=== PATIENT | female | born 1930 | race Caucasian/White ===

== ENCOUNTER 2018-01-23 20:34 | Emergency (ER) | payer MEDICARE, BC ==
[2018-01-23 21:11] VITALS: RESP 18
[2018-01-23] MEDS ORDERED: ACETAMINOPHEN TAB 325 MG TAB PO STA (21:53)
[2018-01-23] MEDS ORDERED: DIPH,PERTUS(ACELL)TETVAC-LF 0.5 ML VIAL IM ONE (21:55)
--- NOTE | 2018-01-23 22:12 | ED ---
Fall HPI - General Chief Complaint: Fall Stated Complaint: fall/hit head Time Seen by Provider: 01/23/18 21:30 Source: patient Mode of arrival: ambulatory - History of Present Illness Initial Comments: 87 years old female lives with her daughter she was in the kitchen making appearing of her jelly sandwich she fell she on her way down and she hit her head against a hard object now she has a hematoma on the left side of the scalp and also hurt her left upper arm she denies any loss of consciousness no neck pain no chest pain she was not dizzy prior to the fall which is an accident and review of system otherwise is unremarkable her daughter witnessed the fall she was just sitting few feet sensory - Related Data Allergies Allergy/AdvReac Type Severity Reaction Status Date / Time nitrofurantoin Allergy Unknown Verified 01/23/18 21:11 [From Macrobid] Penicillins Allergy Unknown Verified 01/23/18 21:11 sulfamethoxazole Allergy Unknown Verified 01/23/18 21:11 [From Bactrim] trimethoprim [From Bactrim] Allergy Unknown Verified 01/23/18 21:11 Review of Systems ROS Statement: Those systems with pertinent positive or pertinent negative responses have been documented in the HPI. ROS Other: All systems not noted in ROS Statement are negative. Past Medical History Past Medical History: GERD/Reflux, Hypertension Additional Past Medical History / Comment(s): UTI History of Any Multi-Drug Resistant Organisms: C-DIFF Date of last positivie culture/infection: 2011 MDRO Source:: stool Past Surgical History: Appendectomy, Hysterectomy Past Psychological History: No Psychological Hx Reported Smoking Status: Never smoker Past Alcohol Use History: None Reported Past Drug Use History: None Reported General Exam - General Exam Comments Initial Comments: General: The patient is awake and alert, in no distress, and does not appear acutely ill. Skin: Skin is warm and dry and no rashes or lesions are noted. Noticed a 3 x 2 cm hematoma on the left side of the scalp Eye: Pupils are equal, round and reactive to light, extra-ocular movements are intact; there is normal conjunctiva bilaterally. Ears, nose, mouth and throat: There are moist mucous membranes and no oral lesions. Neck: The neck is supple, there is no tenderness over the cervical spine, range of motion is excellent no focal area of tenderness noticed over the cervical spine no signs of meningitis Cardiovascular: There is a regular rate and rhythm. No murmur, rub or gallop is appreciated. Respiratory: To auscultation bilateral, no wheezing no rhonchi no distress respiratory kennedy noticed Gastrointestinal: Soft, non-distended, non-tender abdomen without masses or organomegaly noted. There is no rebound or guarding present. Bowel sounds are unremarkable. Back: There is no tenderness to palpation in the midline. There is no obvious deformity. Musculoskeletal: Normal ROM over the both shoulders noticed a bruise on the mid left humeral region with mild tenderness to the area range of motion of the left shoulder as well as left elbow is excellent no neurovascular compromise noticed in the distal left upper extremity Neurological: CN II-XII intact, Cranial nerves III through XII are intact. There are no obvious motor or sensory deficits. Coordination appears grossly intact. Speech is normal. Psychiatric: Cooperative, appropriate mood & affect, normal judgment. Limitations: no limitations Course Vital Signs 01/23/18 01/23/18 01/23/18 21:06 23:26 23:38 Temperature 98.0 F 98.4 F Pulse Rate 101 H 65 66 Respiratory 18 18 18 Rate Blood Pressure 195/79 198/84 206/84 O2 Sat by Pulse 97 98 97 Oximetry She was reassessed, head CT is normal, x-ray of the left humerus is normal per pressure is elevated but she missed her blood pressure dose which she routinely takes at 9 PM daily, she is accompanied by her daughter and she plans to give her blood pressure medication as soon as she goes home unfortunately she does not know what pills she takes , etc. sublingual was tried to temporize the situation Disposition Clinical Impression: Fall, Head injury, Arm contusion Disposition: HOME SELF-CARE Instructions: Fall Prevention for Older Adults (ED) Is patient prescribed a controlled substance at d/c from ED?: No If prescribed controlled substance>3 days was MAPS reviewed?: No When asked, does pt state using other controlled substances?: No Referrals: None,Stated [Primary Care Provider] - 1-2 days
--- NOTE | 2018-01-23 22:26 | XR ---
History arm pain. Comparison none. Technique 2 views. FINDINGS: I see no fracture nor dislocation. Shoulder joint and elbow joint appear intact. CONCLUSION: Negative left humerus exam.
--- NOTE | 2018-01-23 22:41 | CT ---
EXAMINATION TYPE: CT brain wo con DATE OF EXAM: 01/23/2018 COMPARISON: NONE HISTORY: Fall, left sided head injury. CT DLP: 742.7 mGycm Automated exposure control for dose reduction was used. FINDINGS: There is cerebral cortical atrophy. There is no mass effect nor midline shift. I see no evidence of i ntracranial hemorrhage. The calvarium is intact. IMPRESSION: CEREBRAL ATROPHY. NO ACUTE INTRACRANIAL ABNORMALITY.
[2018-01-23] MEDS ORDERED: NITROGLYCERIN SL TABS 0.4 MG TAB SUBLINGUAL STA (23:28)
[2018-01-24 00:10] VITALS: BP 162/76; PULSE 79; TEMP 97.9
== END 2018-01-24 00:10 | disposition home or self-care (01) ==
LOC: EC 20:34
DX: S00.03XA Contusion of scalp, initial encounter (principal); S40.012A Contusion of left shoulder, initial encounter; I10 Essential (primary) hypertension; Z23 Encounter for immunization; Z88.1 Allergy status to other antibiotic agents; Z88.0 Allergy status to penicillin; Z88.2 Allergy status to sulfonamides; W01.198A Fall on same level from slipping, tripping and stumbling with subsequent striking against other object, initial encounter; Y93.G3 Activity, cooking and baking; Y92.000 Kitchen of unspecified non-institutional (private) residence as the place of occurrence of the external cause
CPT/HCPCS: 70450; 90471; 90715; 99284

== ENCOUNTER 2018-06-01 13:32 | Inpatient (IN) | payer MEDICARE ==
[2018-06-01] MEDS ORDERED: SODIUM CHLORIDE 0.9% 1,000 ML IV STA (14:46)
[2018-06-01] MEDS ORDERED: ONDANSETRON 4 MG/2 ML VIAL IVP STA (14:46)
[2018-06-01] MEDS ORDERED: ACETAMINOPHEN IV (For NPO) 1,000 MG in EMPTY BAG 1 BAG IVPB STA (14:46)
--- NOTE | 2018-06-01 14:48 | ED ---
General Adult HPI - General Chief complaint: Abdominal Pain Stated complaint: constipation Time Seen by Provider: 06/01/18 14:33 Source: patient, family, RN notes reviewed Mode of arrival: wheelchair Limitations: no limitations - History of Present Illness Initial comments: Patient's a 87-year-old female presented to the emergency room today with a chief complaint of increased abdominal pain over the last 8 days. States she's not had a bowel movement. States she's not passing flatulence. Patient does admit that she's had some nausea vomiting. She has tried [id number] suppositories, laxative, enema with no success of a bowel movement. Patient does admit that her abdomen feels more distended. She does admit to some cramping lower abdomen. She denies any other complaints. Patient denies any recent fever, chills, shortness of breath, chest pain, back pain, numbness or tingling, dysuria or hematuria, diarrhea, headaches or visual changes, or any other complaints. - Related Data Home Medications Medication Instructions Recorded Confirmed Aspirin EC [Ecotrin Low Dose] 81 mg PO DAILY 06/01/18 06/01/18 Cholecalciferol (Vitamin D3) 2,000 unit PO DAILY 06/01/18 06/01/18 [Vitamin D3] Dicyclomine [Bentyl] 10 mg PO BID 06/01/18 06/01/18 Doxazosin [Cardura] 2 mg PO HS 06/01/18 06/01/18 L.acidoph,Paracasei, B.lactis 1 cap PO DAILY 06/01/18 06/01/18 [Probiotic] Omeprazole 20 mg PO 06/01/18 06/01/18 Sertraline [Zoloft] 100 mg PO DAILY 06/01/18 06/01/18 Sodium Chloride 5% Ophth Soln 1 drops BOTH EYES QID 06/01/18 06/01/18 [Virginie 128] Tiotropium Logan [Spiriva] 1 cap INHALATION RT-HS 06/01/18 06/01/18 Trimethoprim [Trimpex] 100 mg PO 06/01/18 06/01/18 Vancomycin HCl [Vancocin HCl] 125 mg PO HS 06/01/18 06/01/18 Vitamin B Complex 1 cap PO DAILY 06/01/18 06/01/18 amLODIPine [Norvasc] 5 mg PO DAILY 06/01/18 06/01/18 Allergies Allergy/AdvReac Type Severity Reaction Status Date / Time nitrofurantoin Allergy Unknown Verified 06/01/18 14:52 [From Macrobid] Penicillins Allergy Unknown Verified 06/01/18 14:52 sulfamethoxazole Allergy Unknown Verified 06/01/18 14:52 [From Bactrim] trimethoprim [From Bactrim] Allergy Unknown Verified 06/01/18 14:52 Review of Systems ROS Statement: Those systems with pertinent positive or pertinent negative responses have been documented in the HPI. ROS Other: All systems not noted in ROS Statement are negative. Past Medical History Past Medical History: Dementia, GERD/Reflux, Hypertension Additional Past Medical History / Comment(s): UTI History of Any Multi-Drug Resistant Organisms: C-DIFF Date of last positivie culture/infection: 2011 MDRO Source:: stool Past Surgical History: Appendectomy, Hysterectomy Past Psychological History: No Psychological Hx Reported Smoking Status: Never smoker Past Alcohol Use History: None Reported Past Drug Use History: None Reported General Exam - General Exam Comments Initial Comments: General: The patient is awake and alert, in no distress, and does not appear acutely ill. Eye: Extra-ocular movements are intact. No nystagmus. There is normal conjunctiva bilaterally. No signs of icterus. Ears, nose, mouth and throat: There are moist mucous membranes and no oral lesions. Neck: The neck is supple, there is no tenderness or JVD. Cardiovascular: There is a regular rate and rhythm. No murmur, rub or gallop is appreciated. Respiratory: Lungs are clear to auscultation, respirations are non-labored, breath sounds are equal. No wheezes, stridor, rales, or rhonchi. Gastrointestinal: Mildly distended abdomen. Soft on palpation. Discomfort to the lower quadrant on palpation. No rebound, guarding, CVA tenderness. Musculoskeletal: Normal ROM, no tenderness. Sensation intact. Strength 5/5. Pulses equal bilaterally 2+. Neurological: A&O x 3. CN II-XII intact, There are no obvious motor or sensory deficits. Coordination appears grossly intact. Speech is normal. Skin: Skin is warm and dry and no rashes or lesions are noted. Psychiatric: Cooperative, appropriate mood & affect, normal judgment. Limitations: no limitations Course Vital Signs 06/01/18 06/01/18 13:57 15:16 Temperature 98.7 F Pulse Rate 93 76 Respiratory 18 18 Rate Blood Pressure 157/79 199/88 O2 Sat by Pulse 97 97 Oximetry Medical Decision Making - Medical Decision Making Patient's reexamined at this time is resting comfortably. Patient initial CT report was unable to be officially read and a soft rate was called to the ED physician Dr. Garcia stating that there was some liquid stool no sign of an SBO. Official read has been red and does show evidence for possible sigmoid diverticulitis. Prior to official read patient was given soapsuds enema to help with constipation symptoms. She's had no relief with this. Patient states she has a history of diverticulitis in the past.Case discussed in detail with attending physician Dr. Berg who did discuss the case with admitting physician Dr. Ronquillo who recommends starting IV antibiotics. - Lab Data Result diagrams: 06/01/18 14:36 06/01/18 14:36 Lab Results 06/01/18 06/01/18 06/01/18 Range/Units 14:36 14:36 15:49 WBC 11.2 H (3.8-10.6) k/uL RBC 4.96 (3.80-5.40) m/uL Hgb 13.9 (11.4-16.0) gm/dL Hct 41.5 (34.0-46.0) % MCV 83.7 (80.0-100.0) fL MCH 27.9 (25.0-35.0) pg MCHC 33.4 (31.0-37.0) g/dL RDW 13.5 (11.5-15.5) % Plt Count 280 (150-450) k/uL Neutrophils % 88 % Lymphocytes % 8 % Monocytes % 4 % Eosinophils % 0 % Basophils % 0 % Neutrophils # 9.8 H (1.3-7.7) k/uL Lymphocytes # 0.9 L (1.0-4.8) k/uL Monocytes # 0.4 (0-1.0) k/uL Eosinophils # 0.0 (0-0.7) k/uL Basophils # 0.0 (0-0.2) k/uL Sodium 139 (137-145) mmol/L Potassium 3.5 (3.5-5.1) mmol/L Chloride 103 (98-107) mmol/L Carbon Dioxide 24 (22-30) mmol/L Anion Gap 12 mmol/L BUN 16 (7-17) mg/dL Creatinine 1.13 H (0.52-1.04) mg/dL Est GFR (CKD-EPI)AfAm 51 (>60 ml/min/1.73 sqM) Est GFR (CKD-EPI)NonAf 44 (>60 ml/min/1.73 sqM) Glucose 119 H (74-99) mg/dL Calcium 9.2 (8.4-10.2) mg/dL Total Bilirubin 0.6 (0.2-1.3) mg/dL AST 19 (14-36) U/L ALT 25 (9-52) U/L Alkaline Phosphatase 68 (38-126) U/L Total Protein 7.2 (6.3-8.2) g/dL Albumin 3.8 (3.5-5.0) g/dL Amylase 31 (30-110) U/L Lipase 18 L (23-300) U/L Urine Color Yellow Urine Appearance Cloudy H (Clear) Urine pH 6.0 (5.0-8.0) Ur Specific [place] 1.021 (1.001-1.035) Urine Protein 2+ H (Negative) Urine Glucose (UA) Negative (Negative) Urine Ketones Trace H (Negative) Urine Blood Negative (Negative) Urine Nitrite Negative (Negative) Urine Bilirubin 1+ H (Negative) Urine Urobilinogen 2.0 (<2.0) mg/dL Ur Leukocyte Esterase Trace H (Negative) Urine RBC 1 (0-5) /hpf Urine WBC 12 H (0-5) /hpf Ur Squamous Epith Cells 1 (0-4) /hpf Urine Bacteria Rare H (None) /hpf Hyaline Casts 3 H (0-2) /lpf Urine Mucus Rare H (None) /hpf Disposition Clinical Impression: Sigmoid diverticulitis Disposition: ADMITTED IP TO THIS HOSP Condition: Good Is patient prescribed a controlled substance at d/c from ED?: No Referrals: Nonstaff,Physician [Primary Care Provider] - 1-2 days Time of Disposition: 17:31
[2018-06-01 14:57] LABS: Basophils % (A) 0 %; Eosinophils % (A) 0 %; HCT 41.5 % (34.0-46.0); HGB 13.9 gm/dL (11.4-16.0); Lymphocytes # (A) 0.9 k/uL (1.0-4.8); Lymphocytes % (A) 8 %; MCH 27.9 pg (25.0-35.0); MCHC 33.4 g/dL (31.0-37.0); MCV 83.7 fL (80.0-100.0); Mean Platelet Volume 6.8; Monocytes # (A) 0.4 k/uL (0-1.0); Monocytes % (A) 4 %; Neutrophils # (A) 9.8 k/uL (1.3-7.7); Neutrophils % (A) 88 %; Platelet Count 280 k/uL (150-450); RBC 4.96 m/uL (3.80-5.40); RDW 13.5 % (11.5-15.5); WBC 11.2 k/uL (3.8-10.6)
[2018-06-01 15:00] LABS: Albumin 3.8 g/dL (3.5-5.0); Calcium 9.2 mg/dL (8.4-10.2); Potassium 3.5 mmol/L (3.5-5.1); Total Bilirubin 0.6 mg/dL (0.2-1.3); Total Protein 7.2 g/dL (6.3-8.2)
--- NOTE | 2018-06-01 15:00 | XR ---
EXAMINATION TYPE: XR KUB DATE OF EXAM: 06/01/2018 CLINICAL DATA: 87-year-old female abdominal pain and back pain, vomiting yesterday, [facility] COMPARISON: None FINDINGS: Heart borderline in size. Lung bases clear. No evidence for free intraperitoneal air. This seems to be scattered air-fluid levels with the right hemicolonic distention with air and fluid levels measuring up to 8.5 CM. IMPRESSION: Right-sided colonic distention measuring up to 8.5 cm with air-fluid levels. Correlate for ileus or c olonic obstruction.
[2018-06-01 16:24] LABS: Appearance,Urine Cloudy (Clear); Bacteria,Urine Rare /hpf; Bilirubin,Urine 1+ (Negative); Blood,Urine Negative (Negative); Color,Urine Yellow; Glucose,Urine (UA) Negative (Negative); Hyaline Casts,Urine 3 /lpf (0-2); Ketones,Urine Trace (Negative); Leukocyte Esterase,Urine Trace (Negative); Mucus,Urine Rare /hpf; Nitrite,Urine Negative (Negative); Protein,Urine 2+ (Negative); RBC,Urine 1 /hpf (0-5); Specific Gravity,Urine 1.021 (1.001-1.035); Squamous Epithelial Cell,Urine 1 /hpf (0-4); WBC,Urine 12 /hpf (0-5)
--- NOTE | 2018-06-01 17:01 | CT ---
EXAMINATION TYPE: CT abdomen pelvis wo con DATE OF EXAM: 06/01/2018 COMPARISON: None HISTORY: Abdominal pain. CT DLP: 565 mGycm Automated exposure control for dose reduction was used. TECHNIQUE: Helical acquisition of images was performed from the lung bases through the pelvis. FINDINGS: Lung bases are clear. There is no pleural effusion. Abdominal aorta is atheromatous. There are small hiatal hernia. Liver spleen pancreas appear normal. Bile ducts are not dilated. There is atherosclerotic vascular ca lcification. Gallbladder appears to have small calcified gallstones in the dependent gallbladder. Right kidney shows cortical thinning. There is fat stranding around the right kidney. There is no hyd ronephrosis. Ureters are not dilated. There is no retroperitoneal adenopathy. There is retained fecal material throughout the colon. There are sigmoid diverticula. There is no lio e fluid. There is minimal fat stranding around the mid sigmoid colon. Appendix is not seen. There is no sign of appendicitis. IMPRESSION: CONSTIPATION. SIGMOID DIVERTICULOSIS. THERE IS EVIDENCE FOR MINIMAL DIVERTICULITIS IN THE MID SIGMOID COLON. 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 NO RENAL OBSTRUCTION. SMALL CALCIFIED GALLSTONES. SMALL HIATAL HERNIA.
[2018-06-01] MEDS ORDERED: CIPROFLOXACIN HCL 500 MG TAB PO STA (17:32)
[2018-06-01] MEDS ORDERED: metroNIDAZOLE 500 MG TAB PO STA (17:32)
[2018-06-01] MEDS ORDERED: metroNIDAZOLE-NS PMX 500 MG in SALINE 1 100ML.BAG IVPB STA (17:37)
[2018-06-01] MEDS ORDERED: cefTRIAXone IN SWFI 1,000 MG/10 ML SYRINGE IVP STA (17:37)
[2018-06-01] MEDS ORDERED: NALOXONE 0.4 MG/ML 1 ML VIAL IV PRN (17:39)
[2018-06-01] MEDS ORDERED: MORPHINE SULFATE 4 MG/ML SYRINGE IV PRN (17:39)
[2018-06-01] MEDS ORDERED: SODIUM CHLORIDE 0.9% 1,000 ML IV ONE (17:39)
[2018-06-01] MEDS ORDERED: hydrALAZINE HCL 20 MG/ML 1 ML VIAL IVP STA (17:54)
[2018-06-01] MEDS: ACETAMINOPHEN IV (For NPO) 1,000 MG in EMPTY BAG 1 BAG IVPB SCH (20:08)
[2018-06-01] MEDS ORDERED: CIPROFLOXACIN HCL 500 MG TAB PO SCH (21:00)
[2018-06-01] MEDS ORDERED: ENALAPRILAT 1.25 MG/ML 1 ML VIAL IVP PRN (21:02)
[2018-06-01] MEDS ORDERED: metroNIDAZOLE 500 MG TAB PO SCH (22:00)
[2018-06-01] MEDS: hydrALAZINE HCL 50 MG TAB PO SCH (22:35)
[2018-06-02] MEDS: metroNIDAZOLE-NS PMX 500 MG in SALINE 1 100ML.BAG IVPB SCH ×3 (00:25→16:06)
[2018-06-02] MEDS: ACETAMINOPHEN IV (For NPO) 1,000 MG in EMPTY BAG 1 BAG IVPB SCH ×3 (03:47→13:41)
[2018-06-02 08:23] LABS: Basophils % (A) 0 %; Eosinophils # (A) 0.1 k/uL (0-0.7); Eosinophils % (A) 1 %; HCT 34.6 % (34.0-46.0); HGB 11.1 gm/dL (11.4-16.0); Lymphocytes # (A) 0.9 k/uL (1.0-4.8); Lymphocytes % (A) 9 %; MCH 27.1 pg (25.0-35.0); MCHC 32.1 g/dL (31.0-37.0); MCV 84.4 fL (80.0-100.0); Mean Platelet Volume 7.6; Monocytes # (A) 0.4 k/uL (0-1.0); Monocytes % (A) 4 %; Neutrophils % (A) 85 %; Platelet Count 272 k/uL (150-450); RDW 13.5 % (11.5-15.5); WBC 10.5 k/uL (3.8-10.6)
[2018-06-02 08:40] LABS: Calcium 8.4 mg/dL (8.4-10.2); Potassium 3.3 mmol/L (3.5-5.1); Total Bilirubin 0.5 mg/dL (0.2-1.3); Total Protein 5.9 g/dL (6.3-8.2)
[2018-06-02] MEDS: hydrALAZINE HCL 50 MG TAB PO SCH ×4 (10:07→22:01)
--- NOTE | 2018-06-02 17:39 | HP ---
HISTORY AND PHYSICAL CHIEF COMPLAINT: Abdominal pain. HISTORY OF PRESENT ILLNESS: This is the first known admission for this 87-year-old white female. History is difficult to obtain. She apparently came to the emergency room with a history of abdominal pain and was found to have diverticulitis. History was not easy to obtain. REVIEW OF SYSTEMS: Past medical history, family history personal and social histories are unobtainable. PHYSICAL EXAMINATION: Blood pressure was 148/85 with a pulse of 73, respirations of 14 and she is afebrile. In general, she appeared to be somewhat lethargic. Skin color is normal. Skin is warm and dry. Lymph nodes are not enlarged. Head, ears, eyes, nose, mouth and throat were normal. Neck veins were not distended. Chest is clear to auscultation and percussion. Cardiac is normal sinus rhythm. Abdomen is slightly protuberant. She had some mild tenderness in the lower aspect. There are no definite masses. EXTREMITIES: Normal. Neurologically, she was lethargic and had difficulty answering questions. IMPRESSION: 1. Possible diverticulitis. 2. ? dementia. 3. Hypertension. 4. Cardiac murmur. 5. ? atrial fibrillation. 6. ? dementia. PLAN: 1. Bed rest. 2. IV fluids. 3. IV antibiotics. 4. Further workup and evaluation. MMODL / IJN: [id number] /
[2018-06-02] MEDS ORDERED: Potassium Replacement Protocol 1 EACH MISC MISCELLANE PRN (18:27)
[2018-06-02] MEDS ORDERED: FUROSEMIDE 10 MG/ML 2 ML VIAL IV ONE (18:37)
[2018-06-02] MEDS: ONDANSETRON 4 MG/2 ML VIAL IVP PRN (19:03)
[2018-06-02 19:33] LABS: Basophils % (A) 0 %; Eosinophils # (A) 0.1 k/uL (0-0.7); Eosinophils % (A) 1 %; HCT 38.5 % (34.0-46.0); HGB 12.3 gm/dL (11.4-16.0); Lymphocytes # (A) 1.3 k/uL (1.0-4.8); Lymphocytes % (A) 8 %; MCH 27.1 pg (25.0-35.0); MCV 84.5 fL (80.0-100.0); Mean Platelet Volume 7.7; Monocytes # (A) 0.5 k/uL (0-1.0); Monocytes % (A) 3 %; Neutrophils # (A) 14.2 k/uL (1.3-7.7); Neutrophils % (A) 88 %; Platelet Count 338 k/uL (150-450); RBC 4.55 m/uL (3.80-5.40); RDW 13.7 % (11.5-15.5); WBC 16.2 k/uL (3.8-10.6)
[2018-06-02 19:37] LABS: Calcium 8.8 mg/dL (8.4-10.2); Potassium 3.7 mmol/L (3.5-5.1)
--- NOTE | 2018-06-02 19:42 | XR ---
EXAMINATION: XR chest 1V portable DATE AND TIME: 06/02/2018 7:07 PM CLINICAL INDICATION: sob TECHNIQUE: AP upright portable COMPARISON: Lung base CT images 06/01/2018 FINDINGS: The lungs are clear. The pleural spaces are negative. The cardiac silhouette is mildly enlarged. The remainder of the mediastinal silhouette is unremarkable. The skeletal structures and soft tissues are negative for acute findings. IMPRESSION: NO ACUTE PROCESS.
[2018-06-02] MEDS: IPRATROPIUM-ALBUTEROL 3 ML NEB INHALATION SCH (19:53)
[2018-06-02] MEDS: POTASSIUM CHLORIDE ER 20 MEQ TAB.ER PO SCH ×2 (20:35→20:38)
[2018-06-02] MEDS: SODIUM CHLORIDE 0.9% 1,000 ML IV SCH (20:36)
[2018-06-02] MEDS: cefTRIAXone IN SWFI 1,000 MG/10 ML SYRINGE IVP SCH (21:02)
[2018-06-02] MEDS ORDERED: FUROSEMIDE 10 MG/ML 4 ML VIAL IV STA (21:09)
[2018-06-02] MEDS ORDERED: DILTIAZEM DRIP BOLUS FROM BAG 1 MG SOLN IV ONE (21:10)
[2018-06-02] MEDS: POTASSIUM CHLORIDE 10 MEQ in WATER FOR INJECTION 1 100ML.BAG IVPB SCH (21:38)
[2018-06-02] MEDS: DILTIAZEM 50 MG in SODIUM CHLORIDE 0.9% 40 ML IV SCH (23:14)
[2018-06-03] MEDS ORDERED: IPRATROPIUM-ALBUTEROL 3 ML NEB INHALATION PRN (00:54)
[2018-06-03] MEDS: IPRATROPIUM-ALBUTEROL 3 ML NEB INHALATION SCH ×5 (00:55→19:40)
[2018-06-03] MEDS: metroNIDAZOLE-NS PMX 500 MG in SALINE 1 100ML.BAG IVPB SCH ×3 (02:04→16:00)
[2018-06-03] MEDS: POTASSIUM CHLORIDE 10 MEQ in WATER FOR INJECTION 1 100ML.BAG IVPB SCH ×2 (04:42→04:43)
[2018-06-03 06:25] LABS: Magnesium 1.5 mg/dL (1.6-2.3); Potassium 3.7 mmol/L (3.5-5.1)
[2018-06-03] MEDS: DILTIAZEM 50 MG in SODIUM CHLORIDE 0.9% 40 ML IV SCH (06:59)
[2018-06-03] MEDS: hydrALAZINE HCL 50 MG TAB PO SCH ×3 (08:30→16:11)
[2018-06-03] MEDS ORDERED: Magnesium Replacement Protocol 1 EACH MISC MISCELLANE PRN (11:36)
[2018-06-03] MEDS ORDERED: Potassium Replacement Protocol 1 EACH MISC MISCELLANE PRN (11:36)
[2018-06-03] MEDS ORDERED: POTASSIUM CHLORIDE ER 20 MEQ TAB.ER PO SCH (12:00)
[2018-06-03 12:02] LABS: Basophils % (A) 0 %; Eosinophils # (A) 0.1 k/uL (0-0.7); Eosinophils % (A) 1 %; HCT 33.5 % (34.0-46.0); HGB 11.1 gm/dL (11.4-16.0); Hypochromasia Slight; Lymphocytes # (A) 0.7 k/uL (1.0-4.8); Lymphocytes % (A) 5 %; MCH 28.3 pg (25.0-35.0); MCV 85.8 fL (80.0-100.0); Mean Platelet Volume 7.1; Monocytes # (A) 0.4 k/uL (0-1.0); Monocytes % (A) 3 %; Neutrophils # (A) 12.5 k/uL (1.3-7.7); Neutrophils % (A) 91 %; Platelet Count 296 k/uL (150-450); RDW 13.7 % (11.5-15.5); WBC 13.8 k/uL (3.8-10.6)
--- NOTE | 2018-06-03 12:07 | ECHOF ---
Referral Reason:atrial fibrillation MEASUREMENTS -------- HEIGHT: 165.1 cm WEIGHT: 76.2 kg BP: 142/91 RVIDd: 2.8 cm (< 3.3) IVSd: 1.4 cm (0.6 - 1.1) LVIDd: 4.7 cm (3.9 - 5.3) LVPWd: 1.3 cm (0.6 - 1.1) IVSs: 1.7 cm LVIDs: 3.3 cm LVPWs: 1.7 cm LA Diam: 4.6 cm (2.7 - 3.8) LAESV Index (A-L): 34.63 ml/m Ao Diam: 3.1 cm (2.0 - 3.7) AV Cusp: 0.7 cm (1.5 - 2.6) LA Diam: 3.8 cm (2.7 - 3.8) MV EXCURSION: 17.701 mm (> 18.000) MV EF SLOPE: 70 mm/s (70 - 150) EPSS: 0.5 cm MV E Daniele: 0.58 m/s MV DecT: 162 ms MV A Daniele: 0.99 m/s MV E/A Ratio: 0.58 AV maxP.89 mmHg AV meanP.12 mmHg RAP: 5.00 mmHg RVSP: 53.37 mmHg FINDINGS -------- Atrial fibrillation. This was a technically adequate study. The left ventricular size is normal. There is mild concentric left ventricular hypertrophy. Overa ll left ventricular systolic function is normal with, an EF between 60 - 65 %. The right ventricle is normal in size. The left atrial size is normal. LA is severely dilated >40 ml/m2 The right atrial size is normal. There is mild aortic valve sclerosis. There is moderate aortic stenosis present. Peak/mean gradie nt across the Aortic Valve is 32.89mmHg / 16.12mmHg. Mild mitral annular calcification present. Mild mitral regurgitation is present. Mild tricuspid regurgitation present. There is moderate pulmonary hypertension. The right ventric ular systolic pressure, as measured by Doppler, is 53.37mmHg. There is no pulmonic regurgitation present. The aortic root size is normal. Echo free space represents a pericardial fat pad. CONCLUSIONS -------- 1. The left ventricular size is normal. 2. There is mild concentric left ventricular hypertrophy. 3. Overall left ventricular systolic function is normal with, an EF between 60 - 65 %. 4. The right ventricle is normal in size. 5. The left atrial size is normal. 6. LA is severely dilated >40 ml/m2 7. The right atrial size is normal. 8. There is mild aortic valve sclerosis. 9. There is moderate aortic stenosis present. 10. Peak/mean gradient across the Aortic Valve is 32.89mmHg / 16.12mmHg. 11. Mild mitral annular calcification present. 12. Mild mitral regurgitation is present. 13. Mild tricuspid regurgitation present. 14. There is moderate pulmonary hypertension. 15. The right ventricular systolic pressure, as measured by Doppler, is 53.37mmHg. 16. There is no pulmonic regurgitation present. 17. The aortic root size is normal. 18. Echo free space represents a pericardial fat pad. PHOTOGRAPHER LITHOGRAPHIC: Sydni Mcpherson RDCS
[2018-06-03 12:21] LABS: Albumin 3.2 g/dL (3.5-5.0); Calcium 8.4 mg/dL (8.4-10.2); Potassium 3.3 mmol/L (3.5-5.1); Total Bilirubin 0.5 mg/dL (0.2-1.3); Total Protein 6.3 g/dL (6.3-8.2)
[2018-06-03] MEDS: MAGNESIUM SULFATE-D5W PMX 1 GM in DEXTROSE/WATER 1 100ML.BAG IVPB SCH ×2 (12:35→14:35)
[2018-06-03] MEDS: METOPROLOL TARTRATE 50 MG TAB PO SCH (12:35)
[2018-06-03] MEDS: APIXABAN 2.5 MG TABLET PO SCH (12:36)
[2018-06-03] MEDS: SODIUM CHLORIDE 5% OPHTH DROPS 15 ML BTL BOTH EYES SCH ×2 (14:35→17:10)
--- NOTE | 2018-06-03 15:03 | P.CRDCN ---
History of Present Illness Consult date: 06/03/18 Requesting physician: Glenn Ronquillo Reason for Consult (text): atrial fibrillation with RVR Chief complaint: constipation History of present illness: this is a pleasant 87-year-old female patient with history of significant dementia for that reason HPI and patient's history was obtained from the chart and the patient's son. She does have a history of high blood pressure. She initially presented to the emergency department due to constipation. According to the son, patient had not had a bowel movement in 10 days. She was initially admitted to the fourth floor. We were asked to the patient in consultation after patient was noted to be in atrial fibrillation with rapid ventricular response. She was started on a Cardizem drip and heart rate is better controlled. She was also noted to have abnormal troponins. Initial EKG on admission showed sinus rhythm with PVCs. Laboratory values showed a BUN of 20 and creatinine 1.2 with a magnesium of 1.5 and potassium 3.3 this morning. Upon examination, patient is resting completely embedded. She denies complaints of chest discomfort, palpitations or shortness of breath. She does complain of some abdominal distention, bloating and constipation. Past Medical History Past Medical History: Dementia, GERD/Reflux, Hypertension Additional Past Medical History / Comment(s): frequent UTI's, past falls. hx c- diff 2011. uses magnifying glass to read.PT STATED HAS HAD THE PNE AND SHINGLES VACCINE BUT NOT SURE OF THE DATES. PACKER INSPECTOR UNABLE TO VERIFY DATE AT TIME OF THIS ADMIT. History of Any Multi-Drug Resistant Organisms: C-DIFF Date of last positivie culture/infection: 2011 MDRO Source:: stool Past Surgical History: Appendectomy, Hysterectomy Additional Past Surgical History / Comment(s): lasik eye sx Past Anesthesia/Blood Transfusion Reactions: No Reported Reaction Additional Past Anesthesia/Blood Transfusion Reaction / Comment(s): CLAUSTERPHOBIA Smoking Status: Never smoker - Past Family History Mother Family Medical History: Renal Disease Father Family Medical History: No Reported History Additional Family Medical History / Comment(s): IN A COAL MINE DISASTER IN HIS 30'S Medications and Allergies Home Medications Medication Instructions Recorded Confirmed Type Aspirin EC [Ecotrin Low Dose] 81 mg PO DAILY 06/01/18 06/01/18 History Cholecalciferol (Vitamin D3) 2,000 unit PO DAILY 06/01/18 06/01/18 History [Vitamin D3] Dicyclomine [Bentyl] 10 mg PO BID 06/01/18 06/01/18 History Doxazosin [Cardura] 2 mg PO HS 06/01/18 06/01/18 History L.acidoph,Paracasei, B.lactis 1 cap PO DAILY 06/01/18 06/01/18 History [Probiotic] Omeprazole 20 mg PO HS 06/01/18 06/01/18 History Sertraline [Zoloft] 100 mg PO DAILY 06/01/18 06/01/18 History Sodium Chloride 5% Ophth Soln 1 drops BOTH EYES QID 06/01/18 06/01/18 History [Virginie 128] Tiotropium [place] [Spiriva] 1 cap INHALATION RT-HS 06/01/18 06/01/18 History Trimethoprim [Trimpex] 100 mg PO HS 06/01/18 06/01/18 History Vancomycin HCl [Vancocin HCl] 125 mg PO HS 06/01/18 06/01/18 History Vitamin B Complex 1 cap PO DAILY 06/01/18 06/01/18 History amLODIPine [Norvasc] 5 mg PO DAILY 06/01/18 06/01/18 History Allergies Allergy/AdvReac Type Severity Reaction Status Date / Time nitrofurantoin Allergy Unknown Verified 06/01/18 14:52 [From Macrobid] Penicillins Allergy Unknown Verified 06/01/18 14:52 sulfamethoxazole Allergy Unknown Verified 06/01/18 14:52 [From Bactrim] trimethoprim [From Bactrim] Allergy Unknown Verified 06/01/18 14:52 Physical Exam Vitals: Vital Signs Temp Pulse Pulse Resp BP Pulse Ox 06/03/18 14:38 17 06/03/18 11:42 98 F 94 17 145/60 94 L 06/03/18 08:02 80 06/03/18 08:00 98.2 F 100 18 152/67 93 L 06/03/18 07:52 76 06/03/18 02:30 98.8 F 71 18 142/91 100 06/02/18 22:15 98.5 F 100 19 152/70 97 06/02/18 21:10 126 H 134/57 96 06/02/18 20:02 86 06/02/18 20:00 125 H 06/02/18 19:53 84 06/02/18 16:00 18 06/02/18 14:52 98.8 F 87 20 114/65 96 Intake and Output 06/02/18 06/03/18 06/03/18 22:59 06:59 14:59 Intake Total 73.75 0 Output Total 180 1 Balance -180 73.75 -1 Intake: Intake, IV Titration 73.75 Amount Diltiazem 50 mg In Sodium 73.75 Chloride 0.9% 40 ml @ 5 MG/HR 5 mls/hr IV .Q10H [facility] Rx#:[id number] Oral 0 Output: Urine 1 Post Void Residual 180 Other: Voiding Method Bedside Commode Bedside Commode Bedside Commode # Voids 1 4 Weight 76.3 kg PHYSICAL EXAMINATION: HEENT: [Head is atraumatic, normocephalic. Pupils equal, round. Neck is supple. There is no elevated jugular venous pressure.] HEART EXAMINATION: [Heart sounds irregularly irregular, S1 and S2 with a systolic ejection murmur.] CHEST EXAMINATION:[ Lungs are clear to auscultation and precussion. No chest wall tenderness is noted on palpation or with deep breathing.] ABDOMEN: [ Soft, nontender. Bowel sounds are heard. No organomegaly noted]. EXTREMITIES:[ 2+ peripheral pulses with no evidence of peripheral edema and no calf tenderness noted]. NEUROLOGIC [patient is awake, alert and oriented x2.] . Results 06/03/18 11:50 06/03/18 11:50 Cardiac Enzymes 06/02/18 06/03/18 06/03/18 Range/Units 21:17 07:56 11:50 AST 21 (14-36) U/L Troponin I 0.124 H* 0.169 H* (0.000-0.034) ng/mL CBC 06/02/18 06/03/18 Range/Units 19:09 11:50 WBC 16.2 H 13.8 H (3.8-10.6) k/uL RBC 4.55 3.90 (3.80-5.40) m/uL Hgb 12.3 11.1 L (11.4-16.0) gm/dL Hct 38.5 33.5 L (34.0-46.0) % Plt Count 338 296 (150-450) k/uL Comprehensive Metabolic Panel 06/02/18 06/03/18 06/03/18 Range/Units 19:09 05:42 11:50 Sodium 140 139 (137-145) mmol/L Potassium 3.7 3.7 3.3 L (3.5-5.1) mmol/L Chloride 105 105 (98-107) mmol/L Carbon Dioxide 21 L 21 L (22-30) mmol/L BUN 15 20 H (7-17) mg/dL Creatinine 1.15 H 1.20 H (0.52-1.04) mg/dL Glucose 92 99 (74-99) mg/dL Calcium 8.8 8.4 (8.4-10.2) mg/dL AST 21 (14-36) U/L ALT 30 (9-52) U/L Alkaline Phosphatase 50 (38-126) U/L Total Protein 6.3 (6.3-8.2) g/dL Albumin 3.2 L (3.5-5.0) g/dL Current Medications Generic Name Dose Route Start Last Admin Trade Name Freq PRN Reason Stop Dose Admin Acetaminophen 650 mg 06/02/18 18:27 Tylenol Tab PO Q6HR PRN Fever and/ or Mild Pain Albuterol/Ipratropium 3 ml 06/03/18 00:54 Duoneb 0.5 Mg-3 Mg/3 Ml Soln INHALATION RT-QID PRN Shortness Of Breath Or Wheezing Albuterol/Ipratropium 3 ml 06/03/18 08:00 06/03/18 11:10 Duoneb 0.5 Mg-3 Mg/3 Ml Soln INHALATION Not Given RT-QID ALY Apixaban 2.5 mg 06/03/18 12:00 06/03/18 12:36 Eliquis PO 2.5 mg BID ALY Administration Ceftriaxone Sodium 1,000 mg 06/02/18 18:00 06/02/18 21:02 Rocephin IVP 1,000 mg Q24H ALY Administration Enalaprilat 2.5 mg 06/01/18 21:02 Vasotec IVP Q6HR PRN Blood Pressure - High Hydralazine HCl 50 mg 06/01/18 22:00 06/03/18 12:36 Apresoline PO 50 mg QID ALY Administration Metronidazole 500 mg/ IV 100 mls @ 100 mls/hr 06/02/18 00:00 06/03/18 08:30 Solution IVPB 100 mls/hr Q8HR ALY Administration Sodium Chloride 1,000 mls @ 20 mls/hr 06/02/18 18:45 06/02/18 20:36 Saline 0.9% IV 20 mls/hr .Q24H ALY Administration Metoprolol Tartrate 50 mg 06/03/18 12:00 06/03/18 12:35 Lopressor PO 50 mg BID ALY Administration Miscellaneous Information 1 each 06/02/18 18:27 Potassium Per Protocol MISCELLANE DAILY PRN Per Protocol Protocol Miscellaneous Information 1 each 06/03/18 11:36 Magnesium Per Protocol MISCELLANE DAILY PRN Per Protocol Protocol Miscellaneous Information 1 each 06/03/18 11:36 Potassium Per Protocol MISCELLANE DAILY PRN Per Protocol Protocol Morphine Sulfate 4 mg 06/01/18 17:39 Morphine Sulfate (Inj) IV Q4HR PRN Severe Pain Naloxone HCl 0.2 mg 06/01/18 17:39 Narcan IV Q2M PRN Opioid Reversal Ondansetron HCl 4 mg 06/01/18 17:39 06/02/18 19:03 Zofran IVP 4 mg Q8HR PRN Administration Nausea And Vomiting Sodium Chloride 1 drops 06/03/18 13:00 06/03/18 14:35 Virginie 128 BOTH EYES Not Given QID ALY Intake and Output 06/02/18 06/03/18 06/03/18 22:59 06:59 14:59 Intake Total 73.75 0 Output Total 180 1 Balance -180 73.75 -1 Intake: Intake, IV Titration 73.75 Amount Diltiazem 50 mg In Sodium 73.75 Chloride 0.9% 40 ml @ 5 MG/HR 5 mls/hr IV .Q10H [facility] Rx#:[id number] Oral 0 Output: Urine 1 Post Void Residual 180 Other: Voiding Method Bedside Commode Bedside Commode Bedside Commode # Voids 1 4 Weight 76.3 kg 06/03/18 11:50 06/03/18 11:50 Assessment and Plan Assessment: #1 paroxysmal atrial fibrillation with rapid ventricular response #2 dementia #3 hypertension #4 systolic ejection murmur, likely aortic stenosis, awaiting echocardiogram results #5 constipation with possible diverticulitis currently on IV Flagyl #6 abnormal troponins Plan: From cardiology perspective, we will discontinue IV Cardizem and start the patient on metoprolol tartrate 50 mg by mouth twice a day. We will start the patient on anticoagulation. Although acute coronary event cannot be completely excluded, troponin elevation likely related to supply and demand mismatch. At this time we'll recommend medical management. We will follow the patient and provide further recommendations accordingly. COOLING PAN TENDER note has been reviewed, I agree with a documented findings and plan of care. Patient was seen and examined.
--- NOTE | 2018-06-03 15:07 | PN ---
PROGRESS NOTE DATE OF SERVICE: 06/02/2018 CHIEF COMPLAINT: Diverticulitis. HISTORY OF PRESENT ILLNESS: This lady still seems to be a little bit confused. She denies having significant pain. PHYSICAL EXAMINATION: Her chest is clear and cardiac exam is unchanged with a murmur. Abdomen seems soft and nontender. IMPRESSION: 1. Diverticulitis. 2. Murmur. 3. ? dementia. PLAN: Continue to follow abdominal findings as well as vital signs. MMODL / IJN: [id number] /
[2018-06-03] MEDS: cefTRIAXone IN SWFI 1,000 MG/10 ML SYRINGE IVP SCH (17:10)
[2018-06-03] MEDS ORDERED: MAGNESIUM CITRATE 296 ML BOTTLE PO ONE (17:28)
--- NOTE | 2018-06-03 17:38 | P.GSCN ---
History of Present Illness Consult date: 06/03/18 Reason for Consult: Diverticulitis History of present illness: 87-year-old female brought to the emergency department because of constipation and abdominal pain. Patient had a CAT scan performed 2 days ago which showed suspected mild sigmoid diverticulitis. The patient apparently has had some abdominal bloating. Soapsuds enemas were utilized with minimal stool production. She was having some nausea and vomiting but that is improved. Denies abdominal pain currently. Patient is afebrile. White blood cell count slightly elevated. Potassium and magnesium levels are low. Unclear when the patient's last colonoscopy was. History obtained primarily from the nursing staff and the chart. Identical the patient's daughter Cinthya but Her phone does not appear to be operating properly. Review of Systems The patient denies any acute changes in his vision or hearing, no dysphagia or odynophagia, no chest pain or shortness of breath, no dysuria or hematuria, no headache, no runny nose, no rectal bleeding or melena, no unexplained weight loss Past Medical History Past Medical History: Dementia, GERD/Reflux, Hypertension Additional Past Medical History / Comment(s): frequent UTI's, past falls. hx c- diff 2011. uses magnifying glass to read.PT STATED HAS HAD THE PNE AND SHINGLES VACCINE BUT NOT SURE OF THE DATES. DIGITAL COMMENTATOR UNABLE TO VERIFY DATE AT TIME OF THIS ADMIT. 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 IN HIS 30S Medications and Allergies Home Medications Medication Instructions Recorded Confirmed Type Aspirin EC [Ecotrin Low Dose] 81 mg PO DAILY 06/01/18 06/01/18 History Cholecalciferol (Vitamin D3) 2,000 unit PO DAILY 06/01/18 06/01/18 History [Vitamin D3] Dicyclomine [Bentyl] 10 mg PO BID 06/01/18 06/01/18 History Doxazosin [Cardura] 2 mg PO HS 06/01/18 06/01/18 History L.acidoph,Paracasei, B.lactis 1 cap PO DAILY 06/01/18 06/01/18 History [Probiotic] Omeprazole 20 mg PO HS 06/01/18 06/01/18 History Sertraline [Zoloft] 100 mg PO DAILY 06/01/18 06/01/18 History Sodium Chloride 5% Ophth Soln 1 drops BOTH EYES QID 06/01/18 06/01/18 History [Virginie 128] Tiotropium [place] [Spiriva] 1 cap INHALATION RT-HS 06/01/18 06/01/18 History Trimethoprim [Trimpex] 100 mg PO HS 06/01/18 06/01/18 History Vancomycin HCl [Vancocin HCl] 125 mg PO HS 06/01/18 06/01/18 History Vitamin B Complex 1 cap PO DAILY 06/01/18 06/01/18 History amLODIPine [Norvasc] 5 mg PO DAILY 06/01/18 06/01/18 History Allergies Allergy/AdvReac Type Severity Reaction Status Date / Time nitrofurantoin Allergy Unknown Verified 06/01/18 14:52 [From Macrobid] Penicillins Allergy Unknown Verified 06/01/18 14:52 sulfamethoxazole Allergy Unknown Verified 06/01/18 14:52 [From Bactrim] trimethoprim [From Bactrim] Allergy Unknown Verified 06/01/18 14:52 Surgical - Exam Vital Signs Temp Pulse Resp BP Pulse Ox 98.7 F 93 18 157/79 97 06/01/18 13:57 06/01/18 13:57 06/01/18 13:57 06/01/18 13:57 06/01/18 13:57 Physical exam: General: Well-developed, well-nourished HEENT: Normocephalic, sclerae nonicteric Abdomen: Nontender, Mildly distended Extremities: No edema Neuro: Slightly confused Results - Labs 06/03/18 11:50 06/03/18 11:50 Abnormal Lab Results - Last 24 Hours (Table) 06/02/18 06/02/18 06/02/18 Range/Units 19:09 19:09 21:17 WBC 16.2 H (3.8-10.6) k/uL Hgb (11.4-16.0) gm/dL Hct (34.0-46.0) % Neutrophils # 14.2 H (1.3-7.7) k/uL Lymphocytes # (1.0-4.8) k/uL D-Dimer 1.35 H (<0.60) mg/L FEU Potassium (3.5-5.1) mmol/L Carbon Dioxide 21 L (22-30) mmol/L BUN (7-17) mg/dL Creatinine 1.15 H (0.52-1.04) mg/dL Magnesium (1.6-2.3) mg/dL Troponin I (0.000-0.034) ng/mL Albumin (3.5-5.0) g/dL 06/02/18 06/03/18 06/03/18 Range/Units 21:17 05:42 07:56 WBC (3.8-10.6) k/uL Hgb (11.4-16.0) gm/dL Hct (34.0-46.0) % Neutrophils # (1.3-7.7) k/uL Lymphocytes # (1.0-4.8) k/uL D-Dimer (<0.60) mg/L FEU Potassium (3.5-5.1) mmol/L Carbon Dioxide (22-30) mmol/L BUN (7-17) mg/dL Creatinine (0.52-1.04) mg/dL Magnesium 1.5 L (1.6-2.3) mg/dL Troponin I 0.124 H* 0.169 H* (0.000-0.034) ng/mL Albumin (3.5-5.0) g/dL 06/03/18 06/03/18 06/03/18 Range/Units 11:50 11:50 11:50 WBC 13.8 H (3.8-10.6) k/uL Hgb 11.1 L (11.4-16.0) gm/dL Hct 33.5 L (34.0-46.0) % Neutrophils # 12.5 H (1.3-7.7) k/uL Lymphocytes # 0.7 L (1.0-4.8) k/uL D-Dimer 1.05 H (<0.60) mg/L FEU Potassium 3.3 L (3.5-5.1) mmol/L Carbon Dioxide 21 L (22-30) mmol/L BUN 20 H (7-17) mg/dL Creatinine 1.20 H (0.52-1.04) mg/dL Magnesium (1.6-2.3) mg/dL Troponin I (0.000-0.034) ng/mL Albumin 3.2 L (3.5-5.0) g/dL Diabetes panel 06/02/18 06/03/18 06/03/18 Range/Units 19: 05:42 11:50 Sodium 140 139 (137-145) mmol/L Potassium 3.7 3.7 3.3 L (3.5-5.1) mmol/L Chloride 105 105 (98-107) mmol/L Carbon Dioxide 21 L 21 L (22-30) mmol/L BUN 15 20 H (7-17) mg/dL Creatinine 1.15 H 1.20 H (0.52-1.04) mg/dL Glucose 92 99 (74-99) mg/dL Calcium 8.8 8.4 (8.4-10.2) mg/dL AST 21 (14-36) U/L ALT 30 (9-52) U/L Alkaline Phosphatase 50 (38-126) U/L Total Protein 6.3 (6.3-8.2) g/dL Albumin 3.2 L (3.5-5.0) g/dL Thyroid panel 06/03/18 Range/Units 07:56 TSH 1.270 (0.465-4.680) mIU/L Calcium panel 06/02/18 06/03/18 Range/Units 19: 11:50 Calcium 8.8 8.4 (8.4-10.2) mg/dL Albumin 3.2 L (3.5-5.0) g/dL Pituitary panel 06/02/18 06/03/18 06/03/18 Range/Units 19: 05:42 07:56 Sodium 140 (137-145) mmol/L Potassium 3.7 3.7 (3.5-5.1) mmol/L Chloride 105 (98-107) mmol/L Carbon Dioxide 21 L (22-30) mmol/L BUN 15 (7-17) mg/dL Creatinine 1.15 H (0.52-1.04) mg/dL Glucose 92 (74-99) mg/dL Calcium 8.8 (8.4-10.2) mg/dL TSH 1.270 (0.465-4.680) mIU/L 06/03/18 Range/Units 11:50 Sodium 139 (137-145) mmol/L Potassium 3.3 L (3.5-5.1) mmol/L Chloride 105 (98-107) mmol/L Carbon Dioxide 21 L (22-30) mmol/L BUN 20 H (7-17) mg/dL Creatinine 1.20 H (0.52-1.04) mg/dL Glucose 99 (74-99) mg/dL Calcium 8.4 (8.4-10.2) mg/dL TSH (0.465-4.680) mIU/L Adrenal panel 06/02/18 06/03/18 06/03/18 Range/Units 19:09 05:42 11:50 Sodium 140 139 (137-145) mmol/L Potassium 3.7 3.7 3.3 L (3.5-5.1) mmol/L Chloride 105 105 (98-107) mmol/L Carbon Dioxide 21 L 21 L (22-30) mmol/L BUN 15 20 H (7-17) mg/dL Creatinine 1.15 H 1.20 H (0.52-1.04) mg/dL Glucose 92 99 (74-99) mg/dL Calcium 8.8 8.4 (8.4-10.2) mg/dL Total Bilirubin 0.5 (0.2-1.3) mg/dL AST 21 (14-36) U/L ALT 30 (9-52) U/L Alkaline Phosphatase 50 (38-126) U/L Total Protein 6.3 (6.3-8.2) g/dL Albumin 3.2 L (3.5-5.0) g/dL Assessment and Plan (1) Sigmoid diverticulitis Narrative/Plan: Patient with CAT scan findings of constipation and sigmoid diverticulitis. Suspect some degree of colonic obstruction related to the inflammatory changes and sigmoid colon. Will start daily Dulcolax suppositories. Prescribed one bottle of magnesium citrate. Persist may require unprepped barium enema or colostomy. Again attempts at reaching the patient's family unsuccessful. Current Visit: Yes Status: Acute Code(s): K57.32 - DVTRCLI OF LG INT W/O PERFORATION OR ABSCESS W/O BLEEDING SNOMED Code(s): 450359843
[2018-06-03] MEDS: BISACODYL 10 MG SUPP RECTAL SCH (18:13)
[2018-06-03] MEDS: ONDANSETRON 4 MG/2 ML VIAL IVP PRN (18:13)
--- NOTE | 2018-06-03 18:22 | PN ---
PROGRESS NOTE CHIEF COMPLAINT: Diverticulitis and dementia. HISTORY OF PRESENT ILLNESS: During the night, this lady became acutely dyspneic. She was transferred to telemetry so she could be started on a Cardizem drip. Her situation is still guarded. Her white blood cell count is up and troponin is elevated. PHYSICAL EXAM: Breath sounds are diminished at the bases and she is in atrial fibrillation. The abdomen seems soft. She is confused. IMPRESSION: 1. Diverticulitis. 2. ? sepsis. 3. ? myocardial infarction with elevated troponin. 4. Atrial fibrillation. PLAN: 1. Cardiology consult. 2. Rule out pulmonary embolism, congestive heart failure. 3. Consult with Surgery. 4. Consult with Gastroenterology at family's request. 5. Appropriate blood cultures. MMODL / IJN: [id number] /
[2018-06-03] MEDS: SODIUM CHLORIDE 0.9% 1,000 ML IV SCH (18:51)
[2018-06-03 19:00] LABS: Magnesium 2.3 mg/dL (1.6-2.3); Potassium 3.3 mmol/L (3.5-5.1)
[2018-06-04] MEDS: SODIUM CHLORIDE 5% OPHTH DROPS 15 ML BTL BOTH EYES SCH ×4 (00:08→21:44)
[2018-06-04] MEDS: hydrALAZINE HCL 50 MG TAB PO SCH ×5 (00:08→21:44)
[2018-06-04] MEDS: APIXABAN 2.5 MG TABLET PO SCH ×3 (00:08→21:44)
[2018-06-04] MEDS: METOPROLOL TARTRATE 50 MG TAB PO SCH ×3 (00:09→21:44)
[2018-06-04] MEDS: metroNIDAZOLE-NS PMX 500 MG in SALINE 1 100ML.BAG IVPB SCH ×3 (00:30→16:28)
[2018-06-04 06:16] LABS: Basophils % (A) 0 %; Eosinophils # (A) 0.1 k/uL (0-0.7); Eosinophils % (A) 1 %; HCT 34.7 % (34.0-46.0); HGB 11.1 gm/dL (11.4-16.0); Hypochromasia Slight; Lymphocytes # (A) 0.8 k/uL (1.0-4.8); Lymphocytes % (A) 5 %; MCH 27.4 pg (25.0-35.0); MCHC 31.9 g/dL (31.0-37.0); MCV 85.9 fL (80.0-100.0); Mean Platelet Volume 7.9; Monocytes # (A) 0.6 k/uL (0-1.0); Monocytes % (A) 4 %; Neutrophils # (A) 13.9 k/uL (1.3-7.7); Neutrophils % (A) 89 %; Platelet Count 329 k/uL (150-450); RBC 4.04 m/uL (3.80-5.40); RDW 13.9 % (11.5-15.5); WBC 15.6 k/uL (3.8-10.6)
[2018-06-04 06:30] LABS: Calcium 8.4 mg/dL (8.4-10.2); Magnesium 2.2 mg/dL (1.6-2.3); Potassium 3.1 mmol/L (3.5-5.1)
[2018-06-04] MEDS: IPRATROPIUM-ALBUTEROL 3 ML NEB INHALATION SCH ×4 (07:25→19:54)
--- NOTE | 2018-06-04 09:54 | P.PN ---
Progress Note - Text Progress Note Date: 06/04/18 The patient states her pain has resolved. She did not have a bowel movement yesterday. On exam her vital signs are stable. Her abdomen soft. Patient will be given another bottle of mag citrate today. Hopefully her constipation will improve. If constipation still an issue. She'll undergo barium enema.
[2018-06-04] MEDS ORDERED: PEG 3350-NA SULF,BICARB,CL/KCL 4,000 ML BOTTLE PO ONE (10:00)
[2018-06-04] MEDS: BISACODYL 10 MG SUPP RECTAL SCH (10:01)
[2018-06-04] MEDS: POTASSIUM CHLORIDE ER 20 MEQ TAB.ER PO SCH ×2 (10:01→12:10)
[2018-06-04] MEDS: cefTRIAXone IN SWFI 1,000 MG/10 ML SYRINGE IVP SCH (17:31)
[2018-06-04] MEDS: SODIUM CHLORIDE 0.9% 1,000 ML IV SCH (17:33)
[2018-06-04] MEDS: ACETAMINOPHEN TAB 325 MG TAB PO PRN (21:43)
--- NOTE | 2018-06-04 22:14 | PN ---
PROGRESS NOTE CHIEF COMPLAINT: Diverticulitis and ileus. HISTORY OF PRESENT ILLNESS: This lady is doing fairly well, but her abdomen is becoming a bit more distended. She is not passing stool. PHYSICAL EXAM: Chest is clear. Cardiac exam is normal except for a murmur. Abdomen is soft and nontender. IMPRESSION: 1. Diverticulitis. 2. Dementia. 3. Hypokalemia. 4. Renal failure. PLAN: Continue to follow and will consider new CT of the abdomen. In the meantime, continue with IV fluids and antibiotics. MMODL / IJN: [id number] /
[2018-06-05] MEDS: metroNIDAZOLE-NS PMX 500 MG in SALINE 1 100ML.BAG IVPB SCH ×4 (00:30→23:07)
[2018-06-05] MEDS: IPRATROPIUM-ALBUTEROL 3 ML NEB INHALATION SCH ×4 (08:22→19:24)
[2018-06-05] MEDS: BISACODYL 10 MG SUPP RECTAL SCH (09:58)
[2018-06-05] MEDS: METOPROLOL TARTRATE 50 MG TAB PO SCH ×2 (09:59→20:16)
[2018-06-05] MEDS: hydrALAZINE HCL 50 MG TAB PO SCH ×4 (09:59→21:38)
[2018-06-05] MEDS: APIXABAN 2.5 MG TABLET PO SCH ×2 (09:59→20:16)
[2018-06-05] MEDS: SODIUM CHLORIDE 5% OPHTH DROPS 15 ML BTL BOTH EYES SCH ×4 (09:59→21:38)
--- NOTE | 2018-06-05 10:59 | XR ---
EXAMINATION TYPE: XR abdomen 2V , 3 VIEWS DATE OF EXAM ORDERED: 06/05/2018 HISTORY: distention, r/o obstruction. COMPARISON: Previous study dated 06/01/2018. FINDINGS: The lung bases are clear. Within the abdomen, there is further dilatation of the colon which now measures as much as 12.8 cm in width. There is no evidence of free air. The distal colon is gasless. IMPRESSION: COLONIC ILEUS VERSUS DISTAL OBSTRUCTION.
--- NOTE | 2018-06-05 12:00 | P.PN ---
Progress Note - Text Progress Note Date: 06/05/18 The patient is resting comfortably in bed. She has some more abdominal distention. Plain x-rays of the abdomen showed evidence of a colonic ileus versus distal colonic obstruction On exam her vital signs are stable. Her abdomen is mildly distended it is soft there is no significant tenderness. There is no rebound or guarding. Patient will be reevaluated Dr. Garcia in the a.m. If she does not show any interval improvement she may require diverting colostomy. She'll be closely observed.
--- NOTE | 2018-06-05 13:19 | PN ---
PROGRESS NOTE DATE OF SERVICE: 05/05/2018 CHIEF COMPLAINT: Sigmoid diverticulitis, ileus and atrial fibrillation. HISTORY OF PRESENT ILLNESS: This lady is passing very little stool. She is being followed by GI and surgery. She probably has an ileus. Her urinary output has started to drop and will increase her IV rate. PHYSICAL EXAM: Chest is clear but breath sounds are diminished. Cardiac exam is normal except for atrial fib. The abdomen is quite protuberant and she has mild generalized tenderness. Bowel sounds are not heard. IMPRESSION: 1. Diverticulitis. 2. Ileus. 3. Decreased urinary output. PLAN: 1. Increase IV fluids. 2. Flat and upright abdomen. 3. Await further recommendations from Gastroenterology and surgery. MMODL / IJN: [id number] /
--- NOTE | 2018-06-05 14:55 | P.CONS ---
History of Present Illness - Reason for Consult Consult date: 06/04/18 Acute diverticulitis - History of Present Illness The patient is an 87-year-old female who was admitted from the emergency room because of constipation and abdominal pain. The patient had a CAT scan completed 2 days prior to admission and that showed suspected mild sigmoid diverticulitis. The patient reported no bowel movements for 5 days or so and was experiencing abdominal bloating. She used SS enemas with no benefit. She experienced nausea and vomiting as well. The patient was evaluated by surgery. Her abdomen was soft and the plan was to consider magnesium citrate and barium enema if no improvement. At the time of my visit today, the patient was drinking GoLYTELY and has not been tolerating it well with vomiting if she takes too many swallows quickly. No history of fever, chills or bleeding. Patient and family not certain when was her last colonoscopy. Review of Systems Constitutional: Denies fever, chills or unintentional weight loss Neurologic: No headaches, double vision or other sensory or motor changes. History of dementia Cardiopulmonary: No chest pain, shortness of breath or palpitations Gastrointestinal: See present illness above Genitourinary: Denies hematuria, dysuria or frequency Endocrine: No history of diabetes or thyroid disease Musculoskeletal: No joint swelling or pain Skin: No rashes Hematologic: No anemia or bleeding tendency Psychiatric: No anxiety or depression Past Medical History Past Medical History: Dementia, GERD/Reflux, Hypertension Additional Past Medical History / Comment(s): frequent UTI's, past falls. hx c- diff 2011. uses magnifying glass to read.PT STATED HAS HAD THE PNE AND SHINGLES VACCINE BUT NOT SURE OF THE DATES. 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 IN HIS 30'S Medications and Allergies Home Medications Medication Instructions Recorded Confirmed Type Aspirin EC [Ecotrin Low Dose] 81 mg PO DAILY 06/01/18 06/01/18 History Cholecalciferol (Vitamin D3) 2,000 unit PO DAILY 06/01/18 06/01/18 History [Vitamin D3] Dicyclomine [Bentyl] 10 mg PO BID 06/01/18 06/01/18 History Doxazosin [Cardura] 2 mg PO HS 06/01/18 06/01/18 History L.acidoph,Paracasei, B.lactis 1 cap PO DAILY 06/01/18 06/01/18 History [Probiotic] Omeprazole 20 mg PO HS 06/01/18 06/01/18 History Sertraline [Zoloft] 100 mg PO DAILY 06/01/18 06/01/18 History Sodium Chloride 5% Ophth Soln 1 drops BOTH EYES QID 06/01/18 06/01/18 History [Virginie 128] Tiotropium Estelline [Spiriva] 1 cap INHALATION RT-HS 06/01/18 06/01/18 History Trimethoprim [Trimpex] 100 mg PO HS 06/01/18 06/01/18 History Vancomycin HCl [Vancocin HCl] 125 mg PO HS 06/01/18 06/01/18 History Vitamin B Complex 1 cap PO DAILY 06/01/18 06/01/18 History amLODIPine [Norvasc] 5 mg PO DAILY 06/01/18 06/01/18 History Allergies Allergy/AdvReac Type Severity Reaction Status Date / Time nitrofurantoin Allergy Unknown Verified 06/01/18 14:52 [From Macrobid] Penicillins Allergy Unknown Verified 06/01/18 14:52 sulfamethoxazole Allergy Unknown Verified 06/01/18 14:52 [From Bactrim] trimethoprim [From Bactrim] Allergy Unknown Verified 06/01/18 14:52 Physical Exam Vitals: Vital Signs Temp Pulse Pulse Resp BP BP Pulse Ox 06/04/18 12:00 60 16 150/65 93 L 06/04/18 11:16 70 06/04/18 11:04 68 06/04/18 08:00 98.7 F 78 16 146/66 94 L 06/04/18 04:00 99.0 F 68 18 139/66 95 06/04/18 00:00 98.6 F 72 18 138/62 06/03/18 23:00 98.6 F 72 18 138/62 93 L 06/03/18 20:00 99.0 F 78 18 146/65 95 06/03/18 19:50 76 06/03/18 19:40 72 06/03/18 16:00 98.5 F 85 17 156/70 95 Intake and Output 06/03/18 06/04/18 06/04/18 22:59 06:59 14:59 Intake Total 0 0 Output Total 1 2 Balance -1 -2 0 Intake: Oral 0 0 Output: Urine 1 2 Other: Voiding Method Bedside Commode Bedside Commode # Voids 1 1 1 Weight 76.3 kg 76.1 kg General: Appeared stated age, very pleasant in some distress secondary to abdominal distention Head and neck: Normocephalic and atraumatic, conjunctivae pink and sclerae not icteric. Mucous membranes moist and pink. No masses in the neck or tracheal shift Lungs: Clear to auscultation with no dullness to percussion Heart: Regular, no abnormal sounds, murmurs, gallops or friction rubs Abdomen: Distended but soft with no masses, organomegalies or tenderness. Bowel sounds present but decreased Extremities: No clubbing, cyanosis or edema Neurologic: Alert and oriented 3, cranial nerves grossly intact, no gross sensory or motor abnormalities Results CBC & Chem 7: 06/04/18 05:20 06/04/18 05:20 Labs: Abnormal Lab Results - Last 24 Hours (Table) 06/03/18 06/04/18 06/04/18 Range/Units 18:29 05:20 05:20 WBC 15.6 H (3.8-10.6) k/uL Hgb 11.1 L (11.4-16.0) gm/dL Neutrophils # 13.9 H (1.3-7.7) k/uL Lymphocytes # 0.8 L (1.0-4.8) k/uL Sodium 135 L (137-145) mmol/L Potassium 3.3 L 3.1 L (3.5-5.1) mmol/L BUN 24 H (7-17) mg/dL Creatinine 1.24 H (0.52-1.04) mg/dL Microbiology - Last 24 Hours (Table) 06/02/18 19:09 Blood Culture - Preliminary Blood No Growth after 24 hours 06/02/18 21:17 Blood Culture - Preliminary Blood No Growth after 24 hours Assessment and Plan Assessment: The presentation of this patient is consistent with acute diverticulitis. There was evidence of retained fecal material on the CT completed June 01, but there was no evidence to suggest impaction. No evidence to suggest complicated course of her diverticulitis at this time. Plan: I agree with your current management. The patient is receiving antibiotics and attempts are made at improving her constipation and her abdominal symptoms. I will discuss her care with you and with the surgical team who are following her course closely. I did not schedule any endoscopic intervention at this time.
[2018-06-05] MEDS: POTASSIUM CHLORIDE ER 20 MEQ TAB.ER PO SCH ×2 (15:32→16:46)
[2018-06-05] MEDS: cefTRIAXone IN SWFI 1,000 MG/10 ML SYRINGE IVP SCH (17:30)
[2018-06-05] MEDS: SODIUM CHLORIDE 0.9% 1,000 ML IV SCH (17:31)
[2018-06-05] MEDS ORDERED: POTASSIUM CHLORIDE ER 20 MEQ TAB.ER PO STA (19:43)
[2018-06-06] MEDS: IPRATROPIUM-ALBUTEROL 3 ML NEB INHALATION SCH ×4 (07:12→21:12)
[2018-06-06] MEDS: metroNIDAZOLE-NS PMX 500 MG in SALINE 1 100ML.BAG IVPB SCH ×2 (08:42→17:41)
[2018-06-06] MEDS: hydrALAZINE HCL 50 MG TAB PO SCH ×4 (08:42→21:24)
[2018-06-06] MEDS: METOPROLOL TARTRATE 50 MG TAB PO SCH ×2 (08:43→20:23)
[2018-06-06] MEDS: SODIUM CHLORIDE 0.9% 1,000 ML IV SCH ×2 (08:43→17:41)
[2018-06-06] MEDS: BISACODYL 10 MG SUPP RECTAL SCH (08:43)
[2018-06-06] MEDS: SODIUM CHLORIDE 5% OPHTH DROPS 15 ML BTL BOTH EYES SCH ×4 (08:43→20:23)
[2018-06-06] MEDS: ACETAMINOPHEN TAB 325 MG TAB PO PRN (08:43)
[2018-06-06] MEDS: APIXABAN 2.5 MG TABLET PO SCH ×2 (08:45→20:22)
--- NOTE | 2018-06-06 12:37 | P.PN ---
<Sarah Chappellne M - Last Filed: 06/06/18 12:37> Subjective Progress Note Date: 06/06/18 88-year-old female seen at the bedside with the son states that the patient had small liquid stool last evening. Abdomen remains firm distended few high- pitched bowel tones noted no stool no facial grimacing with palpitation to the abdominal wall abdominal x-ray done on June 05 reviewing the report indicates colonic ileus or distal obstruction. there Is further dilatation of the colon measures 12 x 8 cm no evidence of free air Objective - Vital Signs Vital signs: Vital Signs Temp 98.4 F 06/06/18 06:56 Pulse 72 06/06/18 07:24 Resp 22 06/06/18 06:56 BP 131/49 06/06/18 06:56 Pulse Ox 95 06/06/18 06:56 Intake & Output 06/05/18 06/06/18 06/06/18 18:59 06:59 18:59 Weight 78 kg Other: Voiding Method Bedside Commode # Voids 1 1 1 # Bowel Movements 1 - Exam Physical exam 88-year-old female resting in bed opens eyes to verbal stimuli Lungs diminished at the bases otherwise adequate air movement no shortness of breath Heart S1-S2 audible irregular systolic murmur noted Abdomen mildly distended diffuse tenderness a few high-pitched bowel tones noted no stool no nausea vomiting currently nothing by mouth Extremities no edema - Labs CBC & Chem 7: 06/04/18 05:20 06/06/18 07:58 Labs: Microbiology - Last 24 Hours (Table) 06/02/18 19:09 Blood Culture - Preliminary Blood No Growth after 72 hours 06/02/18 21:17 Blood Culture - Preliminary Blood No Growth after 72 hours Assessment and Plan Assessment: Impression Present on admission abdominal distention suspect due to colonic ileus or distal colonic obstruction CAT scan abdomen pelvis showed suspected mild sigmoid diverticulitis obtained 2 days prior to admission Constipation Present on admission leukocytosis suspect reactive Present on admission electrolyte imbalance hypokalemia corrected resolved CAT scan abdomen pelvis findings constipation and sigmoid diverticulitis some degree of colonic obstruction related to inflammatory changes sigmoid colon X-ray abdomen reports indicate evidence of colonic ileus or distal colonic obstruction Baseline dementia Paroxysmal atrial fibrillation with rapid ventricular response started on elquis Systolic ejection murmur suspect aortic stenosis Abnormal troponin cardiology following suspect related to supply and demand mismatch Plan Follow up on the barium enema currently pending Keep nothing by mouth If no interval improvement patient may require diverting colostomy Continue to closely observe with further surgical recommendations pending imaging results elquis will need to be addressed by cardiology if surgical as indicated The above impression and plan of care have been discussed and directed by signing physician. Jane Chappell nurse practitioner acting as scribe for signing physician. <Anival Garcia - Last Filed: 06/06/18 17:21> Objective - Vital Signs Vital signs: Vital Signs Temp 97.5 F L 06/06/18 14:05 Pulse 74 06/06/18 16:09 Resp 18 06/06/18 14:05 BP 111/69 06/06/18 14:05 Pulse Ox 97 06/06/18 14:05 Intake & Output 06/05/18 06/06/18 06/06/18 18:59 06:59 18:59 Weight 78 kg Other: Voiding Method Bedside Commode # Voids 1 1 0 # Bowel Movements 1 3 - Labs CBC & Chem 7: 06/04/18 05:20 06/06/18 07:58 Labs: Abnormal Lab Results - Last 24 Hours (Table) 06/06/18 Range/Units 13:30 PT 13.0 H (9.0-12.0) sec INR 1.4 H (<1.2) Microbiology - Last 24 Hours (Table) 06/02/18 19:09 Blood Culture - Preliminary Blood No Growth after 72 hours 06/02/18 21:17 Blood Culture - Preliminary Blood No Growth after 72 hours Assessment and Plan Assessment: As above. Barium enema films reviewed with the radiologist. There does appear to be a fixed area of narrowing in the mid sigmoid colon of about 5-6 cm in length. Contrast was able to be passed proximal to this. Following that the patient did have a large volume of liquid stool. The x-ray findings were discussed in detail with the patient's son and [id number]. Options of diverting ostomy, sigmoid colectomy with end colostomy, and observation with possible hospice were reviewed. They plan to consider this overnight tonight. We'll meet with them again tomorrow morning to make final decisions. (1) Sigmoid diverticulitis Current Visit: Yes Status: Acute Code(s): K57.32 - DVTRCLI OF LG INT W/O PERFORATION OR ABSCESS W/O BLEEDING SNOMED Code(s): 687342521
--- NOTE | 2018-06-06 13:30 | FL ---
EXAMINATION TYPE: FL barium enema DATE OF EXAM: 06/06/2018 COMPARISON: CT scan 06/01/2018 HISTORY: Colonic distention TECHNIQUE: A single contrast barium enema study is performed utilizing 500 cc of Isovue-370. FINDINGS: Caser Up view of the abdomen shows marked distention of the colon suspicious for high-grade o bstruction. Basilar consolidation and tiny effusion are noted involving the lungs are dated. Referring physician requested a limited scan to assess the sigmoid colon. Small amount contrast was i nstilled. Appears to be marked area of irregular narrowing involving the sigmoid colon adjacent to an area of diverticular disease. Findings are felt suspicious for a neoplasm. Contrast was subsequently seen to fill into the dilated colon which demonstrated wall thickening likely secondary to edema fro m high-grade obstruction. Case discussed with referring surgeon. As noted above the exam was requeste d as a limited exam to assess the sigmoid colon. Therefore the remaining portions of the colon were n ot evaluated. IMPRESSION: 1. Localized area of irregular narrowing involving the sigmoid colon suspicious for neoplasm. 2. High-grade obstruction. 3. Diverticulosis. 4. Bilateral lower lobe infiltrate and small effusion.
[2018-06-06 13:46] LABS: INR 1.4 (<1.2)
[2018-06-06] MEDS: cefTRIAXone IN SWFI 1,000 MG/10 ML SYRINGE IVP SCH (17:40)
--- NOTE | 2018-06-06 18:07 | P.PN ---
Subjective Progress Note Date: 06/06/18 Principal diagnosis: Acute sigmoid diverticulitis The patient is seen sitting on the commode today with family at bedside. The patient continued to have problems with having a bowel movement over the weekend with nausea and vomiting after she was given GoLYTELY. She was given a barium enema today and is currently on the commode reporting passage of small chunks of stool. No blood seen. Objective - Vital Signs Vital signs: Vital Signs Temp 97.5 F L 06/06/18 14:05 Pulse 74 06/06/18 16:09 Resp 18 06/06/18 14:05 BP 111/69 06/06/18 14:05 Pulse Ox 97 06/06/18 14:05 Intake & Output 06/05/18 06/06/18 06/06/18 18:59 06:59 18:59 Weight 78 kg Other: Voiding Method Bedside Commode # Voids 1 1 0 # Bowel Movements 1 3 - Exam Limited due to the patient. On the commode. On physical examination, patient appears comfortable in no apparent distress. HEAD: Normocephalic, atraumatic. EYES: No scleral icterus. No conjunctival injection. MOUTH: No lesions, tongue midline. NECK: Trachea midline, no gross abnormalities. ABDOMEN: Soft, obese. Bowel sounds are positive. No organomegaly. No guarding or rigidity. SKIN: No rashes, no jaundice. NEUROLOGIC: Alert and oriented. - Labs CBC & Chem 7: 06/04/18 05:20 06/06/18 07:58 Labs: Abnormal Lab Results - Last 24 Hours (Table) 06/06/18 Range/Units 13:30 PT 13.0 H (9.0-12.0) sec INR 1.4 H (<1.2) Microbiology - Last 24 Hours (Table) 06/02/18 19:09 Blood Culture - Preliminary Blood No Growth after 72 hours 06/02/18 21:17 Blood Culture - Preliminary Blood No Growth after 72 hours Assessment and Plan (1) Sigmoid diverticulitis Narrative/Plan: Patient admitted for treatment of acute sigmoid diverticulitis. She does continue to have difficulty passing stool and had a barium enema today which was suspicious for high-grade narrowing of the sigmoid colon worrisome for possible malignancy/obstructive process. Current Visit: Yes Status: Acute Code(s): K57.32 - DVTRCLI OF LG INT W/O PERFORATION OR ABSCESS W/O BLEEDING SNOMED Code(s): 562972752 (2) Constipation Narrative/Plan: Secondary to above Current Visit: Yes Status: Acute Code(s): K59.00 - CONSTIPATION, UNSPECIFIED SNOMED Code(s): 65278988 Plan: Supportive care Surgical recommendations appreciated Results of barium enema reviewed Surgical options discussed with the patient today, with the patient and her family asking for time to decide how he would like to proceed Nothing by mouth Thank you for allowing us to participate in the care of this patient
--- NOTE | 2018-06-06 19:11 | PN ---
PROGRESS NOTE CHIEF COMPLAINT: Diverticulitis and progressive abdominal distention. HISTORY OF PRESENT ILLNESS: This lady's abdomen is a little bit more distended. She is not passing anything except for very little flatus and small amount of stool. PHYSICAL EXAM: Abdomen is more distended and has generalized tenderness. Flanks are nontender and chest is clear. IMPRESSION: 1. Diverticulitis. 2. Progressive abdominal distention. 3. Question bowel obstruction versus ileus. PLAN: Await further recommendations from Surgery. MMODL / IJN: [id number] /
[2018-06-07] MEDS: metroNIDAZOLE-NS PMX 500 MG in SALINE 1 100ML.BAG IVPB SCH ×3 (00:23→21:39)
[2018-06-07] MEDS: APIXABAN 2.5 MG TABLET PO SCH (07:30)
[2018-06-07] MEDS: IPRATROPIUM-ALBUTEROL 3 ML NEB INHALATION SCH ×4 (07:53→19:06)
--- NOTE | 2018-06-07 08:04 | P.PN ---
Subjective Progress Note Date: 06/07/18 Principal diagnosis: Colonic obstruction Despite the patient passing some stools after the enema yesterday she has had no further output of significance. The patient complains of feeling full. Mild discomfort. No nausea or vomiting. Objective - Vital Signs Vital signs: Vital Signs Temp 97.8 F 06/07/18 06:34 Pulse 76 06/07/18 07:53 Resp 16 06/07/18 07:53 BP 145/61 06/07/18 06:34 Pulse Ox 95 06/07/18 07:53 Intake & Output 06/06/18 06/07/18 06/07/18 18:59 06:59 18:59 Weight 78 kg Other: Voiding Method Bedside Commode # Voids 0 1 # Bowel Movements 0 - Exam Abdomen: Soft, distended, mild tenderness diffusely - Labs CBC & Chem 7: 06/04/18 05:20 06/06/18 07:58 Labs: Abnormal Lab Results - Last 24 Hours (Table) 06/06/18 Range/Units 13:30 PT 13.0 H (9.0-12.0) sec INR 1.4 H (<1.2) Microbiology - Last 24 Hours (Table) 06/02/18 19:09 Blood Culture - Preliminary Blood No Growth after 96 hours 06/02/18 21:17 Blood Culture - Preliminary Blood No Growth after 96 hours Assessment and Plan (1) Sigmoid diverticulitis Narrative/Plan: Had a meeting once again with the patient's son and [id number]. Clinical scenario again reviewed. Patient did not show significant improvement overnight. We'll schedule for exploratory laparotomy with sigmoid colectomy and end colostomy. Possible conversion to simply a diverting colostomy procedure was also discussed. Risks of bleeding, infection, abscess, ureteral injury, hernia, dehiscence, cardiac and respiratory failure were discussed. They understand and wish to proceed. Will obtain preoperative pulmonary clearance. Current Visit: Yes Status: Acute Code(s): K57.32 - DVTRCLI OF LG INT W/O PERFORATION OR ABSCESS W/O BLEEDING SNOMED Code(s): 532955389
[2018-06-07] MEDS: hydrALAZINE HCL 50 MG TAB PO SCH ×4 (08:38→22:49)
[2018-06-07] MEDS: METOPROLOL TARTRATE 50 MG TAB PO SCH ×2 (08:38→21:37)
[2018-06-07] MEDS: SODIUM CHLORIDE 5% OPHTH DROPS 15 ML BTL BOTH EYES SCH ×4 (08:40→23:51)
[2018-06-07] MEDS: BISACODYL 10 MG SUPP RECTAL SCH (08:42)
[2018-06-07] MEDS: SODIUM CHLORIDE 0.9% 1,000 ML IV SCH (08:43)
[2018-06-07 09:41] LABS: Basophils % (A) 0 %; Eosinophils # (A) 0.1 k/uL (0-0.7); Eosinophils % (A) 0 %; HCT 39.1 % (34.0-46.0); HGB 11.9 gm/dL (11.4-16.0); Hypochromasia Moderate; Lymphocytes # (A) 1.7 k/uL (1.0-4.8); Lymphocytes % (A) 9 %; MCH 27.2 pg (25.0-35.0); MCHC 30.6 g/dL (31.0-37.0); Mean Platelet Volume 7.1; Monocytes # (A) 0.5 k/uL (0-1.0); Monocytes % (A) 3 %; Neutrophils % (A) 86 %; Platelet Count 408 k/uL (150-450); RBC 4.39 m/uL (3.80-5.40); RDW 14.3 % (11.5-15.5); WBC 17.6 k/uL (3.8-10.6)
[2018-06-07 09:54] LABS: INR 1.3 (<1.2); Partial Thromboplastin Time 28.5 sec (22.0-30.0); Prothrombin Time 12.2 sec (9.0-12.0)
[2018-06-07 09:57] LABS: Albumin 3.2 g/dL (3.5-5.0); Potassium 3.7 mmol/L (3.5-5.1); Total Bilirubin 0.5 mg/dL (0.2-1.3); Total Protein 6.2 g/dL (6.3-8.2)
[2018-06-07] MEDS: DEXTROSE 5% IN WATER 1,000 ML with SODIUM BICARB (1 MEQ/ML) 150 ML IV SCH ×3 (12:03→23:00)
--- NOTE | 2018-06-07 12:42 | P.CNPUL ---
History of Present Illness Consult date: 06/07/18 Chief complaint: Preoperative pulmonary evaluation and postoperative pulmonary care History of present illness: 87-year-old female patient with known history of dementia presented to the hospital because of abdominal pain and constipation. Initial presentation with a 97 2018 and the patient hospital sinus. The patient had CAT scan of the abdomen that showed mild sigmoid diverticulitis. The patient continued to have abdominal discomfort and subsequent bloating and subsequent inability to pass any bowel movements. Soapsuds enemas were utilized and there was minimal stool production. She continued to have nausea and vomiting and surgery was involved in the case and the patient underwent a barium enema yesterday that showed localized area of irregular narrowing involving the sigmoid colon in addition to a high-grade obstruction and based on his findings the patient be taken to the operating room for colectomy and possible diverticular colostomy. I was asked even with this patient's pulmonary status and be involved in the postoperative care due to her age and the complexity of her medical problems. Note that this patient has been labeled to have a mild component of COPD despite her nonsmoking history. 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 She is exposed to respiratory irritants or chemicals. No recurrent pneumonias. No use of home oxygen. Exercise capacity has been limited and the patient reports some limited capacity even prior to this ongoing abdominal problems. During this current hospital stay she had a short run of atrial fibrillation she converted back to normal sinus rhythm. Echo was done and the patient is an ejection fraction of 6065% and mild aortic valve sclerosis and moderate degree of stenosis with a peak gradient across the valve of 32 and mother degree of pulmonary hypertension with a PA pressure of 53. Currently she is free of any chest pain. No cough sputum production. She is on room air oxygen. She'll be going to surgery at around 2 PM this afternoon.. Review of Systems Constitutional: Reports fatigue, Reports lethargy, Reports weakness Eyes: denies blurred vision, denies bulging eye, denies decreased vision Ears: deny: decreased hearing, ear discharge, earache Ears, nose, mouth and throat: Denies headache, Denies sore throat Cardiovascular: Reports dyspnea on exertion, Reports shortness of breath Respiratory: Reports dyspnea Gastrointestinal: Reports abdominal pain, Reports bloating, Reports change in bowel habits, Reports constipation, Reports loss of appetite, Reports nausea Genitourinary: Denies dysuria, Denies hematuria Musculoskeletal: Reports muscle weakness Musculoskeletal: absent: ankle pain, ankle stiffness, ankle swelling Integumentary: Denies pruritus, Denies rash Neurological: Reports memory loss, Reports weakness Psychiatric: Reports confusion Endocrine: Reports fatigue Hematologic/Lymphatic: Reports as per HPI Allergic/Immunologic: Reports as per HPI Past Medical History Past Medical History: Dementia, GERD/Reflux, Hypertension Additional Past Medical History / Comment(s): frequent UTI's, past falls. hx c- diff 2011. uses magnifying glass to read.PT STATED HAS HAD THE PNE AND SHINGLES VACCINE BUT NOT SURE OF THE DATES. CREDIT CARD CLERK UNABLE TO VERIFY DATE AT TIME OF THIS ADMIT. History of Any Multi-Drug Resistant Organisms: C-DIFF Date of last positivie culture/infection: 2011 MDRO Source:: stool Past Surgical History: Appendectomy, Hysterectomy Additional Past Surgical History / Comment(s): lasik eye sx Past Anesthesia/Blood Transfusion Reactions: No Reported Reaction Additional Past Anesthesia/Blood Transfusion Reaction / Comment(s): CLAUSTERPHOBIA Smoking Status: Never smoker - Past Family History Mother Family Medical History: Renal Disease Father Family Medical History: No Reported History Additional Family Medical History / Comment(s): IN A COAL MINE DISASTER IN HIS S Medications and Allergies Home Medications Medication Instructions Recorded Confirmed Type Aspirin EC [Ecotrin Low Dose] 81 mg PO DAILY 06/01/18 06/01/18 History Cholecalciferol (Vitamin D3) 2,000 unit PO DAILY 06/01/18 06/01/18 History [Vitamin D3] Dicyclomine [Bentyl] 10 mg PO BID 06/01/18 06/01/18 History Doxazosin [Cardura] 2 mg PO HS 06/01/18 06/01/18 History L.acidoph,Paracasei, B.lactis 1 cap PO DAILY 06/01/18 06/01/18 History [Probiotic] Omeprazole 20 mg PO HS 06/01/18 06/01/18 History Sertraline [Zoloft] 100 mg PO DAILY 06/01/18 06/01/18 History Sodium Chloride 5% Ophth Soln 1 drops BOTH EYES QID 06/01/18 06/01/18 History [Virginie 128] Tiotropium Biggers [Spiriva] 1 cap INHALATION RT-HS 06/01/18 06/01/18 History Trimethoprim [Trimpex] 100 mg PO HS 06/01/18 06/01/18 History Vancomycin HCl [Vancocin HCl] 125 mg PO HS 06/01/18 06/01/18 History Vitamin B Complex 1 cap PO DAILY 06/01/18 06/01/18 History amLODIPine [Norvasc] 5 mg PO DAILY 06/01/18 06/01/18 History Allergies Allergy/AdvReac Type Severity Reaction Status Date / Time nitrofurantoin Allergy Unknown Verified 06/01/18 14:52 [From Macrobid] Penicillins Allergy Unknown Verified 06/01/18 14:52 sulfamethoxazole Allergy Unknown Verified 06/01/18 14:52 [From Bactrim] trimethoprim [From Bactrim] Allergy Unknown Verified 06/01/18 14:52 Physical Exam Vitals: Vital Signs Temp Pulse Pulse Resp BP BP Pulse Ox 06/07/18 11:18 88 14 06/07/18 11:08 87 14 06/07/18 08:04 74 06/07/18 08:00 16 06/07/18 07:53 76 16 95 06/07/18 06:34 97.8 F 67 18 145/61 94 L 06/06/18 23:00 98.0 F 61 18 147/69 94 L 06/06/18 20:26 18 06/06/18 16:09 74 06/06/18 15:55 70 06/06/18 14:05 97.5 F L 57 L 18 111/69 97 Intake and Output 06/06/18 06/07/18 06/07/18 22:59 06:59 14:59 Other: Voiding Method Bedside Commode # Voids 1 1 # Bowel Movements 0 On physical examination, patient appears comfortable in no apparent distress. She is sitting up on a chair. Her abdomen is distended. No signs of any acute respiratory distress and the patient is not using excessive muscle breathing. HEAD: Normocephalic, atraumatic.Head exam was generally normal. There was no scleral icterus or corneal arcus. Mucous membranes were moist. Neck was supple and without jugular venous distension, thyromegaly, or carotid bruits. Carotids were easily palpable bilaterally. There was no adenopathy. Lungs sounds are diminished in lung bases bilaterally otherwise clear. No wheezes or rhonchi early crackles. Cardiac exam revealed the PMI to be normally situated and sized. The rhythm was regular and no extrasystoles were noted during several minutes of auscultation. The first and second heart sounds were normal and physiologic splitting of the second heart sound was noted. There were no murmurs, rubs, clicks, or gallops. ABDOMEN: Soft, obese. And distended and the patient has some mild diffuse tenderness throughout her abdomen. No rebound tenderness. No guarding. Bowel sounds are hypoactive. SKIN: No rashes, no jaundice. Examination of the skin revealed no evidence of significant rashes, suspicious appearing nevi or other concerning lesions. NEUROLOGIC: Agent has impaired short-term memory. The patient has an underlying dementia. She does better with long-term memory. On and off confusion/sundowning. no focal neurological deficit this point in time. She is moving all 4 extremities. Pupils are equal and reactive to light. Results - Laboratory Findings CBC and BMP: 06/07/18 09:08 06/07/18 09:08 PT/INR, D-dimer PT 12.2 sec (9.0-12.0) H 06/07/18 09:08 INR 1.3 (<1.2) H 06/07/18 09:08 D-Dimer 1.05 mg/L FEU (<0.60) H 06/03/18 11:50 Abnormal lab findings: Abnormal Labs 06/01/18 06/01/18 06/01/18 14:36 14:36 15:49 WBC 11.2 H Hgb Hct MCHC Neutrophils # 9.8 H Lymphocytes # 0.9 L PT INR D-Dimer Sodium Potassium Chloride Carbon Dioxide BUN Creatinine 1.13 H Glucose 119 H Magnesium Troponin I Total Protein Albumin Lipase 18 L Urine Appearance Cloudy H Urine Protein 2+ H Urine Ketones Trace H Urine Bilirubin 1+ H Ur Leukocyte Esterase Trace H Urine WBC 12 H Urine Bacteria Rare H Hyaline Casts 3 H Urine Mucus Rare H 06/02/18 06/02/18 06/02/18 07:58 07:58 19:09 WBC 16.2 H Hgb 11.1 L Hct MCHC Neutrophils # 9.0 H 14.2 H Lymphocytes # 0.9 L PT INR D-Dimer Sodium Potassium 3.3 L Chloride Carbon Dioxide BUN Creatinine 1.11 H Glucose Magnesium Troponin I Total Protein 5.9 L Albumin 3.0 L Lipase Urine Appearance Urine Protein Urine Ketones Urine Bilirubin Ur Leukocyte Esterase Urine WBC Urine Bacteria Hyaline Casts Urine Mucus 06/02/18 06/02/18 06/02/18 19:09 21:17 21:17 WBC Hgb Hct MCHC Neutrophils # Lymphocytes # PT INR D-Dimer 1.35 H Sodium Potassium Chloride Carbon Dioxide 21 L BUN Creatinine 1.15 H Glucose Magnesium Troponin I 0.124 H* Total Protein Albumin Lipase Urine Appearance Urine Protein Urine Ketones Urine Bilirubin Ur Leukocyte Esterase Urine WBC Urine Bacteria Hyaline Casts Urine Mucus 06/03/18 06/03/18 06/03/18 05:42 07:56 11:50 WBC 13.8 H Hgb 11.1 L Hct 33.5 L MCHC Neutrophils # 12.5 H Lymphocytes # 0.7 L PT INR D-Dimer Sodium Potassium Chloride Carbon Dioxide BUN Creatinine Glucose Magnesium 1.5 L Troponin I 0.169 H* Total Protein Albumin Lipase Urine Appearance Urine Protein Urine Ketones Urine Bilirubin Ur Leukocyte Esterase Urine WBC Urine Bacteria Hyaline Casts Urine Mucus 06/03/18 06/03/18 06/03/18 11:50 11:50 18:29 WBC Hgb Hct MCHC Neutrophils # Lymphocytes # PT INR D-Dimer 1.05 H Sodium Potassium 3.3 L 3.3 L Chloride Carbon Dioxide 21 L BUN 20 H Creatinine 1.20 H Glucose Magnesium Troponin I Total Protein Albumin 3.2 L Lipase Urine Appearance Urine Protein Urine Ketones Urine Bilirubin Ur Leukocyte Esterase Urine WBC Urine Bacteria Hyaline Casts Urine Mucus 06/04/18 06/04/18 06/06/18 05:20 05:20 13:30 WBC 15.6 H Hgb 11.1 L Hct MCHC Neutrophils # 13.9 H Lymphocytes # 0.8 L PT 13.0 H INR 1.4 H D-Dimer Sodium 135 L Potassium 3.1 L Chloride Carbon Dioxide BUN 24 H Creatinine 1.24 H Glucose Magnesium Troponin I Total Protein Albumin Lipase Urine Appearance Urine Protein Urine Ketones Urine Bilirubin Ur Leukocyte Esterase Urine WBC Urine Bacteria Hyaline Casts Urine Mucus 06/07/18 06/07/18 06/07/18 09:08 09:08 09:08 WBC 17.6 H Hgb Hct MCHC 30.6 L Neutrophils # 15.0 H Lymphocytes # PT 12.2 H INR 1.3 H D-Dimer Sodium Potassium Chloride 112 H Carbon Dioxide 13 L BUN 33 H Creatinine 1.31 H Glucose Magnesium Troponin I Total Protein 6.2 L Albumin 3.2 L Lipase Urine Appearance Urine Protein Urine Ketones Urine Bilirubin Ur Leukocyte Esterase Urine WBC Urine Bacteria Hyaline Casts Urine Mucus - Diagnostic Findings Chest x-ray: image reviewed Assessment and Plan Plan: Assessment 1 sigmoid diverticulitis complicated by bowel obstruction, the patient will need surgical exploration, expiratory laparotomy, sigmoid colectomy and end colostomy. The patient be taken to the operating room today at around 2 PM 2 abdominal pain secondary to above 3 anion gap metabolic acidosis with an anion gap of 18 and the bicarb level of 13, possibly secondary to underlying intra-abdominal infection, rule out possibility of lactic acidosis 4 dementia 5 COPD currently inactive in stable 6 obesity. 7 moderate degree of aortic stenosis and secondary pulmonary hypertension with preserved LV function 8 episode of atrial fibrillation during this current hospitalization recovered and the patient's rhythm is sinus 9 hypertension 10 remote history of C. diff colitis Plan The patient will be taken to surgery today. Will be involved in the postoperative care. The surgery was done under general anesthesia. Recovery we 'll large depend on the extent of the surgery and the intra-abdominal still complications will be followed at the time of surgery. The patient will be having her lactic acid checked now knowing that she has a component of anion gap metabolic acidosis. She'll placed on a bicarb drip knowing that her metabolic acidosis of a mixed type. She will be continued on a combination of Rocephin and Flagyl. She may need ICU care following her surgery. Will communicate with the surgeon and with anesthesiologist to assess her condition postop and further recommendations to follow accordingly. Continue DuoNeb. Provide the patient incentive spirometer. There is a moderate to high risk of postoperative pulmonary complications due to the above-mentioned comorbidities. Another concern is postoperative delirium The patient has dementia at baseline. This may also added to her risk of surgery and mortality. We'll continue to follow.
--- NOTE | 2018-06-07 14:08 | P.PN ---
Subjective Mrs. Blake is seen and examined sitting up in the chair. We have been asked by surgery to see her again and give recommendations regarding anticoagulation. She is scheduled for exploratory laparotomy with sigmoid colectomy and end colostomy today with Dr. Garcia. Telemetry tracings have been reviewed and most part have been atrial fibrillation appears to be sinus rhythm with PACs and short runs of atrial tachycardia. Therefore anticoagulation can be discontinued permanently. She denies symptoms of chest pain, shortness of breath, dizziness or palpitations. Laboratory data reviewed, WBC 17.6, hemoglobin 11.9, platelets 408, sodium 143, potassium 3.7, creatinine 1.31. Blood pressure 145/61 heart rate 67 afebrile maintaining oxygen saturation on room air. Echocardiogram obtained earlier than's admission reveals preserved left ventricular systolic function with ejection fraction 60-65%, severely dilated left atrium, mild aortic valve sclerosis with moderate stenosis mean gradient of 16.12 mmHg, mild MR, mild TR and moderate pulmonary hypertension with an RVSP of 53.37 mmHg. Objective - Vital Signs Vital signs: Vital Signs Temp 97.8 F 06/07/18 06:34 Pulse 88 06/07/18 11:18 Resp 14 06/07/18 11:18 BP 145/61 06/07/18 06:34 Pulse Ox 95 06/07/18 07:53 Intake & Output 06/06/18 06/07/18 06/07/18 18:59 06:59 18:59 Weight 78 kg Other: Voiding Method Bedside Commode # Voids 0 1 # Bowel Movements 0 - Exam GENERAL: Well-appearing, well-nourished and in no acute distress. NECK: Supple without JVD or thyromegaly. LUNGS: Breath sounds clear to auscultation bilaterally. Respiration equal and unlabored. No wheezes, rales or rhonchi. HEART: Regular rate and rhythm with systolic ejection murmur at the left sternal border, no rubs or gallops. S1 and S2 heard. EXTREMITIES: Normal range of motion, no edema. No clubbing or cyanosis. Peripheral pulses intact. - Labs CBC & Chem 7: 06/07/18 09:08 06/07/18 09:08 Labs: Abnormal Lab Results - Last 24 Hours (Table) 06/07/18 06/07/18 06/07/18 Range/Units 09:08 09:08 09:08 WBC 17.6 H (3.8-10.6) k/uL MCHC 30.6 L (31.0-37.0) g/dL Neutrophils # 15.0 H (1.3-7.7) k/uL PT 12.2 H (9.0-12.0) sec INR 1.3 H (<1.2) Chloride 112 H (98-107) mmol/L Carbon Dioxide 13 L (22-30) mmol/L BUN 33 H (7-17) mg/dL Creatinine 1.31 H (0.52-1.04) mg/dL Total Protein 6.2 L (6.3-8.2) g/dL Albumin 3.2 L (3.5-5.0) g/dL Microbiology - Last 24 Hours (Table) 06/02/18 19:09 Blood Culture - Preliminary Blood No Growth after 96 hours 06/02/18 21:17 Blood Culture - Preliminary Blood No Growth after 96 hours Assessment and Plan Assessment: ASSESSMENT Atrial tachycardia and PACs, no evidence of atrial fibrillation Hypertension Aortic stenosis Pulmonary hypertension Dementia Bowel obstruction Leukocytosis COPD PLAN No indication for anticoagulation with no evidence of atrial fibrillation noted. Last dose of Eliquis was Wednesday night, appropriate for surgical intervention today in regards to anticoagulation. Ongoing medical management of multiple co-morbid conditions. Increased risk for surgical intervention secondary to valvular heart disease and pulmonary hypertension. We will continue to follow in the post-operative phase. Nurse Practitioner note has been reviewed, I agree with a documented findings and plan of care. Patient was seen and examined.
[2018-06-07] MEDS ORDERED: IV FLUID CONTINUATION 1,000 ML IV ONE (14:54)
[2018-06-07] MEDS ORDERED: MIDAZOLAM 2 MG/2 ML VIAL ONE (15:21)
[2018-06-07] MEDS ORDERED: MIDAZOLAM 2 MG/2 ML VIAL IVP ONE (15:23)
[2018-06-07] MEDS ORDERED: LACTATED RINGERS 1,000 ML IV ONE ×3 (15:39→18:04)
[2018-06-07] MEDS ORDERED: PROPOFOL 10 MG/ML 20 ML VIAL IV ONE (15:41)
[2018-06-07] MEDS ORDERED: ePHEDrine SULFATE/0.9% NACL/PF 50 MG/5 ML SYRINGE IV ONE (15:41)
[2018-06-07] MEDS ORDERED: ROCURONIUM BROMIDE 10 MG/ML 10 ML VIAL IV ONE (15:41)
[2018-06-07] MEDS ORDERED: NEOSTIGMINE 1 MG/ML 10 ML VIAL ONE (15:41)
[2018-06-07] MEDS ORDERED: GLYCOPYRROLATE 0.2 MG/ML 2 ML VIAL ONE (15:41)
[2018-06-07] MEDS ORDERED: LIDOCAINE 1% INJ 10MG/ML (20 ML MDV) ONE (15:41)
[2018-06-07] MEDS ORDERED: SUCCINYLCHOLINE CHLORIDE 100 MG/5 ML SYR IV ONE (15:41)
[2018-06-07] MEDS ORDERED: ELECTROLYTE-R (PH 7.4) 1,000 ML IV.SOLN IV ONE (15:41)
[2018-06-07] MEDS ORDERED: MORPHINE SULFATE 10 MG/ML SYRINGE ONE (15:41)
[2018-06-07] MEDS ORDERED: fentaNYL (PF) 50 MCG/ML 2 ML AMP ONE (15:41)
[2018-06-07] MEDS ORDERED: ONDANSETRON 4 MG/2 ML VIAL ONE (15:41)
[2018-06-07] MEDS ORDERED: SODIUM CHLORIDE 0.9% 50 ML with ceFAZolin 2,000 MG IV ONE ×2 (16:10)
--- NOTE | 2018-06-07 20:16 | P.OP ---
Date of Procedure: 06/07/18 Procedure(s) Performed: PREOPERATIVE DIAGNOSIS: Colon obstruction POSTOPERATIVE DIAGNOSIS: Same with colonic ischemia at cecum PROCEDURE: Subtotal colectomy with end ileostomy SURGEON: Radha EBL: See anesthesia records mL ANESTHESIA: General COMPLICATIONS: None OPERATIVE PROCEDURE: Patient place in the operative table in the supine position. The patient was placed under general anesthesia. The abdomen was prepped and draped in usual sterile fashion. A vertical incision was made encompassing the previous lower midline incision scar that was present. The fascia was divided as well. The Bookwalter retractor was utilized. The colon was quite distended throughout. The sigmoid colon loop was adherent densely into the pelvis. There was so much adhesions that initially I had considered simply bringing up a loop of the sigmoid colon for a loop colostomy. Unfortunately given the patient's girth and the dense adhesions in the pelvis I could not mobilize enough of the sigmoid colon to reach the skin surface. The sigmoid colon was divided using a linear 75 stapler. There was so much distention of the bowel that a small portion of the staple line was excised and the colon was decompressed using a suction device. There was minimal if any spill from that maneuver. This did help with visualization of the pelvis and mobilization of the colon cephalad. The mesentery of the sigmoid colon was then divided using a combination of the LigaSure device and blunt dissection. The distal sigmoid colon was densely adherent to the right pelvic sidewall. This was able to be bluntly dissected. I was now able to palpate the distal sigmoid stricture. It was unclear whether this was malignant or simply related to chronic inflammation from diverticulitis. The bowel was divided distal to this point and the specimen was sent to pathology. At this point I was planning to proceed with an end colostomy. As I inspected the remainder of the colon however I identified a 2 cm area of full-thickness ischemia involving the ascending colon anteriorly this appeared to be very close to perforation. It was decided at that point to complete the subtotal colectomy. The right and left side of the colon was fully mobilized by incising the white line of Toldt. Both right ureter and left ureter were inspected and preserved. The mesentery of the colon was divided using both the LigaSure and 0 silk ties. The distal ileum was divided using a linear 75 stapler. The specimen was passed off. The abdomen was copiously irrigated. No bleeding was seen. It should be noted that we did have some contamination in the pelvis during the procedure as we were dissecting the sigmoid colon a small colotomy was identified and liquid stool was quickly suctioned. A small circular incision was then made in the right mid abdomen. Dissection through the subcutaneous fat and fascia took place using electrocautery. An opening into the perineal cavity occurred. The ileum was brought out as an end ileostomy. This was later matured in pauma fashion using [id number] 3-0 Vicryl sutures. After copious irrigation the midline fascia was reapproximated using 3 separate running #1 PDS sutures. The skin was closed loosely using kevin and Telfa bhargav were placed along the midline incision at staggered sites. A sterile dressing was applied. The ostomy was then matured. A BRIGITTE drain had been placed in the pelvis anterior to the rectal stump staple line through a separate stab incision in the left lower quadrant. This BRIGITTE drain was sutured to the skin using a 3-0 silk stitch. At the end of this procedure the sponge needle and management counts were correct. Sterile dressings and ostomy appliance were then applied. DISPOSITION: Stable to recovery room
[2018-06-07] MEDS ORDERED: MORPHINE SULFATE 4 MG/ML SYRINGE IVP ONE ×3 (20:25→20:30)
[2018-06-07 20:49] LABS: Glucose,Whole Blood 121 mg/dL (75-99)
[2018-06-07] MEDS ORDERED: SODIUM CHLORIDE 0.9% 1,000 ML IV ONE (21:52)
[2018-06-07] MEDS: cefTRIAXone IN SWFI 1,000 MG/10 ML SYRINGE IVP SCH (22:47)
[2018-06-07] MEDS: MORPHINE SULFATE 2 MG/ML SYRINGE IV PRN (23:47)
[2018-06-07 23:55] LABS: Calcium 8.3 mg/dL (8.4-10.2); Potassium 3.8 mmol/L (3.5-5.1)
[2018-06-08] MEDS: metroNIDAZOLE-NS PMX 500 MG in SALINE 1 100ML.BAG IVPB SCH ×3 (00:39→15:32)
[2018-06-08 05:25] LABS: Basophils # (A) 0.1 k/uL (0-0.2); Basophils % (A) 0 %; Eosinophils % (A) 0 %; HCT 39.4 % (34.0-46.0); HGB 12.3 gm/dL (11.4-16.0); Hypochromasia Moderate; Lymphocytes # (A) 0.5 k/uL (1.0-4.8); Lymphocytes % (A) 1 %; MCH 27.5 pg (25.0-35.0); MCHC 31.2 g/dL (31.0-37.0); MCV 88.2 fL (80.0-100.0); Mean Platelet Volume 7.7; Monocytes # (A) 1.2 k/uL (0-1.0); Monocytes % (A) 4 %; Neutrophils # (A) 32.4 k/uL (1.3-7.7); Neutrophils % (A) 94 %; Platelet Count 422 k/uL (150-450); RBC 4.46 m/uL (3.80-5.40); RDW 14.6 % (11.5-15.5); WBC 34.5 k/uL (3.8-10.6)
[2018-06-08 05:29] LABS: Calcium 8.1 mg/dL (8.4-10.2); Magnesium 1.7 mg/dL (1.6-2.3); Phosphorus 3.7 mg/dL (2.5-4.5); Potassium 3.6 mmol/L (3.5-5.1)
[2018-06-08] MEDS ORDERED: SODIUM CHLORIDE 0.9% 1,000 ML IV ONE ×2 (06:08→09:31)
--- NOTE | 2018-06-08 07:47 | XR ---
EXAMINATION TYPE: XR chest 1V DATE OF EXAM: 06/08/2018 COMPARISON: 06/02/2018 HISTORY: 88 year-old female shortness of breath with exertion TECHNIQUE: Single frontal view of the chest is obtained. FINDINGS: Sharpened image technique. This causes some limitation in assessment. Slight rightward patient rotati on. NG tube courses below the diaphragm. Heart mildly enlarged. Atherosclerotic calcifications in the aorta. Mild interstitial prominence which appears increased as probably on technical basis. There is new patchy left basilar opacity. Heart mildly enlarged. IMPRESSION: A sharpened technique was utilized by the x-ray technologist. Mild cardiomegaly and new left basilar opacity which could represent a small effusion with adjacent atelectasis and/or consolidation. Correl ate for possible mild CHF.
[2018-06-08] MEDS: MAGNESIUM SULFATE-D5W PMX 1 GM in DEXTROSE/WATER 1 100ML.BAG IVPB SCH ×2 (08:07→09:30)
[2018-06-08] MEDS: POTASSIUM CHLORIDE 10 MEQ in WATER FOR INJECTION 1 100ML.BAG IVPB SCH ×4 (08:08→22:53)
[2018-06-08] MEDS: IPRATROPIUM-ALBUTEROL 3 ML NEB INHALATION SCH ×4 (08:47→20:05)
[2018-06-08] MEDS: hydrALAZINE HCL 50 MG TAB PO SCH ×4 (09:03→21:23)
[2018-06-08] MEDS: METOPROLOL TARTRATE 50 MG TAB PO SCH (09:03)
[2018-06-08] MEDS: SODIUM CHLORIDE 5% OPHTH DROPS 15 ML BTL BOTH EYES SCH ×4 (09:04→21:26)
--- NOTE | 2018-06-08 09:32 | P.PN ---
Subjective Progress Note Date: 06/08/18 87-year-old female patient with known history of dementia presented to the hospital because of abdominal pain and constipation. Initial presentation with a 97 2018 and the patient hospital sinus. The patient had CAT scan of the abdomen that showed mild sigmoid diverticulitis. The patient continued to have abdominal discomfort and subsequent bloating and subsequent inability to pass any bowel movements. Soapsuds enemas were utilized and there was minimal stool production. She continued to have nausea and vomiting and surgery was involved in the case and the patient underwent a barium enema yesterday that showed localized area of irregular narrowing involving the sigmoid colon in addition to a high-grade obstruction and based on his findings the patient be taken to the operating room for colectomy and possible diverticular colostomy. I was asked even with this patient's pulmonary status and be involved in the postoperative care due to her age and the complexity of her medical problems. Note that this patient has been labeled to have a mild component of COPD despite her nonsmoking history. 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 She is exposed to respiratory irritants or chemicals. No recurrent pneumonias. No use of home oxygen. Exercise capacity has been limited and the patient reports some limited capacity even prior to this ongoing abdominal problems. During this current hospital stay she had a short run of atrial fibrillation she converted back to normal sinus rhythm. Echo was done and the patient is an ejection fraction of 6065% and mild aortic valve sclerosis and moderate degree of stenosis with a peak gradient across the valve of 32 and mother degree of pulmonary hypertension with a PA pressure of 53. Currently she is free of any chest pain. No cough sputum production. She is on room air oxygen. She'll be going to surgery at around 2 PM this afternoon.. 06/08/2008 and the patient is postop day #1. The patient was taken to the operating room yesterday and underwent a subtotal colectomy. Cecum was also ischemic and the patient underwent a subtotal colectomy and diverting colostomy was performed. Postop the patient was brought into the intensive care unit. She was extubated postop without any major difficulties. Overnight she continued to have episodes of low urine output. She was given a total of 2 L of IV fluid in the form of normal saline. The bicarbonate drip was also continued at the rate of 100 mL an hour. She'll be receiving a third liter for now. She is arousable and awake but a bit lethargic. Pain is under good control. NG tube is in place. Surgical site is dry clean and intact. BRIGITTE drain is also in place with minimal amount of output. No abdominal tenderness at this point in time. No major edema in lower extremities. She is hemodynamic is stable and she has not required any pressors. She is currently in a normal sinus rhythm. She converted this morning from an underlying A. fib fibrillation. Echocardiogram at shown a preserved LV function. No respiratory distress. Her white cell count is up to 34 which is an expected finding. Objective - Vital Signs Vital signs: Vital Signs Temp 97.5 F L 06/08/18 04:00 Pulse 96 06/08/18 08:00 Resp 12 06/08/18 06:00 BP 133/74 06/08/18 08:00 Pulse Ox 97 06/08/18 08:00 Intake & Output 06/07/18 06/08/18 06/08/18 18:59 06:59 18:59 Intake Total 3100 2900 410 Output Total 140 270 92 Balance 2960 2630 318 Weight 85.5 kg Intake: IV 3100 2900 410 0.9 10 Dextrose 5% in Water 1, 800 200 000 ml @ 100 mls/hr IV . [id number] ALY with Sodium Bicarb (1 Meq/ml) 150 ml Rx#:[id number] Magnesium Sulfate-D5w Pmx 100 1 gm In Dextrose/Water 1 100ml.bag @ 100 mls/hr IVPB Q1H ALY Rx#: [id number] Potassium Chloride 10 meq 100 In Water For Injection 1 100ml.bag @ 100 mls/hr IVPB Q1H ALY Rx#: [id number] Sodium Chloride 0.9% 1, 2000 000 ml @ 999 mls/hr IV . Q1H1M ONE Rx#:[id number] metroNIDAZOLE-NS PMX 500 100 mg In Saline 1 100ml.bag @ 100 mls/hr IVPB Q8HR [facility] Rx#:[id number] Output: Urine 90 270 92 Estimated Blood Loss 50 Other: Voiding Method Indwelling Catheter # Voids 2 # Bowel Movements 0 - Exam On physical examination, patient appears comfortable in no apparent distress. lethargic and somnolent HEAD: Normocephalic, atraumatic.Head exam was generally normal. There was no scleral icterus or corneal arcus. Mucous membranes were moist. Neck was supple and without jugular venous distension, thyromegaly, or carotid bruits. Carotids were easily palpable bilaterally. There was no adenopathy. Lungs sounds are diminished in lung bases bilaterally otherwise clear. No wheezes or rhonchi early crackles. Cardiac exam revealed the PMI to be normally situated and sized. The rhythm was regular and no extrasystoles were noted during several minutes of auscultation. The first and second heart sounds were normal and physiologic splitting of the second heart sound was noted. There were no murmurs, rubs, clicks, or gallops. ABDOMEN: Soft, obese. Hypoactive bowel sounds. No direct tenderness. No rebound tenderness. No guarding. Surgical site is dry clean and intact. BRIGITTE drain is in place. Abdominal distention subsided. Ileostomy site is not functional. Viable. SKIN: No rashes, no jaundice. Examination of the skin revealed no evidence of significant rashes, suspicious appearing nevi or other concerning lesions. NEUROLOGIC: Agent has impaired short-term memory. The patient has an underlying dementia. She does better with long-term memory. On and off confusion/sundowning. no focal neurological deficit this point in time. She is moving all 4 extremities. Pupils are equal and reactive to light. - Labs CBC & Chem 7: 06/08/18 04:50 06/08/18 04:50 Labs: Abnormal Lab Results - Last 24 Hours (Table) 06/07/18 06/07/18 06/07/18 Range/Units 09:08 09:08 09:08 WBC 17.6 H (3.8-10.6) k/uL MCHC 30.6 L (31.0-37.0) g/dL Neutrophils # 15.0 H (1.3-7.7) k/uL Lymphocytes # (1.0-4.8) k/uL Monocytes # (0-1.0) k/uL PT 12.2 H (9.0-12.0) sec INR 1.3 H (<1.2) Chloride 112 H (98-107) mmol/L Carbon Dioxide 13 L (22-30) mmol/L BUN 33 H (7-17) mg/dL Creatinine 1.31 H (0.52-1.04) mg/dL Glucose (74-99) mg/dL POC Glucose (mg/dL) (75-99) mg/dL Calcium (8.4-10.2) mg/dL Total Protein 6.2 L (6.3-8.2) g/dL Albumin 3.2 L (3.5-5.0) g/dL 06/07/18 06/07/18 06/08/18 Range/Units 20:47 23:28 04:50 WBC 34.5 H (3.8-10.6) k/uL MCHC (31.0-37.0) g/dL Neutrophils # 32.4 H (1.3-7.7) k/uL Lymphocytes # 0.5 L (1.0-4.8) k/uL Monocytes # 1.2 H (0-1.0) k/uL PT (9.0-12.0) sec INR (<1.2) Chloride 113 H (98-107) mmol/L Carbon Dioxide 15 L (22-30) mmol/L BUN 28 H (7-17) mg/dL Creatinine 1.16 H (0.52-1.04) mg/dL Glucose 117 H (74-99) mg/dL POC Glucose (mg/dL) 121 H (75-99) mg/dL Calcium 8.3 L (8.4-10.2) mg/dL Total Protein (6.3-8.2) g/dL Albumin (3.5-5.0) g/dL 06/08/18 Range/Units 04:50 WBC (3.8-10.6) k/uL MCHC (31.0-37.0) g/dL Neutrophils # (1.3-7.7) k/uL Lymphocytes # (1.0-4.8) k/uL Monocytes # (0-1.0) k/uL PT (9.0-12.0) sec INR (<1.2) Chloride 110 H (98-107) mmol/L Carbon Dioxide 16 L (22-30) mmol/L BUN 29 H (7-17) mg/dL Creatinine 1.07 H (0.52-1.04) mg/dL Glucose 170 H (74-99) mg/dL POC Glucose (mg/dL) (75-99) mg/dL Calcium 8.1 L (8.4-10.2) mg/dL Total Protein (6.3-8.2) g/dL Albumin (3.5-5.0) g/dL Microbiology - Last 24 Hours (Table) 06/02/18 19:09 Blood Culture - Preliminary Blood No Growth after 120 hours 06/02/18 21:17 Blood Culture - Preliminary Blood No Growth after 120 hours Assessment and Plan Plan: Assessment 1 sigmoid diverticulitis complicated by bowel obstruction, patient underwent expiratory laparotomy, subtotal colectomy and diverting ileostomy and the patient is postop day #1. The abdomen is not distended. BRIGITTE drain is in place. Surgical wound site is dry clean and intact. The patient is on a combination of Rocephin and Flagyl. 2 low urine output postop and the patient is currently on IV fluids. The patient has not required any pressors since her surgery. 3 metabolic acidosis currently on a bicarb drip, and this is an anion gap metabolic acidosis. 4 acute leukocytosis secondary to above 5 COPD currently inactive in stable 6 obesity. 7 moderate degree of aortic stenosis and secondary pulmonary hypertension with preserved LV function 8 paroxysmal atrial fibrillation during this current hospitalization recovered and the patient's rhythm is sinus 9 hypertension 10 remote history of C. diff colitis 11 history of dementia Plan Keep nothing by mouth. Monitor NG output. Monitor BRIGITTE output. Continue same antibiotic coverage. Given additional liter of IV fluid in the form of normal saline. Continue the bicarb drip. Incentive spirometer. Pain control with morphine. Discussed the case with surgery. The patient's ileostomy site is viable. No active output at this point in time. Bowel sounds are hypoactive. We'll continue to follow.
--- NOTE | 2018-06-08 09:44 | P.PN ---
Subjective Progress Note Date: 06/08/18 Principal diagnosis: Colonic obstruction Patient did fairly well overnight. No pressors. Marginal urine output. She has sleepy but responsive. Somewhat confused. Pain seems to be well- controlled. Objective - Vital Signs Vital signs: Vital Signs Temp 97.5 F L 06/08/18 04:00 Pulse 96 06/08/18 08:00 Resp 12 06/08/18 06:00 BP 133/74 06/08/18 08:00 Pulse Ox 97 06/08/18 08:00 Intake & Output 06/07/18 06/08/18 06/08/18 18:59 06:59 18:59 Intake Total 3100 2900 410 Output Total 140 270 92 Balance 2960 2630 318 Weight 85.5 kg Intake: IV 3100 2900 410 0.9 10 Dextrose 5% in Water 1, 800 200 000 ml @ 100 mls/hr IV . [id number] ALY with Sodium Bicarb (1 Meq/ml) 150 ml Rx#:[id number] Magnesium Sulfate-D5w Pmx 100 1 gm In Dextrose/Water 1 100ml.bag @ 100 mls/hr IVPB Q1H ALY Rx#: [id number] Potassium Chloride 10 meq 100 In Water For Injection 1 100ml.bag @ 100 mls/hr IVPB Q1H [facility]Y Rx#: [id number] Sodium Chloride 0.9% 1, 2000 000 ml @ 999 mls/hr IV . Q1H1M ONE Rx#:[id number] metroNIDAZOLE-NS PMX 500 100 mg In Saline 1 100ml.bag @ 100 mls/hr IVPB Q8HR [facility] Rx#:[id number] Output: Urine 90 270 92 Estimated Blood Loss 50 Other: Voiding Method Indwelling Catheter # Voids 2 # Bowel Movements 0 - Exam Abdomen: Soft, slightly distended, ostomy pink, incision clean and dry, BRIGITTE serosanguineous - Labs CBC & Chem 7: 06/08/18 04:50 06/08/18 04:50 Labs: Abnormal Lab Results - Last 24 Hours (Table) 06/07/18 06/07/18 06/07/18 Range/Units 09:08 09:08 09:08 WBC 17.6 H (3.8-10.6) k/uL MCHC 30.6 L (31.0-37.0) g/dL Neutrophils # 15.0 H (1.3-7.7) k/uL Lymphocytes # (1.0-4.8) k/uL Monocytes # (0-1.0) k/uL PT 12.2 H (9.0-12.0) sec INR 1.3 H (<1.2) Chloride 112 H (98-107) mmol/L Carbon Dioxide 13 L (22-30) mmol/L BUN 33 H (7-17) mg/dL Creatinine 1.31 H (0.52-1.04) mg/dL Glucose (74-99) mg/dL POC Glucose (mg/dL) (75-99) mg/dL Calcium (8.4-10.2) mg/dL Total Protein 6.2 L (6.3-8.2) g/dL Albumin 3.2 L (3.5-5.0) g/dL 06/07/18 06/07/18 06/08/18 Range/Units 20:47 23:28 04:50 WBC 34.5 H (3.8-10.6) k/uL MCHC (31.0-37.0) g/dL Neutrophils # 32.4 H (1.3-7.7) k/uL Lymphocytes # 0.5 L (1.0-4.8) k/uL Monocytes # 1.2 H (0-1.0) k/uL PT (9.0-12.0) sec INR (<1.2) Chloride 113 H (98-107) mmol/L Carbon Dioxide 15 L (22-30) mmol/L BUN 28 H (7-17) mg/dL Creatinine 1.16 H (0.52-1.04) mg/dL Glucose 117 H (74-99) mg/dL POC Glucose (mg/dL) 121 H (75-99) mg/dL Calcium 8.3 L (8.4-10.2) mg/dL Total Protein (6.3-8.2) g/dL Albumin (3.5-5.0) g/dL 06/08/18 Range/Units 04:50 WBC (3.8-10.6) k/uL MCHC (31.0-37.0) g/dL Neutrophils # (1.3-7.7) k/uL Lymphocytes # (1.0-4.8) k/uL Monocytes # (0-1.0) k/uL PT (9.0-12.0) sec INR (<1.2) Chloride 110 H (98-107) mmol/L Carbon Dioxide 16 L (22-30) mmol/L BUN 29 H (7-17) mg/dL Creatinine 1.07 H (0.52-1.04) mg/dL Glucose 170 H (74-99) mg/dL POC Glucose (mg/dL) (75-99) mg/dL Calcium 8.1 L (8.4-10.2) mg/dL Total Protein (6.3-8.2) g/dL Albumin (3.5-5.0) g/dL Microbiology - Last 24 Hours (Table) 06/02/18 19:09 Blood Culture - Preliminary Blood No Growth after 120 hours 06/02/18 21:17 Blood Culture - Preliminary Blood No Growth after 120 hours Assessment and Plan (1) Sigmoid diverticulitis Narrative/Plan: Continue antibiotics. Continue BRIGITTE drainage. Keep nasogastric tube to suction for now. Monitor urine output. Current Visit: Yes Status: Acute Code(s): K57.32 - DVTRCLI OF LG INT W/O PERFORATION OR ABSCESS W/O BLEEDING SNOMED Code(s): 914528625
--- NOTE | 2018-06-08 12:37 | CDI ---
Last Revision, August 2017 Documentation Clarification Form Date: 06/08/2018 12:23:47 PM From: Mary Marley RN, CCDS Admit Date: 06/01/2018 6:04:00 PM Patient Name: Helen Blake Visit Number: [id number] ATTENTION: The Clinical Documentation Specialists (CDI) and [facility] Coding Staff appreciate your assistance in clarifying documentation. Please respond to the clarification below the line at the bottom and electronically sign. The CDI & [facility] Coding staff will review the response and follow-up if needed. Please note: Queries are made part of the Legal Health Record. If you have any questions, please contact the author of this message via ITS. Glenn Duarte MD Renal disease and renal Failure are documented in your progress notes and require further specificity. History/Risk Factors: Colon obstruction w colic ischemia at cecum, uti's Patients baseline BUN/CR/GFR: NO baseline renal function available from this facility Clinical Indicators: Current BUN: /// Cr: 1.13/1.15/1.2/1.24 GFR :44/43/41/39 Treatment: Consults: IVF 0.9% NS @ 100 cc/hr In order to capture the severity of condition, please clarify if the condition signifies: Acute renal failure, Please specify etiology (if known): Cortical Necrosis Medullary Necrosis Tubular Necrosis Acute kidney injury Acute on chronic renal failure CKD Stage 1 GFR >90 CKD Stage 2 GFR 60-89 CKD Stage 3 GFR 30-59 CKD Stage 4 GFR 15-29 CKD Stage 5 GFR <15 Chronic renal failure/Chronic Kidney disease (CKD) please stage if known CKD Stage 1 GFR >90 CKD Stage 2 GFR 60-89 CKD Stage 3 GFR 30-59 CKD Stage 4 GFR 15-29 CKD Stage 5 GFR <15 ESRD Other, please specify Unable to determine Please continue to document in your progress notes and discharge summary in order to capture severity of illness and risk of mortality. Include clinical findings that support your diagnosis. MTDD
--- NOTE | 2018-06-08 12:46 | PN ---
PROGRESS NOTE This lady has chronic atrial fib. She had surgery yesterday and underwent laparotomy and ischemic bowel resection. She remains hemodynamically stable. Doing better. Her heart rate is slightly faster. She is in atrial fibrillation, rate control is fair. However, we will use intravenous Lopressor if necessary and hold anticoagulation for now. Vital signs are stable. S1-S2 heard normally, short systolic murmur noted. Lungs reveal diminished air entry. Abdomen and lower extremity exam unchanged. Plan is to continue current medications. Use IV Lopressor if necessary for rate control. MMODL / IJN: [id number] /
--- NOTE | 2018-06-08 13:07 | CDI ---
Last Revision, August 2017 Documentation Clarification Form Date: 06/08/2018 12:38:00 PM From: Mary Marley RN, CCDS Admit Date: 06/01/2018 6:04:00 PM Patient Name: Helen Blake Visit Number: [id number] ATTENTION: The Clinical Documentation Specialists (CDI) and [facility] Coding Staff appreciate your assistance in clarifying documentation. Please respond to the clarification below the line at the bottom and electronically sign. The CDI & [facility] Coding staff will review the response and follow-up if needed. Please note: Queries are made part of the Legal Health Record. If you have any questions, please contact the author of this message via ITS. Glenn Anderson MD History/Risk Factors: Dementia, GERD, HTN Clinical Indicators: VS/Pulse OX: Temp 98.7, hr 93, RR 18, B/P 157/79, spo2 97% ra BNP: 3370 up to 7280 Echocardiogram Results: EF 60-65%, moderate pulmonary HTN 06/08 Chest X Ray: "Mild cardiomegaly and new left basilar opacity which could represent a small effusion with adjacent atelectasis and/or consolidation. Correlate for possible mild CHF." Treatment: 3L IVF Bolus 06/02 Lasix IVP 20 mg x 1 dose followed by 40 mg IVP x 1 dose In your professional opinion, can you please clarify the acuity and type of CHF if known? Diastolic Heart Failure: Acute Chronic Acute on Chronic Unable to Determine Other, please specify Please continue to document in your progress notes and discharge summary in order to capture severity of illness and risk of mortality. Include clinical findings that support your diagnosis. MTDD
[2018-06-08] MEDS ORDERED: FUROSEMIDE 10 MG/ML 4 ML VIAL IV STA (13:47)
[2018-06-08] MEDS: DEXTROSE 5% IN WATER 1,000 ML with SODIUM BICARB (1 MEQ/ML) 150 ML IV SCH (14:04)
[2018-06-08] MEDS ORDERED: LABETALOL 5 MG/ML VIAL MDV IVP PRN (14:43)
[2018-06-08] MEDS ORDERED: cloNIDine 0.3 MG/24HR PATCH TRANSDERM SCH (15:00)
[2018-06-08] MEDS ORDERED: LOSARTAN 50 MG TAB PO STA (15:48)
[2018-06-08] MEDS: MORPHINE SULFATE 2 MG/ML SYRINGE IV PRN (16:40)
--- NOTE | 2018-06-08 18:07 | PN ---
PROGRESS NOTE CHIEF COMPLAINT: Diverticulitis. HISTORY OF PRESENT ILLNESS: This lady was in the operating room yesterday and currently is on ventilator support. PHYSICAL EXAM: Color is good. Vital signs are normal. Breath sounds are heard on both sides. Dressing is dry. IMPRESSION: Status post laparotomy, findings unknown. PLAN: Continue to follow with Surgery and pulmonology while she is in the intensive care unit. MMODL / IJN: [id number] /
[2018-06-08] MEDS: cefTRIAXone IN SWFI 1,000 MG/10 ML SYRINGE IVP SCH (18:24)
[2018-06-08] MEDS: METOPROLOL TARTRATE 5 MG/5 ML VIAL IVP PRN (18:32)
--- NOTE | 2018-06-08 18:58 | PN ---
PROGRESS NOTE DATE OF SERVICE: 06/07/2018 CHIEF COMPLAINT: Possible bowel obstruction. HISTORY OF PRESENT ILLNESS: This lady is going to the operating room today. PHYSICAL EXAM: She is awake and alert and not having a great deal of pain. Abdomen is quite distended. IMPRESSION: Probable large bowel obstruction. PLAN: Surgery today. MMODL / [place]: [id number] /
[2018-06-09] MEDS: POTASSIUM CHLORIDE 10 MEQ in WATER FOR INJECTION 1 100ML.BAG IVPB SCH ×7 (00:21→21:48)
[2018-06-09] MEDS: metroNIDAZOLE-NS PMX 500 MG in SALINE 1 100ML.BAG IVPB SCH ×3 (00:22→16:41)
[2018-06-09 04:49] LABS: Basophils % (A) 0 %; Eosinophils # (A) 0.1 k/uL (0-0.7); Eosinophils % (A) 0 %; HCT 32.6 % (34.0-46.0); HGB 10.2 gm/dL (11.4-16.0); Hypochromasia Slight; Lymphocytes # (A) 1.1 k/uL (1.0-4.8); Lymphocytes % (A) 5 %; MCH 27.1 pg (25.0-35.0); MCHC 31.2 g/dL (31.0-37.0); MCV 86.9 fL (80.0-100.0); Mean Platelet Volume 7.9; Monocytes # (A) 0.5 k/uL (0-1.0); Monocytes % (A) 2 %; Neutrophils # (A) 18.8 k/uL (1.3-7.7); Neutrophils % (A) 92 %; Platelet Count 308 k/uL (150-450); RBC 3.76 m/uL (3.80-5.40); RDW 14.6 % (11.5-15.5); WBC 20.5 k/uL (3.8-10.6)
[2018-06-09 05:17] LABS: Calcium 7.6 mg/dL (8.4-10.2); Magnesium 1.8 mg/dL (1.6-2.3); Phosphorus 2.2 mg/dL (2.5-4.5); Potassium 3.3 mmol/L (3.5-5.1)
[2018-06-09] MEDS: MAGNESIUM SULFATE-D5W PMX 1 GM in DEXTROSE/WATER 1 100ML.BAG IVPB SCH ×2 (05:44→07:09)
--- NOTE | 2018-06-09 07:51 | XR ---
EXAMINATION TYPE: XR chest 1V DATE OF EXAM: 06/09/2018 CLINICAL HISTORY: Difficulty breathing with exertion. TECHNIQUE: Single AP portable upright view of the chest is obtained. COMPARISON: Chest x-ray from one day earlier and older studies. FINDINGS: A nasogastric tube is redemonstrated. There is stable cardiomegaly with atherosclerotic th oracic aorta. There is chronic parenchymal change with persistent left basilar opacity. Suspect stabl e tiny to small right pleural effusion. Multilevel spurring in the spine is present. IMPRESSION: Overall stable findings, cardiomegaly with small to tiny left greater than right pleura l effusions and left basilar infiltrate and/or atelectasis all redemonstrated.
[2018-06-09] MEDS: hydrALAZINE HCL 50 MG TAB PO SCH ×4 (07:58→21:40)
[2018-06-09] MEDS: SODIUM CHLORIDE 5% OPHTH DROPS 15 ML BTL BOTH EYES SCH ×4 (07:59→21:49)
[2018-06-09] MEDS: HEPARIN SODIUM,PORCINE 5,000 UNIT/ML 1 ML VIAL SQ SCH ×2 (08:02→16:42)
[2018-06-09] MEDS: SODIUM CHLORIDE 0.9% 1,000 ML IV SCH ×2 (08:04→21:48)
[2018-06-09] MEDS: IPRATROPIUM-ALBUTEROL 3 ML NEB INHALATION SCH ×4 (08:40→20:25)
[2018-06-09] MEDS: METOPROLOL TARTRATE 5 MG/5 ML VIAL IVP PRN ×3 (09:46→21:48)
--- NOTE | 2018-06-09 10:08 | PN ---
PROGRESS NOTE Mrs. Blake is now in an atrial fib controlled rate. This lady underwent ischemic bowel resection. She appears to be doing well, but her electrolyte profile suggests hypokalemia. Her vital signs are stable. S1, S2 heard normally, short systolic murmur noted. Lungs reveal improved entry air entry. Abdomen exam was deferred. I am recommending that we supplement potassium. Blood pressure control is optimal. Continue supportive care. No aggressive intervention. MMODL / IJN: [id number] /
--- NOTE | 2018-06-09 10:36 | P.PN ---
Subjective Progress Note Date: 06/09/18 87-year-old female patient with known history of dementia presented to the hospital because of abdominal pain and constipation. Initial presentation with a 97 2018 and the patient hospital sinus. The patient had CAT scan of the abdomen that showed mild sigmoid diverticulitis. The patient continued to have abdominal discomfort and subsequent bloating and subsequent inability to pass any bowel movements. Soapsuds enemas were utilized and there was minimal stool production. She continued to have nausea and vomiting and surgery was involved in the case and the patient underwent a barium enema yesterday that showed localized area of irregular narrowing involving the sigmoid colon in addition to a high-grade obstruction and based on his findings the patient be taken to the operating room for colectomy and possible diverticular colostomy. I was asked even with this patient's pulmonary status and be involved in the postoperative care due to her age and the complexity of her medical problems. Note that this patient has been labeled to have a mild component of COPD despite her nonsmoking history. 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 She is exposed to respiratory irritants or chemicals. No recurrent pneumonias. No use of home oxygen. Exercise capacity has been limited and the patient reports some limited capacity even prior to this ongoing abdominal problems. During this current hospital stay she had a short run of atrial fibrillation she converted back to normal sinus rhythm. Echo was done and the patient is an ejection fraction of 6065% and mild aortic valve sclerosis and moderate degree of stenosis with a peak gradient across the valve of 32 and mother degree of pulmonary hypertension with a PA pressure of 53. Currently she is free of any chest pain. No cough sputum production. She is on room air oxygen. She'll be going to surgery at around 2 PM this afternoon.. 06/08/2008 and the patient is postop day #1. The patient was taken to the operating room yesterday and underwent a subtotal colectomy. Cecum was also ischemic and the patient underwent a subtotal colectomy and diverting colostomy was performed. Postop the patient was brought into the intensive care unit. She was extubated postop without any major difficulties. Overnight she continued to have episodes of low urine output. She was given a total of 2 L of IV fluid in the form of normal saline. The bicarbonate drip was also continued at the rate of 100 mL an hour. She'll be receiving a third liter for now. She is arousable and awake but a bit lethargic. Pain is under good control. NG tube is in place. Surgical site is dry clean and intact. BRIGITTE drain is also in place with minimal amount of output. No abdominal tenderness at this point in time. No major edema in lower extremities. She is hemodynamic is stable and she has not required any pressors. She is currently in a normal sinus rhythm. She converted this morning from an underlying A. fib fibrillation. Echocardiogram at shown a preserved LV function. No respiratory distress. Her white cell count is up to 34 which is an expected finding. 06/09/2018, patient is postop day #2. Doing well. Awake and alert. Following commands and answering questions. No major altered mentation or confusion. The patient has an ileostomy which is still nonfunctional at this point in time he had viable. Abdomen is soft and slightly distended. The patient is producing adequate amount of urine output. The serum bicarb is up to 30 and based on that the patient was taken off the bicarb drip and currently she is on normal saline today to have 100 mL an hour. Renal function is also stable with a creatinine of 0.9. White cell count is improving is down to 20.5. She is in normal sinus rhythm. She has occasional PVCs. No other issues otherwise for now. She remains on a combination of Rocephin and Flagyl. BRIGITTE drain is in place and the total amount of output has been 65 mL since yesterday. The neck fluid balance is +5.5 L for yesterday. Objective - Vital Signs Vital signs: Vital Signs Temp 98.6 F 06/09/18 08:00 Pulse 93 06/09/18 10:00 Resp 16 06/09/18 10:00 BP 134/62 06/09/18 10:00 Pulse Ox 96 06/09/18 10:00 Intake & Output 06/08/18 06/09/18 06/09/18 18:59 06:59 18:59 Intake Total 2669 2019 330 Output Total 1251 965 130 Balance 1419 1055 200 Weight 87 kg 85.8 kg Intake: IV 2669 2019 330 0.9 70 120 30 Dextrose 5% in Water 1, 1000 1200 100 000 ml @ 100 mls/hr IV . [id number] [facility] with Sodium Bicarb (1 Meq/ml) 150 ml Rx#:[id number] Magnesium Sulfate-D5w Pmx 200 100 1 gm In Dextrose/Water 1 100ml.bag @ 100 mls/hr IVPB Q1H [facility] Rx#: [id number] Potassium Chloride 10 meq 200 500 In Water For Injection 1 100ml.bag @ 100 mls/hr IVPB Q1H [facility] Rx#: [id number] Sodium Chloride 0.9% 1, 200 000 ml @ 100 mls/hr IV . Q10H [facility] Rx#:[id number] Sodium Chloride 0.9% 1, 1000 000 ml @ 999 mls/hr IV . Q1H1M [facility] Rx#:[id number] metroNIDAZOLE-NS PMX 500 200 100 mg In Saline 1 100ml.bag @ 100 mls/hr IVPB Q8HR [facility] Rx#:[id number] Output: Drainage 65 Left Lower Abdomen 65 Urine 1186 965 130 Other: Voiding Method Indwelling Catheter Indwelling Catheter Indwelling Catheter - Exam On physical examination, patient appears comfortable in no apparent distress. lethargic and somnolent HEAD: Normocephalic, atraumatic.Head exam was generally normal. There was no scleral icterus or corneal arcus. Mucous membranes were moist. Neck was supple and without jugular venous distension, thyromegaly, or carotid bruits. Carotids were easily palpable bilaterally. There was no adenopathy. Lungs sounds are diminished in lung bases bilaterally otherwise clear. No wheezes or rhonchi early crackles. Cardiac exam revealed the PMI to be normally situated and sized. The rhythm was regular and no extrasystoles were noted during several minutes of auscultation. The first and second heart sounds were normal and physiologic splitting of the second heart sound was noted. There were no murmurs, rubs, clicks, or gallops. ABDOMEN: Soft, obese. Hypoactive bowel sounds. No direct tenderness. No rebound tenderness. No guarding. Surgical site is dry clean and intact. BRIGITTE drain is in place. Abdominal distention subsided. Ileostomy site is not functional. Viable. SKIN: No rashes, no jaundice. Examination of the skin revealed no evidence of significant rashes, suspicious appearing nevi or other concerning lesions. NEUROLOGIC: Agent has impaired short-term memory. The patient has an underlying dementia. She does better with long-term memory. On and off confusion/sundowning. no focal neurological deficit this point in time. She is moving all 4 extremities. Pupils are equal and reactive to light. - Labs CBC & Chem 7: 06/09/18 04:38 06/09/18 04:38 Labs: Abnormal Lab Results - Last 24 Hours (Table) 06/09/18 06/09/18 Range/Units 04:38 04:38 WBC 20.5 H (3.8-10.6) k/uL RBC 3.76 L (3.80-5.40) m/uL Hgb 10.2 L (11.4-16.0) gm/dL Hct 32.6 L (34.0-46.0) % Neutrophils # 18.8 H (1.3-7.7) k/uL Potassium 3.3 L (3.5-5.1) mmol/L BUN 23 H (7-17) mg/dL Glucose 171 H (74-99) mg/dL Calcium 7.6 L (8.4-10.2) mg/dL Phosphorus 2.2 L (2.5-4.5) mg/dL Microbiology - Last 24 Hours (Table) 06/02/18 19:09 Blood Culture - Final Blood No Growth after 144 hours 06/02/18 21:17 Blood Culture - Final Blood No Growth after 144 hours Assessment and Plan Plan: Assessment 1 sigmoid diverticulitis complicated by bowel obstruction, patient underwent expiratory laparotomy, subtotal colectomy and diverting ileostomy and the patient is postop day #2. Hemodynamically stable. Bowel sounds are still hypoactive. The patient is not having any bowel activity and had ileostomy. BRIGITTE drain is still in place. Surgical wound site is clean. Started on Rocephin and Flagyl 2 NPO, post bowel surgery and the manager digital [employer] operations to be addressed and consideration needs to be given for TPN if the patient has a slow recovery in terms of bowel function following her subtotal colectomy and diverticular ileostomy. The patient's lisinopril NG tube in place. 3 metabolic acidosis, recovered 4 acute leukocytosis secondary to above, improving 5 COPD currently inactive in stable 6 obesity. 7 moderate degree of aortic stenosis and secondary pulmonary hypertension with preserved LV function 8 paroxysmal atrial fibrillation during this current hospitalization recovered and the patient's rhythm is sinus 9 hypertension 10 remote history of C. diff colitis 11 history of dementia Plan Keep nothing by mouth. Monitor NG output. Monitor BRIGITTE output. Continue same antibiotic coverage. Agree on starting the bicarb drip. Continue maintenance of the 100 mL an hour. Keep same antibiotic coverage. Monitor the progress in terms of bowel activity and consider TPN if no significant bowel functions within next few days. We'll continue to follow. Provide the patient incentive spirometer. Aggressive pulmonary toileting. Pain is under good control. We' ll follow.
--- NOTE | 2018-06-09 13:43 | CDI ---
Last Revision, August 2017 Documentation Clarification Form 2nd Request Date: 06/08/2018 12:23:00 PM From: Mary Marley RN, CCDS Admit Date: 06/01/2018 6:04:00 PM Patient Name: Helen Blake Visit Number: [id number] ATTENTION: The Clinical Documentation Specialists (CDI) and [facility] Coding Staff appreciate your assistance in clarifying documentation. Please respond to the clarification below the line at the bottom and electronically sign. The CDI & [facility] Coding staff will review the response and follow-up if needed. Please note: Queries are made part of the Legal Health Record. If you have any questions, please contact the author of this message via ITS. Glenn Duarte MD Renal disease and renal Failure are documented in your progress notes and require further specificity. History/Risk Factors: Colon obstruction w colic ischemia at cecum, uti's Patients baseline BUN/CR/GFR: NO baseline renal function available from this facility Clinical Indicators: Current BUN: 16/// Cr: 1.13/1.15/1.2/1.24 GFR :44/43/41/39 Treatment: IVF 0.9% NS @ 100 cc/hr In order to capture the severity of condition, please clarify if the condition signifies: Acute renal failure, Please specify etiology (if known): Cortical Necrosis Medullary Necrosis Tubular Necrosis Acute kidney injury Acute on chronic renal failure CKD Stage 1 GFR >90 CKD Stage 2 GFR 60-89 CKD Stage 3 GFR 30-59 CKD Stage 4 GFR 15-29 CKD Stage 5 GFR <15 Chronic renal failure/Chronic Kidney disease (CKD) please stage if known CKD Stage 1 GFR >90 CKD Stage 2 GFR 60-89 CKD Stage 3 GFR 30-59 CKD Stage 4 GFR 15-29 CKD Stage 5 GFR <15 ESRD Other, please specify Unable to determine Please continue to document in your progress notes and discharge summary in order to capture severity of illness and risk of mortality. Include clinical findings that support your diagnosis. MTDD
--- NOTE | 2018-06-09 13:46 | CDI ---
Last Revision, August 2017 Documentation Clarification Form 2nd request Date: 06/08/2018 12:38:00 PM From: Mary Marley RN, CCDS Admit Date: 06/01/2018 6:04:00 PM Patient Name: Helen Blake Visit Number: [id number] ATTENTION: The Clinical Documentation Specialists (CDI) and [facility] Coding Staff appreciate your assistance in clarifying documentation. Please respond to the clarification below the line at the bottom and electronically sign. The CDI & [facility] Coding staff will review the response and follow-up if needed. Please note: Queries are made part of the Legal Health Record. If you have any questions, please contact the author of this message via ITS. Glenn Anderson MD History/Risk Factors: Dementia, GERD, HTN Clinical Indicators: VS/Pulse OX: Temp 98.7, hr 93, RR 18, B/P 157/79, spo2 97% ra BNP: 3370 up to 7280 Echocardiogram Results: EF 60-65%, moderate pulmonary HTN 06/08 Chest X Ray: "Mild cardiomegaly and new left basilar opacity which could represent a small effusion with adjacent atelectasis and/or consolidation. Correlate for possible mild CHF." Treatment: 3L IVF Bolus 06/02 Lasix IVP 20 mg x 1 dose followed by 40 mg IVP x 1 dose In your professional opinion, can you please clarify the acuity and type of CHF if known? Diastolic Heart Failure: Acute Chronic Acute on Chronic Unable to Determine Other, please specify Please continue to document in your progress notes and discharge summary in order to capture severity of illness and risk of mortality. Include clinical findings that support your diagnosis. MTDD
[2018-06-09] MEDS: cefTRIAXone IN SWFI 1,000 MG/10 ML SYRINGE IVP SCH (16:43)
--- NOTE | 2018-06-09 17:27 | P.PN ---
Subjective Progress Note Date: 06/09/18 Principal diagnosis: Colonic obstruction Patient doing well today. No significant pain. No ileostomy output thus far. Minimal nasogastric tube output however. Labs noted. Good urine output. Objective - Vital Signs Vital signs: Vital Signs Temp 98.3 F 06/09/18 16:00 Pulse 102 H 06/09/18 16:00 Resp 20 06/09/18 16:00 BP 165/60 06/09/18 16:00 Pulse Ox 94 L 06/09/18 16:00 Intake & Output 06/08/18 06/09/18 06/09/18 18:59 06:59 18:59 Intake Total 2672019 990 Output Total 1251 965 340 Balance 1419 1055 650 Weight 87 kg 85.8 kg 85.8 kg Intake: IV 2669 2019 990 0.9 70 120 90 Dextrose 5% in Water 1, 1000 1200 100 000 ml @ 100 mls/hr IV . [id number] [facility] with Sodium Bicarb (1 Meq/ml) 150 ml Rx#:[id number] Magnesium Sulfate-D5w Pmx 200 100 1 gm In Dextrose/Water 1 100ml.bag @ 100 mls/hr IVPB Q1H [facility] Rx#: [id number] Potassium Chloride 10 meq 200 500 In Water For Injection 1 100ml.bag @ 100 mls/hr IVPB Q1H [facility] Rx#: [id number] Sodium Chloride 0.9% 1, 800 000 ml @ 100 mls/hr IV . Q10H [facility] Rx#:[id number] Sodium Chloride 0.9% 1, 1000 000 ml @ 999 mls/hr IV . Q1H1M [facility] Rx#:[id number] metroNIDAZOLE-NS PMX 500 200 100 mg In Saline 1 100ml.bag @ 100 mls/hr IVPB Q8HR [facility] Rx#:[id number] Output: Drainage 65 Left Lower Abdomen 65 Urine 1186 965 340 Other: Voiding Method Indwelling Catheter Indwelling Catheter Indwelling Catheter - Exam Abdomen: Soft, nondistended, diminished bowel sounds, incision/wound clean - Labs CBC & Chem 7: 06/09/18 04:38 06/09/18 04:38 Labs: Abnormal Lab Results - Last 24 Hours (Table) 06/09/18 06/09/18 Range/Units 04:38 04:38 WBC 20.5 H (3.8-10.6) k/uL RBC 3.76 L (3.80-5.40) m/uL Hgb 10.2 L (11.4-16.0) gm/dL Hct 32.6 L (34.0-46.0) % Neutrophils # 18.8 H (1.3-7.7) k/uL Potassium 3.3 L (3.5-5.1) mmol/L BUN 23 H (7-17) mg/dL Glucose 171 H (74-99) mg/dL Calcium 7.6 L (8.4-10.2) mg/dL Phosphorus 2.2 L (2.5-4.5) mg/dL Microbiology - Last 24 Hours (Table) 06/02/18 19:09 Blood Culture - Final Blood No Growth after 144 hours 06/02/18 21:17 Blood Culture - Final Blood No Growth after 144 hours Assessment and Plan (1) Sigmoid diverticulitis Narrative/Plan: Continue antibiotics. Keep nothing by mouth. Start tube feeds low-dose her nasogastric tube today. Hopefully removed nasogastric tube tomorrow. Begin local wound care at [facility]. Current Visit: Yes Status: Acute Code(s): K57.32 - DVTRCLI OF LG INT W/O PERFORATION OR ABSCESS W/O BLEEDING SNOMED Code(s): 375146736
[2018-06-09] MEDS: ONDANSETRON 4 MG/2 ML VIAL IVP PRN (20:38)
[2018-06-09] MEDS: MORPHINE SULFATE 2 MG/ML SYRINGE IV PRN (20:58)
[2018-06-10] MEDS: POTASSIUM CHLORIDE 10 MEQ in WATER FOR INJECTION 1 100ML.BAG IVPB SCH ×3 (00:21→03:17)
[2018-06-10] MEDS: HEPARIN SODIUM,PORCINE 5,000 UNIT/ML 1 ML VIAL SQ SCH ×3 (00:21→15:48)
[2018-06-10] MEDS: metroNIDAZOLE-NS PMX 500 MG in SALINE 1 100ML.BAG IVPB SCH ×3 (00:22→15:48)
[2018-06-10] MEDS: SODIUM CHLORIDE 0.9% 1,000 ML IV SCH ×2 (03:18→15:45)
[2018-06-10] MEDS: MORPHINE SULFATE 2 MG/ML SYRINGE IV PRN (05:03)
[2018-06-10 05:25] LABS: Calcium 7.3 mg/dL (8.4-10.2)
[2018-06-10] MEDS: METOPROLOL TARTRATE 5 MG/5 ML VIAL IVP PRN (05:43)
[2018-06-10 05:49] LABS: Basophils % (A) 0 %; Eosinophils # (A) 0.1 k/uL (0-0.7); Eosinophils % (A) 1 %; HCT 31.1 % (34.0-46.0); HGB 9.9 gm/dL (11.4-16.0); Hypochromasia Slight; Lymphocytes # (A) 1.6 k/uL (1.0-4.8); Lymphocytes % (A) 9 %; MCH 27.9 pg (25.0-35.0); MCHC 31.9 g/dL (31.0-37.0); MCV 87.4 fL (80.0-100.0); Mean Platelet Volume 7.6; Monocytes # (A) 0.4 k/uL (0-1.0); Monocytes % (A) 2 %; Neutrophils # (A) 16.3 k/uL (1.3-7.7); Neutrophils % (A) 88 %; Platelet Count 294 k/uL (150-450); RBC 3.56 m/uL (3.80-5.40); RDW 14.5 % (11.5-15.5); WBC 18.5 k/uL (3.8-10.6)
[2018-06-10] MEDS: POTASSIUM PHOSPHATE 10 MMOL in SODIUM CHLORIDE 0.9% 250 ML IV SCH ×2 (06:28→08:12)
--- NOTE | 2018-06-10 07:34 | XR ---
EXAMINATION TYPE: XR chest 1V DATE OF EXAM: 06/10/2018 COMPARISON: 06/09/2018 INDICATION: Short of breath TECHNIQUE: Single frontal view of the chest is obtained. FINDINGS: The heart size is enlarged. The pulmonary vasculature is normal. There is improving retrocardiac infiltrate. Nasogastric tube transverses the thorax the tip in the left upper quadrant of the abdomen. IMPRESSION: 1. Improving left lower lobe infiltrate. 2. Cardiomegaly
[2018-06-10] MEDS: IPRATROPIUM-ALBUTEROL 3 ML NEB INHALATION SCH ×4 (08:00→20:01)
[2018-06-10] MEDS: hydrALAZINE HCL 50 MG TAB PO SCH ×4 (08:12→21:04)
[2018-06-10] MEDS: SODIUM CHLORIDE 5% OPHTH DROPS 15 ML BTL BOTH EYES SCH ×4 (08:13→22:00)
[2018-06-10] MEDS: PANTOPRAZOLE 40 MG/10 ML VIAL IVP SCH (09:06)
[2018-06-10] MEDS ORDERED: DILTIAZEM DRIP BOLUS FROM BAG 1 MG SOLN IV ONE (09:45)
[2018-06-10] MEDS: DILTIAZEM 50 MG in SODIUM CHLORIDE 0.9% 40 ML IV SCH ×3 (10:46→22:00)
--- NOTE | 2018-06-10 11:33 | CDI ---
Last Revision, August 2017 Documentation Clarification Form Date: 06/10/2018 11:22:47 AM From: Mary Marley Admit Date: 06/01/2018 6:04:00 PM Patient Name: Helen Blake Visit Number: [id number] ATTENTION: The Clinical Documentation Specialists (CDI) and [facility] Coding Staff appreciate your assistance in clarifying documentation. Please respond to the clarification below the line at the bottom and electronically sign. The CDI & [facility] Coding staff will review the response and follow-up if needed. Please note: Queries are made part of the Legal Health Record. If you have any questions, please contact the author of this message via ITS. Glenn Duarte MD A declining Hemoglobin and Hematocrit have been noted since admission and lacks specificity to accurately reflect your patients severity of condition and clarification is needed. History/Risk Factors: No previous hx of anemia, diverticulitis, HTN, A-Fib, dementia, Subtotal colectomy with end ileostomy d/t ischemic cecum Clinical indicators: Hemoglobin: 12.3/10.2/9.9 Hematocrit:39.4/32.6/31.1 Treatment: Lab Monitoring 3L IVF bolus followed by 100 cc/hr In order to capture the severity of condition, please clarify the significance of the above noted labs and etiology if known: Acute blood loss anemia (if blood loss is d/t surgical procedure was it expected , unexpected, inherent, or integral to the procedure) Acute on chronic blood loss anemia Chronic blood loss anemia Iron deficiency anemia Nutritional anemia Anemia of chronic disease Unable to determine Other, please specify Please continue to document in your progress notes and discharge summary in order to capture severity of illness and risk of mortality. Include clinical findings that support your diagnosis. MTDD
--- NOTE | 2018-06-10 12:39 | PN ---
PROGRESS NOTE Mrs. Blake is in atrial fib controlled rate slightly faster. I am recommending IV Cardizem at 7.5 mg bolus and 7.5 mg drip. She is known to have a chronic atrial fibrillation. We will resume anticoagulation once we get the okay from the surgeon. Vital signs are stable. S1-S2 heard normally. Irregularity in rhythm noted. Lungs reveal improved air entry. Abdomen and lower extremities exam unchanged. Patient still has NG tube in place. We will resume intravenous Cardizem for rate control and as soon as we get the okay from surgeon, we will resume anticoagulation. Prognosis remains guarded. MMODL / IJN: [id number] /
[2018-06-10] MEDS ORDERED: LIDOCAINE 2% (PF) 20 MG/ML 2 ML VIAL SQ ONE (13:09)
--- NOTE | 2018-06-10 13:35 | XR ---
EXAMINATION TYPE: XR chest 1V portable DATE OF EXAM: 06/10/2018 COMPARISON: 06/10/2018 INDICATION: PICC line TECHNIQUE: Single frontal view of the chest is obtained. FINDINGS: The heart size is prominent. The pulmonary vasculature is normal. Bibasilar infiltrates are present. Small left pleural effusion may be present. Nasogastric tube trans verses the thorax. PICC line is been placed on the left. The tip overlies the left thoracic pedicle The midline. This most likely within the brachiocephalic vein. IMPRESSION: 1. Bilateral pleural effusions and bibasilar infiltrates. Follow-up is recommended. 2. Status post PICC line placement with tip in the region of the brachial 6 in the midline.
--- NOTE | 2018-06-10 13:43 | P.PN ---
Subjective Progress Note Date: 06/10/18 88-year-old female seen in the ICU sitting up in bed awake and alert no stool not passing gas left lower quadrant ostomy stoma pink sitting up in bed PICC line to be inserted. Tube feed in place per nasal gastric tube noted BRIGITTE drain in place left lower quadrant straw-colored secretions noted ostomy left lower quadrant no stool noted Subtotal colectomy with end ileostomy for colon obstruction with ischemia at the cecum Objective - Vital Signs Vital signs: Vital Signs Temp 98.3 F 06/10/18 08:00 Pulse 94 06/10/18 12:00 Resp 15 06/10/18 12:00 BP 151/72 06/10/18 12:00 Pulse Ox 95 06/10/18 12:00 Intake & Output 06/09/18 06/10/18 06/10/18 18:59 06:59 18:59 Intake Total 1210 1600 700 Output Total 540 1282 271 Balance 670 318 429 Weight 85.8 kg 83.6 kg Intake: IV 1210 1600 700 0.9 110 Dextrose 5% in Water 1, 100 000 ml @ 100 mls/hr IV . [id number] [facility] with Sodium Bicarb (1 Meq/ml) 150 ml Rx#:[id number] Potassium Chloride 10 meq 200 In Water For Injection 1 100ml.bag @ 100 mls/hr IVPB Q1HR [facility] Rx#: [id number] Potassium Chloride 10 meq 100 In Water For Injection 1 100ml.bag @ 100 mls/hr IVPB Q1HR [facility] Rx#: [id number] Potassium Phosphate 10 500 mmol In Sodium Chloride 0 .9% 250 ml @ 125 mls/hr IV Q2H [facility] Rx#:[id number] Sodium Chloride 0.9% 1, 1000 1200 200 000 ml @ 100 mls/hr IV . Q10H [facility] Rx#:[id number] metroNIDAZOLE-NS PMX 500 100 mg In Saline 1 100ml.bag @ 100 mls/hr IVPB Q8HR [facility] Rx#:[id number] Output: Gastric Drainage 400 Drainage 110 115 125 Left Lower Abdomen 110 115 125 Urine 430 367 146 Emesis 400 Other: Voiding Method Indwelling Catheter Indwelling Catheter Indwelling Catheter # Emeses 1 - Exam Exam Abdomen BRIGITTE drain left lower quadrant straw-colored secretions noted ostomy stoma pink left lower quadrant no gas no stool TPN infusing surgical dressing site dry indwelling Mancini catheter in place no facial grimacing with palpitation to the abdominal wall nondistended - Labs CBC & Chem 7: 06/10/18 04:45 06/10/18 04:45 Labs: Abnormal Lab Results - Last 24 Hours (Table) 06/09/18 06/10/18 06/10/18 Range/Units 19:34 04:45 04:45 WBC 18.5 H (3.8-10.6) k/uL RBC 3.56 L (3.80-5.40) m/uL Hgb 9.9 L (11.4-16.0) gm/dL Hct 31.1 L (34.0-46.0) % Neutrophils # 16.3 H (1.3-7.7) k/uL Potassium 3.4 L (3.5-5.1) mmol/L Carbon Dioxide 33 H (22-30) mmol/L BUN 18 H (7-17) mg/dL Glucose 107 H (74-99) mg/dL Calcium 7.3 L (8.4-10.2) mg/dL Phosphorus 2.0 L (2.5-4.5) mg/dL Assessment and Plan Assessment: Impression Present on admission abdominal distention suspect due to colonic ileus or distal colonic obstruction CAT scan abdomen pelvis showed suspected mild sigmoid diverticulitis obtained 2 days prior to admission Constipation Present on admission leukocytosis suspect reactive Present on admission electrolyte imbalance hypokalemia corrected resolved CAT scan abdomen pelvis findings constipation and sigmoid diverticulitis some degree of colonic obstruction related to inflammatory changes sigmoid colon X-ray abdomen reports indicate evidence of colonic ileus or distal colonic obstruction Baseline dementia Paroxysmal atrial fibrillation with rapid ventricular response started on elquis Systolic ejection murmur suspect aortic stenosis Abnormal troponin cardiology following suspect related to supply and demand mismatch Subtotal colectomy with end ileostomy for colon obstruction with ischemia at the cecum done June 07 Plan Continue postop surgical care Continue TPN for nutritional support IV antibiotics as ordered Rocephin and Flagyl Continue local wound care at the wound sites Progress note dictated on behalf of dr hand covering for dr you The above impression and plan of care have been discussed and directed by signing physician. Jane Chappell nurse practitioner acting as scribe for signing physician.
--- NOTE | 2018-06-10 14:00 | IR ---
PICC LINE PLACEMENT: HISTORY: Infection requiring long-term antibiotic therapy PROCEDURE: Ultrasound guidance of PICC line placement. SASH MAKER: Dr. Henriquez. COMPLICATIONS: None ANESTHESIA: 1. 1% Lidocaine locally. FINDINGS/TECHNIQUE: The procedure was explained to the patient. The risks, complications, benefits and alternatives were discussed and any questions were answered. Informed consent was obtained. The patient was placed supine on the fluoroscopic table and prepped and draped in the usual sterile fas ion. Utilizing a 21 gauge needle and sonographic guidance, access in the left basilic vein was achi eved and there is placement of a 0.018 guidewire. The vein is patent. A 5-F. sheath was placed over the guidewire. The guidewire and dilator were removed and a 5-F. Double lumen PICC line was placed through the sheath with the chest x-ray confirming the tip at the level of the SVC. The sheath was r emoved, the catheter was flushed and sutured into position. The patient was stable throughout the pr ocedure and remained stable upon discharge from the Department of Radiology. The vein puncture was patent under ultrasound. A paiz scale image was obtained to document patency of the vein punctured. All elements of the maximal barrier technique were utilized. IMPRESSION: 1. Successful PICC line placement under ultrasound performed bedside within the ICU.
--- NOTE | 2018-06-10 14:10 | P.PN ---
Subjective Progress Note Date: 06/10/18 87-year-old female patient with known history of dementia presented to the hospital because of abdominal pain and constipation. Initial presentation with a 97 2018 and the patient hospital sinus. The patient had CAT scan of the abdomen that showed mild sigmoid diverticulitis. The patient continued to have abdominal discomfort and subsequent bloating and subsequent inability to pass any bowel movements. Soapsuds enemas were utilized and there was minimal stool production. She continued to have nausea and vomiting and surgery was involved in the case and the patient underwent a barium enema yesterday that showed localized area of irregular narrowing involving the sigmoid colon in addition to a high-grade obstruction and based on his findings the patient be taken to the operating room for colectomy and possible diverticular colostomy. I was asked even with this patient's pulmonary status and be involved in the postoperative care due to her age and the complexity of her medical problems. Note that this patient has been labeled to have a mild component of COPD despite her nonsmoking history. 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 She is exposed to respiratory irritants or chemicals. No recurrent pneumonias. No use of home oxygen. Exercise capacity has been limited and the patient reports some limited capacity even prior to this ongoing abdominal problems. During this current hospital stay she had a short run of atrial fibrillation she converted back to normal sinus rhythm. Echo was done and the patient is an ejection fraction of 6065% and mild aortic valve sclerosis and moderate degree of stenosis with a peak gradient across the valve of 32 and mother degree of pulmonary hypertension with a PA pressure of 53. Currently she is free of any chest pain. No cough sputum production. She is on room air oxygen. She'll be going to surgery at around 2 PM this afternoon.. 06/08/2008 and the patient is postop day #1. The patient was taken to the operating room yesterday and underwent a subtotal colectomy. Cecum was also ischemic and the patient underwent a subtotal colectomy and diverting colostomy was performed. Postop the patient was brought into the intensive care unit. She was extubated postop without any major difficulties. Overnight she continued to have episodes of low urine output. She was given a total of 2 L of IV fluid in the form of normal saline. The bicarbonate drip was also continued at the rate of 100 mL an hour. She'll be receiving a third liter for now. She is arousable and awake but a bit lethargic. Pain is under good control. NG tube is in place. Surgical site is dry clean and intact. BRIGITTE drain is also in place with minimal amount of output. No abdominal tenderness at this point in time. No major edema in lower extremities. She is hemodynamic is stable and she has not required any pressors. She is currently in a normal sinus rhythm. She converted this morning from an underlying A. fib fibrillation. Echocardiogram at shown a preserved LV function. No respiratory distress. Her white cell count is up to 34 which is an expected finding. 06/09/2018, patient is postop day #2. Doing well. Awake and alert. Following commands and answering questions. No major altered mentation or confusion. The patient has an ileostomy which is still nonfunctional at this point in time he had viable. Abdomen is soft and slightly distended. The patient is producing adequate amount of urine output. The serum bicarb is up to 30 and based on that the patient was taken off the bicarb drip and currently she is on normal saline today to have 100 mL an hour. Renal function is also stable with a creatinine of 0.9. White cell count is improving is down to 20.5. She is in normal sinus rhythm. She has occasional PVCs. No other issues otherwise for now. She remains on a combination of Rocephin and Flagyl. BRIGITTE drain is in place and the total amount of output has been 65 mL since yesterday. The neck fluid balance is +5.5 L for yesterday. 06/10/2018 patient is postop day #3. Awake and alert and he of any significant pain. Using incentive spirometer. Still nothing by mouth. Based on surgical recommendation, the patient was given a ticket tube feed yesterday at the rate of 10 mL an hour. She was unable to tolerate. She had emesis and subsequently 400 mL of aspirate was obtained from the stomach. The patient is currently nothing by mouth. The bowel sounds are still hypoactive. Surgical wound site is dry clean and intact. Her white cell count is down to 18.5. She is following commands and answering questions appropriately. BRIGITTE drain is still in place. Renal function is stable. No other significant events over the past 24 hours. Discussed the case with general surgery and were considering a PICC line and TPN for the next few days. Objective - Vital Signs Vital signs: Vital Signs Temp 98.3 F 06/10/18 08:00 Pulse 94 06/10/18 12:00 Resp 15 06/10/18 12:00 BP 151/72 06/10/18 12:00 Pulse Ox 95 06/10/18 12:00 Intake & Output 06/09/18 06/10/18 06/10/18 18:59 06:59 18:59 Intake Total 1210 1600 700 Output Total 540 1282 271 Balance 670 318 429 Weight 85.8 kg 83.6 kg Intake: IV 1210 1600 700 0.9 110 Dextrose 5% in Water 1, 100 000 ml @ 100 mls/hr IV . [id number] [facility] with Sodium Bicarb (1 Meq/ml) 150 ml Rx#:[id number] Potassium Chloride 10 meq 200 In Water For Injection 1 100ml.bag @ 100 mls/hr IVPB Q1HR [facility] Rx#: [id number] Potassium Chloride 10 meq 100 In Water For Injection 1 100ml.bag @ 100 mls/hr IVPB Q1HR [facility] Rx#: [id number] Potassium Phosphate 10 500 mmol In Sodium Chloride 0 .9% 250 ml @ 125 mls/hr IV Q2H [facility] Rx#:[id number] Sodium Chloride 0.9% 1, 1000 1200 200 000 ml @ 100 mls/hr IV . Q10H [facility] Rx#:[id number] metroNIDAZOLE-NS PMX 500 100 mg In Saline 1 100ml.bag @ 100 mls/hr IVPB Q8HR [facility] Rx#:[id number] Output: Gastric Drainage 400 Drainage 110 115 125 Left Lower Abdomen 110 115 125 Urine 430 367 146 Emesis 400 Other: Voiding Method Indwelling Catheter Indwelling Catheter Indwelling Catheter # Emeses 1 - Exam On physical examination, patient appears comfortable in no apparent distress. lethargic and somnolent HEAD: Normocephalic, atraumatic.Head exam was generally normal. There was no scleral icterus or corneal arcus. Mucous membranes were moist. Neck was supple and without jugular venous distension, thyromegaly, or carotid bruits. Carotids were easily palpable bilaterally. There was no adenopathy. Lungs sounds are diminished in lung bases bilaterally otherwise clear. No wheezes or rhonchi early crackles. Cardiac exam revealed the PMI to be normally situated and sized. The rhythm was regular and no extrasystoles were noted during several minutes of auscultation. The first and second heart sounds were normal and physiologic splitting of the second heart sound was noted. There were no murmurs, rubs, clicks, or gallops. ABDOMEN: Soft, obese. Hypoactive bowel sounds. No direct tenderness. No rebound tenderness. No guarding. Surgical site is dry clean and intact. BRIGITTE drain is in place. Abdominal distention subsided. Ileostomy site is not functional. Viable. SKIN: No rashes, no jaundice. Examination of the skin revealed no evidence of significant rashes, suspicious appearing nevi or other concerning lesions. NEUROLOGIC: Agent has impaired short-term memory. The patient has an underlying dementia. She does better with long-term memory. On and off confusion/owning. no focal neurological deficit this point in time. She is moving all 4 extremities. Pupils are equal and reactive to light. - Labs CBC & Chem 7: 06/10/18 04:45 06/10/18 04:45 Labs: Abnormal Lab Results - Last 24 Hours (Table) 06/09/18 06/10/18 06/10/18 Range/Units 19:34 04:45 04:45 WBC 18.5 H (3.8-10.6) k/uL RBC 3.56 L (3.80-5.40) m/uL Hgb 9.9 L (11.4-16.0) gm/dL Hct 31.1 L (34.0-46.0) % Neutrophils # 16.3 H (1.3-7.7) k/uL Potassium 3.4 L (3.5-5.1) mmol/L Carbon Dioxide 33 H (22-30) mmol/L BUN 18 H (7-17) mg/dL Glucose 107 H (74-99) mg/dL Calcium 7.3 L (8.4-10.2) mg/dL Phosphorus 2.0 L (2.5-4.5) mg/dL Assessment and Plan Plan: Assessment 1 sigmoid diverticulitis complicated by bowel obstruction, patient underwent expiratory laparotomy, subtotal colectomy and diverting ileostomy and the patient is postop day #3. The patient is still nothing by mouth. The patient is hemodynamically stable. 2 NPO, post bowel surgery and the patient was unable to tolerate enteral feeding to yesterday. Bowel sounds are still hypoactive. NG tube still in place. 3 metabolic acidosis, recovered 4 acute leukocytosis secondary to above, improving 5 COPD currently inactive in stable 6 obesity. 7 moderate degree of aortic stenosis and secondary pulmonary hypertension with preserved LV function 8 paroxysmal atrial fibrillation during this current hospitalization recovered and the patient's rhythm is sinus 9 hypertension 10 remote history of C. diff colitis 11 history of dementia Plan PICC line today. Proceed with TPN for nutritional support. Keep NG tube in place. The patient has minimal amount of output in ileostomy back and this is something to be monitored closely. Bowel sounds are still hypoactive. White cell count is improving. Continue same antibiotic coverage. Antibiotic will be kept unchanged. Asked the patient isn't up on a chair if possible today. Continue using incentive spirometer. We'll continue to follow.
[2018-06-10 15:32] LABS: Ionized Calcium 4.6 mg/dL (4.5-5.3)
[2018-06-10] MEDS ORDERED: MVI, ADULT NO.4 WITH VIT K 10 ML, TRACE (CONC-1ML/DOSE) 1 ML in AMINO ACID 4.25%-D10W+L... IV ONE ×3 (17:00)
[2018-06-10] MEDS: cefTRIAXone IN SWFI 1,000 MG/10 ML SYRINGE IVP SCH (17:22)
[2018-06-10] MEDS: FAT EMULSION 20% 250 ML in EMPTY BAG 1 BAG IV SCH (17:23)
[2018-06-10] MEDS ORDERED: FAT EMULSION 20% 250 ML in EMPTY BAG 1 BAG IV SCH (18:00)
[2018-06-10 18:54] LABS: Glucose,Whole Blood 119 mg/dL (75-99)
[2018-06-10] MEDS: INSULIN ASPART 100 UNIT/ML 1 ML 10 ML VIAL SQ SCH (18:56)
[2018-06-11] MEDS: MORPHINE SULFATE 2 MG/ML SYRINGE IV PRN ×2 (00:18→05:42)
[2018-06-11] MEDS: SODIUM CHLORIDE 0.9% 1,000 ML IV SCH ×3 (00:18→22:10)
[2018-06-11 01:17] LABS: Glucose,Whole Blood 173 mg/dL (75-99)
[2018-06-11] MEDS: INSULIN ASPART 100 UNIT/ML 1 ML 10 ML VIAL SQ SCH ×4 (01:28→18:26)
[2018-06-11] MEDS: HEPARIN SODIUM,PORCINE 5,000 UNIT/ML 1 ML VIAL SQ SCH ×3 (01:28→16:14)
[2018-06-11] MEDS: metroNIDAZOLE-NS PMX 500 MG in SALINE 1 100ML.BAG IVPB SCH ×3 (01:31→16:13)
[2018-06-11] MEDS: DILTIAZEM 50 MG in SODIUM CHLORIDE 0.9% 40 ML IV SCH ×3 (03:29→18:02)
[2018-06-11 05:26] LABS: Basophils % (A) 0 %; Eosinophils # (A) 0.3 k/uL (0-0.7); Eosinophils % (A) 2 %; HCT 32.4 % (34.0-46.0); HGB 10.1 gm/dL (11.4-16.0); Hypochromasia Moderate; Lymphocytes # (A) 1.3 k/uL (1.0-4.8); Lymphocytes % (A) 9 %; MCH 27.9 pg (25.0-35.0); MCHC 31.1 g/dL (31.0-37.0); MCV 89.7 fL (80.0-100.0); Mean Platelet Volume 7.2; Monocytes # (A) 0.4 k/uL (0-1.0); Monocytes % (A) 3 %; Neutrophils # (A) 12.9 k/uL (1.3-7.7); Neutrophils % (A) 85 %; Platelet Count 281 k/uL (150-450); RBC 3.61 m/uL (3.80-5.40); RDW 14.7 % (11.5-15.5); WBC 15.1 k/uL (3.8-10.6)
[2018-06-11 05:32] LABS: Ionized Calcium 4.8 mg/dL (4.5-5.3)
[2018-06-11 05:41] LABS: Calcium 7.1 mg/dL (8.4-10.2); Magnesium 1.9 mg/dL (1.6-2.3); Phosphorus 2.9 mg/dL (2.5-4.5); Potassium 3.8 mmol/L (3.5-5.1)
[2018-06-11 06:38] LABS: Glucose,Whole Blood 177 mg/dL (75-99)
[2018-06-11] MEDS: MAGNESIUM SULFATE-D5W PMX 1 GM in DEXTROSE/WATER 1 100ML.BAG IVPB SCH ×2 (06:48→08:09)
[2018-06-11] MEDS: POTASSIUM CHLORIDE 10 MEQ in WATER FOR INJECTION 1 100ML.BAG IVPB SCH ×2 (06:48→09:55)
--- NOTE | 2018-06-11 07:00 | XR ---
EXAMINATION TYPE: XR chest 1V DATE OF EXAM: 06/11/2018 HISTORY: shortness of breath with exertion. REFERENCE: Previous study dated 06/10/2018. FINDINGS: An NG tube remains in place, unchanged in appearance. There is a left basilic PICC line in place. Its tip is in the superior vena cava. The heart is enlarged. There is bibasilar infiltrates. There are small, bilateral effusions. Overall aeration is improved slightly. IMPRESSION: SLIGHT IMPROVED AERATION OF BOTH LUNGS.
[2018-06-11] MEDS: IPRATROPIUM-ALBUTEROL 3 ML NEB INHALATION SCH ×4 (07:17→20:22)
--- NOTE | 2018-06-11 07:51 | P.PN ---
Subjective Progress Note Date: 06/11/18 87-year-old female patient with known history of dementia presented to the hospital because of abdominal pain and constipation. Initial presentation with a 97 2018 and the patient hospital sinus. The patient had CAT scan of the abdomen that showed mild sigmoid diverticulitis. The patient continued to have abdominal discomfort and subsequent bloating and subsequent inability to pass any bowel movements. Soapsuds enemas were utilized and there was minimal stool production. She continued to have nausea and vomiting and surgery was involved in the case and the patient underwent a barium enema yesterday that showed localized area of irregular narrowing involving the sigmoid colon in addition to a high-grade obstruction and based on his findings the patient be taken to the operating room for colectomy and possible diverticular colostomy. I was asked even with this patient's pulmonary status and be involved in the postoperative care due to her age and the complexity of her medical problems. Note that this patient has been labeled to have a mild component of COPD despite her nonsmoking history. 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 She is exposed to respiratory irritants or chemicals. No recurrent pneumonias. No use of home oxygen. Exercise capacity has been limited and the patient reports some limited capacity even prior to this ongoing abdominal problems. During this current hospital stay she had a short run of atrial fibrillation she converted back to normal sinus rhythm. Echo was done and the patient is an ejection fraction of 6065% and mild aortic valve sclerosis and moderate degree of stenosis with a peak gradient across the valve of 32 and mother degree of pulmonary hypertension with a PA pressure of 53. Currently she is free of any chest pain. No cough sputum production. She is on room air oxygen. She'll be going to surgery at around 2 PM this afternoon.. 06/08/2008 and the patient is postop day #1. The patient was taken to the operating room yesterday and underwent a subtotal colectomy. Cecum was also ischemic and the patient underwent a subtotal colectomy and diverting colostomy was performed. Postop the patient was brought into the intensive care unit. She was extubated postop without any major difficulties. Overnight she continued to have episodes of low urine output. She was given a total of 2 L of IV fluid in the form of normal saline. The bicarbonate drip was also continued at the rate of 100 mL an hour. She'll be receiving a third liter for now. She is arousable and awake but a bit lethargic. Pain is under good control. NG tube is in place. Surgical site is dry clean and intact. BRIGITTE drain is also in place with minimal amount of output. No abdominal tenderness at this point in time. No major edema in lower extremities. She is hemodynamic is stable and she has not required any pressors. She is currently in a normal sinus rhythm. She converted this morning from an underlying A. fib fibrillation. Echocardiogram at shown a preserved LV function. No respiratory distress. Her white cell count is up to 34 which is an expected finding. 06/09/2018, patient is postop day #2. Doing well. Awake and alert. Following commands and answering questions. No major altered mentation or confusion. The patient has an ileostomy which is still nonfunctional at this point in time he had viable. Abdomen is soft and slightly distended. The patient is producing adequate amount of urine output. The serum bicarb is up to 30 and based on that the patient was taken off the bicarb drip and currently she is on normal saline today to have 100 mL an hour. Renal function is also stable with a creatinine of 0.9. White cell count is improving is down to 20.5. She is in normal sinus rhythm. She has occasional PVCs. No other issues otherwise for now. She remains on a combination of Rocephin and Flagyl. BRIGITTE drain is in place and the total amount of output has been 65 mL since yesterday. The neck fluid balance is +5.5 L for yesterday. 06/10/2018 patient is postop day #3. Awake and alert and he of any significant pain. Using incentive spirometer. Still nothing by mouth. Based on surgical recommendation, the patient was given a ticket tube feed yesterday at the rate of 10 mL an hour. She was unable to tolerate. She had emesis and subsequently 400 mL of aspirate was obtained from the stomach. The patient is currently nothing by mouth. The bowel sounds are still hypoactive. Surgical wound site is dry clean and intact. Her white cell count is down to 18.5. She is following commands and answering questions appropriately. BRIGITTE drain is still in place. Renal function is stable. No other significant events over the past 24 hours. Discussed the case with general surgery and were considering a PICC line and TPN for the next few days. 06/11/2018 patient is postop day #4. The patient is awake and alert. NG tube is in place. Output overnight has been only 100 mL. We are seeing more output and had ileostomy back. Surgical wound site is clean. BRIGITTE drains is still putting out some amount of drainage and the total amount of drainage was 2 25 mL for yesterday. Surgical wound site is dry clean and intact. She is afebrile. No nausea. No vomiting. No emesis. She has a PICC line and the patient was started on TPN for nutritional support through a left upper extremity PICC line. She is afebrile. She is hemodynamically stable. She is still requiring Cardizem drip for rate control today to 7.5 mg an hour. The fluid balance has been positive and the patient is a significant amount of fluid positivity and the patient will need some diuretics knowing that the chest x-rays also showing evidence of pulmonary vessel congestion development of bilateral pleural effusions. She was able to sit up on a chair yesterday. She is using incentive spirometer. No altered mentation. No agitation pH is calm and comfortable. No other significant events overnight. Objective - Vital Signs Vital signs: Vital Signs Temp 97.4 F L 06/10/18 21:00 Pulse 78 06/11/18 05:00 Resp 13 06/11/18 05:00 BP 139/79 06/11/18 05:00 Pulse Ox 93 L 06/11/18 05:00 Intake & Output 06/10/18 06/11/18 06/11/18 18:59 06:59 18:59 Intake Total 1477.5 1799.875 Output Total 841 360 Balance 636.5 1439.875 Weight 83.6 kg 86.5 kg Intake: IV 1442 1710 Fat Emulsion 20% 250 ml 42 210 In Empty Bag 1 bag @ 21 mls/hr IV Q24H [facility] Rx#: [id number] Mvi, Adult No.4 with Vit 100 500 K 10 ml Trace (Conc-1Ml/ Dose) 1 ml In Amino Acid 4.25%-D10w+Lytes*E* 1,000 ml @ 50 mls/hr IV . [id number] ONE Rx#:[id number] Potassium Phosphate 10 500 mmol In Sodium Chloride 0 .9% 250 ml @ 125 mls/hr IV Q2H [facility] Rx#:[id number] Sodium Chloride 0.9% 1, 800 1000 000 ml @ 100 mls/hr IV . Q10H [facility] Rx#:[id number] Intake, IV Titration 35.5 89.875 Amount Diltiazem 50 mg In Sodium 35.5 89.875 Chloride 0.9% 40 ml @ 7. 5 MG/HR 7.5 mls/hr IV . Q6H40M [facility] Rx#:[id number] Output: Gastric Drainage 300 Drainage 165 40 Left Lower Abdomen 165 40 Urine 376 320 Other: Voiding Method Indwelling Catheter Indwelling Catheter - Exam On physical examination, patient appears comfortable in no apparent distress. Awake and alert and not in acute distress. HEAD: Normocephalic, atraumatic.Head exam was generally normal. There was no scleral icterus or corneal arcus. Mucous membranes were moist. Neck was supple and without jugular venous distension, thyromegaly, or carotid bruits. Carotids were easily palpable bilaterally. There was no adenopathy. Lungs sounds are diminished in lung bases bilaterally otherwise clear. No wheezes or rhonchi early crackles. Cardiac exam revealed the PMI to be normally situated and sized. The rhythm was regular and no extrasystoles were noted during several minutes of auscultation. The first and second heart sounds were normal and physiologic splitting of the second heart sound was noted. There were no murmurs, rubs, clicks, or gallops. ABDOMEN: Soft, obese. Hypoactive bowel sounds. No direct tenderness. No rebound tenderness. No guarding. Surgical site is dry clean and intact. BRIGITTE drain is in place. Abdominal distention subsided. Ileostomy site is not functional. Viable. SKIN: No rashes, no jaundice. Examination of the skin revealed no evidence of significant rashes, suspicious appearing nevi or other concerning lesions. NEUROLOGIC: Agent has impaired short-term memory. The patient has an underlying dementia. She does better with long-term memory. On and off confusion/sundowning. no focal neurological deficit this point in time. She is moving all 4 extremities. Pupils are equal and reactive to light. Extremities revealed +1-2 pitting edema both in upper and lower extremities. No cyanosis. No clubbing. - Labs CBC & Chem 7: 06/11/18 05:09 06/11/18 05:09 Labs: Abnormal Lab Results - Last 24 Hours (Table) 06/10/18 06/11/18 06/11/18 Range/Units 18:53 01:15 05:09 WBC 15.1 H (3.8-10.6) k/uL RBC 3.61 L (3.80-5.40) m/uL Hgb 10.1 L (11.4-16.0) gm/dL Hct 32.4 L (34.0-46.0) % Neutrophils # 12.9 H (1.3-7.7) k/uL Carbon Dioxide (22-30) mmol/L Glucose (74-99) mg/dL POC Glucose (mg/dL) 119 H 173 H (75-99) mg/dL Calcium (8.4-10.2) mg/dL 06/11/18 06/11/18 Range/Units 05:09 06:36 WBC (3.8-10.6) k/uL RBC (3.80-5.40) m/uL Hgb (11.4-16.0) gm/dL Hct (34.0-46.0) % Neutrophils # (1.3-7.7) k/uL Carbon Dioxide 32 H (22-30) mmol/L Glucose 173 H (74-99) mg/dL POC Glucose (mg/dL) 177 H (75-99) mg/dL Calcium 7.1 L (8.4-10.2) mg/dL Assessment and Plan Plan: Assessment 1 sigmoid diverticulitis complicated by bowel obstruction, patient underwent expiratory laparotomy, subtotal colectomy and diverting ileostomy and the patient is postop day #4. NG tube is in place. The patient was started on TPN yesterday. There is improved activity through the ileostomy bag. 2 NPO, post bowel surgery patient was started on TPN for now 3 metabolic acidosis, recovered 4 acute leukocytosis secondary to above, improving 5 COPD currently inactive in stable 6 obesity. 7 moderate degree of aortic stenosis and secondary pulmonary hypertension with preserved LV function 8 paroxysmal atrial fibrillation , currently the patient on a Cardizem drip for rate control today to 7.5 mg an hour. 9 hypertension 10 remote history of C. diff colitis 11 history of dementia Plan Clamped NG tube. Monitor the output from the ileostomy. Bowel sounds are still sluggish. Continue TPN for nutritional support. IV Fluid Maintenance to 10 ML an Hour. Give the Patient a Dose of Lasix 40 Mg IV Push. Continue Using Incentive Spirometer. Continue Same Antibiotic Coverage. Continue Cardizem for Rate Control. Pulmonary toileting. Incentive spirometer. Keep the patient ICU for another 24 hours to general surgeries on the case. We'll continue to follow.
[2018-06-11] MEDS: PANTOPRAZOLE 40 MG/10 ML VIAL IVP SCH (09:29)
[2018-06-11] MEDS: FUROSEMIDE 10 MG/ML 4 ML VIAL IV SCH (09:31)
[2018-06-11] MEDS: hydrALAZINE HCL 50 MG TAB PO SCH ×4 (09:59→22:07)
[2018-06-11] MEDS: SODIUM CHLORIDE 5% OPHTH DROPS 15 ML BTL BOTH EYES SCH ×4 (09:59→22:08)
[2018-06-11] MEDS: MVI, ADULT NO.4 WITH VIT K 10 ML, TRACE (CONC-1ML/DOSE) 1 ML in AMINO ACID 4.25%-D10W+L... IV SCH ×3 (12:42)
[2018-06-11 12:51] LABS: Glucose,Whole Blood 189 mg/dL (75-99)
--- NOTE | 2018-06-11 13:26 | P.PN ---
Subjective Progress Note Date: 06/11/18 CHIEF COMPLAINT: History of ileostomy HISTORY OF PRESENT ILLNESS: The patient is a 88-year-old female who is status post ileostomy creation. She is sitting up in the ICU. Her ileostomy is functioning. She reports improved abdominal pain. She feels well today compared to yesterday. PHYSICAL EXAM: GENERAL: Well-developed in no distress. HEENT: No scleral icterus. Extraocular movements grossly intact. Hears conversational speech. No nasal drainage. NECK: Supple without lymphadenopathy. CHEST: Nonlabored respirations with equal bilateral excursions. CARDIOVASCULAR: Regular rate and regular rhythm. Distal 2+ pulses. ABDOMEN: Ostomy dark stool. Minimal flatus. MUSCULOSKELETAL: No clubbing, cyanosis. Edema of the upper extremities right greater than left 2+. NEURO: No focal or lateralizing signs. Cranial nerves 2 through 12 grossly within normal limits. PSYCH: Appropriate affect. Alert and oriented to person, place and time. SKIN: Well perfused. ASSESSMENT: 1. History of ileostomy PLAN: 1. Her ileostomy has started to function. 2. Have ice chips and popsicles. 3. Likely discontinue NG tube in 24 hours. Objective - Vital Signs Vital signs: Vital Signs Temp 97.4 F L 06/10/18 21:00 Pulse 81 06/11/18 09:00 Resp 16 06/11/18 09:00 BP 157/77 06/11/18 09:00 Pulse Ox 92 L 06/11/18 09:00 Intake & Output 06/10/18 06/11/18 06/11/18 18:59 06:59 18:59 Intake Total 1477.5 1949.875 450 Output Total 841 450 390 Balance 636.5 1499.875 60 Weight 83.6 kg 86.5 kg Intake: IV 1442 1860 150 Fat Emulsion 20% 250 ml 42 210 In Empty Bag 1 bag @ 21 mls/hr IV Q24H [facility] Rx#: [id number] Mvi, Adult No.4 with Vit 100 550 150 K 10 ml Trace (Conc-1Ml/ Dose) 1 ml In Amino Acid 4.25%-D10w+Lytes*E* 1,000 ml @ 50 mls/hr IV . [id number] [facility] Rx#:[id number] Potassium Phosphate 10 500 mmol In Sodium Chloride 0 .9% 250 ml @ 125 mls/hr IV Q2H [facility] Rx#:[id number] Sodium Chloride 0.9% 1, 800 1100 000 ml @ 10 mls/hr IV . Q24H [facility] Rx#:[id number] Intake, IV Titration 35.5 89.875 300 Amount Diltiazem 50 mg In Sodium 35.5 89.875 Chloride 0.9% 40 ml @ 7. 5 MG/HR 7.5 mls/hr IV . Q6H40M [facility] Rx#:[id number] Magnesium Sulfate-D5w Pmx 200 1 gm In Dextrose/Water 1 100ml.bag @ 100 mls/hr IVPB Q1H [facility] Rx#: [id number] Potassium Chloride 10 meq 100 In Water For Injection 1 100ml.bag @ 100 mls/hr IVPB Q1H [facility] Rx#: [id number] Output: Gastric Drainage 300 100 Drainage 165 90 60 Left Lower Abdomen 165 90 60 Urine 376 360 80 Stool 150 Other: Voiding Method Indwelling Catheter Indwelling Catheter - Labs CBC & Chem 7: 06/11/18 05:09 06/11/18 05:09 Labs: Abnormal Lab Results - Last 24 Hours (Table) 06/10/18 06/11/18 06/11/18 Range/Units 18:53 01:15 05:09 WBC 15.1 H (3.8-10.6) k/uL RBC 3.61 L (3.80-5.40) m/uL Hgb 10.1 L (11.4-16.0) gm/dL Hct 32.4 L (34.0-46.0) % Neutrophils # 12.9 H (1.3-7.7) k/uL Carbon Dioxide (22-30) mmol/L Glucose (74-99) mg/dL POC Glucose (mg/dL) 119 H 173 H (75-99) mg/dL Calcium (8.4-10.2) mg/dL 06/11/18 06/11/18 Range/Units 05:09 06:36 WBC (3.8-10.6) k/uL RBC (3.80-5.40) m/uL Hgb (11.4-16.0) gm/dL Hct (34.0-46.0) % Neutrophils # (1.3-7.7) k/uL Carbon Dioxide 32 H (22-30) mmol/L Glucose 173 H (74-99) mg/dL POC Glucose (mg/dL) 177 H (75-99) mg/dL Calcium 7.1 L (8.4-10.2) mg/dL Assessment and Plan (1) Ileostomy in place Current Visit: Yes Status: Acute Code(s): Z93.2 - ILEOSTOMY STATUS SNOMED Code(s): 046605635 (2) Sigmoid diverticulitis Current Visit: Yes Status: Acute Code(s): K57.32 - DVTRCLI OF LG INT W/O PERFORATION OR ABSCESS W/O BLEEDING SNOMED Code(s): 671962022
--- NOTE | 2018-06-11 13:34 | P.PN ---
Subjective Patient remains in atrial fibrillation with a controlled ventricular response. Currently she is nothing by mouth hence she continues to be on IV Cardizem also on a clonidine patch TTS 34 hypertension as well as IV metoprolol Sitting comfortably in bed Breath sounds are reduced bilaterally Heart sounds are irregular but soft Suggest Continue current treatment for hypertension and atrial fibrillation. Once she is able to take orally we will resume oral medications Objective - Vital Signs Vital signs: Vital Signs Temp 97.8 F 06/11/18 12:00 Pulse 90 06/11/18 13:30 Resp 13 06/11/18 13:30 BP 140/67 06/11/18 13:30 Pulse Ox 95 06/11/18 13:30 Intake & Output 06/10/18 06/11/18 06/11/18 18:59 06:59 18:59 Intake Total 1477.5 1949.875 510 Output Total 608 918 6286 Balance 636.5 1499.875 -1030 Weight 83.6 kg 86.5 kg Intake: IV 1442 1860 160 Fat Emulsion 20% 250 ml 42 210 In Empty Bag 1 bag @ 21 mls/hr IV Q24H [facility] Rx#: [id number] Mvi, Adult No.4 with Vit 100 550 150 K 10 ml Trace (Conc-1Ml/ Dose) 1 ml In Amino Acid 4.25%-D10w+Lytes*E* 1,000 ml @ 50 mls/hr IV . [id number] [facility] Rx#:[id number] Potassium Phosphate 10 500 mmol In Sodium Chloride 0 .9% 250 ml @ 125 mls/hr IV Q2H [facility] Rx#:[id number] Sodium Chloride 0.9% 1, 800 1100 10 000 ml @ 10 mls/hr IV . Q24H [facility] Rx#:[id number] Intake, IV Titration 35.5 89.875 350 Amount Diltiazem 50 mg In Sodium 35.5 89.875 50 Chloride 0.9% 40 ml @ 7. 5 MG/HR 7.5 mls/hr IV . Q6H40M [facility] Rx#:[id number] Magnesium Sulfate-D5w Pmx 200 1 gm In Dextrose/Water 1 100ml.bag @ 100 mls/hr IVPB Q1H [facility] Rx#: [id number] Potassium Chloride 10 meq 100 In Water For Injection 1 100ml.bag @ 100 mls/hr IVPB Q1H [facility] Rx#: [id number] Output: Gastric Drainage 300 100 Drainage 165 90 110 Left Lower Abdomen 165 90 110 Urine 184 979 1743 Stool 150 Other: Voiding Method Indwelling Catheter Indwelling Catheter Indwelling Catheter - Labs CBC & Chem 7: 06/11/18 05:09 06/11/18 05:09 Labs: Abnormal Lab Results - Last 24 Hours (Table) 06/10/18 06/11/18 06/11/18 Range/Units 18:53 01:15 05:09 WBC 15.1 H (3.8-10.6) k/uL RBC 3.61 L (3.80-5.40) m/uL Hgb 10.1 L (11.4-16.0) gm/dL Hct 32.4 L (34.0-46.0) % Neutrophils # 12.9 H (1.3-7.7) k/uL Carbon Dioxide (22-30) mmol/L Glucose (74-99) mg/dL POC Glucose (mg/dL) 119 H 173 H (75-99) mg/dL Calcium (8.4-10.2) mg/dL 06/11/18 06/11/18 06/11/18 Range/Units 05:09 06:36 12:49 WBC (3.8-10.6) k/uL RBC (3.80-5.40) m/uL Hgb (11.4-16.0) gm/dL Hct (34.0-46.0) % Neutrophils # (1.3-7.7) k/uL Carbon Dioxide 32 H (22-30) mmol/L Glucose 173 H (74-99) mg/dL POC Glucose (mg/dL) 177 H 189 H (75-99) mg/dL Calcium 7.1 L (8.4-10.2) mg/dL
[2018-06-11] MEDS: FAT EMULSION 20% 250 ML in EMPTY BAG 1 BAG IV SCH (18:04)
[2018-06-11 18:25] LABS: Glucose,Whole Blood 194 mg/dL (75-99)
[2018-06-11] MEDS: cefTRIAXone IN SWFI 1,000 MG/10 ML SYRINGE IVP SCH (18:27)
[2018-06-12 00:47] LABS: Glucose,Whole Blood 212 mg/dL (75-99)
[2018-06-12] MEDS: INSULIN ASPART 100 UNIT/ML 1 ML 10 ML VIAL SQ SCH ×4 (00:50→17:56)
[2018-06-12] MEDS: HEPARIN SODIUM,PORCINE 5,000 UNIT/ML 1 ML VIAL SQ SCH ×3 (00:50→16:21)
[2018-06-12] MEDS: DILTIAZEM 50 MG in SODIUM CHLORIDE 0.9% 40 ML IV SCH ×4 (00:51→21:41)
[2018-06-12] MEDS: metroNIDAZOLE-NS PMX 500 MG in SALINE 1 100ML.BAG IVPB SCH ×3 (00:51→15:41)
[2018-06-12] MEDS: MVI, ADULT NO.4 WITH VIT K 10 ML, TRACE (CONC-1ML/DOSE) 1 ML in AMINO ACID 4.25%-D10W+L... IV SCH ×6 (04:47→21:43)
[2018-06-12 05:07] LABS: Basophils % (A) 0 %; Eosinophils # (A) 0.2 k/uL (0-0.7); Eosinophils % (A) 1 %; HCT 29.2 % (34.0-46.0); HGB 9.2 gm/dL (11.4-16.0); Hypochromasia Slight; Lymphocytes # (A) 1.2 k/uL (1.0-4.8); Lymphocytes % (A) 8 %; MCH 27.6 pg (25.0-35.0); MCHC 31.4 g/dL (31.0-37.0); MCV 87.8 fL (80.0-100.0); Mean Platelet Volume 8.2; Monocytes # (A) 0.6 k/uL (0-1.0); Monocytes % (A) 4 %; Neutrophils % (A) 85 %; Platelet Count 283 k/uL (150-450); RBC 3.32 m/uL (3.80-5.40); RDW 14.8 % (11.5-15.5); WBC 14.1 k/uL (3.8-10.6)
[2018-06-12 05:11] LABS: Ionized Calcium 4.7 mg/dL (4.5-5.3)
[2018-06-12 05:18] LABS: Calcium 7.2 mg/dL (8.4-10.2); Magnesium 1.9 mg/dL (1.6-2.3); Phosphorus 2.8 mg/dL (2.5-4.5); Potassium 3.8 mmol/L (3.5-5.1)
--- NOTE | 2018-06-12 06:45 | XR ---
EXAMINATION TYPE: XR chest 1V DATE OF EXAM: 06/12/2018 HISTORY: shortness of breath with exertion. REFERENCE: Previous study dated 06/11/2018. FINDINGS: The patient is NG tube remains in place with its tip in the stomach. The heart is mildly enlarged. There is left basilar airspace disease. There are small, bilateral effu sions. There is vascular congestion and mild interstitial change. IMPRESSION: 1. FINDINGS CONSISTENT WITH MILD HEART FAILURE. 2. MILD CARDIOMEGALY. 3. LEFT BASILAR AIRSPACE DISEASE. 4. BILATERAL EFFUSIONS.
[2018-06-12] MEDS: POTASSIUM CHLORIDE 10 MEQ in WATER FOR INJECTION 1 100ML.BAG IVPB SCH ×2 (06:47→09:08)
[2018-06-12] MEDS: MAGNESIUM SULFATE-D5W PMX 1 GM in DEXTROSE/WATER 1 100ML.BAG IVPB SCH ×2 (06:48→09:09)
[2018-06-12 06:51] LABS: Glucose,Whole Blood 151 mg/dL (75-99)
[2018-06-12] MEDS: IPRATROPIUM-ALBUTEROL 3 ML NEB INHALATION SCH ×4 (07:29→20:30)
[2018-06-12] MEDS: FUROSEMIDE 10 MG/ML 4 ML VIAL IV SCH (09:15)
[2018-06-12] MEDS: PANTOPRAZOLE 40 MG/10 ML VIAL IVP SCH (09:19)
[2018-06-12] MEDS: hydrALAZINE HCL 50 MG TAB PO SCH ×4 (09:19→21:17)
[2018-06-12] MEDS: SODIUM CHLORIDE 5% OPHTH DROPS 15 ML BTL BOTH EYES SCH ×4 (09:19→21:44)
--- NOTE | 2018-06-12 11:17 | P.PN ---
Subjective Progress Note Date: 06/12/18 87-year-old female patient with known history of dementia presented to the hospital because of abdominal pain and constipation. Initial presentation with a 97 2018 and the patient hospital sinus. The patient had CAT scan of the abdomen that showed mild sigmoid diverticulitis. The patient continued to have abdominal discomfort and subsequent bloating and subsequent inability to pass any bowel movements. Soapsuds enemas were utilized and there was minimal stool production. She continued to have nausea and vomiting and surgery was involved in the case and the patient underwent a barium enema yesterday that showed localized area of irregular narrowing involving the sigmoid colon in addition to a high-grade obstruction and based on his findings the patient be taken to the operating room for colectomy and possible diverticular colostomy. I was asked even with this patient's pulmonary status and be involved in the postoperative care due to her age and the complexity of her medical problems. Note that this patient has been labeled to have a mild component of COPD despite her nonsmoking history. 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 She is exposed to respiratory irritants or chemicals. No recurrent pneumonias. No use of home oxygen. Exercise capacity has been limited and the patient reports some limited capacity even prior to this ongoing abdominal problems. During this current hospital stay she had a short run of atrial fibrillation she converted back to normal sinus rhythm. Echo was done and the patient is an ejection fraction of 6065% and mild aortic valve sclerosis and moderate degree of stenosis with a peak gradient across the valve of 32 and mother degree of pulmonary hypertension with a PA pressure of 53. Currently she is free of any chest pain. No cough sputum production. She is on room air oxygen. She'll be going to surgery at around 2 PM this afternoon.. 06/08/2008 and the patient is postop day #1. The patient was taken to the operating room yesterday and underwent a subtotal colectomy. Cecum was also ischemic and the patient underwent a subtotal colectomy and diverting colostomy was performed. Postop the patient was brought into the intensive care unit. She was extubated postop without any major difficulties. Overnight she continued to have episodes of low urine output. She was given a total of 2 L of IV fluid in the form of normal saline. The bicarbonate drip was also continued at the rate of 100 mL an hour. She'll be receiving a third liter for now. She is arousable and awake but a bit lethargic. Pain is under good control. NG tube is in place. Surgical site is dry clean and intact. BRIGITTE drain is also in place with minimal amount of output. No abdominal tenderness at this point in time. No major edema in lower extremities. She is hemodynamic is stable and she has not required any pressors. She is currently in a normal sinus rhythm. She converted this morning from an underlying A. fib fibrillation. Echocardiogram at shown a preserved LV function. No respiratory distress. Her white cell count is up to 34 which is an expected finding. 06/09/2018, patient is postop day #2. Doing well. Awake and alert. Following commands and answering questions. No major altered mentation or confusion. The patient has an ileostomy which is still nonfunctional at this point in time he had viable. Abdomen is soft and slightly distended. The patient is producing adequate amount of urine output. The serum bicarb is up to 30 and based on that the patient was taken off the bicarb drip and currently she is on normal saline today to have 100 mL an hour. Renal function is also stable with a creatinine of 0.9. White cell count is improving is down to 20.5. She is in normal sinus rhythm. She has occasional PVCs. No other issues otherwise for now. She remains on a combination of Rocephin and Flagyl. BRIGITTE drain is in place and the total amount of output has been 65 mL since yesterday. The neck fluid balance is +5.5 L for yesterday. 06/10/2018 patient is postop day #3. Awake and alert and he of any significant pain. Using incentive spirometer. Still nothing by mouth. Based on surgical recommendation, the patient was given a ticket tube feed yesterday at the rate of 10 mL an hour. She was unable to tolerate. She had emesis and subsequently 400 mL of aspirate was obtained from the stomach. The patient is currently nothing by mouth. The bowel sounds are still hypoactive. Surgical wound site is dry clean and intact. Her white cell count is down to 18.5. She is following commands and answering questions appropriately. BRIGITTE drain is still in place. Renal function is stable. No other significant events over the past 24 hours. Discussed the case with general surgery and were considering a PICC line and TPN for the next few days. 06/11/2018 patient is postop day #4. The patient is awake and alert. NG tube is in place. Output overnight has been only 100 mL. We are seeing more output and had ileostomy back. Surgical wound site is clean. BRIGITTE drains is still putting out some amount of drainage and the total amount of drainage was 2 25 mL for yesterday. Surgical wound site is dry clean and intact. She is afebrile. No nausea. No vomiting. No emesis. She has a PICC line and the patient was started on TPN for nutritional support through a left upper extremity PICC line. She is afebrile. She is hemodynamically stable. She is still requiring Cardizem drip for rate control today to 7.5 mg an hour. The fluid balance has been positive and the patient is a significant amount of fluid positivity and the patient will need some diuretics knowing that the chest x-rays also showing evidence of pulmonary vessel congestion development of bilateral pleural effusions. She was able to sit up on a chair yesterday. She is using incentive spirometer. No altered mentation. No agitation pH is calm and comfortable. No other significant events overnight. On 06/12/2018 patient is postop day #4. Doing well. Communicating. Awake and alert. NG tube is in place and output is minimal. Ileostomy site is putting minimal amount of bilious material. Surgical wound site is dry clean and intact. No abdominal distention. No nausea. No vomiting. She is on TPN for nutritional support. She is on Cardizem drip for rate control in regards to her chronic atrial fibrillation. She is on a combination of IV Rocephin and Flagyl. No other significant events overnight. For the most part, the patient is doing well and she was able to sit up on a chair yesterday. She is using incentive spirometer. Objective - Vital Signs Vital signs: Vital Signs Temp 98 F 06/12/18 06:30 Pulse 86 06/12/18 11:00 Resp 16 06/12/18 11:00 BP 126/56 06/12/18 11:00 Pulse Ox 91 L 06/12/18 11:00 Intake & Output 06/11/18 06/12/18 06/12/18 18:59 06:59 18:59 Intake Total 1401 1577 590 Output Total 2615 1042 755 Balance -1214 535 -165 Weight 88.4 kg Intake: IV 481 516 140 0.9 20 Fat Emulsion 20% 250 ml 21 231 In Empty Bag 1 bag @ 21 mls/hr IV Q24H [facility] Rx#: [id number] Mvi, Adult No.4 with Vit 150 65 K 10 ml Trace (Conc-1Ml/ Dose) 1 ml In Amino Acid 4.25%-D10w+Lytes*E* 1,000 ml @ 50 mls/hr IV . [id number] [facility] Rx#:[id number] Sodium Chloride 0.9% 1, 90 120 40 000 ml @ 10 mls/hr IV . Q24H [facility] Rx#:[id number] metroNIDAZOLE-NS PMX 500 200 100 100 mg In Saline 1 100ml.bag @ 100 mls/hr IVPB Q8HR [facility] Rx#:[id number] Intake, IV Titration 920 1061 450 Amount Diltiazem 50 mg In Sodium 100 50 50 Chloride 0.9% 40 ml @ 7. 5 MG/HR 7.5 mls/hr IV . Q6H40M [facility] Rx#:[id number] Magnesium Sulfate-D5w Pmx 200 1 gm In Dextrose/Water 1 100ml.bag @ 100 mls/hr IVPB Q1H [facility] Rx#: [id number] Magnesium Sulfate-D5w Pmx 200 1 gm In Dextrose/Water 1 100ml.bag @ 100 mls/hr IVPB Q1H [facility] Rx#: [id number] Mvi, Adult No.4 with Vit 520 1011 K 10 ml Trace (Conc-1Ml/ Dose) 1 ml In Amino Acid 4.25%-D10w+Lytes*E* 1,000 ml @ 65 mls/hr IV . [id number] [facility] Rx#:[id number] Potassium Chloride 10 meq 100 In Water For Injection 1 100ml.bag @ 100 mls/hr IVPB Q1H [facility] Rx#: [id number] Potassium Chloride 10 meq 200 In Water For Injection 1 100ml.bag @ 100 mls/hr IVPB Q1H [facility] Rx#: [id number] Output: Gastric Drainage 100 Drainage 110 205 50 Left Lower Abdomen 110 205 50 Urine 2255 837 705 Stool 150 Other: Voiding Method Indwelling Catheter Indwelling Catheter Indwelling Catheter - Exam On physical examination, patient appears comfortable in no apparent distress. Awake and alert and not in acute distress. HEAD: Normocephalic, atraumatic.Head exam was generally normal. There was no scleral icterus or corneal arcus. Mucous membranes were moist. Neck was supple and without jugular venous distension, thyromegaly, or carotid bruits. Carotids were easily palpable bilaterally. There was no adenopathy. Lungs sounds are diminished in lung bases bilaterally otherwise clear. No wheezes or rhonchi early crackles. Cardiac exam revealed the PMI to be normally situated and sized. The rhythm was regular and no extrasystoles were noted during several minutes of auscultation. The first and second heart sounds were normal and physiologic splitting of the second heart sound was noted. There were no murmurs, rubs, clicks, or gallops. ABDOMEN: Soft, obese. Hypoactive bowel sounds. No direct tenderness. No rebound tenderness. No guarding. Surgical site is dry clean and intact. BRIGITTE drain is in place. Abdominal distention subsided. Ileostomy site is not functional. Viable. SKIN: No rashes, no jaundice. Examination of the skin revealed no evidence of significant rashes, suspicious appearing nevi or other concerning lesions. NEUROLOGIC: Agent has impaired short-term memory. The patient has an underlying dementia. She does better with long-term memory. On and off confusion/sundowning. no focal neurological deficit this point in time. She is moving all 4 extremities. Pupils are equal and reactive to light. Extremities revealed +1-2 pitting edema both in upper and lower extremities. No cyanosis. No clubbing. - Labs CBC & Chem 7: 06/12/18 04:50 06/12/18 04:50 Labs: Abnormal Lab Results - Last 24 Hours (Table) 06/11/18 06/11/18 06/12/18 Range/Units 12:49 18:24 00:43 WBC (3.8-10.6) k/uL RBC (3.80-5.40) m/uL Hgb (11.4-16.0) gm/dL Hct (34.0-46.0) % Neutrophils # (1.3-7.7) k/uL Carbon Dioxide (22-30) mmol/L BUN (7-17) mg/dL Glucose (74-99) mg/dL POC Glucose (mg/dL) 189 H 194 H 212 H (75-99) mg/dL Calcium (8.4-10.2) mg/dL 06/12/18 06/12/18 06/12/18 Range/Units 04:50 04:50 06:50 WBC 14.1 H (3.8-10.6) k/uL RBC 3.32 L (3.80-5.40) m/uL Hgb 9.2 L (11.4-16.0) gm/dL Hct 29.2 L (34.0-46.0) % Neutrophils # 12.0 H (1.3-7.7) k/uL Carbon Dioxide 33 H (22-30) mmol/L BUN 18 H (7-17) mg/dL Glucose 176 H (74-99) mg/dL POC Glucose (mg/dL) 151 H (75-99) mg/dL Calcium 7.2 L (8.4-10.2) mg/dL Assessment and Plan Plan: Assessment 1 sigmoid diverticulitis complicated by bowel obstruction, patient underwent expiratory laparotomy, subtotal colectomy and diverting ileostomy and the patient is postop day #5. NG tube is in place. The patient was started on TPN yesterday. There is improved activity through the ileostomy bag. The bowel sounds are still hypoactive for now. 2 NPO, post bowel surgery patient was started on TPN for now 3 metabolic acidosis, recovered 4 acute leukocytosis secondary to above, improving 5 COPD currently inactive in stable 6 obesity. 7 moderate degree of aortic stenosis and secondary pulmonary hypertension with preserved LV function 8 paroxysmal atrial fibrillation , currently the patient on a Cardizem drip for rate control today to 7.5 mg an hour. 9 hypertension 10 remote history of C. diff colitis 11 history of dementia Plan Remove the NG tube. I allowed some ice chips it is okay by general surgery. Continued to be hypotensive and support. Same antibiotic coverage. Increase of activity. The patient on Lasix 40 mg IV push every 24 hours and this is optimize her volume status. She is less edematous compared to yesterday. We' ll continue the same treatment for another 24 hours. We'll continue to follow, repeat electrodes in a.m., continue TPN for now, surgeries on the case. We'll follow.
[2018-06-12 12:07] LABS: Glucose,Whole Blood 187 mg/dL (75-99)
--- NOTE | 2018-06-12 12:09 | P.PN ---
Subjective Progress Note Date: 06/12/18 CHIEF COMPLAINT: History of ileostomy HISTORY OF PRESENT ILLNESS: The patient is a 88-year-old female who is status post ileostomy creation. She reports feeling better today. She still has her NG tube. NG tube has been clamped for 24 hours. Minimal output ileostomy. No flatus and ileostomy. PHYSICAL EXAM: GENERAL: Well-developed in no distress. HEENT: No scleral icterus. Extraocular movements grossly intact. Hears conversational speech. No nasal drainage. NECK: Supple without lymphadenopathy. CHEST: Nonlabored respirations with equal bilateral excursions. CARDIOVASCULAR: Regular rate and regular rhythm. Distal 2+ pulses. ABDOMEN: Ostomy without flatus. Minimal drainage. Dressings clean dry and intact. MUSCULOSKELETAL: No clubbing, cyanosis. Edema of the upper extremities right greater than left 2+. NEURO: No focal or lateralizing signs. Cranial nerves 2 through 12 grossly within normal limits. PSYCH: Appropriate affect. Alert and oriented to person, place and time. SKIN: Well perfused. ASSESSMENT: 1. History of ileostomy 2. Status post colectomy for infarction of the colon PLAN: 1. May start with popsicles. 2. Still awaiting flatus from ileostomy. At that time, NG tube may be discontinued Objective - Vital Signs Vital signs: Vital Signs Temp 98 F 06/12/18 06:30 Pulse 88 06/12/18 11:33 Resp 16 06/12/18 11:00 BP 126/56 06/12/18 11:00 Pulse Ox 91 L 06/12/18 11:00 Intake & Output 06/11/18 06/12/18 06/12/18 18:59 06:59 18:59 Intake Total 1401 1577 590 Output Total 2615 1042 755 Balance -1214 535 -165 Weight 88.4 kg Intake: IV 481 516 140 0.9 20 Fat Emulsion 20% 250 ml 21 231 In Empty Bag 1 bag @ 21 mls/hr IV Q24H [facility] Rx#: [id number] Mvi, Adult No.4 with Vit 150 65 K 10 ml Trace (Conc-1Ml/ Dose) 1 ml In Amino Acid 4.25%-D10w+Lytes*E* 1,000 ml @ 50 mls/hr IV . [id number] [facility] Rx#:[id number] Sodium Chloride 0.9% 1, 90 120 40 000 ml @ 10 mls/hr IV . Q24H [facility] Rx#:[id number] metroNIDAZOLE-NS PMX 500 200 100 100 mg In Saline 1 100ml.bag @ 100 mls/hr IVPB Q8HR [facility] Rx#:[id number] Intake, IV Titration 920 1061 450 Amount Diltiazem 50 mg In Sodium 100 50 50 Chloride 0.9% 40 ml @ 7. 5 MG/HR 7.5 mls/hr IV . Q6H40M [facility] Rx#:[id number] Magnesium Sulfate-D5w Pmx 200 1 gm In Dextrose/Water 1 100ml.bag @ 100 mls/hr IVPB Q1H [facility] Rx#: [id number] Magnesium Sulfate-D5w Pmx 200 1 gm In Dextrose/Water 1 100ml.bag @ 100 mls/hr IVPB Q1H [facility] Rx#: [id number] Mvi, Adult No.4 with Vit 520 1011 K 10 ml Trace (Conc-1Ml/ Dose) 1 ml In Amino Acid 4.25%-D10w+Lytes*E* 1,000 ml @ 65 mls/hr IV . [id number] [facility] Rx#:[id number] Potassium Chloride 10 meq 100 In Water For Injection 1 100ml.bag @ 100 mls/hr IVPB Q1H [facility] Rx#: [id number] Potassium Chloride 10 meq 200 In Water For Injection 1 100ml.bag @ 100 mls/hr IVPB Q1H [facility] Rx#: [id number] Output: Gastric Drainage 100 Drainage 110 205 50 Left Lower Abdomen 110 205 50 Urine 2255 837 705 Stool 150 Other: Voiding Method Indwelling Catheter Indwelling Catheter Indwelling Catheter - Labs CBC & Chem 7: 06/12/18 04:50 06/12/18 04:50 Labs: Abnormal Lab Results - Last 24 Hours (Table) 06/11/18 06/11/18 06/12/18 Range/Units 12:49 18:24 00:43 WBC (3.8-10.6) k/uL RBC (3.80-5.40) m/uL Hgb (11.4-16.0) gm/dL Hct (34.0-46.0) % Neutrophils # (1.3-7.7) k/uL Carbon Dioxide (22-30) mmol/L BUN (7-17) mg/dL Glucose (74-99) mg/dL POC Glucose (mg/dL) 189 H 194 H 212 H (75-99) mg/dL Calcium (8.4-10.2) mg/dL 06/12/18 06/12/18 06/12/18 Range/Units 04:50 04:50 06:50 WBC 14.1 H (3.8-10.6) k/uL RBC 3.32 L (3.80-5.40) m/uL Hgb 9.2 L (11.4-16.0) gm/dL Hct 29.2 L (34.0-46.0) % Neutrophils # 12.0 H (1.3-7.7) k/uL Carbon Dioxide 33 H (22-30) mmol/L BUN 18 H (7-17) mg/dL Glucose 176 H (74-99) mg/dL POC Glucose (mg/dL) 151 H (75-99) mg/dL Calcium 7.2 L (8.4-10.2) mg/dL Assessment and Plan (1) Ileostomy in place Current Visit: Yes Status: Acute Code(s): Z93.2 - ILEOSTOMY STATUS SNOMED Code(s): 730420779 (2) Sigmoid diverticulitis Current Visit: Yes Status: Acute Code(s): K57.32 - DVTRCLI OF LG INT W/O PERFORATION OR ABSCESS W/O BLEEDING SNOMED Code(s): 505314550 (3) S/P colectomy Current Visit: Yes Status: Acute Code(s): Z90.49 - ACQUIRED ABSENCE OF OTHER SPECIFIED PARTS OF DIGESTIVE TRACT SNOMED Code(s): 525479577 (4) Colonic infarction Current Visit: Yes Status: Acute Code(s): K55.049 - ACUTE INFARCTION OF LARGE INTESTINE, EXTENT UNSPECIFIED SNOMED Code(s): 476788943
[2018-06-12] MEDS: FAT EMULSION 20% 250 ML in EMPTY BAG 1 BAG IV SCH (17:39)
[2018-06-12] MEDS: cefTRIAXone IN SWFI 1,000 MG/10 ML SYRINGE IVP SCH (17:39)
[2018-06-12 17:54] LABS: Glucose,Whole Blood 190 mg/dL (75-99)
[2018-06-12] MEDS: SODIUM CHLORIDE 0.9% 1,000 ML IV SCH (21:42)
--- NOTE | 2018-06-12 23:41 | PN ---
PROGRESS NOTE DATE OF SERVICE: 06/12/2018 CHIEF COMPLAINT: Status post bowel resection. HISTORY OF PRESENT ILLNESS: This lady is doing surprisingly well and probably will be moved to a regular floor today. PHYSICAL EXAM: Vital signs are normal. She is awake, alert. Chest is clear. Cardiac exam is normal. Abdomen is soft and there is some material start to enter the colostomy bag. IMPRESSION: Status post AP resection. PLAN: Probably move to a regular floor today. MMODL / IJN: [id number] /
[2018-06-13 00:43] LABS: Glucose,Whole Blood 176 mg/dL (75-99)
[2018-06-13] MEDS: metroNIDAZOLE-NS PMX 500 MG in SALINE 1 100ML.BAG IVPB SCH ×4 (00:53→23:27)
[2018-06-13] MEDS: INSULIN ASPART 100 UNIT/ML 1 ML 10 ML VIAL SQ SCH ×5 (00:53→23:26)
[2018-06-13] MEDS: HEPARIN SODIUM,PORCINE 5,000 UNIT/ML 1 ML VIAL SQ SCH ×4 (00:53→23:27)
[2018-06-13] MEDS ORDERED: FUROSEMIDE 10 MG/ML 4 ML VIAL IV STA (02:53)
[2018-06-13 05:17] LABS: Basophils % (A) 0 %; Eosinophils # (A) 0.2 k/uL (0-0.7); Eosinophils % (A) 2 %; HGB 9.1 gm/dL (11.4-16.0); Hypochromasia Slight; Lymphocytes # (A) 1.2 k/uL (1.0-4.8); Lymphocytes % (A) 7 %; MCH 27.9 pg (25.0-35.0); MCHC 31.4 g/dL (31.0-37.0); MCV 89.1 fL (80.0-100.0); Mean Platelet Volume 7.9; Monocytes # (A) 0.8 k/uL (0-1.0); Monocytes % (A) 5 %; Neutrophils % (A) 85 %; Platelet Count 281 k/uL (150-450); RBC 3.26 m/uL (3.80-5.40); RDW 14.9 % (11.5-15.5); WBC 16.6 k/uL (3.8-10.6)
[2018-06-13 05:21] LABS: Ionized Calcium 4.6 mg/dL (4.5-5.3)
[2018-06-13 05:32] LABS: Calcium 7.3 mg/dL (8.4-10.2); Magnesium 1.9 mg/dL (1.6-2.3); Phosphorus 3.7 mg/dL (2.5-4.5); Potassium 3.9 mmol/L (3.5-5.1)
[2018-06-13] MEDS: DILTIAZEM 50 MG in SODIUM CHLORIDE 0.9% 40 ML IV SCH ×3 (05:58→21:09)
[2018-06-13 06:05] LABS: Glucose,Whole Blood 168 mg/dL (75-99)
[2018-06-13] MEDS: MAGNESIUM SULFATE-D5W PMX 1 GM in DEXTROSE/WATER 1 100ML.BAG IVPB SCH ×2 (06:31→08:50)
[2018-06-13] MEDS: POTASSIUM CHLORIDE 10 MEQ in WATER FOR INJECTION 1 100ML.BAG IVPB SCH ×2 (06:31→07:50)
--- NOTE | 2018-06-13 07:09 | XR ---
EXAMINATION TYPE: XR chest 1V portable DATE OF EXAM: 06/13/2018 Comparison: 06/12/2018 Clinical History: 88-year-old female shortness of breath Findings: NG tube courses below the diaphragm. Left PICC tip is at the upper SVC level. Heart remains mildly en larged. Diffuse interstitial densities persist with continued small pleural effusions with adjacent o pacity, left greater than right. Developing airspace opacity peripheral left upper lobe. Impression: 1. Continued mild CHF though with interval worsening aeration in the peripheral left upper lobe. 2. Continued small pleural effusions with adjacent atelectasis and/or consolidation, left greater bryson n right.
[2018-06-13] MEDS: IPRATROPIUM-ALBUTEROL 3 ML NEB INHALATION SCH ×4 (07:36→20:11)
[2018-06-13] MEDS: PANTOPRAZOLE 40 MG/10 ML VIAL IVP SCH (07:53)
[2018-06-13] MEDS: FUROSEMIDE 10 MG/ML 4 ML VIAL IV SCH (09:11)
[2018-06-13] MEDS: SODIUM CHLORIDE 5% OPHTH DROPS 15 ML BTL BOTH EYES SCH ×4 (09:11→21:11)
[2018-06-13] MEDS: hydrALAZINE HCL 50 MG TAB PO SCH ×4 (10:19→21:11)
[2018-06-13 11:41] LABS: Glucose,Whole Blood 189 mg/dL (75-99)
[2018-06-13] MEDS: MVI, ADULT NO.4 WITH VIT K 10 ML, TRACE (CONC-1ML/DOSE) 1 ML in AMINO ACID 4.25%-D10W+L... IV SCH ×3 (11:57)
--- NOTE | 2018-06-13 13:22 | P.PN ---
Subjective Progress Note Date: 06/13/18 Principal diagnosis: Acute diverticulitis complicated by bowel obstruction requiring exploratory laparotomy and subtotal colectomy postoperative day #6 87-year-old female patient with known history of dementia presented to the hospital because of abdominal pain and constipation. Initial presentation with a 97 2018 and the patient hospital sinus. The patient had CAT scan of the abdomen that showed mild sigmoid diverticulitis. The patient continued to have abdominal discomfort and subsequent bloating and subsequent inability to pass any bowel movements. Soapsuds enemas were utilized and there was minimal stool production. She continued to have nausea and vomiting and surgery was involved in the case and the patient underwent a barium enema yesterday that showed localized area of irregular narrowing involving the sigmoid colon in addition to a high-grade obstruction and based on his findings the patient be taken to the operating room for colectomy and possible diverticular colostomy. I was asked even with this patient's pulmonary status and be involved in the postoperative care due to her age and the complexity of her medical problems. Note that this patient has been labeled to have a mild component of COPD despite her nonsmoking history. 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 She is exposed to respiratory irritants or chemicals. No recurrent pneumonias. No use of home oxygen. Exercise capacity has been limited and the patient reports some limited capacity even prior to this ongoing abdominal problems. During this current hospital stay she had a short run of atrial fibrillation she converted back to normal sinus rhythm. Echo was done and the patient is an ejection fraction of 6065% and mild aortic valve sclerosis and moderate degree of stenosis with a peak gradient across the valve of 32 and mother degree of pulmonary hypertension with a PA pressure of 53. Currently she is free of any chest pain. No cough sputum production. She is on room air oxygen. She'll be going to surgery at around 2 PM this afternoon.. 06/08/2008 and the patient is postop day #1. The patient was taken to the operating room yesterday and underwent a subtotal colectomy. Cecum was also ischemic and the patient underwent a subtotal colectomy and diverting colostomy was performed. Postop the patient was brought into the intensive care unit. She was extubated postop without any major difficulties. Overnight she continued to have episodes of low urine output. She was given a total of 2 L of IV fluid in the form of normal saline. The bicarbonate drip was also continued at the rate of 100 mL an hour. She'll be receiving a third liter for now. She is arousable and awake but a bit lethargic. Pain is under good control. NG tube is in place. Surgical site is dry clean and intact. BRIGITTE drain is also in place with minimal amount of output. No abdominal tenderness at this point in time. No major edema in lower extremities. She is hemodynamic is stable and she has not required any pressors. She is currently in a normal sinus rhythm. She converted this morning from an underlying A. fib fibrillation. Echocardiogram at shown a preserved LV function. No respiratory distress. Her white cell count is up to 34 which is an expected finding. 06/09/2018, patient is postop day #2. Doing well. Awake and alert. Following commands and answering questions. No major altered mentation or confusion. The patient has an ileostomy which is still nonfunctional at this point in time he had viable. Abdomen is soft and slightly distended. The patient is producing adequate amount of urine output. The serum bicarb is up to 30 and based on that the patient was taken off the bicarb drip and currently she is on normal saline today to have 100 mL an hour. Renal function is also stable with a creatinine of 0.9. White cell count is improving is down to 20.5. She is in normal sinus rhythm. She has occasional PVCs. No other issues otherwise for now. She remains on a combination of Rocephin and Flagyl. BRIGITTE drain is in place and the total amount of output has been 65 mL since yesterday. The neck fluid balance is +5.5 L for yesterday. 06/10/2018 patient is postop day #3. Awake and alert and he of any significant pain. Using incentive spirometer. Still nothing by mouth. Based on surgical recommendation, the patient was given a ticket tube feed yesterday at the rate of 10 mL an hour. She was unable to tolerate. She had emesis and subsequently 400 mL of aspirate was obtained from the stomach. The patient is currently nothing by mouth. The bowel sounds are still hypoactive. Surgical wound site is dry clean and intact. Her white cell count is down to 18.5. She is following commands and answering questions appropriately. BRIGITTE drain is still in place. Renal function is stable. No other significant events over the past 24 hours. Discussed the case with general surgery and were considering a PICC line and TPN for the next few days. 06/11/2018 patient is postop day #4. The patient is awake and alert. NG tube is in place. Output overnight has been only 100 mL. We are seeing more output and had ileostomy back. Surgical wound site is clean. BRIGITTE drains is still putting out some amount of drainage and the total amount of drainage was 2 25 mL for yesterday. Surgical wound site is dry clean and intact. She is afebrile. No nausea. No vomiting. No emesis. She has a PICC line and the patient was started on TPN for nutritional support through a left upper extremity PICC line. She is afebrile. She is hemodynamically stable. She is still requiring Cardizem drip for rate control today to 7.5 mg an hour. The fluid balance has been positive and the patient is a significant amount of fluid positivity and the patient will need some diuretics knowing that the chest x-rays also showing evidence of pulmonary vessel congestion development of bilateral pleural effusions. She was able to sit up on a chair yesterday. She is using incentive spirometer. No altered mentation. No agitation pH is calm and comfortable. No other significant events overnight. On 06/12/2018 patient is postop day #5. Doing well. Communicating. Awake and alert. NG tube is in place and output is minimal. Ileostomy site is putting minimal amount of bilious material. Surgical wound site is dry clean and intact. No abdominal distention. No nausea. No vomiting. She is on TPN for nutritional support. She is on Cardizem drip for rate control in regards to her chronic atrial fibrillation. She is on a combination of IV Rocephin and Flagyl. No other significant events overnight. For the most part, the patient is doing well and she was able to sit up on a chair yesterday. She is using incentive spirometer. On 06/13/2018, patient is postoperative day #6, continues to have nasogastric tube in place, patient remains on Cardizem for atrial fibrillation with RVR, and considering the patient cannot have anything orally, we'll continue Cardizem at 75 mg per hour, cardiology is addressing that situation. Patient remains on TPN for nutritional support. Remains on antibiotics in the form of Rocephin and Flagyl. Patient is arousable, relatively asymptomatic, she feels generally weak. Labs were reviewed her WBC count is 16.6 hemoglobin is 9.1 electrolytes and renal profile are normal. Objective - Vital Signs Vital signs: Vital Signs Temp 98.6 F 06/13/18 12:00 Pulse 72 06/13/18 13:00 Resp 18 06/13/18 13:00 BP 134/62 06/13/18 13:00 Pulse Ox 95 06/13/18 13:00 Intake & Output 06/12/18 06/13/18 06/13/18 18:59 06:59 18:59 Intake Total 694.399 8276 1925.834 Output Total 2130 1405 1815 Balance -1219.875 57 110.834 Weight 88 kg Intake: IV 331 351 960 Fat Emulsion 20% 250 ml 21 231 0 In Empty Bag 1 bag @ 21 mls/hr IV Q24H [facility] Rx#: [id number] Magnesium Sulfate-D5w Pmx 200 1 gm In Dextrose/Water 1 100ml.bag @ 100 mls/hr IVPB Q1H [facility] Rx#: [id number] Mvi, Adult No.4 with Vit 390 K 10 ml Trace (Conc-1Ml/ Dose) 1 ml In Amino Acid 4.25%-D10w+Lytes*E* 1,000 ml @ 65 mls/hr IV . [id number] [facility]Y Rx#:[id number] Potassium Chloride 10 meq 200 In Water For Injection 1 100ml.bag @ 100 mls/hr IVPB Q1H [facility] Rx#: [id number] Sodium Chloride 0.9% 1, 110 120 70 000 ml @ 10 mls/hr IV . Q24H [facility] Rx#:[id number] metroNIDAZOLE-NS PMX 500 200 100 mg In Saline 1 100ml.bag @ 100 mls/hr IVPB Q8HR [facility] Rx#:[id number] Intake, IV Titration 245.568 4516 965.834 Amount Diltiazem 50 mg In Sodium 89.125 100 40.667 Chloride 0.9% 40 ml @ 7. 5 MG/HR 7.5 mls/hr IV . Q6H40M [facility] Rx#:[id number] Magnesium Sulfate-D5w Pmx 200 1 gm In Dextrose/Water 1 100ml.bag @ 100 mls/hr IVPB Q1H [facility] Rx#: [id number] Mvi, Adult No.4 with Vit 1011 925.167 K 10 ml Trace (Conc-1Ml/ Dose) 1 ml In Amino Acid 4.25%-D10w+Lytes*E* 1,000 ml @ 65 mls/hr IV . [id number] [facility]Y Rx#:[id number] Potassium Chloride 10 meq 200 In Water For Injection 1 100ml.bag @ 100 mls/hr IVPB Q1H [facility] Rx#: [id number] Oral 90 Output: Drainage 190 70 80 Left Lower Abdomen 190 70 80 Urine 1890 1235 1735 Stool 50 100 Other: Voiding Method Indwelling Catheter Indwelling Catheter Indwelling Catheter - Exam On physical examination,: 88-year-old female in no form of respiratory distress. HEAD: Atraumatic, normocephalic. Neck PERRLA, EOMI, neck is supple, nasogastric tube is intact, throat is clear. No JVD is appreciated. Lungs sounds are diminished in lung bases bilaterally otherwise clear. No wheezes or rhonchi early crackles. Cardiac exam revealed the PMI to be normally situated and sized. Normal S1 and S2, no S3 gallop.. ABDOMEN: Soft, obese. Hypoactive bowel sounds. No direct tenderness. No rebound tenderness. No guarding. Surgical site is dry clean and intact. BRIGITTE drain is in place. No evidence of abdominal distention Ileostomy site is functional. Viable. SKIN: No rashes, no jaundice. Examination of the skin revealed no evidence of significant rashes, suspicious appearing nevi or other concerning lesions. NEUROLOGIC: Agent has impaired short-term memory. The patient has an underlying dementia. She does better with long-term memory. On and off confusion/sundowning. no focal neurological deficit this point in time. She is moving all 4 extremities. Pupils are equal and reactive to light. Extremities revealed +1-2 pitting edema both in upper and lower extremities. No cyanosis. No clubbing. Lymphatics: No lymphadenopathy. Acute: Normal mood, affect, and mental status examination. - Labs CBC & Chem 7: 06/13/18 05:05 06/13/18 10:44 Labs: Abnormal Lab Results - Last 24 Hours (Table) 06/12/18 06/13/18 06/13/18 Range/Units 17:53 00:41 05:05 WBC (3.8-10.6) k/uL RBC (3.80-5.40) m/uL Hgb (11.4-16.0) gm/dL Hct (34.0-46.0) % Neutrophils # (1.3-7.7) k/uL Sodium 135 L (137-145) mmol/L Chloride 96 L (98-107) mmol/L Carbon Dioxide 34 H (22-30) mmol/L BUN 21 H (7-17) mg/dL Glucose 156 H (74-99) mg/dL POC Glucose (mg/dL) 190 H 176 H (75-99) mg/dL Calcium 7.3 L (8.4-10.2) mg/dL 18 18 06/13/18 Range/Units 05:05 06:04 11:36 WBC 16.6 H (3.8-10.6) k/uL RBC 3.26 L (3.80-5.40) m/uL Hgb 9.1 L (11.4-16.0) gm/dL Hct 29.0 L (34.0-46.0) % Neutrophils # 14.0 H (1.3-7.7) k/uL Sodium (137-145) mmol/L Chloride (98-107) mmol/L Carbon Dioxide (22-30) mmol/L BUN (7-17) mg/dL Glucose (74-99) mg/dL POC Glucose (mg/dL) 168 H 189 H (75-99) mg/dL Calcium (8.4-10.2) mg/dL Assessment and Plan Assessment: 1 acute sigmoid diverticulitis complicated by bowel obstruction, patient underwent expiratory laparotomy, subtotal colectomy and diverting ileostomy and the patient is postop day #6 [address] tube is in place. The patient was started on TPN There is improved activity through the ileostomy bag. The bowel sounds are still hypoactive for now. 2 NPO, post bowel surgery patient was started on TPN for now 3 metabolic acidosis, recovered 4 acute leukocytosis secondary to above, improving 5 COPD currently inactive in stable 6 obesity. 7 moderate degree of aortic stenosis and secondary pulmonary hypertension with preserved LV function 8 paroxysmal atrial fibrillation , currently the patient on a Cardizem drip for rate control today to 7.5 mg an hour. 9 hypertension 10 remote history of C. diff colitis 11 history of dementia Recommendation: Continue present treatment plan, and considering the patient cannot go off Cardizem drip for now, and she cannot have oral treatment for A. fib, we'll continue to monitor in the ICU, continue Cardizem, continue TPN, continue antibiotics, GI and DVT prophylaxis, we will likely transfer out of the ICU in the next 24 hours. Time with Patient: Less than 30
--- NOTE | 2018-06-13 16:04 | P.PN ---
Subjective Progress Note Date: 06/13/18 Principal diagnosis: Colonic obstruction Patient doing well. Apparently the nasogastric tube has been clamped for the last day or 2. Good ostomy output. Denies pain. Denies shortness of breath. Objective - Vital Signs Vital signs: Vital Signs Temp 98.6 F 06/13/18 12:00 Pulse 76 06/13/18 15:58 Resp 20 06/13/18 15:00 BP 127/71 06/13/18 15:00 Pulse Ox 94 L 06/13/18 15:00 Intake & Output 06/12/18 06/13/18 06/13/18 18:59 06:59 18:59 Intake Total 856.613 4624 2010.834 Output Total 2130 1405 2210 Balance -1219.875 57 -199.166 Weight 88 kg 88 kg Intake: IV 499 825 4673 Fat Emulsion 20% 250 ml 21 231 0 In Empty Bag 1 bag @ 21 mls/hr IV Q24H ALY Rx#: [id number] Magnesium Sulfate-D5w Pmx 200 1 gm In Dextrose/Water 1 100ml.bag @ 100 mls/hr IVPB Q1H ALY Rx#: [id number] Mvi, Adult No.4 with Vit 455 K 10 ml Trace (Conc-1Ml/ Dose) 1 ml In Amino Acid 4.25%-D10w+Lytes*E* 1,000 ml @ 65 mls/hr IV . [id number] ALY Rx#:[id number] Potassium Chloride 10 meq 200 In Water For Injection 1 100ml.bag @ 100 mls/hr IVPB Q1H [facility] Rx#: [id number] Sodium Chloride 0.9% 1, 110 120 90 000 ml @ 10 mls/hr IV . Q24H [facility]Y Rx#:[id number] metroNIDAZOLE-NS PMX 500 200 100 mg In Saline 1 100ml.bag @ 100 mls/hr IVPB Q8HR [facility] Rx#:[id number] Intake, IV Titration 492.247 1305 965.834 Amount Diltiazem 50 mg In Sodium 89.125 100 40.667 Chloride 0.9% 40 ml @ 7. 5 MG/HR 7.5 mls/hr IV . Q6H40M ALY Rx#:[id number] Magnesium Sulfate-D5w Pmx 200 1 gm In Dextrose/Water 1 100ml.bag @ 100 mls/hr IVPB Q1H [facility] Rx#: [id number] Mvi, Adult No.4 with Vit 1011 925.167 K 10 ml Trace (Conc-1Ml/ Dose) 1 ml In Amino Acid 4.25%-D10w+Lytes*E* 1,000 ml @ 65 mls/hr IV . [id number] ALY Rx#:[id number] Potassium Chloride 10 meq 200 In Water For Injection 1 100ml.bag @ 100 mls/hr IVPB Q1H ALY Rx#: [id number] Oral 90 Output: Drainage 190 70 80 Left Lower Abdomen 190 70 80 Urine 1890 1235 2130 Stool 50 100 Other: Voiding Method Indwelling Catheter Indwelling Catheter Indwelling Catheter - Exam Abdomen: Soft, nondistended, wounds clean, ileostomy viable - Labs CBC & Chem 7: 06/13/18 05:05 06/13/18 10:44 Labs: Abnormal Lab Results - Last 24 Hours (Table) 06/12/18 06/13/18 06/13/18 Range/Units 17:53 00:41 05:05 WBC (3.8-10.6) k/uL RBC (3.80-5.40) m/uL Hgb (11.4-16.0) gm/dL Hct (34.0-46.0) % Neutrophils # (1.3-7.7) k/uL Sodium 135 L (137-145) mmol/L Chloride 96 L (98-107) mmol/L Carbon Dioxide 34 H (22-30) mmol/L BUN 21 H (7-17) mg/dL Glucose 156 H (74-99) mg/dL POC Glucose (mg/dL) 190 H 176 H (75-99) mg/dL Calcium 7.3 L (8.4-10.2) mg/dL 06/13/18 06/13/18 06/13/18 Range/Units 05:05 06:04 11:36 WBC 16.6 H (3.8-10.6) k/uL RBC 3.26 L (3.80-5.40) m/uL Hgb 9.1 L (11.4-16.0) gm/dL Hct 29.0 L (34.0-46.0) % Neutrophils # 14.0 H (1.3-7.7) k/uL Sodium (137-145) mmol/L Chloride (98-107) mmol/L Carbon Dioxide (22-30) mmol/L BUN (7-17) mg/dL Glucose (74-99) mg/dL POC Glucose (mg/dL) 168 H 189 H (75-99) mg/dL Calcium (8.4-10.2) mg/dL Assessment and Plan (1) Sigmoid diverticulitis Narrative/Plan: Remove nasogastric tube. Begin clear liquids. PTOT. Pathology reviewed with the patient. Current Visit: Yes Status: Acute Code(s): K57.32 - DVTRCLI OF LG INT W/O PERFORATION OR ABSCESS W/O BLEEDING SNOMED Code(s): 147609825
[2018-06-13] MEDS: FAT EMULSION 20% 250 ML in EMPTY BAG 1 BAG IV SCH (17:04)
[2018-06-13 17:16] LABS: Glucose,Whole Blood 166 mg/dL (75-99)
[2018-06-13] MEDS: cefTRIAXone IN SWFI 1,000 MG/10 ML SYRINGE IVP SCH (17:26)
[2018-06-13] MEDS: SODIUM CHLORIDE 0.9% 1,000 ML IV SCH (21:10)
--- NOTE | 2018-06-13 21:26 | MISC ---
MISCELLANOUS REPORT QUERY: Acute renal failure unknown. She has chronic CAD, stage III. MMODL / IJN: [id number] /
--- NOTE | 2018-06-13 21:32 | MISC ---
MISCELLANOUS REPORT QUERY: Diastolic heart failure, acute on chronic. MMODL / IJN: [id number] /
--- NOTE | 2018-06-13 21:42 | MISC ---
MISCELLANOUS REPORT QUERY: Unable to determine. MMODL / IJN: [id number] /
[2018-06-13 23:24] LABS: Glucose,Whole Blood 183 mg/dL (75-99)
[2018-06-14] MEDS: MVI, ADULT NO.4 WITH VIT K 10 ML, TRACE (CONC-1ML/DOSE) 1 ML in AMINO ACID 4.25%-D10W+L... IV SCH ×6 (03:53→16:11)
[2018-06-14] MEDS: DILTIAZEM 50 MG in SODIUM CHLORIDE 0.9% 40 ML IV SCH ×2 (03:53→13:43)
[2018-06-14 05:13] LABS: Basophils % (A) 0 %; Eosinophils # (A) 0.3 k/uL (0-0.7); Eosinophils % (A) 2 %; HCT 26.9 % (34.0-46.0); HGB 8.9 gm/dL (11.4-16.0); Lymphocytes # (A) 1.1 k/uL (1.0-4.8); Lymphocytes % (A) 8 %; MCH 28.7 pg (25.0-35.0); MCHC 33.1 g/dL (31.0-37.0); MCV 86.7 fL (80.0-100.0); Mean Platelet Volume 8.1; Monocytes # (A) 0.6 k/uL (0-1.0); Monocytes % (A) 4 %; Neutrophils # (A) 12.4 k/uL (1.3-7.7); Neutrophils % (A) 85 %; Platelet Count 269 k/uL (150-450); RDW 15.1 % (11.5-15.5); WBC 14.6 k/uL (3.8-10.6)
[2018-06-14 05:28] LABS: Ionized Calcium 4.4 mg/dL (4.5-5.3)
[2018-06-14 05:31] LABS: Calcium 7.3 mg/dL (8.4-10.2); Magnesium 2.1 mg/dL (1.6-2.3); Phosphorus 4.9 mg/dL (2.5-4.5); Potassium 4.5 mmol/L (3.5-5.1)
[2018-06-14 06:02] LABS: Glucose,Whole Blood 203 mg/dL (75-99)
[2018-06-14] MEDS: INSULIN ASPART 100 UNIT/ML 1 ML 10 ML VIAL SQ SCH ×3 (06:28→18:12)
--- NOTE | 2018-06-14 07:22 | XR ---
EXAMINATION TYPE: XR chest 1V portable DATE OF EXAM: 06/14/2018 COMPARISON: Prior chest 06/13/2018 HISTORY: Shortness of breath TECHNIQUE: Single frontal view of the chest is obtained. FINDINGS: Patient is rotated. Left-sided PICC line shows the distal tip overlying the superior vena cava. NG tube has been removed. Heart size is stable. There are overlying cardiac leads. Bibasilar in creased density persists, the hemidiaphragms are obscured. Bilateral airspace disease suspected. No e vident pneumothorax. The aorta is dense. IMPRESSION: Findings are similar to prior exam. Correlate for congestive heart failure with pleural effusions. Pneumonia not excluded.
[2018-06-14] MEDS: IPRATROPIUM-ALBUTEROL 3 ML NEB INHALATION SCH ×4 (07:23→20:09)
[2018-06-14] MEDS: PANTOPRAZOLE 40 MG/10 ML VIAL IVP SCH (08:38)
[2018-06-14] MEDS: HEPARIN SODIUM,PORCINE 5,000 UNIT/ML 1 ML VIAL SQ SCH ×2 (08:38→16:12)
[2018-06-14] MEDS: metroNIDAZOLE-NS PMX 500 MG in SALINE 1 100ML.BAG IVPB SCH ×2 (08:39→16:12)
[2018-06-14] MEDS: FUROSEMIDE 10 MG/ML 4 ML VIAL IV SCH ×2 (08:39→21:50)
[2018-06-14] MEDS: DILTIAZEM ORAL 30 MG TAB PO SCH ×3 (10:29→21:50)
[2018-06-14] MEDS: SODIUM CHLORIDE 5% OPHTH DROPS 15 ML BTL BOTH EYES SCH ×4 (10:29→21:52)
--- NOTE | 2018-06-14 11:24 | P.PN ---
Subjective Progress Note Date: 06/14/18 Principal diagnosis: Acute diverticulitis complicated by bowel obstruction requiring exploratory laparotomy and subtotal colectomy postoperative day #7 87-year-old female patient with known history of dementia presented to the hospital because of abdominal pain and constipation. Initial presentation with a 97 2018 and the patient hospital sinus. The patient had CAT scan of the abdomen that showed mild sigmoid diverticulitis. The patient continued to have abdominal discomfort and subsequent bloating and subsequent inability to pass any bowel movements. Soapsuds enemas were utilized and there was minimal stool production. She continued to have nausea and vomiting and surgery was involved in the case and the patient underwent a barium enema yesterday that showed localized area of irregular narrowing involving the sigmoid colon in addition to a high-grade obstruction and based on his findings the patient be taken to the operating room for colectomy and possible diverticular colostomy. I was asked even with this patient's pulmonary status and be involved in the postoperative care due to her age and the complexity of her medical problems. Note that this patient has been labeled to have a mild component of COPD despite her nonsmoking history. 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 She is exposed to respiratory irritants or chemicals. No recurrent pneumonias. No use of home oxygen. Exercise capacity has been limited and the patient reports some limited capacity even prior to this ongoing abdominal problems. During this current hospital stay she had a short run of atrial fibrillation she converted back to normal sinus rhythm. Echo was done and the patient is an ejection fraction of 6065% and mild aortic valve sclerosis and moderate degree of stenosis with a peak gradient across the valve of 32 and mother degree of pulmonary hypertension with a PA pressure of 53. Currently she is free of any chest pain. No cough sputum production. She is on room air oxygen. She'll be going to surgery at around 2 PM this afternoon.. 06/08/2008 and the patient is postop day #1. The patient was taken to the operating room yesterday and underwent a subtotal colectomy. Cecum was also ischemic and the patient underwent a subtotal colectomy and diverting colostomy was performed. Postop the patient was brought into the intensive care unit. She was extubated postop without any major difficulties. Overnight she continued to have episodes of low urine output. She was given a total of 2 L of IV fluid in the form of normal saline. The bicarbonate drip was also continued at the rate of 100 mL an hour. She'll be receiving a third liter for now. She is arousable and awake but a bit lethargic. Pain is under good control. NG tube is in place. Surgical site is dry clean and intact. BRIGITTE drain is also in place with minimal amount of output. No abdominal tenderness at this point in time. No major edema in lower extremities. She is hemodynamic is stable and she has not required any pressors. She is currently in a normal sinus rhythm. She converted this morning from an underlying A. fib fibrillation. Echocardiogram at shown a preserved LV function. No respiratory distress. Her white cell count is up to 34 which is an expected finding. 06/09/2018, patient is postop day #2. Doing well. Awake and alert. Following commands and answering questions. No major altered mentation or confusion. The patient has an ileostomy which is still nonfunctional at this point in time he had viable. Abdomen is soft and slightly distended. The patient is producing adequate amount of urine output. The serum bicarb is up to 30 and based on that the patient was taken off the bicarb drip and currently she is on normal saline today to have 100 mL an hour. Renal function is also stable with a creatinine of 0.9. White cell count is improving is down to 20.5. She is in normal sinus rhythm. She has occasional PVCs. No other issues otherwise for now. She remains on a combination of Rocephin and Flagyl. BRIGITTE drain is in place and the total amount of output has been 65 mL since yesterday. The neck fluid balance is +5.5 L for yesterday. 06/10/2018 patient is postop day #3. Awake and alert and he of any significant pain. Using incentive spirometer. Still nothing by mouth. Based on surgical recommendation, the patient was given a ticket tube feed yesterday at the rate of 10 mL an hour. She was unable to tolerate. She had emesis and subsequently 400 mL of aspirate was obtained from the stomach. The patient is currently nothing by mouth. The bowel sounds are still hypoactive. Surgical wound site is dry clean and intact. Her white cell count is down to 18.5. She is following commands and answering questions appropriately. BRIGITTE drain is still in place. Renal function is stable. No other significant events over the past 24 hours. Discussed the case with general surgery and were considering a PICC line and TPN for the next few days. 06/11/2018 patient is postop day #4. The patient is awake and alert. NG tube is in place. Output overnight has been only 100 mL. We are seeing more output and had ileostomy back. Surgical wound site is clean. BRIGITTE drains is still putting out some amount of drainage and the total amount of drainage was 2 25 mL for yesterday. Surgical wound site is dry clean and intact. She is afebrile. No nausea. No vomiting. No emesis. She has a PICC line and the patient was started on TPN for nutritional support through a left upper extremity PICC line. She is afebrile. She is hemodynamically stable. She is still requiring Cardizem drip for rate control today to 7.5 mg an hour. The fluid balance has been positive and the patient is a significant amount of fluid positivity and the patient will need some diuretics knowing that the chest x-rays also showing evidence of pulmonary vessel congestion development of bilateral pleural effusions. She was able to sit up on a chair yesterday. She is using incentive spirometer. No altered mentation. No agitation pH is calm and comfortable. No other significant events overnight. On 06/12/2018 patient is postop day #5. Doing well. Communicating. Awake and alert. NG tube is in place and output is minimal. Ileostomy site is putting minimal amount of bilious material. Surgical wound site is dry clean and intact. No abdominal distention. No nausea. No vomiting. She is on TPN for nutritional support. She is on Cardizem drip for rate control in regards to her chronic atrial fibrillation. She is on a combination of IV Rocephin and Flagyl. No other significant events overnight. For the most part, the patient is doing well and she was able to sit up on a chair yesterday. She is using incentive spirometer. On 06/13/2018, patient is postoperative day #6, continues to have nasogastric tube in place, patient remains on Cardizem for atrial fibrillation with RVR, and considering the patient cannot have anything orally, we'll continue Cardizem at 75 mg per hour, cardiology is addressing that situation. Patient remains on TPN for nutritional support. Remains on antibiotics in the form of Rocephin and Flagyl. Patient is arousable, relatively asymptomatic, she feels generally weak. Labs were reviewed her WBC count is 16.6 hemoglobin is 9.1 electrolytes and renal profile are normal. On 06/14/2018, patient is postoperative day #7. Her clinical status is improved , patient does not seem to be in any distress. She is now still on Cardizem, but considering the nasogastric tube was removed, and she is on liquid diet, we will switch Cardizem to oral and likely arrange for the patient to be transferred to a monitor bed on selective today. Patient is feeling better breathing easier. Chest x-ray continues to show evidence of congestive heart failure, hence the Lasix dose was increased to 40 mg IV push every 12 hours. CBC showed WBC count of 14.6 hemoglobin of 8.9 basic metabolic profile is relatively normal. Objective - Vital Signs Vital signs: Vital Signs Temp 98 F 06/14/18 04:00 Pulse 71 06/14/18 07:33 Resp 20 06/14/18 07:00 BP 111/58 06/14/18 07:00 Pulse Ox 93 L 06/14/18 07:00 Intake & Output 06/13/18 06/14/18 06/14/18 18:59 06:59 18:59 Intake Total 2335.834 1488.667 190 Output Total 2740 1165 190 Balance -404.166 323.667 0 Weight 88 kg 86.3 kg Intake: IV 1370 1409 190 Fat Emulsion 20% 250 ml 0 189 In Empty Bag 1 bag @ 21 mls/hr IV Q24H [facility] Rx#: [id number] Magnesium Sulfate-D5w Pmx 200 1 gm In Dextrose/Water 1 100ml.bag @ 100 mls/hr IVPB Q1H [facility] Rx#: [id number] Mvi, Adult No.4 with Vit 650 65 K 10 ml Trace (Conc-1Ml/ Dose) 1 ml In Amino Acid 4.25%-D10w+Lytes*E* 1,000 ml @ 65 mls/hr IV . [id number] [facility] Rx#:[id number] Mvi, Adult No.4 with Vit 935 170 K 10 ml Trace (Conc-1Ml/ Dose) 1 ml In Amino Acid 4.25%-D10w+Lytes*E* 1,000 ml @ 85 mls/hr IV . [id number] [facility] Rx#:[id number] Potassium Chloride 10 meq 200 In Water For Injection 1 100ml.bag @ 100 mls/hr IVPB Q1H [facility] Rx#: [id number] Sodium Chloride 0.9% 1, 120 120 20 000 ml @ 10 mls/hr IV . Q24H [facility] Rx#:[id number] metroNIDAZOLE-NS PMX 500 200 100 mg In Saline 1 100ml.bag @ 100 mls/hr IVPB Q8HR [facility] Rx#:[id number] Intake, IV Titration 965.834 79.667 Amount Diltiazem 50 mg In Sodium 40.667 79.667 Chloride 0.9% 40 ml @ 7. 5 MG/HR 7.5 mls/hr IV . Q6H40M [facility] Rx#:[id number] Mvi, Adult No.4 with Vit 925.167 K 10 ml Trace (Conc-1Ml/ Dose) 1 ml In Amino Acid 4.25%-D10w+Lytes*E* 1,000 ml @ 65 mls/hr IV . [id number] [facility] Rx#:[id number] Output: Drainage 80 120 70 Left Lower Abdomen 80 120 70 Urine 2510 1045 120 Stool 150 Other: Voiding Method Indwelling Catheter Indwelling Catheter - Exam On physical examination,: 88-year-old female in no form of respiratory distress. HEAD: Atraumatic, normocephalic. Neck PERRLA, EOMI, neck is supple, nasogastric tube was removed, throat is clear. No JVD is appreciated. Lungs sounds are diminished in lung bases bilaterally otherwise clear. No wheezes or rhonchi early crackles. Cardiac exam revealed the PMI to be normally situated and sized. Normal S1 and S2, no S3 gallop.. ABDOMEN: Soft, obese. Hypoactive bowel sounds. No direct tenderness. No rebound tenderness. No guarding. Surgical site is dry clean and intact. BRIGITTE drain is in place. No evidence of abdominal distention Ileostomy site is functional. Viable. SKIN: No rashes, no jaundice. Examination of the skin revealed no evidence of significant rashes, suspicious appearing nevi or other concerning lesions. NEUROLOGIC: Agent has impaired short-term memory. The patient has an underlying dementia. She does better with long-term memory. On and off confusion/sundowning. no focal neurological deficit this point in time. She is moving all 4 extremities. Pupils are equal and reactive to light. Extremities revealed +1-2 pitting edema both in upper and lower extremities. No cyanosis. No clubbing. Lymphatics: No lymphadenopathy. Acute: Normal mood, affect, and mental status examination. - Labs CBC & Chem 7: 06/14/18 05:00 06/14/18 05:00 Labs: Abnormal Lab Results - Last 24 Hours (Table) 06/13/18 06/13/18 06/13/18 Range/Units 11:36 17:15 23:22 WBC (3.8-10.6) k/uL RBC (3.80-5.40) m/uL Hgb (11.4-16.0) gm/dL Hct (34.0-46.0) % Neutrophils # (1.3-7.7) k/uL Sodium (137-145) mmol/L Chloride (98-107) mmol/L Carbon Dioxide (22-30) mmol/L BUN (7-17) mg/dL Glucose (74-99) mg/dL POC Glucose (mg/dL) 189 H 166 H 183 H (75-99) mg/dL Calcium (8.4-10.2) mg/dL Ionized Calcium Dipesh (4.5-5.3) mg/dL Phosphorus (2.5-4.5) mg/dL 06/14/18 06/14/18 06/14/18 Range/Units 05:00 05:00 06:00 WBC 14.6 H (3.8-10.6) k/uL RBC 3.10 L (3.80-5.40) m/uL Hgb 8.9 L (11.4-16.0) gm/dL Hct 26.9 L (34.0-46.0) % Neutrophils # 12.4 H (1.3-7.7) k/uL Sodium 132 L (137-145) mmol/L Chloride 95 L (98-107) mmol/L Carbon Dioxide 31 H (22-30) mmol/L BUN 27 H (7-17) mg/dL Glucose 202 H (74-99) mg/dL POC Glucose (mg/dL) 203 H (75-99) mg/dL Calcium 7.3 L (8.4-10.2) mg/dL Ionized Calcium Dipesh 4.4 L (4.5-5.3) mg/dL Phosphorus 4.9 H (2.5-4.5) mg/dL Assessment and Plan Assessment: 1 acute sigmoid diverticulitis complicated by bowel obstruction, patient underwent expiratory laparotomy, subtotal colectomy and diverting ileostomy and the patient is postop day #7 NG tube was removed. On TPN, liquid diet was initiated and it will be advanced accordingly. There is improved activity through the ileostomy bag. 2 nasogastric tube was removed, and liquid diet initiated, will be advanced as tolerated. 3 metabolic acidosis, recovered 4 acute leukocytosis secondary to above, improving 5 COPD currently inactive in stable 6 obesity. 7 moderate degree of aortic stenosis and secondary pulmonary hypertension with preserved LV function 8 paroxysmal atrial fibrillation , currently the patient on a Cardizem drip for rate control today to 7.5 mg an hour. 9 hypertension 10 remote history of C. diff colitis 11 history of dementia Recommendation: Continue present treatment plan, will switch patient to oral Cardizem 30 mg by mouth 3 times a day, discontinue IV Cardizem, transfer patient to a monitor bed on selective today. Continue incentive spirometry, continue GI and DVT prophylaxis, early ambulation. Time with Patient: Less than 30
--- NOTE | 2018-06-14 11:43 | PN ---
PROGRESS NOTE DATE OF SERVICE: 06/14/2018 CHIEF COMPLAINT: Status post laparotomy and subtotal colectomy. HISTORY OF PRESENT ILLNESS: This lady is doing well. She is awake and alert. NG tube is out. PHYSICAL EXAM: Her vital signs are normal. She is afebrile. Her chest is clear. IMPRESSION: Status post subtotal colectomy for ischemic bowel. PLAN: Progress activity and diet. MMODL / IJN: [id number] /
[2018-06-14 11:49] LABS: Glucose,Whole Blood 209 mg/dL (75-99)
--- NOTE | 2018-06-14 13:08 | P.PN ---
<Sarah Chappellnoel Camarena - Last Filed: 06/14/18 13:00> Subjective Progress Note Date: 06/14/18 88-year-old female seen in the intensive care unit more awake and alert oriented to self no recall place or event. Patients being followed by surgery for acute diverticulitis complicated by bowel obstruction requiring exploratory laparotomy and subtotal colectomy postop day 8 a moderate amount of brown liquid stool noted in the ostomy. TPN in progress. BRIGITTE drain straw-colored secretions surgical dressing dry is being followed by medicine and cardiology service denying chest pain denying shortness breath. Objective - Vital Signs Vital signs: Vital Signs Temp 98.2 F 06/14/18 12:00 Pulse 83 06/14/18 12:00 Resp 23 06/14/18 12:00 BP 120/51 06/14/18 12:00 Pulse Ox 92 L 06/14/18 12:00 Intake & Output 06/13/18 06/14/18 06/14/18 18:59 06:59 18:59 Intake Total 2335.834 1488.667 570 Output Total 2740 1165 1125 Balance -404.166 323.667 -555 Weight 88 kg 86.3 kg Intake: IV 1370 1409 570 Fat Emulsion 20% 250 ml 0 189 In Empty Bag 1 bag @ 21 mls/hr IV Q24H [facility] Rx#: [id number] Magnesium Sulfate-D5w Pmx 200 1 gm In Dextrose/Water 1 100ml.bag @ 100 mls/hr IVPB Q1H [facility] Rx#: [id number] Mvi, Adult No.4 with Vit 650 65 K 10 ml Trace (Conc-1Ml/ Dose) 1 ml In Amino Acid 4.25%-D10w+Lytes*E* 1,000 ml @ 65 mls/hr IV . [id number] [facility] Rx#:[id number] Mvi, Adult No.4 with Vit 935 510 K 10 ml Trace (Conc-1Ml/ Dose) 1 ml In Amino Acid 4.25%-D10w+Lytes*E* 1,000 ml @ 85 mls/hr IV . [id number] [facility] Rx#:[id number] Potassium Chloride 10 meq 200 In Water For Injection 1 100ml.bag @ 100 mls/hr IVPB Q1H [facility] Rx#: [id number] Sodium Chloride 0.9% 1, 120 120 60 000 ml @ 10 mls/hr IV . Q24H [facility] Rx#:[id number] metroNIDAZOLE-NS PMX 500 200 100 mg In Saline 1 100ml.bag @ 100 mls/hr IVPB Q8HR [facility] Rx#:[id number] Intake, IV Titration 965.834 79.667 Amount Diltiazem 50 mg In Sodium 40.667 79.667 Chloride 0.9% 40 ml @ 7. 5 MG/HR 7.5 mls/hr IV . Q6H40M [facility] Rx#:[id number] Mvi, Adult No.4 with Vit 925.167 K 10 ml Trace (Conc-1Ml/ Dose) 1 ml In Amino Acid 4.25%-D10w+Lytes*E* 1,000 ml @ 65 mls/hr IV . [id number] [facility] Rx#:[id number] Output: Drainage 80 120 130 Left Lower Abdomen 80 120 130 Urine 2510 1045 845 Stool 150 150 Other: Voiding Method Indwelling Catheter Indwelling Catheter Indwelling Catheter - Exam Exam Abdomen soft surgical tenderness appropriate moderate amount of liquid stool in ostomy bag tolerating clear liquid diet no nausea no vomiting BRIGITTE drain left lower quadrant straw-colored secretions noted ostomy stoma pink left lower quadrant TPN infusing surgical dressing site dry indwelling Mancini catheter in place - Labs CBC & Chem 7: 06/14/18 05:00 06/14/18 05:00 Labs: Abnormal Lab Results - Last 24 Hours (Table) 06/13/18 06/13/18 06/14/18 Range/Units 17:15 23:22 05:00 WBC (3.8-10.6) k/uL RBC (3.80-5.40) m/uL Hgb (11.4-16.0) gm/dL Hct (34.0-46.0) % Neutrophils # (1.3-7.7) k/uL Sodium 132 L (137-145) mmol/L Chloride 95 L (98-107) mmol/L Carbon Dioxide 31 H (22-30) mmol/L BUN 27 H (7-17) mg/dL Glucose 202 H (74-99) mg/dL POC Glucose (mg/dL) 166 H 183 H (75-99) mg/dL Calcium 7.3 L (8.4-10.2) mg/dL Ionized Calcium Dipesh 4.4 L (4.5-5.3) mg/dL Phosphorus 4.9 H (2.5-4.5) mg/dL 06/14/18 06/14/18 06/14/18 Range/Units 05:00 06:00 11:48 WBC 14.6 H (3.8-10.6) k/uL RBC 3.10 L (3.80-5.40) m/uL Hgb 8.9 L (11.4-16.0) gm/dL Hct 26.9 L (34.0-46.0) % Neutrophils # 12.4 H (1.3-7.7) k/uL Sodium (137-145) mmol/L Chloride (98-107) mmol/L Carbon Dioxide (22-30) mmol/L BUN (7-17) mg/dL Glucose (74-99) mg/dL POC Glucose (mg/dL) 203 H 209 H (75-99) mg/dL Calcium (8.4-10.2) mg/dL Ionized Calcium Dipesh (4.5-5.3) mg/dL Phosphorus (2.5-4.5) mg/dL Assessment and Plan Assessment: Impression Present on admission abdominal distention suspect due to colonic ileus or distal colonic obstruction CAT scan abdomen pelvis showed suspected mild sigmoid diverticulitis obtained 2 days prior to admission Acute on chronic Constipation Present on admission leukocytosis suspect reactive Present on admission electrolyte imbalance hypokalemia corrected resolved CAT scan abdomen pelvis findings constipation and sigmoid diverticulitis some degree of colonic obstruction related to inflammatory changes sigmoid colon X-ray abdomen reports indicate evidence of colonic ileus or distal colonic obstruction Baseline dementia Paroxysmal atrial fibrillation with rapid ventricular response started on elquis Systolic ejection murmur suspect aortic stenosis Abnormal troponin cardiology following suspect related to supply and demand mismatch 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 Jane Chappell nurse practitioner acting as scribe for signing physician. <Anival Garcia - Last Filed: 06/14/18 15:37> Objective - Vital Signs Vital signs: Vital Signs Temp 98.2 F 06/14/18 12:00 Pulse 89 06/14/18 14:00 Resp 22 06/14/18 14:00 BP 126/64 06/14/18 14:00 Pulse Ox 96 06/14/18 14:00 Intake & Output 06/13/18 06/14/18 06/14/18 18:59 06:59 18:59 Intake Total 2335.834 1488.667 815 Output Total 2740 1165 1575 Balance -404.166 323.667 -760 Weight 88 kg 86.3 kg Intake: IV 1370 1409 665 Fat Emulsion 20% 250 ml 0 189 In Empty Bag 1 bag @ 21 mls/hr IV Q24H [facility] Rx#: [id number] Magnesium Sulfate-D5w Pmx 200 1 gm In Dextrose/Water 1 100ml.bag @ 100 mls/hr IVPB Q1H [facility] Rx#: [id number] Mvi, Adult No.4 with Vit 650 65 K 10 ml Trace (Conc-1Ml/ Dose) 1 ml In Amino Acid 4.25%-D10w+Lytes*E* 1,000 ml @ 65 mls/hr IV . [id number] [facility] Rx#:[id number] Mvi, Adult No.4 with Vit 935 595 K 10 ml Trace (Conc-1Ml/ Dose) 1 ml In Amino Acid 4.25%-D10w+Lytes*E* 1,000 ml @ 85 mls/hr IV . [id number] [facility] Rx#:[id number] Potassium Chloride 10 meq 200 In Water For Injection 1 100ml.bag @ 100 mls/hr IVPB Q1H [facility] Rx#: [id number] Sodium Chloride 0.9% 1, 120 120 70 000 ml @ 10 mls/hr IV . Q24H [facility] Rx#:[id number] metroNIDAZOLE-NS PMX 500 200 100 mg In Saline 1 100ml.bag @ 100 mls/hr IVPB Q8HR [facility] Rx#:[id number] Intake, IV Titration 965.834 79.667 Amount Diltiazem 50 mg In Sodium 40.667 79.667 Chloride 0.9% 40 ml @ 7. 5 MG/HR 7.5 mls/hr IV . Q6H40M [facility] Rx#:[id number] Mvi, Adult No.4 with Vit 925.167 K 10 ml Trace (Conc-1Ml/ Dose) 1 ml In Amino Acid 4.25%-D10w+Lytes*E* 1,000 ml @ 65 mls/hr IV . [id number] [facility] Rx#:[id number] Oral 150 Output: Drainage 80 120 180 Left Lower Abdomen 80 120 180 Urine 2510 1045 1245 Stool 150 150 Other: Voiding Method Indwelling Catheter Indwelling Catheter Indwelling Catheter - Labs CBC & Chem 7: 06/14/18 05:00 06/14/18 05:00 Labs: Abnormal Lab Results - Last 24 Hours (Table) 06/13/18 06/13/18 06/14/18 Range/Units 17:15 23:22 05:00 WBC (3.8-10.6) k/uL RBC (3.80-5.40) m/uL Hgb (11.4-16.0) gm/dL Hct (34.0-46.0) % Neutrophils # (1.3-7.7) k/uL Sodium 132 L (137-145) mmol/L Chloride 95 L (98-107) mmol/L Carbon Dioxide 31 H (22-30) mmol/L BUN 27 H (7-17) mg/dL Glucose 202 H (74-99) mg/dL POC Glucose (mg/dL) 166 H 183 H (75-99) mg/dL Calcium 7.3 L (8.4-10.2) mg/dL Ionized Calcium Dipesh 4.4 L (4.5-5.3) mg/dL Phosphorus 4.9 H (2.5-4.5) mg/dL 06/14/18 06/14/18 06/14/18 Range/Units 05:00 06:00 11:48 WBC 14.6 H (3.8-10.6) k/uL RBC 3.10 L (3.80-5.40) m/uL Hgb 8.9 L (11.4-16.0) gm/dL Hct 26.9 L (34.0-46.0) % Neutrophils # 12.4 H (1.3-7.7) k/uL Sodium (137-145) mmol/L Chloride (98-107) mmol/L Carbon Dioxide (22-30) mmol/L BUN (7-17) mg/dL Glucose (74-99) mg/dL POC Glucose (mg/dL) 203 H 209 H (75-99) mg/dL Calcium (8.4-10.2) mg/dL Ionized Calcium Dipesh (4.5-5.3) mg/dL Phosphorus (2.5-4.5) mg/dL Assessment and Plan Assessment: As above. Patient doing well. Gradually increase diet as tolerated. Continue physical therapy. (1) Sigmoid diverticulitis Current Visit: Yes Status: Acute Code(s): K57.32 - DVTRCLI OF LG INT W/O PERFORATION OR ABSCESS W/O BLEEDING SNOMED Code(s): 280807062
[2018-06-14] MEDS: hydrALAZINE HCL 50 MG TAB PO SCH ×3 (13:43→22:58)
--- NOTE | 2018-06-14 16:40 | PN ---
PROGRESS NOTE DATE OF SERVICE: 06/13/2018 CHIEF COMPLAINT: Status post laparotomy and resection of ischemic portion of the colon. HISTORY OF PRESENT ILLNESS: This lady is doing surprisingly well. Vital signs been stable. She is awake and alert. She has no significant pain. PHYSICAL EXAM: Chest is clear. Cardiac exam is normal. Abdomen is soft, nontender. NG tube still in place. IMPRESSION: Status post is subtotal colonic resection for ischemic bowel. PLAN: No change in program and follow with Surgery. She is doing well. MMODL / IJN: [id number] /
[2018-06-14 17:39] LABS: Glucose,Whole Blood 169 mg/dL (75-99)
--- NOTE | 2018-06-14 17:49 | PN ---
PROGRESS NOTE DATE OF SERVICE: 06/11/2018 CHIEF COMPLAINT: Postop colostomy and removal of ischemic section of colon. HISTORY OF PRESENT ILLNESS: This lady is doing surprisingly well. Vital signs have been stable. PHYSICAL EXAM: Color is good. Vital signs are normal. Breath sounds are heard well on both sides. IMPRESSION: 1. Status post removal of a portion of ischemic colon with colostomy. 2. Congestive heart failure. PLAN: Continue to follow with Surgery and mobile paramedical examiner. MMSOLEDADL / IJN: [id number] /
--- NOTE | 2018-06-14 18:01 | PN ---
PROGRESS NOTE DATE OF SERVICE: 06/10/2018 CHIEF COMPLAINT: Status post laparotomy and resection of segment of colon with colostomy. HISTORY OF PRESENT ILLNESS: This lady is doing well, has been fairly stable. PHYSICAL EXAM: Color is good. Breath sounds are heard bilaterally and cardiac is normal and dressings are dry. IMPRESSION: Status post laparotomy and subtotal colectomy with colostomy. PLAN: Follow with Surgery and Intensive Medicine. MMODL / IJN: [id number] /
[2018-06-14] MEDS: cefTRIAXone IN SWFI 1,000 MG/10 ML SYRINGE IVP SCH (18:11)
[2018-06-14] MEDS: FAT EMULSION 20% 250 ML in EMPTY BAG 1 BAG IV SCH (18:11)
[2018-06-14] MEDS ORDERED: amLODIPine 10 MG TAB PO SCH (21:00)
[2018-06-14] MEDS: SODIUM CHLORIDE 0.9% 1,000 ML IV SCH (21:51)
[2018-06-14 23:50] LABS: Glucose,Whole Blood 210 mg/dL (75-99)
[2018-06-15] MEDS: INSULIN ASPART 100 UNIT/ML 1 ML 10 ML VIAL SQ SCH ×4 (00:59→17:45)
[2018-06-15] MEDS: HEPARIN SODIUM,PORCINE 5,000 UNIT/ML 1 ML VIAL SQ SCH ×4 (01:00→23:51)
[2018-06-15] MEDS: metroNIDAZOLE-NS PMX 500 MG in SALINE 1 100ML.BAG IVPB SCH ×4 (01:00→23:51)
[2018-06-15] MEDS: MVI, ADULT NO.4 WITH VIT K 10 ML, TRACE (CONC-1ML/DOSE) 1 ML in AMINO ACID 4.25%-D10W+L... IV SCH ×6 (01:30→15:14)
[2018-06-15 05:41] LABS: Basophils # (A) 0.1 k/uL (0-0.2); Basophils % (A) 0 %; Eosinophils # (A) 0.2 k/uL (0-0.7); Eosinophils % (A) 1 %; HCT 30.2 % (34.0-46.0); HGB 9.6 gm/dL (11.4-16.0); Hypochromasia Slight; Lymphocytes % (A) 5 %; MCH 27.9 pg (25.0-35.0); MCHC 31.8 g/dL (31.0-37.0); MCV 87.8 fL (80.0-100.0); Mean Platelet Volume 7.9; Monocytes # (A) 0.8 k/uL (0-1.0); Monocytes % (A) 4 %; Neutrophils # (A) 16.8 k/uL (1.3-7.7); Neutrophils % (A) 89 %; Platelet Count 298 k/uL (150-450); RBC 3.44 m/uL (3.80-5.40); RDW 15.4 % (11.5-15.5); WBC 18.9 k/uL (3.8-10.6)
[2018-06-15 05:50] LABS: Ionized Calcium 4.4 mg/dL (4.5-5.3)
[2018-06-15 05:56] LABS: Calcium 7.6 mg/dL (8.4-10.2); Magnesium 1.8 mg/dL (1.6-2.3); Phosphorus 5.4 mg/dL (2.5-4.5); Potassium 4.3 mmol/L (3.5-5.1)
[2018-06-15 06:41] LABS: Glucose,Whole Blood 210 mg/dL (75-99)
[2018-06-15] MEDS: IPRATROPIUM-ALBUTEROL 3 ML NEB INHALATION SCH ×4 (07:15→20:00)
[2018-06-15] MEDS: PANTOPRAZOLE 40 MG/10 ML VIAL IVP SCH (08:29)
[2018-06-15] MEDS: FUROSEMIDE 10 MG/ML 4 ML VIAL IV SCH ×2 (08:29→22:51)
[2018-06-15] MEDS: hydrALAZINE HCL 50 MG TAB PO SCH ×4 (08:30→22:51)
[2018-06-15] MEDS: SODIUM CHLORIDE 5% OPHTH DROPS 15 ML BTL BOTH EYES SCH ×4 (08:30→22:09)
[2018-06-15] MEDS: DILTIAZEM ORAL 30 MG TAB PO SCH (08:30)
[2018-06-15] MEDS: SERTRALINE 100 MG TAB PO SCH (08:41)
--- NOTE | 2018-06-15 10:20 | XR ---
EXAMINATION TYPE: XR chest 1V portable DATE OF EXAM: 06/15/2018 COMPARISON: 06/14/2018 INDICATION: Short of breath TECHNIQUE: Single frontal view of the chest is obtained. FINDINGS: The heart size is enlarged. The pulmonary vasculature is upper limits of normal. Small bilateral pleural effusions are present. Some mild bibasilar atelectasis may be present. IMPRESSION: 1. There may be some improvement of a congestive heart failure with small bilateral pleural effusions . Continued follow-up is recommended.
--- NOTE | 2018-06-15 10:32 | PN ---
PROGRESS NOTE DATE OF SERVICE: 06/15/2018 CHIEF COMPLAINT: Status post sigmoid resection. HISTORY OF PRESENT ILLNESS: This lady is doing well and remains quite stable. She waits step-down bed. PHYSICAL EXAM: Vital signs are normal. Chest is clear. Cardiac exam is normal. IMPRESSION: Status post sigmoid resection and colostomy. PLAN: Restart her Zoloft and wait telemetry bed. MMODL / IJN: [id number] /
[2018-06-15] MEDS ORDERED: CALCIUM GLUCONATE 1,000 MG in SODIUM CHLORIDE 0.9% 100 ML IVPB ONE (11:00)
[2018-06-15 12:03] LABS: Glucose,Whole Blood 206 mg/dL (75-99)
--- NOTE | 2018-06-15 12:27 | P.PN ---
Subjective Progress Note Date: 06/15/18 Principal diagnosis: Acute diverticulitis complicated by bowel obstruction requiring exploratory laparotomy and subtotal colectomy postoperative day #8 87-year-old female patient with known history of dementia presented to the hospital because of abdominal pain and constipation. Initial presentation with a 97 2018 and the patient hospital sinus. The patient had CAT scan of the abdomen that showed mild sigmoid diverticulitis. The patient continued to have abdominal discomfort and subsequent bloating and subsequent inability to pass any bowel movements. Soapsuds enemas were utilized and there was minimal stool production. She continued to have nausea and vomiting and surgery was involved in the case and the patient underwent a barium enema yesterday that showed localized area of irregular narrowing involving the sigmoid colon in addition to a high-grade obstruction and based on his findings the patient be taken to the operating room for colectomy and possible diverticular colostomy. I was asked even with this patient's pulmonary status and be involved in the postoperative care due to her age and the complexity of her medical problems. Note that this patient has been labeled to have a mild component of COPD despite her nonsmoking history. 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 She is exposed to respiratory irritants or chemicals. No recurrent pneumonias. No use of home oxygen. Exercise capacity has been limited and the patient reports some limited capacity even prior to this ongoing abdominal problems. During this current hospital stay she had a short run of atrial fibrillation she converted back to normal sinus rhythm. Echo was done and the patient is an ejection fraction of 6065% and mild aortic valve sclerosis and moderate degree of stenosis with a peak gradient across the valve of 32 and mother degree of pulmonary hypertension with a PA pressure of 53. Currently she is free of any chest pain. No cough sputum production. She is on room air oxygen. She'll be going to surgery at around 2 PM this afternoon.. 06/08/2008 and the patient is postop day #1. The patient was taken to the operating room yesterday and underwent a subtotal colectomy. Cecum was also ischemic and the patient underwent a subtotal colectomy and diverting colostomy was performed. Postop the patient was brought into the intensive care unit. She was extubated postop without any major difficulties. Overnight she continued to have episodes of low urine output. She was given a total of 2 L of IV fluid in the form of normal saline. The bicarbonate drip was also continued at the rate of 100 mL an hour. She'll be receiving a third liter for now. She is arousable and awake but a bit lethargic. Pain is under good control. NG tube is in place. Surgical site is dry clean and intact. BRIGITTE drain is also in place with minimal amount of output. No abdominal tenderness at this point in time. No major edema in lower extremities. She is hemodynamic is stable and she has not required any pressors. She is currently in a normal sinus rhythm. She converted this morning from an underlying A. fib fibrillation. Echocardiogram at shown a preserved LV function. No respiratory distress. Her white cell count is up to 34 which is an expected finding. 06/09/2018, patient is postop day #2. Doing well. Awake and alert. Following commands and answering questions. No major altered mentation or confusion. The patient has an ileostomy which is still nonfunctional at this point in time he had viable. Abdomen is soft and slightly distended. The patient is producing adequate amount of urine output. The serum bicarb is up to 30 and based on that the patient was taken off the bicarb drip and currently she is on normal saline today to have 100 mL an hour. Renal function is also stable with a creatinine of 0.9. White cell count is improving is down to 20.5. She is in normal sinus rhythm. She has occasional PVCs. No other issues otherwise for now. She remains on a combination of Rocephin and Flagyl. BRIGITTE drain is in place and the total amount of output has been 65 mL since yesterday. The neck fluid balance is +5.5 L for yesterday. 06/10/2018 patient is postop day #3. Awake and alert and he of any significant pain. Using incentive spirometer. Still nothing by mouth. Based on surgical recommendation, the patient was given a ticket tube feed yesterday at the rate of 10 mL an hour. She was unable to tolerate. She had emesis and subsequently 400 mL of aspirate was obtained from the stomach. The patient is currently nothing by mouth. The bowel sounds are still hypoactive. Surgical wound site is dry clean and intact. Her white cell count is down to 18.5. She is following commands and answering questions appropriately. BRIGITTE drain is still in place. Renal function is stable. No other significant events over the past 24 hours. Discussed the case with general surgery and were considering a PICC line and TPN for the next few days. 06/11/2018 patient is postop day #4. The patient is awake and alert. NG tube is in place. Output overnight has been only 100 mL. We are seeing more output and had ileostomy back. Surgical wound site is clean. BRIGITTE drains is still putting out some amount of drainage and the total amount of drainage was 2 25 mL for yesterday. Surgical wound site is dry clean and intact. She is afebrile. No nausea. No vomiting. No emesis. She has a PICC line and the patient was started on TPN for nutritional support through a left upper extremity PICC line. She is afebrile. She is hemodynamically stable. She is still requiring Cardizem drip for rate control today to 7.5 mg an hour. The fluid balance has been positive and the patient is a significant amount of fluid positivity and the patient will need some diuretics knowing that the chest x-rays also showing evidence of pulmonary vessel congestion development of bilateral pleural effusions. She was able to sit up on a chair yesterday. She is using incentive spirometer. No altered mentation. No agitation pH is calm and comfortable. No other significant events overnight. On 06/12/2018 patient is postop day #5. Doing well. Communicating. Awake and alert. NG tube is in place and output is minimal. Ileostomy site is putting minimal amount of bilious material. Surgical wound site is dry clean and intact. No abdominal distention. No nausea. No vomiting. She is on TPN for nutritional support. She is on Cardizem drip for rate control in regards to her chronic atrial fibrillation. She is on a combination of IV Rocephin and Flagyl. No other significant events overnight. For the most part, the patient is doing well and she was able to sit up on a chair yesterday. She is using incentive spirometer. On 06/13/2018, patient is postoperative day #6, continues to have nasogastric tube in place, patient remains on Cardizem for atrial fibrillation with RVR, and considering the patient cannot have anything orally, we'll continue Cardizem at 75 mg per hour, cardiology is addressing that situation. Patient remains on TPN for nutritional support. Remains on antibiotics in the form of Rocephin and Flagyl. Patient is arousable, relatively asymptomatic, she feels generally weak. Labs were reviewed her WBC count is 16.6 hemoglobin is 9.1 electrolytes and renal profile are normal. On 06/14/2018, patient is postoperative day #7. Her clinical status is improved , patient does not seem to be in any distress. She is now still on Cardizem, but considering the nasogastric tube was removed, and she is on liquid diet, we will switch Cardizem to oral and likely arrange for the patient to be transferred to a monitor bed on selective today. Patient is feeling better breathing easier. Chest x-ray continues to show evidence of congestive heart failure, hence the Lasix dose was increased to 40 mg IV push every 12 hours. CBC showed WBC count of 14.6 hemoglobin of 8.9 basic metabolic profile is relatively normal. On 06/15/2018, patient is postoperative day #8. Patient is resting in bed, comfortable, and in no distress. She is now on oral Cardizem, awaiting for a bed on selective, however considering the patient has been hemodynamically stable, and her cardiac arrhythmia is under control, we will arrange for the patient to be transferred to a regular medical floor with remote telemetry. Labs were reviewed WBC count is 18.9 hemoglobin is 9.6, basic metabolic profile is relatively normal and renal profile is normal. Patient is hemodynamically stable, urine output is excellent, no major issues overnight. The only abnormality since yesterday is the slight elevation in blood count. Objective - Vital Signs Vital signs: Vital Signs Temp 98.5 F 06/15/18 08:00 Pulse 103 H 06/15/18 12:14 Resp 21 06/15/18 10:00 BP 139/78 06/15/18 10:00 Pulse Ox 98 06/15/18 10:00 Intake & Output 06/14/18 06/15/18 06/15/18 18:59 06:59 18:59 Intake Total 2066 953.917 31 Output Total 7134 248 6998 Balance 216 78.917 -1369 Weight 85.7 kg 85.7 kg Intake: IV 785 162 31 Fat Emulsion 20% 250 ml 42 21 In Empty Bag 1 bag @ 21 mls/hr IV Q24H [facility] Rx#: [id number] Mvi, Adult No.4 with Vit 595 K 10 ml Trace (Conc-1Ml/ Dose) 1 ml In Amino Acid 4.25%-D10w+Lytes*E* 1,000 ml @ 85 mls/hr IV . [id number] [facility] Rx#:[id number] Sodium Chloride 0.9% 1, 90 20 10 000 ml @ 10 mls/hr IV . Q24H [facility] Rx#:[id number] metroNIDAZOLE-NS PMX 500 100 100 mg In Saline 1 100ml.bag @ 100 mls/hr IVPB Q8HR [facility] Rx#:[id number] Intake, IV Titration 1011 791.917 Amount Mvi, Adult No.4 with Vit 1011 791.917 K 10 ml Trace (Conc-1Ml/ Dose) 1 ml In Amino Acid 4.25%-D10w+Lytes*E* 1,000 ml @ 85 mls/hr IV . [id number] [facility] Rx#:[id number] Oral 270 Output: Drainage 180 100 Left Lower Abdomen 180 100 Urine 5402 902 9108 Stool 250 Other: Voiding Method Indwelling Catheter Indwelling Catheter Indwelling Catheter - Exam Physical Exam: Revealed an 88-year-old female in no distress. On nasal cannula. Head: Atraumatic, normocephalic. HEENT:[Neck is supple.] [No neck masses.] [No thyromegaly.] [No JVD.] Moist mucous membranes, no icterus. Chest: [Clear throughout, no crackles, no rhonchi, no wheezes.] Cardiac Exam: [Normal S1 and S2, no S3 gallop, no murmur.] ABDOMEN: Soft, obese. Hypoactive bowel sounds. No direct tenderness. No rebound tenderness. No guarding. Surgical site is dry clean and intact. BRIGITTE drain is in place. No evidence of abdominal distention Ileostomy site is functional. Viable. SKIN: No rashes, no jaundice. Examination of the skin revealed no evidence of significant rashes, NEUROLOGIC:impaired short-term memory. The patient has an underlying dementia. Otherwise no focal neurologic deficit. Extremities revealed +1-2 pitting edema both in upper and lower extremities. No cyanosis. No clubbing. Lymphatics: No lymphadenopathy. - Labs CBC & Chem 7: 06/15/18 04:59 06/15/18 04:59 Labs: Abnormal Lab Results - Last 24 Hours (Table) 06/14/18 06/14/18 06/15/18 Range/Units 17:38 23:48 04:59 WBC (3.8-10.6) k/uL RBC (3.80-5.40) m/uL Hgb (11.4-16.0) gm/dL Hct (34.0-46.0) % Neutrophils # (1.3-7.7) k/uL Sodium 132 L (137-145) mmol/L Chloride 93 L (98-107) mmol/L BUN 34 H (7-17) mg/dL Glucose 198 H (74-99) mg/dL POC Glucose (mg/dL) 169 H 210 H (75-99) mg/dL Calcium 7.6 L (8.4-10.2) mg/dL Ionized Calcium Dipesh 4.4 L (4.5-5.3) mg/dL Phosphorus 5.4 H (2.5-4.5) mg/dL 06/15/18 06/15/18 06/15/18 Range/Units 04:59 06:40 12:00 WBC 18.9 H (3.8-10.6) k/uL RBC 3.44 L (3.80-5.40) m/uL Hgb 9.6 L (11.4-16.0) gm/dL Hct 30.2 L (34.0-46.0) % Neutrophils # 16.8 H (1.3-7.7) k/uL Sodium (137-145) mmol/L Chloride (98-107) mmol/L BUN (7-17) mg/dL Glucose (74-99) mg/dL POC Glucose (mg/dL) 210 H 206 H (75-99) mg/dL Calcium (8.4-10.2) mg/dL Ionized Calcium Dipesh (4.5-5.3) mg/dL Phosphorus (2.5-4.5) mg/dL Assessment and Plan Assessment: Impression: Status post exploratory laparotomy, subtotal colectomy and diverting ileostomy postoperative day #8. 2 acute sigmoid diverticulitis complicated by bowel obstruction requiring surgery as above. 3 COPD, presently inactive. 4 moderate aortic stenosis and secondary pulmonary hypertension 5 paroxysmal atrial fibrillation presently on oral Cardizem. 6 underlying dementia 7 remote history of C. difficile colitis. Recommendation: Continue incentive spirometry, continue oral Cardizem, continue GI and DVT prophylaxis, we'll arrange for the patient to transfer to a remote telemetry bed today. Increase ambulation, physical therapy, and possibly eventual rehab referral. Time with Patient: Less than 30
--- NOTE | 2018-06-15 13:26 | P.PN ---
Subjective Progress Note Date: 06/15/18 Principal diagnosis: Colonic obstruction Patient sitting up in a chair. She had a small amount of emesis last night. Good ostomy function however. Tolerating diet this afternoon. Feels fatigued. No significant pain. White blood cell count up slightly to 18. Objective - Vital Signs Vital signs: Vital Signs Temp 98.2 F 06/15/18 12:00 Pulse 103 H 06/15/18 12:14 Resp 25 H 06/15/18 12:00 BP 114/79 06/15/18 12:00 Pulse Ox 94 L 06/15/18 12:00 Intake & Output 06/14/18 06/15/18 06/15/18 18:59 06:59 18:59 Intake Total 2066 953.917 31 Output Total 8887 794 7534 Balance 216 78.917 -1369 Weight 85.7 kg 85.7 kg Intake: IV 785 162 31 Fat Emulsion 20% 250 ml 42 21 In Empty Bag 1 bag @ 21 mls/hr IV Q24H [facility] Rx#: [id number] Mvi, Adult No.4 with Vit 595 K 10 ml Trace (Conc-1Ml/ Dose) 1 ml In Amino Acid 4.25%-D10w+Lytes*E* 1,000 ml @ 85 mls/hr IV . [id number] [facility] Rx#:[id number] Sodium Chloride 0.9% 1, 90 20 10 000 ml @ 10 mls/hr IV . Q24H [facility] Rx#:[id number] metroNIDAZOLE-NS PMX 500 100 100 mg In Saline 1 100ml.bag @ 100 mls/hr IVPB Q8HR [facility] Rx#:[id number] Intake, IV Titration 1011 791.917 Amount Mvi, Adult No.4 with Vit 1011 791.917 K 10 ml Trace (Conc-1Ml/ Dose) 1 ml In Amino Acid 4.25%-D10w+Lytes*E* 1,000 ml @ 85 mls/hr IV . [id number] [facility] Rx#:[id number] Oral 270 Output: Drainage 180 100 Left Lower Abdomen 180 100 Urine 9936 653 1520 Stool 250 Other: Voiding Method Indwelling Catheter Indwelling Catheter Indwelling Catheter - Exam Abdomen: Soft, nondistended, incision clean, wounds with serous drainage, BRIGITTE drain serosanguineous - Labs CBC & Chem 7: 06/15/18 04:59 06/15/18 04:59 Labs: Abnormal Lab Results - Last 24 Hours (Table) 06/14/18 06/14/18 06/15/18 Range/Units 17:38 23:48 04:59 WBC (3.8-10.6) k/uL RBC (3.80-5.40) m/uL Hgb (11.4-16.0) gm/dL Hct (34.0-46.0) % Neutrophils # (1.3-7.7) k/uL Sodium 132 L (137-145) mmol/L Chloride 93 L (98-107) mmol/L BUN 34 H (7-17) mg/dL Glucose 198 H (74-99) mg/dL POC Glucose (mg/dL) 169 H 210 H (75-99) mg/dL Calcium 7.6 L (8.4-10.2) mg/dL Ionized Calcium Dipesh 4.4 L (4.5-5.3) mg/dL Phosphorus 5.4 H (2.5-4.5) mg/dL 06/15/18 06/15/18 06/15/18 Range/Units 04:59 06:40 12:00 WBC 18.9 H (3.8-10.6) k/uL RBC 3.44 L (3.80-5.40) m/uL Hgb 9.6 L (11.4-16.0) gm/dL Hct 30.2 L (34.0-46.0) % Neutrophils # 16.8 H (1.3-7.7) k/uL Sodium (137-145) mmol/L Chloride (98-107) mmol/L BUN (7-17) mg/dL Glucose (74-99) mg/dL POC Glucose (mg/dL) 210 H 206 H (75-99) mg/dL Calcium (8.4-10.2) mg/dL Ionized Calcium Dipesh (4.5-5.3) mg/dL Phosphorus (2.5-4.5) mg/dL Assessment and Plan (1) Sigmoid diverticulitis Narrative/Plan: Increase diet as tolerated. Plan on removing Mancini catheter tomorrow. If white blood cell count remains elevated would repeat CAT scan. Current Visit: Yes Status: Acute Code(s): K57.32 - DVTRCLI OF LG INT W/O PERFORATION OR ABSCESS W/O BLEEDING SNOMED Code(s): 023009628
--- NOTE | 2018-06-15 15:32 | PN ---
PROGRESS NOTE DATE OF SERVICE: 06/09/2018. CHIEF COMPLAINT: Acute ischemic colitis, status post resection. HISTORY OF PRESENT ILLNESS: This lady is doing quite well and is stable at the present time. PHYSICAL EXAM: Her vital signs are normal. Breath sounds are heard on both sides and cardiac exam is normal. IMPRESSION: Status post subtotal colonic resection with colostomy for ischemic bowel. PLAN: Continue to follow with Surgery and Intensive Medicine. MMODL / IJN: [id number] /
[2018-06-15] MEDS: DILTIAZEM ORAL 60 MG TAB PO SCH ×2 (16:15→22:51)
[2018-06-15 17:25] LABS: Glucose,Whole Blood 194 mg/dL (75-99)
[2018-06-15] MEDS: cefTRIAXone IN SWFI 1,000 MG/10 ML SYRINGE IVP SCH (17:44)
[2018-06-15] MEDS: FAT EMULSION 20% 250 ML in EMPTY BAG 1 BAG IV SCH (17:46)
[2018-06-15] MEDS: SODIUM CHLORIDE 0.9% 1,000 ML IV SCH (20:58)
[2018-06-16] MEDS: MORPHINE SULFATE 2 MG/ML SYRINGE IV PRN ×2 (00:04→06:09)
[2018-06-16 00:06] LABS: Glucose,Whole Blood 213 mg/dL (75-99)
[2018-06-16] MEDS: ONDANSETRON 4 MG/2 ML VIAL IVP PRN ×2 (00:18→10:50)
[2018-06-16] MEDS: INSULIN ASPART 100 UNIT/ML 1 ML 10 ML VIAL SQ SCH ×4 (00:18→18:33)
[2018-06-16] MEDS: MVI, ADULT NO.4 WITH VIT K 10 ML, TRACE (CONC-1ML/DOSE) 1 ML in AMINO ACID 4.25%-D10W+L... IV SCH ×3 (03:46)
[2018-06-16 06:23] LABS: Glucose,Whole Blood 223 mg/dL (75-99)
[2018-06-16 08:39] LABS: Ionized Calcium 4.6 mg/dL (4.5-5.3)
[2018-06-16 08:51] LABS: Magnesium 1.7 mg/dL (1.6-2.3); Phosphorus 5.8 mg/dL (2.5-4.5); Potassium 4.3 mmol/L (3.5-5.1)
[2018-06-16] MEDS: IPRATROPIUM-ALBUTEROL 3 ML NEB INHALATION SCH ×4 (09:03→22:15)
[2018-06-16] MEDS: HEPARIN SODIUM,PORCINE 5,000 UNIT/ML 1 ML VIAL SQ SCH ×2 (09:16→17:00)
[2018-06-16] MEDS: PANTOPRAZOLE 40 MG/10 ML VIAL IVP SCH (09:16)
[2018-06-16] MEDS: FUROSEMIDE 10 MG/ML 4 ML VIAL IV SCH (09:17)
[2018-06-16] MEDS: hydrALAZINE HCL 50 MG TAB PO SCH ×4 (09:17→21:18)
[2018-06-16] MEDS: DILTIAZEM ORAL 60 MG TAB PO SCH ×3 (09:17→21:18)
[2018-06-16] MEDS: SODIUM CHLORIDE 5% OPHTH DROPS 15 ML BTL BOTH EYES SCH ×4 (09:18→21:18)
[2018-06-16] MEDS: SERTRALINE 100 MG TAB PO SCH (09:18)
[2018-06-16] MEDS: metroNIDAZOLE-NS PMX 500 MG in SALINE 1 100ML.BAG IVPB SCH ×2 (09:20→15:09)
[2018-06-16 11:51] LABS: Glucose,Whole Blood 235 mg/dL (75-99)
--- NOTE | 2018-06-16 12:46 | P.PN ---
Subjective Progress Note Date: 06/16/18 Principal diagnosis: Acute diverticulitis, completed by bowel obstruction, requiring exploratory laparotomy and subtotal colectomy 87-year-old female patient with known history of dementia presented to the hospital because of abdominal pain and constipation. Initial presentation with a 97 2018 and the patient hospital sinus. The patient had CAT scan of the abdomen that showed mild sigmoid diverticulitis. The patient continued to have abdominal discomfort and subsequent bloating and subsequent inability to pass any bowel movements. Soapsuds enemas were utilized and there was minimal stool production. She continued to have nausea and vomiting and surgery was involved in the case and the patient underwent a barium enema yesterday that showed localized area of irregular narrowing involving the sigmoid colon in addition to a high-grade obstruction and based on his findings the patient be taken to the operating room for colectomy and possible diverticular colostomy. I was asked even with this patient's pulmonary status and be involved in the postoperative care due to her age and the complexity of her medical problems. Note that this patient has been labeled to have a mild component of COPD despite her nonsmoking history. 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 She is exposed to respiratory irritants or chemicals. No recurrent pneumonias. No use of home oxygen. Exercise capacity has been limited and the patient reports some limited capacity even prior to this ongoing abdominal problems. During this current hospital stay she had a short run of atrial fibrillation she converted back to normal sinus rhythm. Echo was done and the patient is an ejection fraction of 6065% and mild aortic valve sclerosis and moderate degree of stenosis with a peak gradient across the valve of 32 and mother degree of pulmonary hypertension with a PA pressure of 53. Currently she is free of any chest pain. No cough sputum production. She is on room air oxygen. She'll be going to surgery at around 2 PM this afternoon.. 06/08/2008 and the patient is postop day #1. The patient was taken to the operating room yesterday and underwent a subtotal colectomy. Cecum was also ischemic and the patient underwent a subtotal colectomy and diverting colostomy was performed. Postop the patient was brought into the intensive care unit. She was extubated postop without any major difficulties. Overnight she continued to have episodes of low urine output. She was given a total of 2 L of IV fluid in the form of normal saline. The bicarbonate drip was also continued at the rate of 100 mL an hour. She'll be receiving a third liter for now. She is arousable and awake but a bit lethargic. Pain is under good control. NG tube is in place. Surgical site is dry clean and intact. BRIGITTE drain is also in place with minimal amount of output. No abdominal tenderness at this point in time. No major edema in lower extremities. She is hemodynamic is stable and she has not required any pressors. She is currently in a normal sinus rhythm. She converted this morning from an underlying A. fib fibrillation. Echocardiogram at shown a preserved LV function. No respiratory distress. Her white cell count is up to 34 which is an expected finding. 06/09/2018, patient is postop day #2. Doing well. Awake and alert. Following commands and answering questions. No major altered mentation or confusion. The patient has an ileostomy which is still nonfunctional at this point in time he had viable. Abdomen is soft and slightly distended. The patient is producing adequate amount of urine output. The serum bicarb is up to 30 and based on that the patient was taken off the bicarb drip and currently she is on normal saline today to have 100 mL an hour. Renal function is also stable with a creatinine of 0.9. White cell count is improving is down to 20.5. She is in normal sinus rhythm. She has occasional PVCs. No other issues otherwise for now. She remains on a combination of Rocephin and Flagyl. BRIGITTE drain is in place and the total amount of output has been 65 mL since yesterday. The neck fluid balance is +5.5 L for yesterday. 06/10/2018 patient is postop day #3. Awake and alert and he of any significant pain. Using incentive spirometer. Still nothing by mouth. Based on surgical recommendation, the patient was given a ticket tube feed yesterday at the rate of 10 mL an hour. She was unable to tolerate. She had emesis and subsequently 400 mL of aspirate was obtained from the stomach. The patient is currently nothing by mouth. The bowel sounds are still hypoactive. Surgical wound site is dry clean and intact. Her white cell count is down to 18.5. She is following commands and answering questions appropriately. BRIGITTE drain is still in place. Renal function is stable. No other significant events over the past 24 hours. Discussed the case with general surgery and were considering a PICC line and TPN for the next few days. 06/11/2018 patient is postop day #4. The patient is awake and alert. NG tube is in place. Output overnight has been only 100 mL. We are seeing more output and had ileostomy back. Surgical wound site is clean. BRIGITTE drains is still putting out some amount of drainage and the total amount of drainage was 2 25 mL for yesterday. Surgical wound site is dry clean and intact. She is afebrile. No nausea. No vomiting. No emesis. She has a PICC line and the patient was started on TPN for nutritional support through a left upper extremity PICC line. She is afebrile. She is hemodynamically stable. She is still requiring Cardizem drip for rate control today to 7.5 mg an hour. The fluid balance has been positive and the patient is a significant amount of fluid positivity and the patient will need some diuretics knowing that the chest x-rays also showing evidence of pulmonary vessel congestion development of bilateral pleural effusions. She was able to sit up on a chair yesterday. She is using incentive spirometer. No altered mentation. No agitation pH is calm and comfortable. No other significant events overnight. On 06/12/2018 patient is postop day #5. Doing well. Communicating. Awake and alert. NG tube is in place and output is minimal. Ileostomy site is putting minimal amount of bilious material. Surgical wound site is dry clean and intact. No abdominal distention. No nausea. No vomiting. She is on TPN for nutritional support. She is on Cardizem drip for rate control in regards to her chronic atrial fibrillation. She is on a combination of IV Rocephin and Flagyl. No other significant events overnight. For the most part, the patient is doing well and she was able to sit up on a chair yesterday. She is using incentive spirometer. On 06/13/2018, patient is postoperative day #6, continues to have nasogastric tube in place, patient remains on Cardizem for atrial fibrillation with RVR, and considering the patient cannot have anything orally, we'll continue Cardizem at 75 mg per hour, cardiology is addressing that situation. Patient remains on TPN for nutritional support. Remains on antibiotics in the form of Rocephin and Flagyl. Patient is arousable, relatively asymptomatic, she feels generally weak. Labs were reviewed her WBC count is 16.6 hemoglobin is 9.1 electrolytes and renal profile are normal. On 06/14/2018, patient is postoperative day #7. Her clinical status is improved , patient does not seem to be in any distress. She is now still on Cardizem, but considering the nasogastric tube was removed, and she is on liquid diet, we will switch Cardizem to oral and likely arrange for the patient to be transferred to a monitor bed on selective today. Patient is feeling better breathing easier. Chest x-ray continues to show evidence of congestive heart failure, hence the Lasix dose was increased to 40 mg IV push every 12 hours. CBC showed WBC count of 14.6 hemoglobin of 8.9 basic metabolic profile is relatively normal. On 06/15/2018, patient is postoperative day #8. Patient is resting in bed, comfortable, and in no distress. She is now on oral Cardizem, awaiting for a bed on selective, however considering the patient has been hemodynamically stable, and her cardiac arrhythmia is under control, we will arrange for the patient to be transferred to a regular medical floor with remote telemetry. Labs were reviewed WBC count is 18.9 hemoglobin is 9.6, basic metabolic profile is relatively normal and renal profile is normal. Patient is hemodynamically stable, urine output is excellent, no major issues overnight. The only abnormality since yesterday is the slight elevation in blood count. On 06/16/2018 patient seen in follow-up on medical surgical floor. Having some urinary retention issues, she required to be straight cathed, bladder was very distended, and patient subsequently had 800 mL of urine output via straight catheter. Having a similar episode this morning, and ultrasound of the bladder showed 750 mL of urine in the bladder. Complaining of bladder distention, and inability to void. Protocol patient will be straight cath again. Exacerbating the problem are the diuretics on which she remains. On Lasix 40 mg IV push every 12 hours. Has significant amount of bilateral lower extremity edema. Today's chest x-ray showed improvement of congestive heart failure and small bilateral pleural effusions. We'll obtain a repeat chest x-ray today. Patient is on oral diet, with modified consistency, however appetite is quite poor, and patient remains on TPN and lipids. Right lower abdomen ileostomy putting out liquid green output, the stoma is pink, and the appliance was just changed. FiO2 is at 4 L, and her pulse ox is 94%, afebrile, hemodynamically stable, heart rate is from 96-100 bpm, patient is on oral Cardizem. Objective - Vital Signs Vital signs: Vital Signs Temp 97.2 F L 06/16/18 07:25 Pulse 96 06/16/18 12:27 Resp 18 06/16/18 07:25 BP 145/78 06/16/18 07:25 Pulse Ox 94 L 06/16/18 09:05 Intake & Output 06/15/18 06/16/18 06/16/18 18:59 06:59 18:59 Intake Total 1042 2270 Output Total 6172 157 4405 Balance -458 1370 -1830 Weight 85.7 kg 66 kg Intake: IV 31 260 Fat Emulsion 20% 250 ml 21 In Empty Bag 1 bag @ 21 mls/hr IV Q24H ALY Rx#: [id number] Sodium Chloride 0.9% 1, 10 160 000 ml @ 10 mls/hr IV . Q24H ALY Rx#:[id number] metroNIDAZOLE-NS PMX 500 100 mg In Saline 1 100ml.bag @ 100 mls/hr IVPB Q8HR ALY Rx#:[id number] Intake, IV Titration 1011 1011 Amount Mvi, Adult No.4 with Vit 1011 1011 K 10 ml Trace (Conc-1Ml/ Dose) 1 ml In Amino Acid 4.25%-D10w+Lytes*E* 1,000 ml @ 85 mls/hr IV . [id number] ALY Rx#:[id number] TPN/PPN 999 Fat Emulsion 20% 250 ml 999 In Empty Bag 1 bag @ 21 mls/hr IV Q24H ALY Rx#: [id number] Output: Drainage 30 Left Lower Abdomen 30 Urine 1400 800 800 Uretheral (Mancini) 800 800 Post Void Residual 1000 Stool 100 100 Other: Voiding Method Indwelling Catheter - Exam Physical Exam: Revealed an 88-year-old female in no distress. On nasal cannula. Head: Atraumatic, normocephalic. HEENT:[Neck is supple.] [No neck masses.] [No thyromegaly.] [No JVD.] Moist mucous membranes, no icterus. Chest: [Clear throughout, no crackles, no rhonchi, no wheezes.] Cardiac Exam: [Normal S1 and S2, no S3 gallop, no murmur.] ABDOMEN: Soft, obese. Hypoactive bowel sounds. No direct tenderness. No rebound tenderness. No guarding. Surgical site is dry clean and intact. BRIGITTE drain is in place. No evidence of abdominal distention Ileostomy site is functional. Viable. SKIN: No rashes, no jaundice. Examination of the skin revealed no evidence of significant rashes, NEUROLOGIC:impaired short-term memory. The patient has an underlying dementia. Otherwise no focal neurologic deficit. Extremities revealed +1-2 pitting edema both in upper and lower extremities. No cyanosis. No clubbing. Lymphatics: No lymphadenopathy. - Labs CBC & Chem 7: 06/15/18 04:59 06/16/18 08:12 Labs: Abnormal Lab Results - Last 24 Hours (Table) 06/15/18 06/16/18 06/16/18 Range/Units 17:06 00:04 06:19 Sodium (137-145) mmol/L Chloride (98-107) mmol/L Carbon Dioxide (22-30) mmol/L BUN (7-17) mg/dL Creatinine (0.52-1.04) mg/dL Glucose (74-99) mg/dL POC Glucose (mg/dL) 194 H 213 H 223 H (75-99) mg/dL Calcium (8.4-10.2) mg/dL Phosphorus (2.5-4.5) mg/dL 06/16/18 06/16/18 Range/Units 08:12 11:46 Sodium 134 L (137-145) mmol/L Chloride 94 L (98-107) mmol/L Carbon Dioxide 31 H (22-30) mmol/L BUN 40 H (7-17) mg/dL Creatinine 1.13 H (0.52-1.04) mg/dL Glucose 211 H (74-99) mg/dL POC Glucose (mg/dL) 235 H (75-99) mg/dL Calcium 8.0 L (8.4-10.2) mg/dL Phosphorus 5.8 H (2.5-4.5) mg/dL Assessment and Plan Plan: Status post exploratory laparotomy, subtotal colectomy and diverting ileostomy postoperative day #9. 2 acute sigmoid diverticulitis complicated by bowel obstruction requiring surgery as above. 3 COPD, presently inactive. 4 moderate aortic stenosis and secondary pulmonary hypertension 5 paroxysmal atrial fibrillation presently on oral Cardizem. 6 underlying dementia 7 remote history of C. difficile colitis. 8 Urinary retention Recommendation: We'll repeat chest x-ray today, continue encouraging incentive spirometry use. Patient still has significant amount of bilateral lower extremity edema. Renal profile is slightly worsened, we'll cut back the Lasix to once daily. Continue nebulized bronchodilators, antibiotics. I performed a history & physical examination of the patient and discussed their management with my nurse practitioner, Tomeka Hansen. I reviewed the nurse practitioner's note and agree with the documented findings and plan of care. Lung sounds are clear, diminished. The findings and the impression was discussed with the patient. I attest to the documentation by the nurse practitioner. Time with Patient: Less than 30
--- NOTE | 2018-06-16 13:51 | XR ---
EXAMINATION TYPE: XR chest 1V DATE OF EXAM: 06/16/2018 CLINICAL HISTORY: Difficulty breathing progress study. Pleural effusions and CHF. TECHNIQUE: Single AP portable upright view of the chest is obtained. COMPARISON: Chest x-ray from one day earlier and older studies. FINDINGS: There is stable left-sided PICC line. There is persistent cardiomegaly with atheroscleroti c thoracic aorta. There is persistent bibasilar opacity consistent with small bilateral pleural effus ions and associated bibasilar atelectasis and/or infiltrates. There is background chronic parenchymal change redemonstrated bilaterally. Osseous structures are demineralized. IMPRESSION: Overall stable findings from one day earlier, suspect CHF exacerbation on background of chronic parenchymal changes there is cardiomegaly with small to borderline moderate-sized bilateral pleural effusions and associated bibasilar atelectasis and/or infiltrate all redemonstrated.
--- NOTE | 2018-06-16 14:03 | P.PN ---
Subjective Progress Note Date: 06/16/18 Principal diagnosis: Colonic obstruction Patient doing well today. Tolerating full liquids. She did have an episode of vomiting yesterday. Minimal pain. CBC not obtained today. Objective - Vital Signs Vital signs: Vital Signs Temp 97.2 F L 06/16/18 07:25 Pulse 102 H 06/16/18 13:13 Resp 18 06/16/18 07:25 BP 114/65 06/16/18 13:13 Pulse Ox 94 L 06/16/18 09:05 Intake & Output 06/15/18 06/16/18 06/16/18 18:59 06:59 18:59 Intake Total 1042 2270 Output Total 3274 709 9173 Balance -458 1370 -1830 Weight 85.7 kg 66 kg Intake: IV 31 260 Fat Emulsion 20% 250 ml 21 In Empty Bag 1 bag @ 21 mls/hr IV Q24H ALY Rx#: [id number] Sodium Chloride 0.9% 1, 10 160 000 ml @ 10 mls/hr IV . Q24H ALY Rx#:[id number] metroNIDAZOLE-NS PMX 500 100 mg In Saline 1 100ml.bag @ 100 mls/hr IVPB Q8HR ALY Rx#:[id number] Intake, IV Titration 1011 1011 Amount Mvi, Adult No.4 with Vit 1011 1011 K 10 ml Trace (Conc-1Ml/ Dose) 1 ml In Amino Acid 4.25%-D10w+Lytes*E* 1,000 ml @ 85 mls/hr IV . [id number] ALY Rx#:[id number] TPN/PPN 999 Fat Emulsion 20% 250 ml 999 In Empty Bag 1 bag @ 21 mls/hr IV Q24H ALY Rx#: [id number] Output: Drainage 30 Left Lower Abdomen 30 Urine 1400 800 800 Uretheral (Mancini) 800 800 Post Void Residual 1000 Stool 100 100 Other: Voiding Method Indwelling Catheter - Exam Abdomen: Soft, nondistended, mild tenderness, wound clean, ostomy functioning - Labs CBC & Chem 7: 06/15/18 04:59 06/16/18 08:12 Labs: Abnormal Lab Results - Last 24 Hours (Table) 06/15/18 06/16/18 06/16/18 Range/Units 17:06 00:04 06:19 Sodium (137-145) mmol/L Chloride (98-107) mmol/L Carbon Dioxide (22-30) mmol/L BUN (7-17) mg/dL Creatinine (0.52-1.04) mg/dL Glucose (74-99) mg/dL POC Glucose (mg/dL) 194 H 213 H 223 H (75-99) mg/dL Calcium (8.4-10.2) mg/dL Phosphorus (2.5-4.5) mg/dL 06/16/18 06/16/18 Range/Units 08:12 11:46 Sodium 134 L (137-145) mmol/L Chloride 94 L (98-107) mmol/L Carbon Dioxide 31 H (22-30) mmol/L BUN 40 H (7-17) mg/dL Creatinine 1.13 H (0.52-1.04) mg/dL Glucose 211 H (74-99) mg/dL POC Glucose (mg/dL) 235 H (75-99) mg/dL Calcium 8.0 L (8.4-10.2) mg/dL Phosphorus 5.8 H (2.5-4.5) mg/dL Assessment and Plan (1) Sigmoid diverticulitis Narrative/Plan: Continue diet as tolerated. Continue physical therapy. Recheck CBC tomorrow. Add Ultram for pain. Current Visit: Yes Status: Acute Code(s): K57.32 - DVTRCLI OF LG INT W/O PERFORATION OR ABSCESS W/O BLEEDING SNOMED Code(s): 917375305
[2018-06-16] MEDS: traMADol 50 MG TAB PO SCH ×3 (14:41→21:19)
--- NOTE | 2018-06-16 14:45 | PN ---
PROGRESS NOTE CHIEF COMPLAINT: Postop, subtotal sigmoid resection. HISTORY OF PRESENT ILLNESS: This lady seems to be doing fairly well. Kidney function is off and her white count is elevated slightly. Calcium is also slightly low. She has had no fever and chills, nausea, vomiting, etc. PHYSICAL EXAM: Color is good. Chest is clear and cardiac exam is normal. Abdomen reveals bowel sounds. IMPRESSION: 1. Status post colostomy and sub-total sigmoid colectomy. 2. Chronic kidney disease. 3. Hypocalcemia. PLAN: Continue to follow with Surgery and increase activity and diet. MMODL / IJN: [id number] /
[2018-06-16] MEDS: 1: PARENTERAL ELECTROLYTES 20 ML in AMINO ACID 4.25%-D10W 1,000 ML 2: PARENTERAL ELECTR IV SCH ×4 (15:08)
[2018-06-16 17:40] LABS: Glucose,Whole Blood 247 mg/dL (75-99)
[2018-06-16] MEDS: FAT EMULSION 20% 250 ML in EMPTY BAG 1 BAG IV SCH (18:34)
[2018-06-16] MEDS: cefTRIAXone IN SWFI 1,000 MG/10 ML SYRINGE IVP SCH (18:36)
[2018-06-16 21:01] LABS: Glucose,Whole Blood 255 mg/dL (75-99)
[2018-06-16] MEDS: SODIUM CHLORIDE 0.9% 1,000 ML IV SCH (21:19)
[2018-06-17 00:08] LABS: Glucose,Whole Blood 258 mg/dL (75-99)
[2018-06-17] MEDS: HEPARIN SODIUM,PORCINE 5,000 UNIT/ML 1 ML VIAL SQ SCH ×3 (00:10→17:42)
[2018-06-17] MEDS: metroNIDAZOLE-NS PMX 500 MG in SALINE 1 100ML.BAG IVPB SCH ×2 (00:10→08:21)
[2018-06-17] MEDS: INSULIN ASPART 100 UNIT/ML 1 ML 10 ML VIAL SQ SCH ×4 (00:10→18:33)
[2018-06-17] MEDS: 1: PARENTERAL ELECTROLYTES 20 ML in AMINO ACID 4.25%-D10W 1,000 ML 2: PARENTERAL ELECTR IV SCH ×4 (02:53)
[2018-06-17 06:17] LABS: Glucose,Whole Blood 210 mg/dL (75-99)
[2018-06-17] MEDS: hydrALAZINE HCL 50 MG TAB PO SCH ×4 (08:20→23:34)
[2018-06-17] MEDS: traMADol 50 MG TAB PO SCH ×4 (08:20→23:33)
[2018-06-17] MEDS: SERTRALINE 100 MG TAB PO SCH (08:20)
[2018-06-17] MEDS: PANTOPRAZOLE 40 MG/10 ML VIAL IVP SCH (08:21)
[2018-06-17] MEDS: DILTIAZEM ORAL 60 MG TAB PO SCH ×3 (08:21→21:15)
[2018-06-17] MEDS: FUROSEMIDE 10 MG/ML 4 ML VIAL IV SCH (08:21)
[2018-06-17 08:29] LABS: Basophils % (A) 0 %; Eosinophils # (A) 0.3 k/uL (0-0.7); Eosinophils % (A) 1 %; HCT 29.8 % (34.0-46.0); HGB 9.5 gm/dL (11.4-16.0); Hypochromasia Slight; Ionized Calcium 4.6 mg/dL (4.5-5.3); Lymphocytes % (A) 5 %; MCHC 31.9 g/dL (31.0-37.0); MCV 87.6 fL (80.0-100.0); Mean Platelet Volume 8.5; Monocytes # (A) 0.6 k/uL (0-1.0); Monocytes % (A) 3 %; Neutrophils # (A) 17.4 k/uL (1.3-7.7); Neutrophils % (A) 89 %; Platelet Count 323 k/uL (150-450); RDW 15.4 % (11.5-15.5); WBC 19.6 k/uL (3.8-10.6)
[2018-06-17 08:43] LABS: Calcium 7.8 mg/dL (8.4-10.2); Magnesium 1.8 mg/dL (1.6-2.3); Phosphorus 4.5 mg/dL (2.5-4.5); Potassium 4.3 mmol/L (3.5-5.1)
[2018-06-17] MEDS: IPRATROPIUM-ALBUTEROL 3 ML NEB INHALATION SCH ×4 (09:03→20:04)
--- NOTE | 2018-06-17 10:57 | XR ---
EXAMINATION TYPE: XR chest 1V portable DATE OF EXAM: 06/17/2018 HISTORY: Shortness of breath. COMPARISON: 06/16/2018 TECHNIQUE: Single view of the chest is submitted. FINDINGS: Demonstrated are scattered senescent parenchymal change. Patchy basilar infiltrates and pleural effusions persist without significant interval change. Left-si ded PICC line is unchanged in position. The heart is stable. Hilar and mediastinal structures are within normal limits. Degenerative changes are seen of the dorsal spine. IMPRESSION: 1. Patchy basilar infiltrates and pleural effusions persist without significant interval change.
[2018-06-17 12:03] LABS: Glucose,Whole Blood 233 mg/dL (75-99)
--- NOTE | 2018-06-17 12:12 | P.PN ---
Subjective Progress Note Date: 06/17/18 Principal diagnosis: Colonic obstruction Patient sitting up in the chair at this time. Denies pain. Tolerating some of her diet although appetite diminished. Ostomy with bilious output. Today's white blood cell count went up to 19 from 18. She is afebrile. Objective - Vital Signs Vital signs: Vital Signs Temp 97.5 F L 06/17/18 06:22 Pulse 98 06/17/18 09:18 Resp 17 06/17/18 06:22 BP 105/54 06/17/18 06:22 Pulse Ox 92 L 06/17/18 06:22 Intake & Output 06/16/18 06/17/18 06/17/18 18:59 06:59 18:59 Intake Total 500 Output Total 2019 1054 Balance -1520 -105 Weight 66 kg 66 kg Intake: IV 100 metroNIDAZOLE-NS PMX 500 100 mg In Saline 1 100ml.bag @ 100 mls/hr IVPB Q8HR ALY Rx#:[id number] Intake, IV Titration 400 Amount Parenteral Electrolytes 400 20 ml Mvi, Adult No.4 with Vit K 10 ml Trace ( Conc-1Ml/Dose) 1 ml In Amino Acid 4.25%-D10w 1, 000 ml @ 85 mls/hr IV .BY DURATION ALY Rx#: [id number] Output: Drainage 120 5 Left Lower Abdomen 120 5 Urine 800 1050 Uretheral (Mancini) 800 Post Void Residual 1000 Stool 100 Other: Voiding Method Bedpan Indwelling Catheter Indwelling Catheter Incontinent # Voids 2 # Emeses 1 - Exam Abdomen: Soft, nondistended, wounds clean with serous drainage, minimal tenderness, ostomy functioning - Labs CBC & Chem 7: 06/17/18 07:53 06/17/18 07:53 Labs: Abnormal Lab Results - Last 24 Hours (Table) 06/16/18 06/16/18 06/17/18 Range/Units 17:19 20:58 00:06 WBC (3.8-10.6) k/uL RBC (3.80-5.40) m/uL Hgb (11.4-16.0) gm/dL Hct (34.0-46.0) % Neutrophils # (1.3-7.7) k/uL Sodium (137-145) mmol/L Chloride (98-107) mmol/L BUN (7-17) mg/dL Creatinine (0.52-1.04) mg/dL Glucose (74-99) mg/dL POC Glucose (mg/dL) 247 H 255 H 258 H (75-99) mg/dL Calcium (8.4-10.2) mg/dL 06/17/18 06/17/18 06/17/18 Range/Units 06:13 07:53 07:53 WBC 19.6 H (3.8-10.6) k/uL RBC 3.40 L (3.80-5.40) m/uL Hgb 9.5 L (11.4-16.0) gm/dL Hct 29.8 L (34.0-46.0) % Neutrophils # 17.4 H (1.3-7.7) k/uL Sodium 131 L (137-145) mmol/L Chloride 93 L (98-107) mmol/L BUN 48 H (7-17) mg/dL Creatinine 1.14 H (0.52-1.04) mg/dL Glucose 169 H (74-99) mg/dL POC Glucose (mg/dL) 210 H (75-99) mg/dL Calcium 7.8 L (8.4-10.2) mg/dL 06/17/18 Range/Units 11:46 WBC (3.8-10.6) k/uL RBC (3.80-5.40) m/uL Hgb (11.4-16.0) gm/dL Hct (34.0-46.0) % Neutrophils # (1.3-7.7) k/uL Sodium (137-145) mmol/L Chloride (98-107) mmol/L BUN (7-17) mg/dL Creatinine (0.52-1.04) mg/dL Glucose (74-99) mg/dL POC Glucose (mg/dL) 233 H (75-99) mg/dL Calcium (8.4-10.2) mg/dL Assessment and Plan (1) Sigmoid diverticulitis Narrative/Plan: Continue encouraging diet. Continue physical therapy. Will check CT abdomen and pelvis given the elevated white blood cell count. Current Visit: Yes Status: Acute Code(s): K57.32 - DVTRCLI OF LG INT W/O PERFORATION OR ABSCESS W/O BLEEDING SNOMED Code(s): 850259668
[2018-06-17] MEDS: SODIUM CHLORIDE 5% OPHTH DROPS 15 ML BTL BOTH EYES SCH ×4 (12:28→21:25)
[2018-06-17] MEDS: IOPAMIDOL-300 CONTRAST 30 ML VIAL (ORAL USE) PO PRN ×2 (12:35→13:32)
--- NOTE | 2018-06-17 13:51 | P.PN ---
Subjective Progress Note Date: 06/17/18 Principal diagnosis: Acute diverticulitis, completed by bowel obstruction, requiring exploratory laparotomy and subtotal colectomy 87-year-old female patient with known history of dementia presented to the hospital because of abdominal pain and constipation. Initial presentation with a 97 2018 and the patient hospital sinus. The patient had CAT scan of the abdomen that showed mild sigmoid diverticulitis. The patient continued to have abdominal discomfort and subsequent bloating and subsequent inability to pass any bowel movements. Soapsuds enemas were utilized and there was minimal stool production. She continued to have nausea and vomiting and surgery was involved in the case and the patient underwent a barium enema yesterday that showed localized area of irregular narrowing involving the sigmoid colon in addition to a high-grade obstruction and based on his findings the patient be taken to the operating room for colectomy and possible diverticular colostomy. I was asked even with this patient's pulmonary status and be involved in the postoperative care due to her age and the complexity of her medical problems. Note that this patient has been labeled to have a mild component of COPD despite her nonsmoking history. 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 She is exposed to respiratory irritants or chemicals. No recurrent pneumonias. No use of home oxygen. Exercise capacity has been limited and the patient reports some limited capacity even prior to this ongoing abdominal problems. During this current hospital stay she had a short run of atrial fibrillation she converted back to normal sinus rhythm. Echo was done and the patient is an ejection fraction of 6065% and mild aortic valve sclerosis and moderate degree of stenosis with a peak gradient across the valve of 32 and mother degree of pulmonary hypertension with a PA pressure of 53. Currently she is free of any chest pain. No cough sputum production. She is on room air oxygen. She'll be going to surgery at around 2 PM this afternoon.. 06/08/2008 and the patient is postop day #1. The patient was taken to the operating room yesterday and underwent a subtotal colectomy. Cecum was also ischemic and the patient underwent a subtotal colectomy and diverting colostomy was performed. Postop the patient was brought into the intensive care unit. She was extubated postop without any major difficulties. Overnight she continued to have episodes of low urine output. She was given a total of 2 L of IV fluid in the form of normal saline. The bicarbonate drip was also continued at the rate of 100 mL an hour. She'll be receiving a third liter for now. She is arousable and awake but a bit lethargic. Pain is under good control. NG tube is in place. Surgical site is dry clean and intact. BRIGITTE drain is also in place with minimal amount of output. No abdominal tenderness at this point in time. No major edema in lower extremities. She is hemodynamic is stable and she has not required any pressors. She is currently in a normal sinus rhythm. She converted this morning from an underlying A. fib fibrillation. Echocardiogram at shown a preserved LV function. No respiratory distress. Her white cell count is up to 34 which is an expected finding. 06/09/2018, patient is postop day #2. Doing well. Awake and alert. Following commands and answering questions. No major altered mentation or confusion. The patient has an ileostomy which is still nonfunctional at this point in time he had viable. Abdomen is soft and slightly distended. The patient is producing adequate amount of urine output. The serum bicarb is up to 30 and based on that the patient was taken off the bicarb drip and currently she is on normal saline today to have 100 mL an hour. Renal function is also stable with a creatinine of 0.9. White cell count is improving is down to 20.5. She is in normal sinus rhythm. She has occasional PVCs. No other issues otherwise for now. She remains on a combination of Rocephin and Flagyl. BRIGITTE drain is in place and the total amount of output has been 65 mL since yesterday. The neck fluid balance is +5.5 L for yesterday. 06/10/2018 patient is postop day #3. Awake and alert and he of any significant pain. Using incentive spirometer. Still nothing by mouth. Based on surgical recommendation, the patient was given a ticket tube feed yesterday at the rate of 10 mL an hour. She was unable to tolerate. She had emesis and subsequently 400 mL of aspirate was obtained from the stomach. The patient is currently nothing by mouth. The bowel sounds are still hypoactive. Surgical wound site is dry clean and intact. Her white cell count is down to 18.5. She is following commands and answering questions appropriately. BRIGITTE drain is still in place. Renal function is stable. No other significant events over the past 24 hours. Discussed the case with general surgery and were considering a PICC line and TPN for the next few days. 06/11/2018 patient is postop day #4. The patient is awake and alert. NG tube is in place. Output overnight has been only 100 mL. We are seeing more output and had ileostomy back. Surgical wound site is clean. BRIGITTE drains is still putting out some amount of drainage and the total amount of drainage was 2 25 mL for yesterday. Surgical wound site is dry clean and intact. She is afebrile. No nausea. No vomiting. No emesis. She has a PICC line and the patient was started on TPN for nutritional support through a left upper extremity PICC line. She is afebrile. She is hemodynamically stable. She is still requiring Cardizem drip for rate control today to 7.5 mg an hour. The fluid balance has been positive and the patient is a significant amount of fluid positivity and the patient will need some diuretics knowing that the chest x-rays also showing evidence of pulmonary vessel congestion development of bilateral pleural effusions. She was able to sit up on a chair yesterday. She is using incentive spirometer. No altered mentation. No agitation pH is calm and comfortable. No other significant events overnight. On 06/12/2018 patient is postop day #5. Doing well. Communicating. Awake and alert. NG tube is in place and output is minimal. Ileostomy site is putting minimal amount of bilious material. Surgical wound site is dry clean and intact. No abdominal distention. No nausea. No vomiting. She is on TPN for nutritional support. She is on Cardizem drip for rate control in regards to her chronic atrial fibrillation. She is on a combination of IV Rocephin and Flagyl. No other significant events overnight. For the most part, the patient is doing well and she was able to sit up on a chair yesterday. She is using incentive spirometer. On 06/13/2018, patient is postoperative day #6, continues to have nasogastric tube in place, patient remains on Cardizem for atrial fibrillation with RVR, and considering the patient cannot have anything orally, we'll continue Cardizem at 75 mg per hour, cardiology is addressing that situation. Patient remains on TPN for nutritional support. Remains on antibiotics in the form of Rocephin and Flagyl. Patient is arousable, relatively asymptomatic, she feels generally weak. Labs were reviewed her WBC count is 16.6 hemoglobin is 9.1 electrolytes and renal profile are normal. On 06/14/2018, patient is postoperative day #7. Her clinical status is improved , patient does not seem to be in any distress. She is now still on Cardizem, but considering the nasogastric tube was removed, and she is on liquid diet, we will switch Cardizem to oral and likely arrange for the patient to be transferred to a monitor bed on selective today. Patient is feeling better breathing easier. Chest x-ray continues to show evidence of congestive heart failure, hence the Lasix dose was increased to 40 mg IV push every 12 hours. CBC showed WBC count of 14.6 hemoglobin of 8.9 basic metabolic profile is relatively normal. On 06/15/2018, patient is postoperative day #8. Patient is resting in bed, comfortable, and in no distress. She is now on oral Cardizem, awaiting for a bed on selective, however considering the patient has been hemodynamically stable, and her cardiac arrhythmia is under control, we will arrange for the patient to be transferred to a regular medical floor with remote telemetry. Labs were reviewed WBC count is 18.9 hemoglobin is 9.6, basic metabolic profile is relatively normal and renal profile is normal. Patient is hemodynamically stable, urine output is excellent, no major issues overnight. The only abnormality since yesterday is the slight elevation in blood count. On 06/16/2018 patient seen in follow-up on medical surgical floor. Having some urinary retention issues, she required to be straight cathed, bladder was very distended, and patient subsequently had 800 mL of urine output via straight catheter. Having a similar episode this morning, and ultrasound of the bladder showed 750 mL of urine in the bladder. Complaining of bladder distention, and inability to void. Protocol patient will be straight cath again. Exacerbating the problem are the diuretics on which she remains. On Lasix 40 mg IV push every 12 hours. Has significant amount of bilateral lower extremity edema. Today's chest x-ray showed improvement of congestive heart failure and small bilateral pleural effusions. We'll obtain a repeat chest x-ray today. Patient is on oral diet, with modified consistency, however appetite is quite poor, and patient remains on TPN and lipids. Right lower abdomen ileostomy putting out liquid green output, the stoma is pink, and the appliance was just changed. FiO2 is at 4 L, and her pulse ox is 94%, afebrile, hemodynamically stable, heart rate is from 96-100 bpm, patient is on oral Cardizem. On 06/17/2018 patient seen in follow-up on medical surgical floor. She is sitting up in the chair, she has generalized weakness, pulse ox on 3 L per nasal cannula is 92%, patient's inspiratory effort is poor,shallow breaths. She is afebrile, dynamically stable, her heart rate is controlled, she continues on oral Cardizem. Today's chest x-ray has been reviewed, and showed patchy basilar infiltrates and pleural effusions, patient remains on the Lasix, she continues to diurese, and she is in -2575 ML fluid balance over the last 24 hours, the appearance of bilateral lower extremity edema is improving. Patient was upgraded to a regular diet, however her appetite remains extremely poor, and patient remains on TPN and lipids. Patient's family is at the bedside, and they state the patient is not motivated to participate in therapy. Patient was restarted on her Zoloft. Otherwise no acute complaints, Mancini catheter was placed back in for persistent urinary retention. 'Today's labs have been reviewed, WBCs 19.6, hemoglobin is 9.5, sodium is 131, chloride is 93, renal profile is relatively stable, with B UN of 48, creatinine is 1.14. Ostomy with liquid output. Objective - Vital Signs Vital signs: Vital Signs Temp 97.5 F L 06/17/18 06:22 Pulse 84 06/17/18 13:39 Resp 17 06/17/18 06:22 BP 105/54 06/17/18 06:22 Pulse Ox 92 L 06/17/18 06:22 Intake & Output 06/16/18 06/17/18 06/17/18 18:59 06:59 18:59 Intake Total 500 Output Total 2019 1054 Balance -1520 -105 Weight 66 kg 66 kg Intake: IV 100 metroNIDAZOLE-NS PMX 500 100 mg In Saline 1 100ml.bag @ 100 mls/hr IVPB Q8HR ALY Rx#:[id number] Intake, IV Titration 400 Amount Parenteral Electrolytes 400 20 ml Mvi, Adult No.4 with Vit K 10 ml Trace ( Conc-1Ml/Dose) 1 ml In Amino Acid 4.25%-D10w 1, 000 ml @ 85 mls/hr IV .BY [facility] Rx#: [id number] Output: Drainage 120 5 Left Lower Abdomen 120 5 Urine 800 1050 Uretheral (Mancini) 800 Post Void Residual 1000 Stool 100 Other: Voiding Method Bedpan Indwelling Catheter Indwelling Catheter Incontinent # Voids 2 # Emeses 1 - Exam Physical Exam: Revealed an 88-year-old female in no distress. On nasal cannula. Head: Atraumatic, normocephalic. HEENT:[Neck is supple.] [No neck masses.] [No thyromegaly.] [No JVD.] Moist mucous membranes, no icterus. Chest: [Diminished, with bibasilar crackles] Cardiac Exam: [Normal S1 and S2, no S3 gallop, no murmur.] ABDOMEN: Soft, obese. Hypoactive bowel sounds. No direct tenderness. No rebound tenderness. No guarding. Surgical site is dry clean and intact. BRIGITTE drain is in place. No evidence of abdominal distention Ileostomy site is functional. Viable. SKIN: No rashes, no jaundice. Examination of the skin revealed no evidence of significant rashes, NEUROLOGIC:impaired short-term memory. The patient has an underlying dementia. Otherwise no focal neurologic deficit. Extremities revealed +1-2 pitting edema both in upper and lower extremities. No cyanosis. No clubbing. Lymphatics: No lymphadenopathy. - Labs CBC & Chem 7: 06/17/18 07:53 06/17/18 07:53 Labs: Abnormal Lab Results - Last 24 Hours (Table) 06/16/18 06/16/18 06/17/18 Range/Units 17:19 20:58 00:06 WBC (3.8-10.6) k/uL RBC (3.80-5.40) m/uL Hgb (11.4-16.0) gm/dL Hct (34.0-46.0) % Neutrophils # (1.3-7.7) k/uL Sodium (137-145) mmol/L Chloride (98-107) mmol/L BUN (7-17) mg/dL Creatinine (0.52-1.04) mg/dL Glucose (74-99) mg/dL POC Glucose (mg/dL) 247 H 255 H 258 H (75-99) mg/dL Calcium (8.4-10.2) mg/dL 06/17/18 06/17/18 06/17/18 Range/Units 06:13 07:53 07:53 WBC 19.6 H (3.8-10.6) k/uL RBC 3.40 L (3.80-5.40) m/uL Hgb 9.5 L (11.4-16.0) gm/dL Hct 29.8 L (34.0-46.0) % Neutrophils # 17.4 H (1.3-7.7) k/uL Sodium 131 L (137-145) mmol/L Chloride 93 L (98-107) mmol/L BUN 48 H (7-17) mg/dL Creatinine 1.14 H (0.52-1.04) mg/dL Glucose 169 H (74-99) mg/dL POC Glucose (mg/dL) 210 H (75-99) mg/dL Calcium 7.8 L (8.4-10.2) mg/dL 06/17/18 Range/Units 11:46 WBC (3.8-10.6) k/uL RBC (3.80-5.40) m/uL Hgb (11.4-16.0) gm/dL Hct (34.0-46.0) % Neutrophils # (1.3-7.7) k/uL Sodium (137-145) mmol/L Chloride (98-107) mmol/L BUN (7-17) mg/dL Creatinine (0.52-1.04) mg/dL Glucose (74-99) mg/dL POC Glucose (mg/dL) 233 H (75-99) mg/dL Calcium (8.4-10.2) mg/dL Assessment and Plan Plan: Status post exploratory laparotomy, subtotal colectomy and diverting ileostomy postoperative day #10. 2 acute sigmoid diverticulitis complicated by bowel obstruction requiring surgery as above. 3 COPD, presently inactive. 4 moderate aortic stenosis and secondary pulmonary hypertension 5 paroxysmal atrial fibrillation presently on oral Cardizem. 6 underlying dementia 7 remote history of C. difficile colitis. 8 Urinary retention in the postoperative period after removal of the Mancini catheter, and the Mancini to be reinserted back in for persistent urinary retention Recommendation: Continue encouraging incentive spirometry use, today's chest x-ray shows persistence of bilateral pleural effusions, with associated atelectasis. Patient's inspiratory effort is quite poor, she needs encouragement with deep breathing and coughing, encourage sitting up in the chair. Continue current dose of Lasix, attaining negative fluid balance, bilateral lower extremity edema is improving. Currently on 2 L per nasal cannula, she is maintaining oxygenation above 90%. We'll continue to follow. I performed a history & physical examination of the patient and discussed their management with my nurse practitioner, Tomeka Hansen. I reviewed the nurse practitioner's note and agree with the documented findings and plan of care. Lung sounds are clear, diminished. The findings and the impression was discussed with the patient. I attest to the documentation by the nurse practitioner. Time with Patient: Less than 30
--- NOTE | 2018-06-17 14:10 | P.CONS ---
History of Present Illness - Reason for Consult Consult date: 06/17/18 Antibiotic recommendations - History of Present Illness This is an 88-year-old female who presented to be [facility] emergency center on June 01 with complaints of increasing abdominal pain and been going on for 8 days without a bowel movement. CAT scan of the abdomen but did show sigmoid diverticulitis and patient was treated with antibiotics and conservative management. 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 Garcia on June 07. Patient was managed in the intensive care unit and progressed very slowly. She was started on TPN and lipids. She was followed by Dr. Coello for intensive care management and also by cardiology for A. fib with RVR with history of paroxysmal atrial fibrillation. She did not require vasopressor support. Around June 13 of June 14, NG tube was removed and patient was started on liquid diet which has been advanced. She has been on IV Lasix for fluid overload. Regarding her white count, this was increasing and peaked at 34.5 on June 08 is currently 19.6 and worsening over the last couple days. She has been afebrile since admission. Patient is eating less than 25% and remains on TPN. Dr. Garcia is ordered repeat CAT scan of the abdomen and pelvis for this afternoon. Son, Eric, is at the bedside and most history is obtained from him. Patient is able to answer simple questions but due to underlying dementia is unable to provide adequate history. Patient has also had urinary retention for which she was straight cath and Mancini catheter eventually was replaced. Patient does have a history of C. difficile colitis in 2011 treated at [facility]. Review of Systems All systems: negative Constitutional: Reports anorexia, Reports fatigue, Reports malaise, Reports poor appetite, Reports weakness, Denies chills, Denies fever Eyes: denies blurred vision, denies pain Ears, nose, mouth and throat: Denies dental pain, Denies dysphagia, Denies headache, Denies mouth pain, Denies sore throat Cardiovascular: Reports leg edema, Denies chest pain, Denies shortness of breath , Denies syncope Respiratory: Denies cough, Denies cough with sputum, Denies dyspnea, Denies excessive sputum, Denies hemoptysis, Denies home oxygen, Denies wheezing Gastrointestinal: Reports loss of appetite, Denies abdominal pain, Denies diarrhea, Denies nausea, Denies vomiting Genitourinary: Reports difficulty voiding, Denies dysuria, Denies hematuria Musculoskeletal: Reports muscle weakness, Denies myalgias Integumentary: Denies pruritus, Denies rash Neurological: Denies numbness, Denies weakness Psychiatric: Denies anxiety, Denies depression Endocrine: Denies fatigue, Denies weight change Past Medical History Past Medical History: COPD, Dementia, GERD/Reflux, Hypertension Additional Past Medical History / Comment(s): frequent UTI's, past falls. hx c- diff 2011. uses magnifying glass to read.PT STATED HAS HAD THE PNE AND SHINGLES VACCINE BUT NOT SURE OF THE DATES. GROUP ACTIVITIES AIDE UNABLE TO VERIFY DATE AT TIME OF THIS ADMIT. History of Any Multi-Drug Resistant Organisms: C-DIFF Year Discovered:: 2011 MDRO Source:: stool Past Surgical History: Appendectomy, Hysterectomy Additional Past Surgical History / Comment(s): lasik eye sx Past Anesthesia/Blood Transfusion Reactions: No Reported Reaction Additional Past Anesthesia/Blood Transfusion Reaction / Comm: CLAUSTERPHOBIA Past Psychological History: No Psychological Hx Reported Smoking Status: Never smoker Past Alcohol Use History: None Reported Past Drug Use History: None Reported - Past Family History Mother Family Medical History: Renal Disease Father Family Medical History: No Reported History Additional Family Medical History / Comment(s): IN A COAL MINE DISASTER IN HIS S Medications and Allergies Home Medications Medication Instructions Recorded Confirmed Type Aspirin EC [Ecotrin Low Dose] 81 mg PO DAILY 06/01/18 06/01/18 History Cholecalciferol (Vitamin D3) 2,000 unit PO DAILY 06/01/18 06/01/18 History [Vitamin D3] Dicyclomine [Bentyl] 10 mg PO BID 06/01/18 06/01/18 History Doxazosin [Cardura] 2 mg PO HS 06/01/18 06/01/18 History L.acidoph,Paracasei, B.lactis 1 cap PO DAILY 06/01/18 06/01/18 History [Probiotic] Omeprazole 20 mg PO HS 06/01/18 06/01/18 History Sertraline [Zoloft] 100 mg PO DAILY 06/01/18 06/01/18 History Sodium Chloride 5% Ophth Soln 1 drops BOTH EYES QID 06/01/18 06/01/18 History [Virginie 128] Tiotropium [place] [Spiriva] 1 cap INHALATION RT-HS 06/01/18 06/01/18 History Trimethoprim [Trimpex] 100 mg PO HS 06/01/18 06/01/18 History Vancomycin HCl [Vancocin HCl] 125 mg PO HS 06/01/18 06/01/18 History Vitamin B Complex 1 cap PO DAILY 06/01/18 06/01/18 History amLODIPine [Norvasc] 5 mg PO DAILY 06/01/18 06/01/18 History Allergies Allergy/AdvReac Type Severity Reaction Status Date / Time nitrofurantoin Allergy Unknown Verified 06/07/18 14:42 [From Macrobid] Penicillins Allergy Unknown Verified 06/07/18 14:42 sulfamethoxazole Allergy Unknown Verified 06/07/18 14:42 [From Bactrim] trimethoprim [From Bactrim] Allergy Unknown Verified 06/07/18 14:42 Physical Exam Vitals: Vital Signs Temp Pulse Pulse Pulse Resp BP Pulse Ox 06/17/18 09:18 98 06/17/18 09:03 90 06/17/18 06:22 97.5 F L 56 L 17 105/54 92 L 06/16/18 23:01 97.4 F L 103 H 17 121/61 96 06/16/18 21:25 102 H 06/16/18 16:43 100 06/16/18 16:35 100 Intake and Output 06/16/18 06/17/18 06/17/18 22:59 06:59 14:59 Intake Total 500 Output Total 45 1050 Balance 455 -1050 Intake: IV 100 metroNIDAZOLE-NS PMX 500 100 mg In Saline 1 100ml.bag @ 100 mls/hr IVPB Q8HR ALY Rx#:[id number] Intake, IV Titration 400 Amount Parenteral Electrolytes 400 20 ml Mvi, Adult No.4 with Vit K 10 ml Trace ( Conc-1Ml/Dose) 1 ml In Amino Acid 4.25%-D10w 1, 000 ml @ 85 mls/hr IV .BY DURATION ALY Rx#: [id number] Output: Drainage 45 Left Lower Abdomen 45 Urine 1050 Other: Voiding Method Indwelling Catheter Indwelling Catheter # Emeses 1 Weight 66 kg 66 kg Gen: This is a 88-year-old female. She is in bed and appears to be comfortable and in no acute distress. HEENT: Head is atraumatic, normocephalic. Pupils equal, round. Sclerae is anicteric. Conjunctiva pink. Because members of the mouth are dry NECK: Supple. No JVD. No lymphadenopathy. No thyromegaly. LUNGS: Diminished bilat bases. No wheezing. No intercostal retractions. HEART: Irregular rate and rhythm. No murmur. ABDOMEN: Soft. Bowel sounds are present. No tenderness to light palpation. Patient has ileostomy to the right lower quadrant with liquid dark brown stool. Drain to the left lower quadrant with serous drainage.. EXTREMITIES: 1+ pedal edema. No calf tenderness. Dorsalis pedis +1 bilaterally. NEUROLOGICAL: Patient is awake, alert and oriented x1. Generalized weakness noted. No focal neural deficits. Results Results: Laboratory Results WBC 19.6 k/uL (3.8-10.6) H 06/17/18 07:53 RBC 3.40 m/uL (3.80-5.40) L 06/17/18 07:53 Hgb 9.5 gm/dL (11.4-16.0) L 06/17/18 07:53 Hct 29.8 % (34.0-46.0) L 06/17/18 07:53 MCV 87.6 fL (80.0-100.0) 06/17/18 07:53 MCH 28.0 pg (25.0-35.0) 06/17/18 07:53 MCHC 31.9 g/dL (31.0-37.0) 06/17/18 07:53 RDW 15.4 % (11.5-15.5) 06/17/18 07:53 Plt Count 323 k/uL (150-450) 06/17/18 07:53 Neutrophils % 89 % 06/17/18 07:53 Lymphocytes % 5 % 06/17/18 07:53 Monocytes % 3 % 06/17/18 07:53 Eosinophils % 1 % 06/17/18 07:53 Basophils % 0 % 06/17/18 07:53 Neutrophils # 17.4 k/uL (1.3-7.7) H 06/17/18 07:53 Lymphocytes # 1.0 k/uL (1.0-4.8) 06/17/18 07:53 Monocytes # 0.6 k/uL (0-1.0) 06/17/18 07:53 Eosinophils # 0.3 k/uL (0-0.7) 06/17/18 07:53 Basophils # 0.0 k/uL (0-0.2) 06/17/18 07:53 Hypochromasia Slight 06/17/18 07:53 PT 12.2 sec (9.0-12.0) H 06/07/18 09:08 INR 1.3 (<1.2) H 06/07/18 09:08 APTT 28.5 sec (22.0-30.0) 06/07/18 09:08 D-Dimer 1.05 mg/L FEU (<0.60) H 06/03/18 11:50 Sodium 131 mmol/L (137-145) L 06/17/18 07:53 Potassium 4.3 mmol/L (3.5-5.1) 06/17/18 07:53 Chloride 93 mmol/L (98-107) L 06/17/18 07:53 Carbon Dioxide 29 mmol/L (22-30) 06/17/18 07:53 Anion Gap 9 mmol/L 06/17/18 07:53 BUN 48 mg/dL (7-17) H 06/17/18 07:53 Creatinine 1.14 mg/dL (0.52-1.04) H 06/17/18 07:53 Est GFR (CKD-EPI)AfAm 50 (>60 ml/min/1.73 sqM) 06/17/18 07:53 Est GFR (CKD-EPI)NonAf 43 (>60 ml/min/1.73 sqM) 06/17/18 07:53 Glucose 169 mg/dL (74-99) H 06/17/18 07:53 POC Glucose (mg/dL) 233 mg/dL (75-99) H 06/17/18 11:46 POC Glu Deburrer ID Riddhi Hall 06/17/18 11:46 Plasma Lactic Acid Jake 0.8 mmol/L (0.7-2.0) 06/07/18 10:52 Calcium 7.8 mg/dL (8.4-10.2) L 06/17/18 07:53 Ionized Calcium Dipesh 4.6 mg/dL (4.5-5.3) 06/17/18 07:53 Phosphorus 4.5 mg/dL (2.5-4.5) 06/17/18 07:53 Magnesium 1.8 mg/dL (1.6-2.3) 06/17/18 07:53 Total Bilirubin 0.5 mg/dL (0.2-1.3) 06/07/18 09:08 AST 26 U/L (14-36) 06/07/18 09:08 ALT 33 U/L (9-52) 06/07/18 09:08 Alkaline Phosphatase 55 U/L (38-126) 06/07/18 09:08 Troponin I 0.169 ng/mL (0.000-0.034) H* 06/03/18 07:56 NT-Pro-B Natriuret Pep 7280 pg/mL 06/03/18 11:50 Total Protein 6.2 g/dL (6.3-8.2) L 06/07/18 09:08 Albumin 3.2 g/dL (3.5-5.0) L 06/07/18 09:08 Triglycerides 136 mg/dL (<150) 06/10/18 15:15 Amylase 31 U/L (30-110) 06/01/18 14:36 Lipase 18 U/L (23-300) L 06/01/18 14:36 TSH 1.270 mIU/L (0.465-4.680) 06/03/18 07:56 Urine Color Yellow 06/01/18 15:49 Urine Appearance Cloudy (Clear) H 06/01/18 15:49 Urine pH 6.0 (5.0-8.0) 06/01/18 15:49 Ur Specific [place] 1.021 (1.001-1.035) 06/01/18 15:49 Urine Protein 2+ (Negative) H 06/01/18 15:49 Urine Glucose (UA) Negative (Negative) 06/01/18 15:49 Urine Ketones Trace (Negative) H 06/01/18 15:49 Urine Blood Negative (Negative) 06/01/18 15:49 Urine Nitrite Negative (Negative) 06/01/18 15:49 Urine Bilirubin 1+ (Negative) H 06/01/18 15:49 Urine Urobilinogen 2.0 mg/dL (<2.0) 06/01/18 15:49 Ur Leukocyte Esterase Trace (Negative) H 06/01/18 15:49 Urine RBC 1 /hpf (0-5) 06/01/18 15:49 Urine WBC 12 /hpf (0-5) H 06/01/18 15:49 Ur Squamous Epith Cells 1 /hpf (0-4) 06/01/18 15:49 Urine Bacteria Rare /hpf (None) H 06/01/18 15:49 Hyaline Casts 3 /lpf (0-2) H 06/01/18 15:49 Urine Mucus Rare /hpf (None) H 06/01/18 15:49 Blood Type B Positive 06/07/18 15:15 Blood Type Confirm B Positive 06/07/18 21:18 Blood Type Recheck CABO Indicated 06/07/18 15:15 Antibody Screen NEGATIVE 06/07/18 15:15 Spec Expiration Date 06/10/2018 - 8737 06/07/18 15:15 CBC & Chem 7: 06/17/18 07:53 06/17/18 07:53 Labs: Abnormal Lab Results - Last 24 Hours (Table) 06/16/18 06/16/18 06/17/18 Range/Units 17:19 20:58 00:06 WBC (3.8-10.6) k/uL RBC (3.80-5.40) m/uL Hgb (11.4-16.0) gm/dL Hct (34.0-46.0) % Neutrophils # (1.3-7.7) k/uL Sodium (137-145) mmol/L Chloride (98-107) mmol/L BUN (7-17) mg/dL Creatinine (0.52-1.04) mg/dL Glucose (74-99) mg/dL POC Glucose (mg/dL) 247 H 255 H 258 H (75-99) mg/dL Calcium (8.4-10.2) mg/dL 06/17/18 06/17/18 06/17/18 Range/Units 06:13 07:53 07:53 WBC 19.6 H (3.8-10.6) k/uL RBC 3.40 L (3.80-5.40) m/uL Hgb 9.5 L (11.4-16.0) gm/dL Hct 29.8 L (34.0-46.0) % Neutrophils # 17.4 H (1.3-7.7) k/uL Sodium 131 L (137-145) mmol/L Chloride 93 L (98-107) mmol/L BUN 48 H (7-17) mg/dL Creatinine 1.14 H (0.52-1.04) mg/dL Glucose 169 H (74-99) mg/dL POC Glucose (mg/dL) 210 H (75-99) mg/dL Calcium 7.8 L (8.4-10.2) mg/dL 06/17/18 Range/Units 11:46 WBC (3.8-10.6) k/uL RBC (3.80-5.40) m/uL Hgb (11.4-16.0) gm/dL Hct (34.0-46.0) % Neutrophils # (1.3-7.7) k/uL Sodium (137-145) mmol/L Chloride (98-107) mmol/L BUN (7-17) mg/dL Creatinine (0.52-1.04) mg/dL Glucose (74-99) mg/dL POC Glucose (mg/dL) 233 H (75-99) mg/dL Calcium (8.4-10.2) mg/dL Assessment and Plan Plan: This is an 88-year-old female patient who presented to the hospital with abdominal pain status post subtotal colectomy with end ileostomy secondary to colonic obstruction and colonic ischemic area. Patient remains with leukocytosis but no fever and poor oral intake with severe protein calorie malnutrition on TPN. She has also been treated for paroxysmal atrial fibrillation with RVR, urinary retention and mild heart failure on IV Lasix. Repeat CAT scan of the abdomen and pelvis has been ordered by Dr. Garcia. Blood cultures showing no growth 2 after 144 hours. She is currently on antibiotics in the form of ceftriaxone and Flagyl secondary to her penicillin ALLERGY which is unknown. Antibiotics will be switched to meropenem. Antifungal will be considered. Continue supportive care. Further recommendations as patient process. The above dictated assessment and findings were discussed with Dr. Kincaid. The impression and plan of care have been directed as dictated. Mariam David nurse practitioner acting as scribe for Dr. Kincaid.
--- NOTE | 2018-06-17 15:18 | CT ---
EXAMINATION TYPE: CT abdomen pelvis w con DATE OF EXAM: 06/17/2018 HISTORY: Post subtotal colectomy with leukocytosis. CT DLP: 1241.5mGycm Automated Exposure Control for Dose Reduction was Utilized. CONTRAST: CT scan of the abdomen and pelvis is performed with oral and with IV Contrast, patient injected with 80 mL of Isovue M300. COMPARISON: CT abdomen pelvis June 01, 2018 FINDINGS: LUNG BASES: There are new small to moderate-sized bilateral pleural effusions with associated vaibhav sive atelectasis. There is redemonstration of cardiomegaly. There is coronary artery calcification wh ich is noted marker for coronary artery disease. LIVER/GB: Gallbladder has dependent density consistent with small stones and/or gallbladder sludge. D istended peripheral margin is present. PANCREAS: Fairly moderate diffuse atrophy of pancreas is redemonstrated. SPLEEN: Wedge-shaped areas of heterogeneity or diminished enhancement along the periphery of spleen a re suggestive of poor blood flow or ischemia new from prior ADRENALS: No significant abnormality is seen. KIDNEYS: Persistent end-stage atrophy of right kidney noted. Mancini catheter is seen within bladder wh ich is poorly distended and thus suboptimally evaluated. BOWEL: There is contrast seen in prominent stomach. Contrast extends into proximal jejunal loops. The re are prominent perhaps mildly dilated jejunal loops in the right abdomen with air-fluid levels mayuri uring up to 3.5 there are scattered air-fluid levels with slightly less prominent small bowel loops i n the left midabdomen. There is retained contrast in the rectal stump. Cm in diameter. There is right -sided ostomy with poorly distended bowel. Transition point not clearly identified. UTERUS/ADNEXA: Uterus is surgically absent or markedly atrophic. LYMPH NODES: No greater than 1cm abdominal or pelvic lymph nodes are appreciated. OSSEOUS STRUCTURES: There is prominent multilevel spurring in the spine. There is moderate to advance d joint space loss in both hips. OTHER: Vertical midline scarring and skin kevin overlie the anterior abdomen and pelvis. There is p ercutaneous drainage catheter left midabdomen terminating in the upper to mid pelvis. Mild ill-define d fluid or fat stranding throughout the pelvis is present. Slightly more prominent thin-walled focal fluid anterior right upper pelvis axial image 70 is seen measuring roughly 2.5 cm. There is moderate to severe atherosclerotic change of aorta extending into branch vessels. 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 IMPRESSION: 1. 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 There is evidence of diminished perfusion to the spleen noted. 2. Mild ill-defined fluid in the lower abdomen and pelvis likely reflects postsurgical change, mesent silverio inflammation cannot be excluded. 3. Overall nonspecific bowel gas pattern. Favor postoperative ileus.
--- NOTE | 2018-06-17 15:43 | PN ---
PROGRESS NOTE DATE OF SERVICE: 06/17/2018 CHIEF COMPLAINT: Status post subtotal colectomy. HISTORY OF PRESENT ILLNESS: This lady seems to be doing fairly well and vital signs are normal. Hemoglobin is low at 9.5 and white count is still 19,600. She also has renal compromise. PHYSICAL EXAM: She is awake and alert. VITAL SIGNS: Normal. Color is good. Hydration is good. Chest is fairly clear and cardiac exam is normal. Abdomen is soft, nontender. IMPRESSION: 1. Status post subtotal sigmoid colectomy. 2. Anemia. 3. Chronic kidney disease. PLAN: Continue with current treatment and she seems to be slowly improving. MMODL / IJN: [id number] /
[2018-06-17 17:02] LABS: Hemoglobin A1C 6.4 % (4.0-6.0)
[2018-06-17] MEDS: MEROPENEM 1 GM in SODIUM CHLORIDE 0.9% 100 ML IVPB SCH (17:41)
[2018-06-17 17:43] LABS: Glucose,Whole Blood 241 mg/dL (75-99)
[2018-06-17] MEDS: BISACODYL 10 MG SUPP RECTAL SCH (18:24)
[2018-06-17] MEDS: cefTRIAXone IN SWFI 1,000 MG/10 ML SYRINGE IVP SCH (18:33)
[2018-06-17] MEDS: SODIUM CHLORIDE 0.9% 1,000 ML IV SCH (21:18)
--- NOTE | 2018-06-17 23:45 | P.CON ---
Consult Note - . Consult date: 06/17/18 Assessment/Plan:: This is an 88-year-old female who presented to be [facility] emergency center on June 01 with complaints of increasing abdominal pain and been going on for 8 days without a bowel movement. CAT scan of the abdomen but did show sigmoid diverticulitis and patient was treated with antibiotics and conservative management. 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 Garcia on June 07. Patient was managed in the intensive care unit and progressed very slowly. She was started on TPN and lipids. She was followed by Dr. Coello for intensive care management and also by cardiology for A. fib with RVR with history of paroxysmal atrial fibrillation. She did not require vasopressor support. Around June 13 of June 14, NG tube was removed and patient was started on liquid diet which has been advanced. She has been on IV Lasix for fluid overload. Regarding her white count, this was increasing and peaked at 34.5 on June 08 is currently 19.6 and worsening over the last couple days. She has been afebrile since admission. Patient is eating less than 25% and remains on TPN. Dr. Garcia is ordered repeat CAT scan of the abdomen and pelvis for this afternoon. Son, Eric, is at the bedside and most history is obtained from him. Patient is able to answer simple questions but due to underlying dementia is unable to provide adequate history. Patient has also had urinary retention for which she was straight cath and Mancini catheter eventually was replaced. Patient does have a history of C. difficile colitis in 2011 treated at [facility].Please see the consult note is dictated by nurse practitioner Mrs. Thomasy Joann. 88-year-old female who is had a somewhat protracted hospitalization who is now had significant interventions including a subtotal colectomy and end ileostomy with evidence of ischemic colitis. Recent imaging shows no new abscess only some mild ileus. She is having feeding via TPN at this time. There is been some progressive leukocytosis. As noted she is not a good historian and does not seem to have significant amounts of abdominal pain but exam shows evidence of some mild diffuse tenderness. Antimicrobial therapy as transition to meropenem and antifungal therapy with Eraxis is given history, concerns to potential fungal infection or superinfection. Cultures have been obtained. The leukocytosis will be monitored. I agree with evaluation, assessment and plan is to continue by nurse practitioner Mrs. Mariam David.
[2018-06-17 23:56] LABS: Glucose,Whole Blood 104 mg/dL (75-99)
[2018-06-18] MEDS ORDERED: ANIDULAFUNGIN 200 MG in SODIUM CHLORIDE 0.9% 200 ML IVPB ONE ×2
[2018-06-18] MEDS: INSULIN ASPART 100 UNIT/ML 1 ML 10 ML VIAL SQ SCH ×6 (00:08→22:00)
[2018-06-18] MEDS: HEPARIN SODIUM,PORCINE 5,000 UNIT/ML 1 ML VIAL SQ SCH ×4 (00:31→23:36)
[2018-06-18] MEDS: MEROPENEM 1 GM in SODIUM CHLORIDE 0.9% 100 ML IVPB SCH ×3 (01:19→16:33)
[2018-06-18 06:27] LABS: Glucose,Whole Blood 116 mg/dL (75-99)
[2018-06-18] MEDS: IPRATROPIUM-ALBUTEROL 3 ML NEB INHALATION SCH ×4 (07:16→19:21)
[2018-06-18 07:46] LABS: Ionized Calcium 4.6 mg/dL (4.5-5.3)
[2018-06-18 07:59] LABS: Basophils % (A) 0 %; Eosinophils # (A) 0.2 k/uL (0-0.7); Eosinophils % (A) 1 %; HCT 28.3 % (34.0-46.0); HGB 8.8 gm/dL (11.4-16.0); Hypochromasia Slight; Lymphocytes % (A) 4 %; MCH 27.9 pg (25.0-35.0); MCHC 31.1 g/dL (31.0-37.0); MCV 89.7 fL (80.0-100.0); Mean Platelet Volume 8.2; Monocytes # (A) 0.8 k/uL (0-1.0); Monocytes % (A) 4 %; Neutrophils # (A) 20.9 k/uL (1.3-7.7); Neutrophils % (A) 91 %; Platelet Count 342 k/uL (150-450); RBC 3.16 m/uL (3.80-5.40)
[2018-06-18 08:20] LABS: Calcium 7.9 mg/dL (8.4-10.2); Magnesium 1.8 mg/dL (1.6-2.3); Phosphorus 4.6 mg/dL (2.5-4.5); Potassium 4.3 mmol/L (3.5-5.1)
[2018-06-18] MEDS: PANTOPRAZOLE 40 MG/10 ML VIAL IVP SCH (08:38)
[2018-06-18] MEDS: ONDANSETRON 4 MG/2 ML VIAL IVP PRN ×2 (08:39→16:34)
[2018-06-18] MEDS: hydrALAZINE HCL 50 MG TAB PO SCH ×4 (08:39→23:38)
[2018-06-18] MEDS: FUROSEMIDE 10 MG/ML 4 ML VIAL IV SCH (08:39)
[2018-06-18] MEDS: DILTIAZEM ORAL 60 MG TAB PO SCH ×3 (08:40→21:12)
[2018-06-18] MEDS: traMADol 50 MG TAB PO SCH ×4 (08:40→21:26)
[2018-06-18] MEDS: SERTRALINE 100 MG TAB PO SCH (08:40)
[2018-06-18] MEDS: SODIUM CHLORIDE 5% OPHTH DROPS 15 ML BTL BOTH EYES SCH ×4 (08:40→21:12)
--- NOTE | 2018-06-18 10:10 | P.PN ---
Progress Note - Text Progress Note Date: 06/18/18 The patient resting comfortably in her bed. She has no real complaints. On exam she is afebrile. She is mildly tachycardic with a pulse around 100. Abdomen is soft. There is some bilious output through the ileostomy. There is some minimal tenderness. There is no rebound or guarding. White count is elevated to 23,000. It was 19,000 yesterday. Status post subtotal colectomy. Patient's white count has increased. We will repeat her CBC the morning. If she still has a significant leukocytosis we will perform a CAT scan.
[2018-06-18 12:05] LABS: Glucose,Whole Blood 127 mg/dL (75-99)
--- NOTE | 2018-06-18 12:47 | PN ---
PROGRESS NOTE DATE OF SERVICE: 06/18/2018. CHIEF COMPLAINT: Status post subtotal colectomy. HISTORY OF PRESENT ILLNESS: This lady was doing well and then this morning she vomited. She has not had any abdominal pain, fever, chills, chest pain, etc. PHYSICAL EXAM: Chest is clear. The abdomen is soft, nontender. Bowel sounds are present. IMPRESSION: 1. Nausea and vomiting. 2. Leukocytosis of 23,000. 3. Anemia at 8.8 hemoglobin. PLAN: No change in program, but her white count is concerning. MMODL / IJN: [id number] /
--- NOTE | 2018-06-18 13:57 | P.PN ---
Subjective Progress Note Date: 06/18/18 Principal diagnosis: Acute diverticulitis, complicated by bowel obstruction requiring exploratory laparotomy and subtotal colectomy 87-year-old female patient with known history of dementia presented to the hospital because of abdominal pain and constipation. Initial presentation with a 97 2018 and the patient hospital sinus. The patient had CAT scan of the abdomen that showed mild sigmoid diverticulitis. The patient continued to have abdominal discomfort and subsequent bloating and subsequent inability to pass any bowel movements. Soapsuds enemas were utilized and there was minimal stool production. She continued to have nausea and vomiting and surgery was involved in the case and the patient underwent a barium enema yesterday that showed localized area of irregular narrowing involving the sigmoid colon in addition to a high-grade obstruction and based on his findings the patient be taken to the operating room for colectomy and possible diverticular colostomy. I was asked even with this patient's pulmonary status and be involved in the postoperative care due to her age and the complexity of her medical problems. Note that this patient has been labeled to have a mild component of COPD despite her nonsmoking history. 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 She is exposed to respiratory irritants or chemicals. No recurrent pneumonias. No use of home oxygen. Exercise capacity has been limited and the patient reports some limited capacity even prior to this ongoing abdominal problems. During this current hospital stay she had a short run of atrial fibrillation she converted back to normal sinus rhythm. Echo was done and the patient is an ejection fraction of 6065% and mild aortic valve sclerosis and moderate degree of stenosis with a peak gradient across the valve of 32 and mother degree of pulmonary hypertension with a PA pressure of 53. Currently she is free of any chest pain. No cough sputum production. She is on room air oxygen. She'll be going to surgery at around 2 PM this afternoon.. 06/08/2008 and the patient is postop day #1. The patient was taken to the operating room yesterday and underwent a subtotal colectomy. Cecum was also ischemic and the patient underwent a subtotal colectomy and diverting colostomy was performed. Postop the patient was brought into the intensive care unit. She was extubated postop without any major difficulties. Overnight she continued to have episodes of low urine output. She was given a total of 2 L of IV fluid in the form of normal saline. The bicarbonate drip was also continued at the rate of 100 mL an hour. She'll be receiving a third liter for now. She is arousable and awake but a bit lethargic. Pain is under good control. NG tube is in place. Surgical site is dry clean and intact. BRIGITTE drain is also in place with minimal amount of output. No abdominal tenderness at this point in time. No major edema in lower extremities. She is hemodynamic is stable and she has not required any pressors. She is currently in a normal sinus rhythm. She converted this morning from an underlying A. fib fibrillation. Echocardiogram at shown a preserved LV function. No respiratory distress. Her white cell count is up to 34 which is an expected finding. 06/09/2018, patient is postop day #2. Doing well. Awake and alert. Following commands and answering questions. No major altered mentation or confusion. The patient has an ileostomy which is still nonfunctional at this point in time he had viable. Abdomen is soft and slightly distended. The patient is producing adequate amount of urine output. The serum bicarb is up to 30 and based on that the patient was taken off the bicarb drip and currently she is on normal saline today to have 100 mL an hour. Renal function is also stable with a creatinine of 0.9. White cell count is improving is down to 20.5. She is in normal sinus rhythm. She has occasional PVCs. No other issues otherwise for now. She remains on a combination of Rocephin and Flagyl. BRIGITTE drain is in place and the total amount of output has been 65 mL since yesterday. The neck fluid balance is +5.5 L for yesterday. 06/10/2018 patient is postop day #3. Awake and alert and he of any significant pain. Using incentive spirometer. Still nothing by mouth. Based on surgical recommendation, the patient was given a ticket tube feed yesterday at the rate of 10 mL an hour. She was unable to tolerate. She had emesis and subsequently 400 mL of aspirate was obtained from the stomach. The patient is currently nothing by mouth. The bowel sounds are still hypoactive. Surgical wound site is dry clean and intact. Her white cell count is down to 18.5. She is following commands and answering questions appropriately. BRIGITTE drain is still in place. Renal function is stable. No other significant events over the past 24 hours. Discussed the case with general surgery and were considering a PICC line and TPN for the next few days. 06/11/2018 patient is postop day #4. The patient is awake and alert. NG tube is in place. Output overnight has been only 100 mL. We are seeing more output and had ileostomy back. Surgical wound site is clean. BRIGITTE drains is still putting out some amount of drainage and the total amount of drainage was 2 25 mL for yesterday. Surgical wound site is dry clean and intact. She is afebrile. No nausea. No vomiting. No emesis. She has a PICC line and the patient was started on TPN for nutritional support through a left upper extremity PICC line. She is afebrile. She is hemodynamically stable. She is still requiring Cardizem drip for rate control today to 7.5 mg an hour. The fluid balance has been positive and the patient is a significant amount of fluid positivity and the patient will need some diuretics knowing that the chest x-rays also showing evidence of pulmonary vessel congestion development of bilateral pleural effusions. She was able to sit up on a chair yesterday. She is using incentive spirometer. No altered mentation. No agitation pH is calm and comfortable. No other significant events overnight. On 06/12/2018 patient is postop day #5. Doing well. Communicating. Awake and alert. NG tube is in place and output is minimal. Ileostomy site is putting minimal amount of bilious material. Surgical wound site is dry clean and intact. No abdominal distention. No nausea. No vomiting. She is on TPN for nutritional support. She is on Cardizem drip for rate control in regards to her chronic atrial fibrillation. She is on a combination of IV Rocephin and Flagyl. No other significant events overnight. For the most part, the patient is doing well and she was able to sit up on a chair yesterday. She is using incentive spirometer. On 06/13/2018, patient is postoperative day #6, continues to have nasogastric tube in place, patient remains on Cardizem for atrial fibrillation with RVR, and considering the patient cannot have anything orally, we'll continue Cardizem at 75 mg per hour, cardiology is addressing that situation. Patient remains on TPN for nutritional support. Remains on antibiotics in the form of Rocephin and Flagyl. Patient is arousable, relatively asymptomatic, she feels generally weak. Labs were reviewed her WBC count is 16.6 hemoglobin is 9.1 electrolytes and renal profile are normal. On 06/14/2018, patient is postoperative day #7. Her clinical status is improved , patient does not seem to be in any distress. She is now still on Cardizem, but considering the nasogastric tube was removed, and she is on liquid diet, we will switch Cardizem to oral and likely arrange for the patient to be transferred to a monitor bed on selective today. Patient is feeling better breathing easier. Chest x-ray continues to show evidence of congestive heart failure, hence the Lasix dose was increased to 40 mg IV push every 12 hours. CBC showed WBC count of 14.6 hemoglobin of 8.9 basic metabolic profile is relatively normal. On 06/15/2018, patient is postoperative day #8. Patient is resting in bed, comfortable, and in no distress. She is now on oral Cardizem, awaiting for a bed on selective, however considering the patient has been hemodynamically stable, and her cardiac arrhythmia is under control, we will arrange for the patient to be transferred to a regular medical floor with remote telemetry. Labs were reviewed WBC count is 18.9 hemoglobin is 9.6, basic metabolic profile is relatively normal and renal profile is normal. Patient is hemodynamically stable, urine output is excellent, no major issues overnight. The only abnormality since yesterday is the slight elevation in blood count. On 06/16/2018 patient seen in follow-up on medical surgical floor. Having some urinary retention issues, she required to be straight cathed, bladder was very distended, and patient subsequently had 800 mL of urine output via straight catheter. Having a similar episode this morning, and ultrasound of the bladder showed 750 mL of urine in the bladder. Complaining of bladder distention, and inability to void. Protocol patient will be straight cath again. Exacerbating the problem are the diuretics on which she remains. On Lasix 40 mg IV push every 12 hours. Has significant amount of bilateral lower extremity edema. Today's chest x-ray showed improvement of congestive heart failure and small bilateral pleural effusions. We'll obtain a repeat chest x-ray today. Patient is on oral diet, with modified consistency, however appetite is quite poor, and patient remains on TPN and lipids. Right lower abdomen ileostomy putting out liquid green output, the stoma is pink, and the appliance was just changed. FiO2 is at 4 L, and her pulse ox is 94%, afebrile, hemodynamically stable, heart rate is from 96-100 bpm, patient is on oral Cardizem. On 06/17/2018 patient seen in follow-up on medical surgical floor. She is sitting up in the chair, she has generalized weakness, pulse ox on 3 L per nasal cannula is 92%, patient's inspiratory effort is poor,shallow breaths. She is afebrile, dynamically stable, her heart rate is controlled, she continues on oral Cardizem. Today's chest x-ray has been reviewed, and showed patchy basilar infiltrates and pleural effusions, patient remains on the Lasix, she continues to diurese, and she is in -2575 ML fluid balance over the last 24 hours, the appearance of bilateral lower extremity edema is improving. Patient was upgraded to a regular diet, however her appetite remains extremely poor, and patient remains on TPN and lipids. Patient's family is at the bedside, and they state the patient is not motivated to participate in therapy. Patient was restarted on her Zoloft. Otherwise no acute complaints, Mancini catheter was placed back in for persistent urinary retention. 'Today's labs have been reviewed, WBCs 19.6, hemoglobin is 9.5, sodium is 131, chloride is 93, renal profile is relatively stable, with B UN of 48, creatinine is 1.14. Ostomy with liquid output. The patient is seen again today June 18 2018 in follow-up on the regular medical floor. She is currently resting quite comfortably in bed. She is awake and alert in no acute distress. She denies any worsening shortness of breath, cough or congestion. She continues to need increased encouragement regarding using incentive spirometer and cough and deep breathing exercises. White count 23.0. Hemoglobin 8.8. Creatinine 1.21. She remains on bronchodilators, meropenem, and Anidulafungin. His activity through the stoma. Abdominal dressing dry and intact. Objective - Vital Signs Vital signs: Vital Signs Temp 97.9 F 06/18/18 06:30 Pulse 96 06/18/18 11:52 Resp 20 06/18/18 06:30 BP 121/62 06/18/18 06:30 Pulse Ox 91 L 06/18/18 06:30 Intake & Output 06/17/18 06/18/18 06/18/18 18:59 06:59 18:59 Intake Total 780 150 Output Total 2400 40 Balance 780 -2250 -40 Weight 66 kg 59 kg Intake: IV 100 metroNIDAZOLE-NS PMX 500 100 mg In Saline 1 100ml.bag @ 100 mls/hr IVPB Q8HR ALY Rx#:[id number] Intake, IV Titration 680 Amount Parenteral Electrolytes 680 20 ml Mvi, Adult No.4 with Vit K 10 ml Trace ( Conc-1Ml/Dose) 1 ml In Amino Acid 4.25%-D10w 1, 000 ml @ 85 mls/hr IV .BY DURATION ALY Rx#: [id number] Oral 150 Output: Drainage 40 Left Lower Abdomen 40 Urine 2400 Straight 1200 Other: Voiding Method Indwelling Catheter # Voids 0 # Bowel Movements 0 - Exam Physical Exam: Revealed an 88-year-old female in no distress. On nasal cannula. Head: Atraumatic, normocephalic. HEENT:[Neck is supple.] [No neck masses.] [No thyromegaly.] [No JVD.] Moist mucous membranes, no icterus. Chest: [Diminished, with bibasilar crackles] Cardiac Exam: [Normal S1 and S2, no S3 gallop, no murmur.] ABDOMEN: Soft, obese. Hypoactive bowel sounds. No direct tenderness. No rebound tenderness. No guarding. Surgical site is dry clean and intact. BRIGITTE drain is in place. No evidence of abdominal distention Ileostomy site is functional. Viable. SKIN: No rashes, no jaundice. Examination of the skin revealed no evidence of significant rashes, NEUROLOGIC:impaired short-term memory. The patient has an underlying dementia. Otherwise no focal neurologic deficit. Extremities revealed +1-2 pitting edema both in upper and lower extremities. No cyanosis. No clubbing. Lymphatics: No lymphadenopathy. - Labs CBC & Chem 7: 06/18/18 06:57 06/18/18 06:57 Labs: Abnormal Lab Results - Last 24 Hours (Table) 06/17/18 06/17/18 06/17/18 Range/Units 07:53 17:39 23:50 WBC (3.8-10.6) k/uL RBC (3.80-5.40) m/uL Hgb (11.4-16.0) gm/dL Hct (34.0-46.0) % RDW (11.5-15.5) % Neutrophils # (1.3-7.7) k/uL Sodium (137-145) mmol/L Chloride (98-107) mmol/L BUN (7-17) mg/dL Creatinine (0.52-1.04) mg/dL Glucose (74-99) mg/dL POC Glucose (mg/dL) 241 H 104 H (75-99) mg/dL Hemoglobin A1c 6.4 H (4.0-6.0) % Calcium (8.4-10.2) mg/dL Phosphorus (2.5-4.5) mg/dL 06/18/18 06/18/18 06/18/18 Range/Units 06:25 06:57 06:57 WBC 23.0 H (3.8-10.6) k/uL RBC 3.16 L (3.80-5.40) m/uL Hgb 8.8 L (11.4-16.0) gm/dL Hct 28.3 L (34.0-46.0) % RDW 16.0 H (11.5-15.5) % Neutrophils # 20.9 H (1.3-7.7) k/uL Sodium 131 L (137-145) mmol/L Chloride 92 L (98-107) mmol/L BUN 45 H (7-17) mg/dL Creatinine 1.21 H (0.52-1.04) mg/dL Glucose 111 H (74-99) mg/dL POC Glucose (mg/dL) 116 H (75-99) mg/dL Hemoglobin A1c (4.0-6.0) % Calcium 7.9 L (8.4-10.2) mg/dL Phosphorus 4.6 H (2.5-4.5) mg/dL 06/18/18 Range/Units 12:01 WBC (3.8-10.6) k/uL RBC (3.80-5.40) m/uL Hgb (11.4-16.0) gm/dL Hct (34.0-46.0) % RDW (11.5-15.5) % Neutrophils # (1.3-7.7) k/uL Sodium (137-145) mmol/L Chloride (98-107) mmol/L BUN (7-17) mg/dL Creatinine (0.52-1.04) mg/dL Glucose (74-99) mg/dL POC Glucose (mg/dL) 127 H (75-99) mg/dL Hemoglobin A1c (4.0-6.0) % Calcium (8.4-10.2) mg/dL Phosphorus (2.5-4.5) mg/dL Assessment and Plan Assessment: Impression: Status post exploratory laparotomy, subtotal colectomy and diverting ileostomy postoperative day #11. 2 acute sigmoid diverticulitis complicated by bowel obstruction requiring surgery as above. 3 COPD, presently inactive. 4 moderate aortic stenosis and secondary pulmonary hypertension 5 paroxysmal atrial fibrillation presently on oral Cardizem. 6 underlying dementia 7 remote history of C. difficile colitis. 8 Urinary retention in the postoperative period after removal of the Mancini catheter, and the Mancini to be reinserted back in for persistent urinary retention Recommendation: The patient was seen and evaluated by Dr. Livingston. She continues to need increased encouragement regarding the use of the incentive spirometer and cough and deep breathing exercises. She needs to be up in the chair more than in the bed during the day. We'll continue with her rhonchi dilators and antibiotics. She remains in a negative balance. We'll continue to follow and make further recommendations based on her clinical status. I, the cosigning physician, performed a history & physical examination of the patient. Lungs sounds crackles in the bilateral posterior bases. Maintaining good O2 saturations in the 90s on 3 L/m per nasal cannula. I discussed the assessment and plan of care with my nurse practitioner, Meghan Sainz. I attest to the above note as dictated by her.
[2018-06-18 17:25] LABS: Glucose,Whole Blood 119 mg/dL (75-99)
[2018-06-18 20:40] LABS: Glucose,Whole Blood 112 mg/dL (75-99)
[2018-06-18] MEDS: SODIUM CHLORIDE 0.9% 1,000 ML IV SCH (23:30)
[2018-06-18] MEDS: ANIDULAFUNGIN 100 MG in SODIUM CHLORIDE 0.9% 100 ML IVPB SCH (23:33)
--- NOTE | 2018-06-19 00:13 | P.PN ---
Subjective Progress Note Date: 06/19/18 This is an 88-year-old female who presented to be [facility] emergency center on June 01 with complaints of increasing abdominal pain and been going on for 8 days without a bowel movement. CAT scan of the abdomen but did show sigmoid diverticulitis and patient was treated with antibiotics and conservative management. 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 Garcia on June 07. Patient was managed in the intensive care unit and progressed very slowly. She was started on TPN and lipids. She was followed by Dr. Coello for intensive care management and also by cardiology for A. fib with RVR with history of paroxysmal atrial fibrillation. She did not require vasopressor support. Around June 13June 14, NG tube was removed and patient was started on liquid diet which has been advanced. She has been on IV Lasix for fluid overload. Regarding her white count, this was increasing and peaked at 34.5 on June 08 is currently 19.6 and worsening over the last couple days. She has been afebrile since admission. Patient is eating less than 25% and remains on TPN. Dr. Garcia is ordered repeat CAT scan of the abdomen and pelvis for this afternoon. Son, Eric, is at the bedside and most history is obtained from him. Patient is able to answer simple questions but due to underlying dementia is unable to provide adequate history. Patient has also had urinary retention for which she was straight cath and Mancini catheter eventually was replaced. Patient does have a history of C. difficile colitis in 2011 treated at [facility]. 06/18/2018 reveals the patient to be more awake and alert. She is not very uncomfortable today. Is unable to state who brought the duffy at her bedside. Objective - Vital Signs Vital signs: Vital Signs Temp 98.7 F 06/18/18 13:54 Pulse 100 06/18/18 19:34 Resp 20 06/18/18 19:22 BP 130/67 06/18/18 13:54 Pulse Ox 93 L 06/18/18 13:54 Intake & Output 06/18/18 06/18/18 06/19/18 06:59 18:59 06:59 Intake Total 150 Output Total 2400 1060 Balance -2250 -1060 Weight 59 kg Intake: Oral 150 Output: Drainage 60 Left Lower Abdomen 60 Urine 2400 900 Straight 1200 Stool 100 Other: Voiding Method Indwelling Catheter # Voids 0 0 # Bowel Movements 0 0 - Exam Gen: This is a 88-year-old female. She is in bed and appears to be comfortable and in no acute distress. HEENT: Head is atraumatic, normocephalic. Pupils equal, round. Sclerae is anicteric. Conjunctiva pink. Because members of the mouth are dry NECK: Supple. No JVD. No lymphadenopathy. No thyromegaly. LUNGS: Diminished bilat bases. No wheezing. No intercostal retractions. HEART: Irregular rate and rhythm. No murmur. ABDOMEN: Soft. Bowel sounds are present. No tenderness to light palpation. Patient has ileostomy to the right lower quadrant with liquid dark brown stool. Drain to the left lower quadrant with serous drainage.. EXTREMITIES: 1+ pedal edema. No calf tenderness. Dorsalis pedis +1 bilaterally. NEUROLOGICAL: Patient is awake, alert and oriented x1. Generalized weakness noted. No focal neural deficits. - Labs CBC & Chem 7: 06/18/18 06:57 06/18/18 06:57 Labs: Abnormal Lab Results - Last 24 Hours (Table) 06/18/18 06/18/18 06/18/18 Range/Units 06:25 06:57 06:57 WBC 23.0 H (3.8-10.6) k/uL RBC 3.16 L (3.80-5.40) m/uL Hgb 8.8 L (11.4-16.0) gm/dL Hct 28.3 L (34.0-46.0) % RDW 16.0 H (11.5-15.5) % Neutrophils # 20.9 H (1.3-7.7) k/uL Sodium 131 L (137-145) mmol/L Chloride 92 L (98-107) mmol/L BUN 45 H (7-17) mg/dL Creatinine 1.21 H (0.52-1.04) mg/dL Glucose 111 H (74-99) mg/dL POC Glucose (mg/dL) 116 H (75-99) mg/dL Calcium 7.9 L (8.4-10.2) mg/dL Phosphorus 4.6 H (2.5-4.5) mg/dL 06/18/18 06/18/1806/18/18 Range/Units 12:01 17:04 20:36 WBC (3.8-10.6) k/uL RBC (3.80-5.40) m/uL Hgb (11.4-16.0) gm/dL Hct (34.0-46.0) % RDW (11.5-15.5) % Neutrophils # (1.3-7.7) k/uL Sodium (137-145) mmol/L Chloride (98-107) mmol/L BUN (7-17) mg/dL Creatinine (0.52-1.04) mg/dL Glucose (74-99) mg/dL POC Glucose (mg/dL) 127 H 119 H 112 H (75-99) mg/dL Calcium (8.4-10.2) mg/dL Phosphorus (2.5-4.5) mg/dL Laboratory Results WBC 23.0 k/uL (3.8-10.6) H 06/18/18 06:57 RBC 3.16 m/uL (3.80-5.40) L 06/18/18 06:57 Hgb 8.8 gm/dL (11.4-16.0) L 06/18/18 06:57 Hct 28.3 % (34.0-46.0) L 06/18/18 06:57 MCV 89.7 fL (80.0-100.0) 06/18/18 06:57 MCH 27.9 pg (25.0-35.0) 06/18/18 06:57 MCHC 31.1 g/dL (31.0-37.0) 06/18/18 06:57 RDW 16.0 % (11.5-15.5) H 06/18/18 06:57 Plt Count 342 k/uL (150-450) 06/18/18 06:57 Neutrophils % 91 % 06/18/18 06:57 Lymphocytes % 4 % 06/18/18 06:57 Monocytes % 4 % 06/18/18 06:57 Eosinophils % 1 % 06/18/18 06:57 Basophils % 0 % 06/18/18 06:57 Neutrophils # 20.9 k/uL (1.3-7.7) H 06/18/18 06:57 Lymphocytes # 1.0 k/uL (1.0-4.8) 06/18/18 06:57 Monocytes # 0.8 k/uL (0-1.0) 06/18/18 06:57 Eosinophils # 0.2 k/uL (0-0.7) 06/18/18 06:57 Basophils # 0.0 k/uL (0-0.2) 06/18/18 06:57 Hypochromasia Slight 06/18/18 06:57 PT 12.2 sec (9.0-12.0) H 06/07/18 09:08 INR 1.3 (<1.2) H 06/07/18 09:08 APTT 28.5 sec (22.0-30.0) 06/07/18 09:08 D-Dimer 1.05 mg/L FEU (<0.60) H 06/03/18 11:50 Sodium 131 mmol/L (137-145) L 06/18/18 06:57 Potassium 4.3 mmol/L (3.5-5.1) 06/18/18 06:57 Chloride 92 mmol/L (98-107) L 06/18/18 06:57 Carbon Dioxide 27 mmol/L (22-30) 06/18/18 06:57 Anion Gap 12 mmol/L 06/18/18 06:57 BUN 45 mg/dL (7-17) H 06/18/18 06:57 Creatinine 1.21 mg/dL (0.52-1.04) H 06/18/18 06:57 Est GFR (CKD-EPI)AfAm 46 (>60 ml/min/1.73 sqM) 06/18/18 06:57 Est GFR (CKD-EPI)NonAf 40 (>60 ml/min/1.73 sqM) 06/18/18 06:57 Glucose 111 mg/dL (74-99) H 06/18/18 06:57 POC Glucose (mg/dL) 112 mg/dL (75-99) H 06/18/18 20:36 POC Glu Drug Abuse Worker ID Larisa Hess 06/18/18 20:[address] Glu mg/dL 137 06/17/18 07:53 Hemoglobin A1c 6.4 % (4.0-6.0) H 06/17/18 07:53 Plasma Lactic Acid Jake 0.8 mmol/L (0.7-2.0) 06/07/18 10:52 Calcium 7.9 mg/dL (8.4-10.2) L 06/18/18 06:57 Ionized Calcium Dipesh 4.6 mg/dL (4.5-5.3) 06/18/18 06:57 Phosphorus 4.6 mg/dL (2.5-4.5) H 06/18/18 06:57 Magnesium 1.8 mg/dL (1.6-2.3) 06/18/18 06:57 Total Bilirubin 0.5 mg/dL (0.2-1.3) 06/07/18 09:08 AST 26 U/L (14-36) 06/07/18 09:08 ALT 33 U/L (9-52) 06/07/18 09:08 Alkaline Phosphatase 55 U/L (38-126) 06/07/18 09:08 Troponin I 0.169 ng/mL (0.000-0.034) H* 06/03/18 07:56 NT-Pro-B Natriuret Pep 7280 pg/mL 06/03/18 11:50 Total Protein 6.2 g/dL (6.3-8.2) L 06/07/18 09:08 Albumin 3.2 g/dL (3.5-5.0) L 06/07/18 09:08 Triglycerides 136 mg/dL (<150) 06/10/18 15:15 Amylase 31 U/L (30-110) 06/01/18 14:36 Lipase 18 U/L (23-300) L 06/01/18 14:36 TSH 1.270 mIU/L (0.465-4.680) 06/03/18 07:56 Urine Color Yellow 06/01/18 15:49 Urine Appearance Cloudy (Clear) H 06/01/18 15:49 Urine pH 6.0 (5.0-8.0) 06/01/18 15:49 Ur Specific [place] 1.021 (1.001-1.035) 06/01/18 15:49 Urine Protein 2+ (Negative) H 06/01/18 15:49 Urine Glucose (UA) Negative (Negative) 06/01/18 15:49 Urine Ketones Trace (Negative) H 09/05/18 15:49 Urine Blood Negative (Negative) 06/01/18 15:49 Urine Nitrite Negative (Negative) 06/01/18 15:49 Urine Bilirubin 1+ (Negative) H 06/01/18 15:49 Urine Urobilinogen 2.0 mg/dL (<2.0) 06/01/18 15:49 Ur Leukocyte Esterase Trace (Negative) H 06/01/18 15:49 Urine RBC 1 /hpf (0-5) 06/01/18 15:49 Urine WBC 12 /hpf (0-5) H 06/01/18 15:49 Ur Squamous Epith Cells 1 /hpf (0-4) 06/01/18 15:49 Urine Bacteria Rare /hpf (None) H 06/01/18 15:49 Hyaline Casts 3 /lpf (0-2) H 06/01/18 15:49 Urine Mucus Rare /hpf (None) H 06/01/18 15:49 Blood Type B Positive 06/07/18 15:15 Blood Type Confirm B Positive 06/07/18 21:18 Blood Type Recheck CABO Indicated 06/07/18 15:15 Antibody Screen NEGATIVE 06/07/18 15:15 Spec Expiration Date 06/10/2018 - 2315 06/07/18 15:15 Microbiology 06/02/18 19:09 Blood Blood Culture - Final No Growth after 144 hours 06/02/18 21:17 Blood Blood Culture - Final No Growth after 144 hours Assessment and Plan Assessment: 88-year-old female who is had a somewhat protracted hospitalization who is now had significant interventions including a subtotal colectomy and end ileostomy with evidence of ischemic colitis. Recent imaging shows no new abscess only some mild ileus. She is having feeding via TPN at this time. There is been some progressive leukocytosis. As noted she is not a good historian and does not seem to have significant amounts of abdominal pain but exam shows evidence of some mild diffuse tenderness. Antimicrobial therapy as transition to meropenem and antifungal therapy with Eraxis is given history, concerns to potential fungal infection or superinfection. Cultures have been obtained. The leukocytosis will be monitored. 06/19/2018 patient is stable at this time. Appears to be showing some improvement with current intravenous antibiotic therapy in addition of antifungal therapy. Leukocytosis persistent will be monitored. The follow-up computed tomography scan did show evidence of the opacification of the superior mesenteric artery. Prognosis is poor. (1) Colonic infarction Current Visit: Yes Status: Acute Code(s): K55.049 - ACUTE INFARCTION OF LARGE INTESTINE, EXTENT UNSPECIFIED SNOMED Code(s): 449709571
[2018-06-19] MEDS: MEROPENEM 1 GM in SODIUM CHLORIDE 0.9% 100 ML IVPB SCH ×4 (01:46→23:18)
[2018-06-19] MEDS: INSULIN ASPART 100 UNIT/ML 1 ML 10 ML VIAL SQ SCH ×4 (07:46→20:53)
[2018-06-19 07:57] LABS: Glucose,Whole Blood 109 mg/dL (75-99)
[2018-06-19] MEDS: IPRATROPIUM-ALBUTEROL 3 ML NEB INHALATION SCH ×4 (08:15→19:54)
[2018-06-19 08:19] LABS: Anisocytosis Slight; Basophils % (A) 0 %; Eosinophils # (A) 0.1 k/uL (0-0.7); Eosinophils % (A) 1 %; HCT 28.9 % (34.0-46.0); Hypochromasia Slight; Lymphocytes % (A) 6 %; MCV 90.3 fL (80.0-100.0); Mean Platelet Volume 7.3; Monocytes # (A) 0.6 k/uL (0-1.0); Monocytes % (A) 4 %; Neutrophils # (A) 15.6 k/uL (1.3-7.7); Neutrophils % (A) 89 %; Platelet Count 348 k/uL (150-450); RDW 16.5 % (11.5-15.5); WBC 17.7 k/uL (3.8-10.6)
[2018-06-19 08:29] LABS: Ionized Calcium 4.5 mg/dL (4.5-5.3)
[2018-06-19] MEDS: PANTOPRAZOLE 40 MG/10 ML VIAL IVP SCH (08:41)
[2018-06-19] MEDS: hydrALAZINE HCL 50 MG TAB PO SCH ×4 (08:41→20:54)
[2018-06-19] MEDS: DILTIAZEM ORAL 60 MG TAB PO SCH ×3 (08:41→21:04)
[2018-06-19] MEDS: SERTRALINE 100 MG TAB PO SCH (08:41)
[2018-06-19] MEDS: HEPARIN SODIUM,PORCINE 5,000 UNIT/ML 1 ML VIAL SQ SCH ×3 (08:41→23:18)
[2018-06-19] MEDS: SODIUM CHLORIDE 5% OPHTH DROPS 15 ML BTL BOTH EYES SCH ×4 (08:42→20:54)
[2018-06-19] MEDS: traMADol 50 MG TAB PO SCH ×4 (08:44→20:45)
[2018-06-19 09:05] LABS: Calcium 8.1 mg/dL (8.4-10.2); Magnesium 1.9 mg/dL (1.6-2.3); Phosphorus 4.4 mg/dL (2.5-4.5); Potassium 4.2 mmol/L (3.5-5.1)
[2018-06-19] MEDS: FUROSEMIDE 10 MG/ML 4 ML VIAL IV SCH ×2 (09:33→20:54)
--- NOTE | 2018-06-19 10:23 | XR ---
EXAMINATION TYPE: XR chest 1V portable DATE OF EXAM: 06/19/2018 HISTORY: shortness of breath. REFERENCE: Previous study dated 06/17/2018. FINDINGS: There are worsening bilateral infiltrates. There is bibasilar airspace disease. There are b ilateral effusions. The heart is mildly enlarged. IMPRESSION: WORSENING BILATERAL INFILTRATES WITH CONCOMITANT EFFUSIONS.
--- NOTE | 2018-06-19 11:49 | P.PN ---
Progress Note - Text Progress Note Date: 06/19/18 The patient is resting comfortably in her chair. She denies any abdominal complaints. Fairly osseous function. Her white cell count has improved from 20 ,000-17,000 today. On exam her vital signs are stable. Abdomen soft. Incision sites clean dry tach. 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 Patient leukocytosis will be observed. Dr. Garcia will reevaluate in the a.m.
--- NOTE | 2018-06-19 12:18 | P.PN ---
Subjective Progress Note Date: 06/19/18 Principal diagnosis: Acute diverticulitis, completed by bowel obstruction, requiring exploratory laparotomy and subtotal colectomy 87-year-old female patient with known history of dementia presented to the hospital because of abdominal pain and constipation. Initial presentation with a 97 2018 and the patient hospital sinus. The patient had CAT scan of the abdomen that showed mild sigmoid diverticulitis. The patient continued to have abdominal discomfort and subsequent bloating and subsequent inability to pass any bowel movements. Soapsuds enemas were utilized and there was minimal stool production. She continued to have nausea and vomiting and surgery was involved in the case and the patient underwent a barium enema yesterday that showed localized area of irregular narrowing involving the sigmoid colon in addition to a high-grade obstruction and based on his findings the patient be taken to the operating room for colectomy and possible diverticular colostomy. I was asked even with this patient's pulmonary status and be involved in the postoperative care due to her age and the complexity of her medical problems. Note that this patient has been labeled to have a mild component of COPD despite her nonsmoking history. 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 She is exposed to respiratory irritants or chemicals. No recurrent pneumonias. No use of home oxygen. Exercise capacity has been limited and the patient reports some limited capacity even prior to this ongoing abdominal problems. During this current hospital stay she had a short run of atrial fibrillation she converted back to normal sinus rhythm. Echo was done and the patient is an ejection fraction of 6065% and mild aortic valve sclerosis and moderate degree of stenosis with a peak gradient across the valve of 32 and mother degree of pulmonary hypertension with a PA pressure of 53. Currently she is free of any chest pain. No cough sputum production. She is on room air oxygen. She'll be going to surgery at around 2 PM this afternoon.. 06/08/2008 and the patient is postop day #1. The patient was taken to the operating room yesterday and underwent a subtotal colectomy. Cecum was also ischemic and the patient underwent a subtotal colectomy and diverting colostomy was performed. Postop the patient was brought into the intensive care unit. She was extubated postop without any major difficulties. Overnight she continued to have episodes of low urine output. She was given a total of 2 L of IV fluid in the form of normal saline. The bicarbonate drip was also continued at the rate of 100 mL an hour. She'll be receiving a third liter for now. She is arousable and awake but a bit lethargic. Pain is under good control. NG tube is in place. Surgical site is dry clean and intact. BRIGITTE drain is also in place with minimal amount of output. No abdominal tenderness at this point in time. No major edema in lower extremities. She is hemodynamic is stable and she has not required any pressors. She is currently in a normal sinus rhythm. She converted this morning from an underlying A. fib fibrillation. Echocardiogram at shown a preserved LV function. No respiratory distress. Her white cell count is up to 34 which is an expected finding. 06/09/2018, patient is postop day #2. Doing well. Awake and alert. Following commands and answering questions. No major altered mentation or confusion. The patient has an ileostomy which is still nonfunctional at this point in time he had viable. Abdomen is soft and slightly distended. The patient is producing adequate amount of urine output. The serum bicarb is up to 30 and based on that the patient was taken off the bicarb drip and currently she is on normal saline today to have 100 mL an hour. Renal function is also stable with a creatinine of 0.9. White cell count is improving is down to 20.5. She is in normal sinus rhythm. She has occasional PVCs. No other issues otherwise for now. She remains on a combination of Rocephin and Flagyl. BRIGITTE drain is in place and the total amount of output has been 65 mL since yesterday. The neck fluid balance is +5.5 L for yesterday. 06/10/2018 patient is postop day #3. Awake and alert and he of any significant pain. Using incentive spirometer. Still nothing by mouth. Based on surgical recommendation, the patient was given a ticket tube feed yesterday at the rate of 10 mL an hour. She was unable to tolerate. She had emesis and subsequently 400 mL of aspirate was obtained from the stomach. The patient is currently nothing by mouth. The bowel sounds are still hypoactive. Surgical wound site is dry clean and intact. Her white cell count is down to 18.5. She is following commands and answering questions appropriately. BRIGITTE drain is still in place. Renal function is stable. No other significant events over the past 24 hours. Discussed the case with general surgery and were considering a PICC line and TPN for the next few days. 06/11/2018 patient is postop day #4. The patient is awake and alert. NG tube is in place. Output overnight has been only 100 mL. We are seeing more output and had ileostomy back. Surgical wound site is clean. BRIGITTE drains is still putting out some amount of drainage and the total amount of drainage was 2 25 mL for yesterday. Surgical wound site is dry clean and intact. She is afebrile. No nausea. No vomiting. No emesis. She has a PICC line and the patient was started on TPN for nutritional support through a left upper extremity PICC line. She is afebrile. She is hemodynamically stable. She is still requiring Cardizem drip for rate control today to 7.5 mg an hour. The fluid balance has been positive and the patient is a significant amount of fluid positivity and the patient will need some diuretics knowing that the chest x-rays also showing evidence of pulmonary vessel congestion development of bilateral pleural effusions. She was able to sit up on a chair yesterday. She is using incentive spirometer. No altered mentation. No agitation pH is calm and comfortable. No other significant events overnight. On 06/12/2018 patient is postop day #5. Doing well. Communicating. Awake and alert. NG tube is in place and output is minimal. Ileostomy site is putting minimal amount of bilious material. Surgical wound site is dry clean and intact. No abdominal distention. No nausea. No vomiting. She is on TPN for nutritional support. She is on Cardizem drip for rate control in regards to her chronic atrial fibrillation. She is on a combination of IV Rocephin and Flagyl. No other significant events overnight. For the most part, the patient is doing well and she was able to sit up on a chair yesterday. She is using incentive spirometer. On 06/13/2018, patient is postoperative day #6, continues to have nasogastric tube in place, patient remains on Cardizem for atrial fibrillation with RVR, and considering the patient cannot have anything orally, we'll continue Cardizem at 75 mg per hour, cardiology is addressing that situation. Patient remains on TPN for nutritional support. Remains on antibiotics in the form of Rocephin and Flagyl. Patient is arousable, relatively asymptomatic, she feels generally weak. Labs were reviewed her WBC count is 16.6 hemoglobin is 9.1 electrolytes and renal profile are normal. On 06/14/2018, patient is postoperative day #7. Her clinical status is improved , patient does not seem to be in any distress. She is now still on Cardizem, but considering the nasogastric tube was removed, and she is on liquid diet, we will switch Cardizem to oral and likely arrange for the patient to be transferred to a monitor bed on selective today. Patient is feeling better breathing easier. Chest x-ray continues to show evidence of congestive heart failure, hence the Lasix dose was increased to 40 mg IV push every 12 hours. CBC showed WBC count of 14.6 hemoglobin of 8.9 basic metabolic profile is relatively normal. On 06/15/2018, patient is postoperative day #8. Patient is resting in bed, comfortable, and in no distress. She is now on oral Cardizem, awaiting for a bed on selective, however considering the patient has been hemodynamically stable, and her cardiac arrhythmia is under control, we will arrange for the patient to be transferred to a regular medical floor with remote telemetry. Labs were reviewed WBC count is 18.9 hemoglobin is 9.6, basic metabolic profile is relatively normal and renal profile is normal. Patient is hemodynamically stable, urine output is excellent, no major issues overnight. The only abnormality since yesterday is the slight elevation in blood count. On 06/16/2018 patient seen in follow-up on medical surgical floor. Having some urinary retention issues, she required to be straight cathed, bladder was very distended, and patient subsequently had 800 mL of urine output via straight catheter. Having a similar episode this morning, and ultrasound of the bladder showed 750 mL of urine in the bladder. Complaining of bladder distention, and inability to void. Protocol patient will be straight cath again. Exacerbating the problem are the diuretics on which she remains. On Lasix 40 mg IV push every 12 hours. Has significant amount of bilateral lower extremity edema. Today's chest x-ray showed improvement of congestive heart failure and small bilateral pleural effusions. We'll obtain a repeat chest x-ray today. Patient is on oral diet, with modified consistency, however appetite is quite poor, and patient remains on TPN and lipids. Right lower abdomen ileostomy putting out liquid green output, the stoma is pink, and the appliance was just changed. FiO2 is at 4 L, and her pulse ox is 94%, afebrile, hemodynamically stable, heart rate is from 96-100 bpm, patient is on oral Cardizem. On 06/17/2018 patient seen in follow-up on medical surgical floor. She is sitting up in the chair, she has generalized weakness, pulse ox on 3 L per nasal cannula is 92%, patient's inspiratory effort is poor,shallow breaths. She is afebrile, dynamically stable, her heart rate is controlled, she continues on oral Cardizem. Today's chest x-ray has been reviewed, and showed patchy basilar infiltrates and pleural effusions, patient remains on the Lasix, she continues to diurese, and she is in -2575 ML fluid balance over the last 24 hours, the appearance of bilateral lower extremity edema is improving. Patient was upgraded to a regular diet, however her appetite remains extremely poor, and patient remains on TPN and lipids. Patient's family is at the bedside, and they state the patient is not motivated to participate in therapy. Patient was restarted on her Zoloft. Otherwise no acute complaints, Mancini catheter was placed back in for persistent urinary retention. 'Today's labs have been reviewed, WBCs 19.6, hemoglobin is 9.5, sodium is 131, chloride is 93, renal profile is relatively stable, with B UN of 48, creatinine is 1.14. Ostomy with liquid output. On oral 06/19/2018 patient seen in follow-up on medical surgical floor. More short breath today, her pulse ox is only 88% on 3 L, FiO2 was increased to 5 L, physical exam reveals diminished breath sounds and dullness at bilateral bases, strongly suspect pleural effusions. Patient's inspiratory effort has been suboptimal, her IS effort is only to 250 at best. No cough, no congestion, patient has been getting diuretics in the form of Lasix 40 mg once daily, diuresing, she is in -1790 over last 24 hours, but her weight has increased. Today's lab work has been reviewed, and showed WBC is down, to 17.7 from 23, hemoglobin is 9.0, sodium is 133, potassium is 4.2, chloride is 95, BUN is 38, and creatinine is 1.19. Renal profile has slightly improved. D-dimer was completed in view of patient's increasing shortness of breath and was found to be elevated at 6.61, this is nonspecific, and patient has been on anticoagulation in the form of subcu heparin. Afebrile. Stat chest x-ray showed worsening bilateral infiltrates with concomitant pleural effusions. Remains on IV meropenem for the sigmoid diverticulitis status post subtotal colectomy. Her ileostomy is functioning, appetite remains poor, TPN and lipids had been discontinued. Objective - Vital Signs Vital signs: Vital Signs Temp 97.1 F L 06/19/18 07:00 Pulse 88 06/19/18 11:58 Resp 22 06/19/18 07:00 BP 145/75 06/19/18 07:00 Pulse Ox 96 06/19/18 10:47 Intake & Output 06/18/18 06/19/18 06/19/18 18:59 06:59 18:59 Intake Total 150 Output Total 1060 880 0 Balance -1060 -730 0 Weight 62.5 kg Intake: Oral 150 Output: Drainage 60 30 0 Left Lower Abdomen 60 30 0 Urine 900 600 Stool 100 Other 250 Other: Voiding Method Indwelling Catheter # Voids 0 # Bowel Movements 0 - Exam Physical Exam: Revealed an 88-year-old female mildly short of breath, pulse ox is 88% on 3 L per nasal cannula, patient will be placed on BiPAP support Head: Atraumatic, normocephalic. HEENT:[Neck is supple.] [No neck masses.] [No thyromegaly.] [No JVD.] Moist mucous membranes, no icterus. Chest: [Diminished, with dullness at bilateral bases, and some crackles] Cardiac Exam: [Normal S1 and S2, no S3 gallop, no murmur.] ABDOMEN: Soft, obese. Hypoactive bowel sounds. No direct tenderness. No rebound tenderness. No guarding. Surgical site is dry clean and intact. BRIGITTE drain is in place. No evidence of abdominal distention Ileostomy site is functional. Viable. SKIN: No rashes, no jaundice. Examination of the skin revealed no evidence of significant rashes, NEUROLOGIC:impaired short-term memory. The patient has an underlying dementia. Otherwise no focal neurologic deficit. Extremities revealed +1-2 pitting edema both in upper and lower extremities. No cyanosis. No clubbing. Lymphatics: No lymphadenopathy. - Labs CBC & Chem 7: 06/19/18 08:00 06/19/18 08:00 Labs: Abnormal Lab Results - Last 24 Hours (Table) 06/18/18 06/18/18 06/19/18 Range/Units 17:04 20:36 07:40 WBC (3.8-10.6) k/uL RBC (3.80-5.40) m/uL Hgb (11.4-16.0) gm/dL Hct (34.0-46.0) % RDW (11.5-15.5) % Neutrophils # (1.3-7.7) k/uL D-Dimer (<0.60) mg/L FEU Sodium (137-145) mmol/L Chloride (98-107) mmol/L BUN (7-17) mg/dL Creatinine (0.52-1.04) mg/dL Glucose (74-99) mg/dL POC Glucose (mg/dL) 119 H 112 H 109 H (75-99) mg/dL Calcium (8.4-10.2) mg/dL 06/19/18 06/19/18 06/19/18 Range/Units 08:00 08:00 08:00 WBC 17.7 H (3.8-10.6) k/uL RBC 3.20 L (3.80-5.40) m/uL Hgb 9.0 L (11.4-16.0) gm/dL Hct 28.9 L (34.0-46.0) % RDW 16.5 H (11.5-15.5) % Neutrophils # 15.6 H (1.3-7.7) k/uL D-Dimer 6.61 H (<0.60) mg/L FEU Sodium 133 L (137-145) mmol/L Chloride 95 L (98-107) mmol/L BUN 38 H (7-17) mg/dL Creatinine 1.19 H (0.52-1.04) mg/dL Glucose 106 H (74-99) mg/dL POC Glucose (mg/dL) (75-99) mg/dL Calcium 8.1 L (8.4-10.2) mg/dL Microbiology - Last 24 Hours (Table) 06/18/18 06:57 Blood Culture - Preliminary Blood No Growth after 24 hours Assessment and Plan Plan: Status post exploratory laparotomy, subtotal colectomy and diverting ileostomy postoperative day #12. 2 acute sigmoid diverticulitis complicated by bowel obstruction requiring surgery as above. 3 acute hypoxemic respiratory failure secondary to fluid overload, worsening bilateral infiltrates, and bilateral pleural effusions and cardiomegaly 4 elevated d-dimer, nonspecific, patient has been on anticoagulation heparin 5 COPD, presently inactive. 6 moderate aortic stenosis and secondary pulmonary hypertension 7 paroxysmal atrial fibrillation presently on oral Cardizem. 8 underlying dementia 9 remote history of C. difficile colitis. 10 Urinary retention in the postoperative period after removal of the Mancini catheter, and the Mancini to be reinserted back in for persistent urinary retention Recommendation: Today's chest x-ray has been reviewed, shows worsening pulmonary infiltrates and bilateral pleural effusions, we'll increase the Lasix dose to 40 mg twice daily, continue diuresis, patient's may be placed on BiPAP support with pressures 12 and 6, and FiO2 to titrate to keep the pulse ox at 92% or above. Continue encouraging increased activity, sit the patient up in the chair, accurate I and O, daily weights. Obtain encouraging incentive spirometry, deep breathing and coughing. Continue antibiotics per ID service recommendations. Repeat chest x-ray in the morning. Repeat blood work in the morning I performed a history & physical examination of the patient and discussed their management with my nurse practitioner, Tomeka Hansen. I reviewed the nurse practitioner's note and agree with the documented findings and plan of care. Lung sounds diminished, with dullness at the bases. The findings and the impression was discussed with the patient. I attest to the documentation by the nurse practitioner. Time with Patient: Less than 30
[2018-06-19 12:26] LABS: Glucose,Whole Blood 126 mg/dL (75-99)
[2018-06-19 17:06] LABS: Glucose,Whole Blood 122 mg/dL (75-99)
[2018-06-19 20:33] LABS: Glucose,Whole Blood 148 mg/dL (75-99)
[2018-06-19] MEDS: ANIDULAFUNGIN 100 MG in SODIUM CHLORIDE 0.9% 100 ML IVPB SCH (20:53)
[2018-06-19] MEDS: SODIUM CHLORIDE 0.9% 1,000 ML IV SCH (20:53)
[2018-06-20 07:39] LABS: Glucose,Whole Blood 120 mg/dL (75-99)
[2018-06-20 08:06] LABS: Ionized Calcium 4.5 mg/dL (4.5-5.3)
[2018-06-20 08:26] LABS: Magnesium 1.8 mg/dL (1.6-2.3); Phosphorus 4.4 mg/dL (2.5-4.5)
[2018-06-20] MEDS: IPRATROPIUM-ALBUTEROL 3 ML NEB INHALATION SCH ×4 (08:52→18:55)
[2018-06-20] MEDS: INSULIN ASPART 100 UNIT/ML 1 ML 10 ML VIAL SQ SCH ×4 (09:16→20:48)
[2018-06-20] MEDS: traMADol 50 MG TAB PO SCH ×4 (09:25→20:50)
[2018-06-20] MEDS: PANTOPRAZOLE 40 MG/10 ML VIAL IVP SCH (09:29)
[2018-06-20] MEDS: HEPARIN SODIUM,PORCINE 5,000 UNIT/ML 1 ML VIAL SQ SCH ×3 (09:29→23:13)
[2018-06-20] MEDS: SODIUM CHLORIDE 5% OPHTH DROPS 15 ML BTL BOTH EYES SCH ×4 (09:29→20:49)
[2018-06-20] MEDS: FUROSEMIDE 10 MG/ML 4 ML VIAL IV SCH ×2 (09:29→20:46)
[2018-06-20] MEDS: SERTRALINE 100 MG TAB PO SCH (09:30)
[2018-06-20] MEDS: hydrALAZINE HCL 50 MG TAB PO SCH ×4 (09:30→20:49)
[2018-06-20] MEDS: DILTIAZEM ORAL 60 MG TAB PO SCH ×3 (09:30→20:49)
[2018-06-20] MEDS: MEROPENEM 1 GM in SODIUM CHLORIDE 0.9% 100 ML IVPB SCH ×2 (09:30→20:48)
--- NOTE | 2018-06-20 10:44 | P.PN ---
Subjective Progress Note Date: 06/20/18 Principal diagnosis: Colonic obstruction Patient doing well today. Denies pain. Tolerating more of her diet. No vomiting. Good ostomy function. White blood cell count improved. Objective - Vital Signs Vital signs: Vital Signs Temp 99.7 F H 06/20/18 07:00 Pulse 89 06/20/18 07:00 Resp 16 06/20/18 07:00 BP 138/61 06/20/18 07:00 Pulse Ox 91 L 06/20/18 07:00 Intake & Output 06/19/18 06/20/18 06/20/18 18:59 06:59 18:59 Output Total 700 700 Balance -700 -700 Output: Urine 700 700 Other: Voiding Method Indwelling Catheter - Exam Abdomen: Soft, nondistended, nontender, wounds clean - Labs CBC & Chem 7: 06/19/18 08:00 06/20/18 07:32 Labs: Abnormal Lab Results - Last 24 Hours (Table) 06/19/18 06/19/18 06/19/18 Range/Units 12:23 17:01 20:31 Sodium (137-145) mmol/L Chloride (98-107) mmol/L BUN (7-17) mg/dL Creatinine (0.52-1.04) mg/dL Glucose (74-99) mg/dL POC Glucose (mg/dL) 126 H 122 H 148 H (75-99) mg/dL Calcium (8.4-10.2) mg/dL 06/20/18 06/20/18 Range/Units 07:32 07:38 Sodium 133 L (137-145) mmol/L Chloride 95 L (98-107) mmol/L BUN 34 H (7-17) mg/dL Creatinine 1.14 H (0.52-1.04) mg/dL Glucose 104 H (74-99) mg/dL POC Glucose (mg/dL) 120 H (75-99) mg/dL Calcium 8.0 L (8.4-10.2) mg/dL Microbiology - Last 24 Hours (Table) 06/18/18 06:57 Blood Culture - Preliminary Blood No Growth after 48 hours Assessment and Plan (1) Sigmoid diverticulitis Narrative/Plan: Continue local wound care. Continue encouraging oral intake. CAT scan findings noted. Chronic SMA occlusion identified. Will discuss with family regarding vascular surgery evaluation although at this time no intervention indicated. Current Visit: Yes Status: Acute Code(s): K57.32 - DVTRCLI OF LG INT W/O PERFORATION OR ABSCESS W/O BLEEDING SNOMED Code(s): 919468799
[2018-06-20 12:32] LABS: Glucose,Whole Blood 124 mg/dL (75-99)
--- NOTE | 2018-06-20 13:06 | P.PN ---
Subjective Progress Note Date: 06/20/18 Principal diagnosis: Acute diverticulitis, completed by bowel obstruction, requiring exploratory laparotomy and subtotal colectomy 87-year-old female patient with known history of dementia presented to the hospital because of abdominal pain and constipation. Initial presentation with a 97 2018 and the patient hospital sinus. The patient had CAT scan of the abdomen that showed mild sigmoid diverticulitis. The patient continued to have abdominal discomfort and subsequent bloating and subsequent inability to pass any bowel movements. Soapsuds enemas were utilized and there was minimal stool production. She continued to have nausea and vomiting and surgery was involved in the case and the patient underwent a barium enema yesterday that showed localized area of irregular narrowing involving the sigmoid colon in addition to a high-grade obstruction and based on his findings the patient be taken to the operating room for colectomy and possible diverticular colostomy. I was asked even with this patient's pulmonary status and be involved in the postoperative care due to her age and the complexity of her medical problems. Note that this patient has been labeled to have a mild component of COPD despite her nonsmoking history. 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 She is exposed to respiratory irritants or chemicals. No recurrent pneumonias. No use of home oxygen. Exercise capacity has been limited and the patient reports some limited capacity even prior to this ongoing abdominal problems. During this current hospital stay she had a short run of atrial fibrillation she converted back to normal sinus rhythm. Echo was done and the patient is an ejection fraction of 6065% and mild aortic valve sclerosis and moderate degree of stenosis with a peak gradient across the valve of 32 and mother degree of pulmonary hypertension with a PA pressure of 53. Currently she is free of any chest pain. No cough sputum production. She is on room air oxygen. She'll be going to surgery at around 2 PM this afternoon.. 06/08/2008 and the patient is postop day #1. The patient was taken to the operating room yesterday and underwent a subtotal colectomy. Cecum was also ischemic and the patient underwent a subtotal colectomy and diverting colostomy was performed. Postop the patient was brought into the intensive care unit. She was extubated postop without any major difficulties. Overnight she continued to have episodes of low urine output. She was given a total of 2 L of IV fluid in the form of normal saline. The bicarbonate drip was also continued at the rate of 100 mL an hour. She'll be receiving a third liter for now. She is arousable and awake but a bit lethargic. Pain is under good control. NG tube is in place. Surgical site is dry clean and intact. BRIGITTE drain is also in place with minimal amount of output. No abdominal tenderness at this point in time. No major edema in lower extremities. She is hemodynamic is stable and she has not required any pressors. She is currently in a normal sinus rhythm. She converted this morning from an underlying A. fib fibrillation. Echocardiogram at shown a preserved LV function. No respiratory distress. Her white cell count is up to 34 which is an expected finding. 06/09/2018, patient is postop day #2. Doing well. Awake and alert. Following commands and answering questions. No major altered mentation or confusion. The patient has an ileostomy which is still nonfunctional at this point in time he had viable. Abdomen is soft and slightly distended. The patient is producing adequate amount of urine output. The serum bicarb is up to 30 and based on that the patient was taken off the bicarb drip and currently she is on normal saline today to have 100 mL an hour. Renal function is also stable with a creatinine of 0.9. White cell count is improving is down to 20.5. She is in normal sinus rhythm. She has occasional PVCs. No other issues otherwise for now. She remains on a combination of Rocephin and Flagyl. BRIGITTE drain is in place and the total amount of output has been 65 mL since yesterday. The neck fluid balance is +5.5 L for yesterday. 06/10/2018 patient is postop day #3. Awake and alert and he of any significant pain. Using incentive spirometer. Still nothing by mouth. Based on surgical recommendation, the patient was given a ticket tube feed yesterday at the rate of 10 mL an hour. She was unable to tolerate. She had emesis and subsequently 400 mL of aspirate was obtained from the stomach. The patient is currently nothing by mouth. The bowel sounds are still hypoactive. Surgical wound site is dry clean and intact. Her white cell count is down to 18.5. She is following commands and answering questions appropriately. BRIGITTE drain is still in place. Renal function is stable. No other significant events over the past 24 hours. Discussed the case with general surgery and were considering a PICC line and TPN for the next few days. 06/11/2018 patient is postop day #4. The patient is awake and alert. NG tube is in place. Output overnight has been only 100 mL. We are seeing more output and had ileostomy back. Surgical wound site is clean. BRIGITTE drains is still putting out some amount of drainage and the total amount of drainage was 2 25 mL for yesterday. Surgical wound site is dry clean and intact. She is afebrile. No nausea. No vomiting. No emesis. She has a PICC line and the patient was started on TPN for nutritional support through a left upper extremity PICC line. She is afebrile. She is hemodynamically stable. She is still requiring Cardizem drip for rate control today to 7.5 mg an hour. The fluid balance has been positive and the patient is a significant amount of fluid positivity and the patient will need some diuretics knowing that the chest x-rays also showing evidence of pulmonary vessel congestion development of bilateral pleural effusions. She was able to sit up on a chair yesterday. She is using incentive spirometer. No altered mentation. No agitation pH is calm and comfortable. No other significant events overnight. On 06/12/2018 patient is postop day #5. Doing well. Communicating. Awake and alert. NG tube is in place and output is minimal. Ileostomy site is putting minimal amount of bilious material. Surgical wound site is dry clean and intact. No abdominal distention. No nausea. No vomiting. She is on TPN for nutritional support. She is on Cardizem drip for rate control in regards to her chronic atrial fibrillation. She is on a combination of IV Rocephin and Flagyl. No other significant events overnight. For the most part, the patient is doing well and she was able to sit up on a chair yesterday. She is using incentive spirometer. On 06/13/2018, patient is postoperative day #6, continues to have nasogastric tube in place, patient remains on Cardizem for atrial fibrillation with RVR, and considering the patient cannot have anything orally, we'll continue Cardizem at 75 mg per hour, cardiology is addressing that situation. Patient remains on TPN for nutritional support. Remains on antibiotics in the form of Rocephin and Flagyl. Patient is arousable, relatively asymptomatic, she feels generally weak. Labs were reviewed her WBC count is 16.6 hemoglobin is 9.1 electrolytes and renal profile are normal. On 06/14/2018, patient is postoperative day #7. Her clinical status is improved , patient does not seem to be in any distress. She is now still on Cardizem, but considering the nasogastric tube was removed, and she is on liquid diet, we will switch Cardizem to oral and likely arrange for the patient to be transferred to a monitor bed on selective today. Patient is feeling better breathing easier. Chest x-ray continues to show evidence of congestive heart failure, hence the Lasix dose was increased to 40 mg IV push every 12 hours. CBC showed WBC count of 14.6 hemoglobin of 8.9 basic metabolic profile is relatively normal. On 06/15/2018, patient is postoperative day #8. Patient is resting in bed, comfortable, and in no distress. She is now on oral Cardizem, awaiting for a bed on selective, however considering the patient has been hemodynamically stable, and her cardiac arrhythmia is under control, we will arrange for the patient to be transferred to a regular medical floor with remote telemetry. Labs were reviewed WBC count is 18.9 hemoglobin is 9.6, basic metabolic profile is relatively normal and renal profile is normal. Patient is hemodynamically stable, urine output is excellent, no major issues overnight. The only abnormality since yesterday is the slight elevation in blood count. On 06/16/2018 patient seen in follow-up on medical surgical floor. Having some urinary retention issues, she required to be straight cathed, bladder was very distended, and patient subsequently had 800 mL of urine output via straight catheter. Having a similar episode this morning, and ultrasound of the bladder showed 750 mL of urine in the bladder. Complaining of bladder distention, and inability to void. Protocol patient will be straight cath again. Exacerbating the problem are the diuretics on which she remains. On Lasix 40 mg IV push every 12 hours. Has significant amount of bilateral lower extremity edema. Today's chest x-ray showed improvement of congestive heart failure and small bilateral pleural effusions. We'll obtain a repeat chest x-ray today. Patient is on oral diet, with modified consistency, however appetite is quite poor, and patient remains on TPN and lipids. Right lower abdomen ileostomy putting out liquid green output, the stoma is pink, and the appliance was just changed. FiO2 is at 4 L, and her pulse ox is 94%, afebrile, hemodynamically stable, heart rate is from 96-100 bpm, patient is on oral Cardizem. On 06/17/2018 patient seen in follow-up on medical surgical floor. She is sitting up in the chair, she has generalized weakness, pulse ox on 3 L per nasal cannula is 92%, patient's inspiratory effort is poor,shallow breaths. She is afebrile, dynamically stable, her heart rate is controlled, she continues on oral Cardizem. Today's chest x-ray has been reviewed, and showed patchy basilar infiltrates and pleural effusions, patient remains on the Lasix, she continues to diurese, and she is in -2575 ML fluid balance over the last 24 hours, the appearance of bilateral lower extremity edema is improving. Patient was upgraded to a regular diet, however her appetite remains extremely poor, and patient remains on TPN and lipids. Patient's family is at the bedside, and they state the patient is not motivated to participate in therapy. Patient was restarted on her Zoloft. Otherwise no acute complaints, Mancini catheter was placed back in for persistent urinary retention. 'Today's labs have been reviewed, WBCs 19.6, hemoglobin is 9.5, sodium is 131, chloride is 93, renal profile is relatively stable, with B UN of 48, creatinine is 1.14. Ostomy with liquid output. On oral 06/19/2018 patient seen in follow-up on medical surgical floor. More short breath today, her pulse ox is only 88% on 3 L, FiO2 was increased to 5 L, physical exam reveals diminished breath sounds and dullness at bilateral bases, strongly suspect pleural effusions. Patient's inspiratory effort has been suboptimal, her IS effort is only to 250 at best. No cough, no congestion, patient has been getting diuretics in the form of Lasix 40 mg once daily, diuresing, she is in -1790 over last 24 hours, but her weight has increased. Today's lab work has been reviewed, and showed WBC is down, to 17.7 from 23, hemoglobin is 9.0, sodium is 133, potassium is 4.2, chloride is 95, BUN is 38, and creatinine is 1.19. Renal profile has slightly improved. D-dimer was completed in view of patient's increasing shortness of breath and was found to be elevated at 6.61, this is nonspecific, and patient has been on anticoagulation in the form of subcu heparin. Afebrile. Stat chest x-ray showed worsening bilateral infiltrates with concomitant pleural effusions. Remains on IV meropenem for the sigmoid diverticulitis status post subtotal colectomy. Her ileostomy is functioning, appetite remains poor, TPN and lipids had been discontinued. On 06/20/2018 patient seen in follow-up on medical surgical floor. Much easier today, currently on 3 L per nasal cannula, her pulse ox is 91-93%. Afebrile, hemodynamically stable, no chest pain or shortness of breath. History we increased the patient's IV Lasix to twice daily, she is diuresing, she is -1400 mL fluid balance over last 24 hours. Lung sounds positive for diminished breath sounds and some crackles at the bilateral bases, no rhonchi, no wheezing. Continue encouraging incentive spirometry. Bowel sounds are hypoactive, the last many is functioning, abdomen is soft, nontender. No nausea or vomiting. White count is improving. Objective - Vital Signs Vital signs: Vital Signs Temp 99.7 F H 06/20/18 07:00 Pulse 89 06/20/18 07:00 Resp 16 06/20/18 07:00 BP 138/61 06/20/18 07:00 Pulse Ox 91 L 06/20/18 07:00 Intake & Output 06/19/18 06/20/18 06/20/18 18:59 06:59 18:59 Output Total 700 700 Balance -700 -700 Output: Urine 700 700 Other: Voiding Method Indwelling Catheter Indwelling Catheter - Exam Physical Exam: Revealed an 88-year-old female mildly short of breath, pulse ox is 88% on 3 L per nasal cannula Head: Atraumatic, normocephalic. HEENT:[Neck is supple.] [No neck masses.] [No thyromegaly.] [No JVD.] Moist mucous membranes, no icterus. Chest: [Diminished, with dullness at bilateral bases, and some crackles] Cardiac Exam: [Normal S1 and S2, no S3 gallop, no murmur.] ABDOMEN: Soft, obese. Hypoactive bowel sounds. No direct tenderness. No rebound tenderness. No guarding. Surgical site is dry clean and intact. BRIGITTE drain is in place. No evidence of abdominal distention Ileostomy site is functional. Ostomy Viable. SKIN: No rashes, no jaundice. Examination of the skin revealed no evidence of significant rashes, NEUROLOGIC:impaired short-term memory. The patient has an underlying dementia. Otherwise no focal neurologic deficit. Extremities revealed +1-2 pitting edema both in upper and lower extremities. No cyanosis. No clubbing. Lymphatics: No lymphadenopathy. - Labs CBC & Chem 7: 06/19/18 08:00 06/20/18 07:32 Labs: Abnormal Lab Results - Last 24 Hours (Table) 06/19/18 06/19/18 06/20/18 Range/Units 17:01 20:31 07:32 Sodium 133 L (137-145) mmol/L Chloride 95 L (98-107) mmol/L BUN 34 H (7-17) mg/dL Creatinine 1.14 H (0.52-1.04) mg/dL Glucose 104 H (74-99) mg/dL POC Glucose (mg/dL) 122 H 148 H (75-99) mg/dL Calcium 8.0 L (8.4-10.2) mg/dL 06/20/18 06/20/18 Range/Units 07:38 12:23 Sodium (137-145) mmol/L Chloride (98-107) mmol/L BUN (7-17) mg/dL Creatinine (0.52-1.04) mg/dL Glucose (74-99) mg/dL POC Glucose (mg/dL) 120 H 124 H (75-99) mg/dL Calcium (8.4-10.2) mg/dL Microbiology - Last 24 Hours (Table) 06/18/18 06:57 Blood Culture - Preliminary Blood No Growth after 48 hours Assessment and Plan Plan: Status post exploratory laparotomy, subtotal colectomy and diverting ileostomy postoperative day #13. 2 acute sigmoid diverticulitis complicated by bowel obstruction requiring surgery as above. 3 acute hypoxemic respiratory failure secondary to fluid overload, worsening bilateral infiltrates, and bilateral pleural effusions and cardiomegaly 4 elevated d-dimer, nonspecific, patient has been on anticoagulation heparin 5 COPD, presently inactive. 6 moderate aortic stenosis and secondary pulmonary hypertension 7 paroxysmal atrial fibrillation presently on oral Cardizem. 8 underlying dementia 9 remote history of C. difficile colitis. 10 Urinary retention in the postoperative period after removal of the Mancini catheter, and the Amncini to be reinserted back in for persistent urinary retention Recommendation: Continue encouraging deep breathing and coughing, incentive spirometry use, continue diuretics, obtain a repeat chest x-ray tomorrow morning. Continue nebulized treatments and IV antibiotics per ID service. Increase activity, physical therapy I performed a history & physical examination of the patient and discussed their management with my nurse practitioner, Tomeka Hansen. I reviewed the nurse practitioner's note and agree with the documented findings and plan of care. Lung sounds diminished, with dullness at the bases. The findings and the impression was discussed with the patient. I attest to the documentation by the nurse practitioner. Time with Patient: Less than 30
--- NOTE | 2018-06-20 17:14 | XR ---
EXAMINATION TYPE: XR chest 1V portable DATE OF EXAM: 06/20/2018 COMPARISON: Prior chest x-ray 06/19/2018 HISTORY: Pleural effusion TECHNIQUE: Single frontal view of the chest is obtained. FINDINGS: Left-sided PICC line shows the distal tip overlying the confluence of the innominate vein region. Bilateral airspace disease is present, the hemidiaphragms are obscured. Heart remains enlarge d. No evident pneumothorax. Interstitium is increased. There are overlying cardiac leads. IMPRESSION: Correlate for congestive heart failure. There may be associated pleural effusions and at electasis or edema, pneumonia not excluded
[2018-06-20 17:18] LABS: Glucose,Whole Blood 170 mg/dL (75-99)
[2018-06-20] MEDS: SODIUM CHLORIDE 0.9% 1,000 ML IV SCH (20:33)
[2018-06-20 20:41] LABS: Glucose,Whole Blood 141 mg/dL (75-99)
[2018-06-20] MEDS: ANIDULAFUNGIN 100 MG in SODIUM CHLORIDE 0.9% 100 ML IVPB SCH (22:11)
--- NOTE | 2018-06-20 23:08 | P.PN ---
Subjective Progress Note Date: 06/20/18 This is an 88-year-old female who presented to be [facility] emergency center on June 01 with complaints of increasing abdominal pain and been going on for 8 days without a bowel movement. CAT scan of the abdomen but did show sigmoid diverticulitis and patient was treated with antibiotics and conservative management. 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 Garcia on June 07. Patient was managed in the intensive care unit and progressed very slowly. She was started on TPN and lipids. She was followed by Dr. Coello for intensive care management and also by cardiology for A. fib with RVR with history of paroxysmal atrial fibrillation. She did not require vasopressor support. Around June 13June 14, NG tube was removed and patient was started on liquid diet which has been advanced. She has been on IV Lasix for fluid overload. Regarding her white count, this was increasing and peaked at 34.5 on June 08 is currently 19.6 and worsening over the last couple days. She has been afebrile since admission. Patient is eating less than 25% and remains on TPN. Dr. Garcia is ordered repeat CAT scan of the abdomen and pelvis for this afternoon. Son, Eric, is at the bedside and most history is obtained from him. Patient is able to answer simple questions but due to underlying dementia is unable to provide adequate history. Patient has also had urinary retention for which she was straight cath and Mancini catheter eventually was replaced. Patient does have a history of C. difficile colitis in 2011 treated at [facility]. 06/18/2018 reveals the patient to be more awake and alert. She is not very uncomfortable today. Is unable to state who brought the duffy at her bedside. 06/20/2018 without acute changes being noted today. Objective - Vital Signs Vital signs: Vital Signs Temp 97.5 F L 06/20/18 14:42 Pulse 88 06/20/18 19:04 Resp 16 06/20/18 14:42 BP 123/67 06/20/18 14:42 Pulse Ox 93 L 06/20/18 14:42 Intake & Output 06/20/18 06/20/18 06/21/18 06:59 18:59 06:59 Intake Total 80 Output Total 700 1650 Balance -700 -1570 Intake: IV 80 Sodium Chloride 0.9% 1, 80 000 ml @ 10 mls/hr IV . Q24H [facility] Rx#:[id number] Output: Urine 700 1650 Other: Voiding Method Indwelling Catheter Indwelling Catheter Indwelling Catheter - Exam Gen: This is a 88-year-old female. She is in bed and appears to be comfortable and in no acute distress. HEENT: Head is atraumatic, normocephalic. Pupils equal, round. Sclerae is anicteric. Conjunctiva pink. Because members of the mouth are dry NECK: Supple. No JVD. No lymphadenopathy. No thyromegaly. LUNGS: Diminished bilat bases. No wheezing. No intercostal retractions. HEART: Irregular rate and rhythm. No murmur. ABDOMEN: Soft. Bowel sounds are present. No tenderness to light palpation. Patient has ileostomy to the right lower quadrant with liquid dark brown stool. Drain to the left lower quadrant with serous drainage.. EXTREMITIES: 1+ pedal edema. No calf tenderness. Dorsalis pedis +1 bilaterally. NEUROLOGICAL: Patient is awake, alert and oriented x1. Generalized weakness noted. No focal neural deficits. - Labs CBC & Chem 7: 06/19/18 08:00 06/20/18 07:32 Labs: Abnormal Lab Results - Last 24 Hours (Table) 06/20/18 06/20/18 06/20/18 Range/Units 07:32 07:38 12:23 Sodium 133 L (137-145) mmol/L Chloride 95 L (98-107) mmol/L BUN 34 H (7-17) mg/dL Creatinine 1.14 H (0.52-1.04) mg/dL Glucose 104 H (74-99) mg/dL POC Glucose (mg/dL) 120 H 124 H (75-99) mg/dL Calcium 8.0 L (8.4-10.2) mg/dL 06/20/18 06/20/18 Range/Units 17:09 20:40 Sodium (137-145) mmol/L Chloride (98-107) mmol/L BUN (7-17) mg/dL Creatinine (0.52-1.04) mg/dL Glucose (74-99) mg/dL POC Glucose (mg/dL) 170 H 141 H (75-99) mg/dL Calcium (8.4-10.2) mg/dL Microbiology - Last 24 Hours (Table) 06/18/18 06:57 Blood Culture - Preliminary Blood No Growth after 48 hours Laboratory Results WBC 17.7 k/uL (3.8-10.6) H 06/19/18 08:00 RBC 3.20 m/uL (3.80-5.40) L 06/19/18 08:00 Hgb 9.0 gm/dL (11.4-16.0) L 06/19/18 08:00 Hct 28.9 % (34.0-46.0) L 06/19/18 08:00 MCV 90.3 fL (80.0-100.0) 06/19/18 08:00 MCH 28.0 pg (25.0-35.0) 06/19/18 08:00 MCHC 31.0 g/dL (31.0-37.0) 06/19/18 08:00 RDW 16.5 % (11.5-15.5) H 06/19/18 08:00 Plt Count 348 k/uL (150-450) 06/19/18 08:00 Neutrophils % 89 % 06/19/18 08:00 Lymphocytes % 6 % 06/19/18 08:00 Monocytes % 4 % 06/19/18 08:00 Eosinophils % 1 % 06/19/18 08:00 Basophils % 0 % 06/19/18 08:00 Neutrophils # 15.6 k/uL (1.3-7.7) H 06/19/18 08:00 Lymphocytes # 1.0 k/uL (1.0-4.8) 06/19/18 08:00 Monocytes # 0.6 k/uL (0-1.0) 06/19/18 08:00 Eosinophils # 0.1 k/uL (0-0.7) 06/19/18 08:00 Basophils # 0.0 k/uL (0-0.2) 06/19/18 08:00 Hypochromasia Slight 06/19/18 08:00 Anisocytosis Slight 06/19/18 08:00 PT 12.2 sec (9.0-12.0) H 06/07/18 09:08 INR 1.3 (<1.2) H 06/07/18 09:08 APTT 28.5 sec (22.0-30.0) 06/07/18 09:08 D-Dimer 6.61 mg/L FEU (<0.60) H 06/19/18 08:00 Sodium 133 mmol/L (137-145) L 06/20/18 07:32 Potassium 4.0 mmol/L (3.5-5.1) 06/20/18 07:32 Chloride 95 mmol/L (98-107) L 06/20/18 07:32 Carbon Dioxide 30 mmol/L (22-30) 06/20/18 07:32 Anion Gap 8 mmol/L 06/20/18 07:32 BUN 34 mg/dL (7-17) H 06/20/18 07:32 Creatinine 1.14 mg/dL (0.52-1.04) H 06/20/18 07:32 Est GFR (CKD-EPI)AfAm 50 (>60 ml/min/1.73 sqM) 06/20/18 07:32 Est GFR (CKD-EPI)NonAf 43 (>60 ml/min/1.73 sqM) 06/20/18 07:32 Glucose 104 mg/dL (74-99) H 06/20/18 07:32 POC Glucose (mg/dL) 141 mg/dL (75-99) H 06/20/18 20:40 POC Glu Test Desk Operator ID Rylee Das 06/20/18 20:[address] Glu mg/dL 137 06/17/18 07:53 Hemoglobin A1c 6.4 % (4.0-6.0) H 06/17/18 07:53 Plasma Lactic Acid Jake 0.8 mmol/L (0.7-2.0) 06/07/18 10:52 Calcium 8.0 mg/dL (8.4-10.2) L 06/20/18 07:32 Ionized Calcium Dipesh 4.5 mg/dL (4.5-5.3) 06/20/18 07:32 Phosphorus 4.4 mg/dL (2.5-4.5) 06/20/18 07:32 Magnesium 1.8 mg/dL (1.6-2.3) 06/20/18 07:32 Total Bilirubin 0.5 mg/dL (0.2-1.3) 06/07/18 09:08 AST 26 U/L (14-36) 06/07/18 09:08 ALT 33 U/L (9-52) 06/07/18 09:08 Alkaline Phosphatase 55 U/L (38-126) 06/07/18 09:08 Troponin I 0.169 ng/mL (0.000-0.034) H* 06/03/18 07:56 NT-Pro-B Natriuret Pep 7280 pg/mL 06/03/18 11:50 Total Protein 6.2 g/dL (6.3-8.2) L 06/07/18 09:08 Albumin 3.2 g/dL (3.5-5.0) L 06/07/18 09:08 Triglycerides 136 mg/dL (<150) 06/10/18 15:15 Amylase 31 U/L (30-110) 06/01/18 14:36 Lipase 18 U/L (23-300) L 06/01/18 14:36 TSH 1.270 mIU/L (0.465-4.680) 06/03/18 07:56 Urine Color Yellow 06/01/18 15:49 Urine Appearance Cloudy (Clear) H 06/01/18 15:49 Urine pH 6.0 (5.0-8.0) 06/01/18 15:49 Ur Specific [place] 1.021 (1.001-1.035) 06/01/18 15:49 Urine Protein 2+ (Negative) H 06/01/18 15:49 Urine Glucose (UA) Negative (Negative) 06/01/18 15:49 Urine Ketones Trace (Negative) H 06/01/18 15:49 Urine Blood Negative (Negative) 06/01/18 15:49 Urine Nitrite Negative (Negative) 06/01/18 15:49 Urine Bilirubin 1+ (Negative) H 06/01/18 15:49 Urine Urobilinogen 2.0 mg/dL (<2.0) 06/01/18 15:49 Ur Leukocyte Esterase Trace (Negative) H 06/01/18 15:49 Urine RBC 1 /hpf (0-5) 06/01/18 15:49 Urine WBC 12 /hpf (0-5) H 06/01/18 15:49 Ur Squamous Epith Cells 1 /hpf (0-4) 06/01/18 15:49 Urine Bacteria Rare /hpf (None) H 06/01/18 15:49 Hyaline Casts 3 /lpf (0-2) H 06/01/18 15:49 Urine Mucus Rare /hpf (None) H 06/01/18 15:49 Blood Type B Positive 06/07/18 15:15 Blood Type Confirm B Positive 06/07/18 21:18 Blood Type Recheck CABO Indicated 06/07/18 15:15 Antibody Screen NEGATIVE 06/07/18 15:15 Spec Expiration Date 06/10/2018 - 231406/07/18 15:15 Microbiology 06/18/18 06:57 Blood Blood Culture - Preliminary No Growth after 48 hours 06/02/18 19:09 Blood Blood Culture - Final No Growth after 144 hours 06/02/18 21:17 Blood Blood Culture - Final No Growth after 144 hours Assessment and Plan Assessment: 88-year-old female who is had a somewhat protracted hospitalization who is now had significant interventions including a subtotal colectomy and end ileostomy with evidence of ischemic colitis. Recent imaging shows no new abscess only some mild ileus. She is having feeding via TPN at this time. There is been some progressive leukocytosis. As noted she is not a good historian and does not seem to have significant amounts of abdominal pain but exam shows evidence of some mild diffuse tenderness. Antimicrobial therapy as transition to meropenem and antifungal therapy with Eraxis is given history, concerns to potential fungal infection or superinfection. Cultures have been obtained. The leukocytosis will be monitored. 06/19/2018 patient is stable at this time. Appears to be showing some improvement with current intravenous antibiotic therapy in addition of antifungal therapy. Leukocytosis persistent will be monitored. The follow-up computed tomography scan did show evidence of the opacification of the superior mesenteric artery. Prognosis is poor. June 20 2018 patient with little overall change except is not having much complaints of pain this afternoon. Tolerating TPN well. Leukocytosis is stable to improved. No fevers are noted. Continue current antibiotic and antifungal medications, following up with surgery does not seem to be a candidate for further surgical interventions at this time. (1) Colonic infarction Current Visit: Yes Status: Acute Code(s): K55.049 - ACUTE INFARCTION OF LARGE INTESTINE, EXTENT UNSPECIFIED SNOMED Code(s): 469255556
[2018-06-21 07:35] LABS: Glucose,Whole Blood 115 mg/dL (75-99)
[2018-06-21] MEDS: IPRATROPIUM-ALBUTEROL 3 ML NEB INHALATION SCH ×4 (07:37→19:52)
[2018-06-21] MEDS: HEPARIN SODIUM,PORCINE 5,000 UNIT/ML 1 ML VIAL SQ SCH ×2 (08:56→18:08)
[2018-06-21] MEDS: PANTOPRAZOLE 40 MG/10 ML VIAL IVP SCH (08:56)
[2018-06-21] MEDS: MEROPENEM 1 GM in SODIUM CHLORIDE 0.9% 100 ML IVPB SCH ×2 (08:56→21:58)
[2018-06-21] MEDS: DILTIAZEM ORAL 60 MG TAB PO SCH ×3 (08:57→21:59)
[2018-06-21] MEDS: FUROSEMIDE 10 MG/ML 4 ML VIAL IV SCH ×2 (08:57→21:58)
[2018-06-21] MEDS: SODIUM CHLORIDE 5% OPHTH DROPS 15 ML BTL BOTH EYES SCH ×4 (08:57→21:59)
[2018-06-21] MEDS: INSULIN ASPART 100 UNIT/ML 1 ML 10 ML VIAL SQ SCH ×4 (08:57→21:16)
[2018-06-21] MEDS: hydrALAZINE HCL 50 MG TAB PO SCH ×4 (08:57→21:59)
[2018-06-21] MEDS: traMADol 50 MG TAB PO SCH ×4 (08:58→21:20)
--- NOTE | 2018-06-21 11:25 | P.PN ---
Subjective Progress Note Date: 06/21/18 Principal diagnosis: Acute diverticulitis, completed by bowel obstruction, requiring exploratory laparotomy and subtotal colectomy 87-year-old female patient with known history of dementia presented to the hospital because of abdominal pain and constipation. Initial presentation with a 97 2018 and the patient hospital sinus. The patient had CAT scan of the abdomen that showed mild sigmoid diverticulitis. The patient continued to have abdominal discomfort and subsequent bloating and subsequent inability to pass any bowel movements. Soapsuds enemas were utilized and there was minimal stool production. She continued to have nausea and vomiting and surgery was involved in the case and the patient underwent a barium enema yesterday that showed localized area of irregular narrowing involving the sigmoid colon in addition to a high-grade obstruction and based on his findings the patient be taken to the operating room for colectomy and possible diverticular colostomy. I was asked even with this patient's pulmonary status and be involved in the postoperative care due to her age and the complexity of her medical problems. Note that this patient has been labeled to have a mild component of COPD despite her nonsmoking history. 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 She is exposed to respiratory irritants or chemicals. No recurrent pneumonias. No use of home oxygen. Exercise capacity has been limited and the patient reports some limited capacity even prior to this ongoing abdominal problems. During this current hospital stay she had a short run of atrial fibrillation she converted back to normal sinus rhythm. Echo was done and the patient is an ejection fraction of 6065% and mild aortic valve sclerosis and moderate degree of stenosis with a peak gradient across the valve of 32 and mother degree of pulmonary hypertension with a PA pressure of 53. Currently she is free of any chest pain. No cough sputum production. She is on room air oxygen. She'll be going to surgery at around 2 PM this afternoon.. 06/08/2008 and the patient is postop day #1. The patient was taken to the operating room yesterday and underwent a subtotal colectomy. Cecum was also ischemic and the patient underwent a subtotal colectomy and diverting colostomy was performed. Postop the patient was brought into the intensive care unit. She was extubated postop without any major difficulties. Overnight she continued to have episodes of low urine output. She was given a total of 2 L of IV fluid in the form of normal saline. The bicarbonate drip was also continued at the rate of 100 mL an hour. She'll be receiving a third liter for now. She is arousable and awake but a bit lethargic. Pain is under good control. NG tube is in place. Surgical site is dry clean and intact. BRIGITTE drain is also in place with minimal amount of output. No abdominal tenderness at this point in time. No major edema in lower extremities. She is hemodynamic is stable and she has not required any pressors. She is currently in a normal sinus rhythm. She converted this morning from an underlying A. fib fibrillation. Echocardiogram at shown a preserved LV function. No respiratory distress. Her white cell count is up to 34 which is an expected finding. 06/09/2018, patient is postop day #2. Doing well. Awake and alert. Following commands and answering questions. No major altered mentation or confusion. The patient has an ileostomy which is still nonfunctional at this point in time he had viable. Abdomen is soft and slightly distended. The patient is producing adequate amount of urine output. The serum bicarb is up to 30 and based on that the patient was taken off the bicarb drip and currently she is on normal saline today to have 100 mL an hour. Renal function is also stable with a creatinine of 0.9. White cell count is improving is down to 20.5. She is in normal sinus rhythm. She has occasional PVCs. No other issues otherwise for now. She remains on a combination of Rocephin and Flagyl. BRIGITTE drain is in place and the total amount of output has been 65 mL since yesterday. The neck fluid balance is +5.5 L for yesterday. 06/10/2018 patient is postop day #3. Awake and alert and he of any significant pain. Using incentive spirometer. Still nothing by mouth. Based on surgical recommendation, the patient was given a ticket tube feed yesterday at the rate of 10 mL an hour. She was unable to tolerate. She had emesis and subsequently 400 mL of aspirate was obtained from the stomach. The patient is currently nothing by mouth. The bowel sounds are still hypoactive. Surgical wound site is dry clean and intact. Her white cell count is down to 18.5. She is following commands and answering questions appropriately. BRIGITTE drain is still in place. Renal function is stable. No other significant events over the past 24 hours. Discussed the case with general surgery and were considering a PICC line and TPN for the next few days. 06/11/2018 patient is postop day #4. The patient is awake and alert. NG tube is in place. Output overnight has been only 100 mL. We are seeing more output and had ileostomy back. Surgical wound site is clean. BRIGITTE drains is still putting out some amount of drainage and the total amount of drainage was 2 25 mL for yesterday. Surgical wound site is dry clean and intact. She is afebrile. No nausea. No vomiting. No emesis. She has a PICC line and the patient was started on TPN for nutritional support through a left upper extremity PICC line. She is afebrile. She is hemodynamically stable. She is still requiring Cardizem drip for rate control today to 7.5 mg an hour. The fluid balance has been positive and the patient is a significant amount of fluid positivity and the patient will need some diuretics knowing that the chest x-rays also showing evidence of pulmonary vessel congestion development of bilateral pleural effusions. She was able to sit up on a chair yesterday. She is using incentive spirometer. No altered mentation. No agitation pH is calm and comfortable. No other significant events overnight. On 06/12/2018 patient is postop day #5. Doing well. Communicating. Awake and alert. NG tube is in place and output is minimal. Ileostomy site is putting minimal amount of bilious material. Surgical wound site is dry clean and intact. No abdominal distention. No nausea. No vomiting. She is on TPN for nutritional support. She is on Cardizem drip for rate control in regards to her chronic atrial fibrillation. She is on a combination of IV Rocephin and Flagyl. No other significant events overnight. For the most part, the patient is doing well and she was able to sit up on a chair yesterday. She is using incentive spirometer. On 06/13/2018, patient is postoperative day #6, continues to have nasogastric tube in place, patient remains on Cardizem for atrial fibrillation with RVR, and considering the patient cannot have anything orally, we'll continue Cardizem at 75 mg per hour, cardiology is addressing that situation. Patient remains on TPN for nutritional support. Remains on antibiotics in the form of Rocephin and Flagyl. Patient is arousable, relatively asymptomatic, she feels generally weak. Labs were reviewed her WBC count is 16.6 hemoglobin is 9.1 electrolytes and renal profile are normal. On 06/14/2018, patient is postoperative day #7. Her clinical status is improved , patient does not seem to be in any distress. She is now still on Cardizem, but considering the nasogastric tube was removed, and she is on liquid diet, we will switch Cardizem to oral and likely arrange for the patient to be transferred to a monitor bed on selective today. Patient is feeling better breathing easier. Chest x-ray continues to show evidence of congestive heart failure, hence the Lasix dose was increased to 40 mg IV push every 12 hours. CBC showed WBC count of 14.6 hemoglobin of 8.9 basic metabolic profile is relatively normal. On 06/15/2018, patient is postoperative day #8. Patient is resting in bed, comfortable, and in no distress. She is now on oral Cardizem, awaiting for a bed on selective, however considering the patient has been hemodynamically stable, and her cardiac arrhythmia is under control, we will arrange for the patient to be transferred to a regular medical floor with remote telemetry. Labs were reviewed WBC count is 18.9 hemoglobin is 9.6, basic metabolic profile is relatively normal and renal profile is normal. Patient is hemodynamically stable, urine output is excellent, no major issues overnight. The only abnormality since yesterday is the slight elevation in blood count. On 06/16/2018 patient seen in follow-up on medical surgical floor. Having some urinary retention issues, she required to be straight cathed, bladder was very distended, and patient subsequently had 800 mL of urine output via straight catheter. Having a similar episode this morning, and ultrasound of the bladder showed 750 mL of urine in the bladder. Complaining of bladder distention, and inability to void. Protocol patient will be straight cath again. Exacerbating the problem are the diuretics on which she remains. On Lasix 40 mg IV push every 12 hours. Has significant amount of bilateral lower extremity edema. Today's chest x-ray showed improvement of congestive heart failure and small bilateral pleural effusions. We'll obtain a repeat chest x-ray today. Patient is on oral diet, with modified consistency, however appetite is quite poor, and patient remains on TPN and lipids. Right lower abdomen ileostomy putting out liquid green output, the stoma is pink, and the appliance was just changed. FiO2 is at 4 L, and her pulse ox is 94%, afebrile, hemodynamically stable, heart rate is from 96-100 bpm, patient is on oral Cardizem. On 06/17/2018 patient seen in follow-up on medical surgical floor. She is sitting up in the chair, she has generalized weakness, pulse ox on 3 L per nasal cannula is 92%, patient's inspiratory effort is poor,shallow breaths. She is afebrile, dynamically stable, her heart rate is controlled, she continues on oral Cardizem. Today's chest x-ray has been reviewed, and showed patchy basilar infiltrates and pleural effusions, patient remains on the Lasix, she continues to diurese, and she is in -2575 ML fluid balance over the last 24 hours, the appearance of bilateral lower extremity edema is improving. Patient was upgraded to a regular diet, however her appetite remains extremely poor, and patient remains on TPN and lipids. Patient's family is at the bedside, and they state the patient is not motivated to participate in therapy. Patient was restarted on her Zoloft. Otherwise no acute complaints, Mancini catheter was placed back in for persistent urinary retention. 'Today's labs have been reviewed, WBCs 19.6, hemoglobin is 9.5, sodium is 131, chloride is 93, renal profile is relatively stable, with B UN of 48, creatinine is 1.14. Ostomy with liquid output. On oral 06/19/2018 patient seen in follow-up on medical surgical floor. More short breath today, her pulse ox is only 88% on 3 L, FiO2 was increased to 5 L, physical exam reveals diminished breath sounds and dullness at bilateral bases, strongly suspect pleural effusions. Patient's inspiratory effort has been suboptimal, her IS effort is only to 250 at best. No cough, no congestion, patient has been getting diuretics in the form of Lasix 40 mg once daily, diuresing, she is in -1790 over last 24 hours, but her weight has increased. Today's lab work has been reviewed, and showed WBC is down, to 17.7 from 23, hemoglobin is 9.0, sodium is 133, potassium is 4.2, chloride is 95, BUN is 38, and creatinine is 1.19. Renal profile has slightly improved. D-dimer was completed in view of patient's increasing shortness of breath and was found to be elevated at 6.61, this is nonspecific, and patient has been on anticoagulation in the form of subcu heparin. Afebrile. Stat chest x-ray showed worsening bilateral infiltrates with concomitant pleural effusions. Remains on IV meropenem for the sigmoid diverticulitis status post subtotal colectomy. Her ileostomy is functioning, appetite remains poor, TPN and lipids had been discontinued. On 06/20/2018 patient seen in follow-up on medical surgical floor. Much easier today, currently on 3 L per nasal cannula, her pulse ox is 91-93%. Afebrile, hemodynamically stable, no chest pain or shortness of breath. History we increased the patient's IV Lasix to twice daily, she is diuresing, she is -1400 mL fluid balance over last 24 hours. Lung sounds positive for diminished breath sounds and some crackles at the bilateral bases, no rhonchi, no wheezing. Continue encouraging incentive spirometry. Bowel sounds are hypoactive, the last many is functioning, abdomen is soft, nontender. No nausea or vomiting. White count is improving. On 06/21/2018 patient seen in follow-up on medical surgical floor. Less short of breath, seems to be comfortable, resting in bed. She is in -3120 ML fluid balance over the last 24 hours, no new chest x-rays today, yesterday's chest x- ray showed persistent pleural effusions, with adjacent atelectasis. Pulse ox on 4 L per nasal cannula is 91%. Denies any chest pain. Continues to need encouragement to do her incentive spirometry. No nausea or vomiting, abdomen is soft, appetite remains poor. No new labs today. Objective - Vital Signs Vital signs: Vital Signs Temp 98.3 F 06/21/18 05:36 Pulse 84 06/21/18 07:56 Resp 16 06/21/18 07:37 BP 129/63 06/21/18 05:36 Pulse Ox 91 L 06/21/18 07:37 Intake & Output 06/20/18 06/21/18 06/21/18 18:59 06:59 18:59 Intake Total 80 Output Total 1650 1550 Balance -1570 -1550 Weight 62 kg Intake: IV 80 Sodium Chloride 0.9% 1, 80 000 ml @ 10 mls/hr IV . Q24H [facility] Rx#:[id number] Output: Urine 1650 1250 Stool 300 Other: Voiding Method Indwelling Catheter Indwelling Catheter - Exam Physical Exam: Revealed an 88-year-old female mildly short of breath, pulse ox is 88% on 3 L per nasal cannula Head: Atraumatic, normocephalic. HEENT:[Neck is supple.] [No neck masses.] [No thyromegaly.] [No JVD.] Moist mucous membranes, no icterus. Chest: [Diminished, with dullness at bilateral bases, and some crackles] Cardiac Exam: [Normal S1 and S2, no S3 gallop, no murmur.] ABDOMEN: Soft, obese. Hypoactive bowel sounds. No direct tenderness. No rebound tenderness. No guarding. Surgical site is dry clean and intact. BRIGITTE drain is in place. No evidence of abdominal distention Ileostomy site is functional. Ostomy Viable. SKIN: No rashes, no jaundice. Examination of the skin revealed no evidence of significant rashes, NEUROLOGIC:impaired short-term memory. The patient has an underlying dementia. Otherwise no focal neurologic deficit. Extremities revealed +1-2 pitting edema both in upper and lower extremities. No cyanosis. No clubbing. Lymphatics: No lymphadenopathy. - Labs CBC & Chem 7: 06/19/18 08:00 06/20/18 07:32 Labs: Abnormal Lab Results - Last 24 Hours (Table) 06/20/18 06/20/18 06/20/18 Range/Units 12:23 17:09 20:40 POC Glucose (mg/dL) 124 H 170 H 141 H (75-99) mg/dL 06/21/18 Range/Units 07:30 POC Glucose (mg/dL) 115 H (75-99) mg/dL Microbiology - Last 24 Hours (Table) 06/18/18 06:57 Blood Culture - Preliminary Blood No Growth after 72 hours Assessment and Plan Plan: 1 Status post exploratory laparotomy, subtotal colectomy and diverting ileostomy postoperative day #14. 2 acute sigmoid diverticulitis complicated by bowel obstruction requiring surgery as above. 3 acute hypoxemic respiratory failure secondary to fluid overload, worsening bilateral infiltrates, and bilateral pleural effusions and cardiomegaly 4 elevated d-dimer, nonspecific, patient has been on anticoagulation heparin 5 COPD, presently inactive. 6 moderate aortic stenosis and secondary pulmonary hypertension 7 paroxysmal atrial fibrillation presently on oral Cardizem. 8 underlying dementia 9 remote history of C. difficile colitis. 10 Urinary retention in the postoperative period after removal of the Mancini catheter, and the Mancini to be reinserted back in for persistent urinary retention Recommendation: Continue IV diuretics, nebulized bronchodilators, will obtain repeat chest x- ray in the morning, repeat labs in the morning. Continue encouraging deep breathing and coughing, and incentive spirometry use. Wean down FiO2, encourage patient to sit up in the chair increase activity as tolerated. The decision about the IV diuretics based on tomorrow's x-ray, and clinical status. I performed a history & physical examination of the patient and discussed their management with my nurse practitioner, Tomeka Hansen. I reviewed the nurse practitioner's note and agree with the documented findings and plan of care. Lung sounds diminished, with dullness at the bases. The findings and the impression was discussed with the patient. I attest to the documentation by the nurse practitioner. Time with Patient: Less than 30
[2018-06-21 13:09] LABS: Glucose,Whole Blood 159 mg/dL (75-99)
[2018-06-21] MEDS: SERTRALINE 100 MG TAB PO SCH (13:50)
--- NOTE | 2018-06-21 14:15 | PN ---
PROGRESS NOTE CHIEF COMPLAINT: Bowel obstruction and ischemic colon. HISTORY OF PRESENT ILLNESS: This lady is starting to do a bit better. She is starting to eat. Appetite is improving. She is not nauseated. PHYSICAL EXAM: Chest demonstrates only occasional rales and rhonchi. The cardiac exam is unremarkable. There is a faint murmur. The abdomen is soft, nontender. IMPRESSION: Status post subtotal colectomy with ileostomy. PLAN: Continue the supportive care, physical therapy and try to advance her to a snf discharge soon. MMODL / IJN: [id number] /
--- NOTE | 2018-06-21 14:25 | CDI ---
Last Revision, August 2017 Documentation Clarification Form Date: 06/21/2018 2:04:00 PM From: Mary Marley RN Admit Date: 06/01/2018 6:04:00 PM Patient Name: Helen Blake Visit Number: [id number] ATTENTION: The Clinical Documentation Specialists (CDI) and [facility] Coding Staff appreciate your assistance in clarifying documentation. Please respond to the clarification below the line at the bottom and electronically sign. The CDI & [facility] Coding staff will review the response and follow-up if needed. Please note: Queries are made part of the Legal Health Record. If you have any questions, please contact the author of this message via ITS. Glenn Duarte MD A diagnosis of anemia lacks specificity to accurately reflect your patients severity of condition and clarification is needed. History/Risk Factors: S/P exploratory lap w/ subtotal colectomy and diverting ileostomy, acute hypoxemic respiratory failure, acute diastolic CHF, paroxysmal atrial fib Clinical indicators: Hemoglobin: 13.9/12.39.5/8.8/9 Hematocrit: 41.5/38.5/29.8/28.3/28.9 Treatment: Monitoring labs In order to capture the severity of condition, please clarify the type of anemia and etiology if known: Acute blood loss anemia (if this is a post-operative complication please identify if it was expected, unexpected, inherent, or intrigal to the procedure) Acute on chronic blood loss anemia Chronic blood loss anemia Drug induced anemia Nutritional anemia Anemia of chronic disease Unable to determine Other, please specify Please continue to document in your progress notes and discharge summary in order to capture severity of illness and risk of mortality. Include clinical findings that support your diagnosis. MTDD
--- NOTE | 2018-06-21 17:01 | P.PN ---
Subjective Progress Note Date: 06/21/18 Principal diagnosis: Colonic obstruction Patient complaining of fatigue. Denies abdominal pain. No vomiting. Tolerating diet. Good ostomy function. She is afebrile. Objective - Vital Signs Vital signs: Vital Signs Temp 99.5 F 06/21/18 15:00 Pulse 82 06/21/18 16:11 Resp 16 06/21/18 15:00 BP 114/55 06/21/18 15:00 Pulse Ox 97 06/21/18 15:00 Intake & Output 06/20/18 06/21/18 06/21/18 18:59 06:59 18:59 Intake Total 80 180 Output Total 1650 1550 Balance -1570 -1550 180 Weight 62 kg 62 kg Intake: IV 80 80 Sodium Chloride 0.9% 1, 80 80 000 ml @ 10 mls/hr IV . Q24H [facility] Rx#:[id number] Intake, IV Titration 100 Amount Meropenem 1 gm In Sodium 100 Chloride 0.9% 100 ml @ 200 mls/hr IVPB Q12HR [facility] Rx#:[id number] Output: Urine 1650 1250 Stool 300 Other: Voiding Method Indwelling Catheter Indwelling Catheter Indwelling Catheter - Exam Abdomen: Soft, nondistended, wounds clean, ostomy functioning - Labs CBC & Chem 7: 06/19/18 08:00 06/20/18 07:32 Labs: Abnormal Lab Results - Last 24 Hours (Table) 06/20/18 06/20/18 06/21/18 Range/Units 17:09 20:40 07:30 POC Glucose (mg/dL) 170 H 141 H 115 H (75-99) mg/dL 06/21/18 Range/Units 11:55 POC Glucose (mg/dL) 159 H (75-99) mg/dL Microbiology - Last 24 Hours (Table) 06/18/18 06:57 Blood Culture - Preliminary Blood No Growth after 72 hours Assessment and Plan (1) Sigmoid diverticulitis Narrative/Plan: Continue encouraging oral intake. Continue PTOT. Recheck CBC tomorrow. Current Visit: Yes Status: Acute Code(s): K57.32 - DVTRCLI OF LG INT W/O PERFORATION OR ABSCESS W/O BLEEDING SNOMED Code(s): 870672180
[2018-06-21 17:19] LABS: Glucose,Whole Blood 149 mg/dL (75-99)
[2018-06-21 20:38] LABS: Glucose,Whole Blood 121 mg/dL (75-99)
[2018-06-21] MEDS: ANIDULAFUNGIN 100 MG in SODIUM CHLORIDE 0.9% 100 ML IVPB SCH (21:59)
[2018-06-22] MEDS: HEPARIN SODIUM,PORCINE 5,000 UNIT/ML 1 ML VIAL SQ SCH ×3 (00:55→16:08)
[2018-06-22] MEDS: SODIUM CHLORIDE 0.9% 1,000 ML IV SCH ×2 (01:20→20:08)
[2018-06-22 07:18] LABS: Glucose,Whole Blood 124 mg/dL (75-99)
[2018-06-22] MEDS: INSULIN ASPART 100 UNIT/ML 1 ML 10 ML VIAL SQ SCH ×4 (07:32→21:37)
[2018-06-22] MEDS: IPRATROPIUM-ALBUTEROL 3 ML NEB INHALATION SCH ×4 (08:52→19:43)
[2018-06-22 09:11] LABS: Anisocytosis Slight; Basophils % (A) 0 %; Eosinophils # (A) 0.1 k/uL (0-0.7); Eosinophils % (A) 1 %; HCT 29.1 % (34.0-46.0); Hypochromasia Slight; Lymphocytes # (A) 0.7 k/uL (1.0-4.8); Lymphocytes % (A) 9 %; MCH 27.7 pg (25.0-35.0); MCHC 30.9 g/dL (31.0-37.0); MCV 89.6 fL (80.0-100.0); Mean Platelet Volume 7.7; Monocytes # (A) 0.4 k/uL (0-1.0); Monocytes % (A) 5 %; Neutrophils # (A) 6.6 k/uL (1.3-7.7); Neutrophils % (A) 83 %; Platelet Count 316 k/uL (150-450); RBC 3.25 m/uL (3.80-5.40); RDW 16.1 % (11.5-15.5); WBC 7.9 k/uL (3.8-10.6)
[2018-06-22 09:23] LABS: Calcium 7.8 mg/dL (8.4-10.2); Potassium 3.7 mmol/L (3.5-5.1)
[2018-06-22] MEDS: MEROPENEM 1 GM in SODIUM CHLORIDE 0.9% 100 ML IVPB SCH ×2 (10:03→20:13)
[2018-06-22] MEDS: traMADol 50 MG TAB PO SCH ×4 (10:08→20:12)
[2018-06-22] MEDS: SODIUM CHLORIDE 5% OPHTH DROPS 15 ML BTL BOTH EYES SCH ×4 (10:11→20:12)
[2018-06-22] MEDS: FUROSEMIDE 10 MG/ML 4 ML VIAL IV SCH ×2 (10:11→16:08)
[2018-06-22] MEDS: DILTIAZEM ORAL 60 MG TAB PO SCH ×3 (10:11→20:12)
[2018-06-22] MEDS: SERTRALINE 100 MG TAB PO SCH (10:12)
[2018-06-22] MEDS: PANTOPRAZOLE 40 MG/10 ML VIAL IVP SCH (10:12)
[2018-06-22] MEDS: hydrALAZINE HCL 50 MG TAB PO SCH ×4 (10:12→20:12)
--- NOTE | 2018-06-22 10:45 | XR ---
EXAMINATION TYPE: XR chest 1V portable DATE OF EXAM: 06/22/2018 HISTORY: Shortness of breath. COMPARISON: 06/20/2018 TECHNIQUE: Single view of the chest is submitted. FINDINGS: Demonstrated are scattered senescent parenchymal change. Left-sided PICC line is in place and is appropriately positioned. No evidence for pneumothorax. Scatt ered infiltrates pulmonary venous congestion and pleural effusions persist as well as cardiomegaly. Hilar and mediastinal structures are within normal limits. Degenerative changes are seen of the dorsal spine. IMPRESSION: 1. Left-sided PICC line is in place and is appropriately positioned. No evidence for pneumothorax. S cattered infiltrates pulmonary venous congestion and pleural effusions persist as well as cardiomegal y.
--- NOTE | 2018-06-22 10:49 | P.PN ---
<TaSarahJane M - Last Filed: 06/22/18 10:41> Subjective Progress Note Date: 06/22/18 88-year-old female seen sitting up in bed more alert and awake this morning son at bedside discharge plan is in progress defer to case management social worker moderate amount of stool in the ostomy surgical dressing dry tolerating a diet denying abdominal pain when questioning no nausea no vomiting White count down to 7.9 was 17.7 on June 19 Status post exploratory laparotomy, subtotal colectomy, diverting ileostomy Objective - Vital Signs Vital signs: Vital Signs Temp 98.1 F 06/22/18 06:10 Pulse 84 06/22/18 09:04 Resp 17 06/22/18 06:10 BP 147/71 06/22/18 06:10 Pulse Ox 97 06/22/18 06:10 Intake & Output 06/21/18 06/22/18 06/22/18 18:59 06:59 18:59 Intake Total 180 50 Output Total 500 1350 1200 Balance -320 -1350 -1150 Weight 62 kg 56.5 kg Intake: IV 80 Sodium Chloride 0.9% 1, 80 000 ml @ 10 mls/hr IV . Q24H ALY Rx#:[id number] Intake, IV Titration 100 Amount Meropenem 1 gm In Sodium 100 Chloride 0.9% 100 ml @ 200 mls/hr IVPB Q12HR ALY Rx#:[id number] Oral 50 Output: Urine 1350 800 Stool 500 400 Other: Voiding Method Indwelling Catheter Indwelling Catheter Indwelling Catheter - Exam Exam 88-year-old female sitting up in a chair more awake more alert Lungs adequate air movement bilaterally no shortness of breath noted Heart S1-S2 audible regular Abdomen soft surgical tenderness appropriate moderate amount of liquid stool in ostomy bag tolerating diet dysphagia level III no nausea no vomiting surgical dressing site dry indwelling Mancini catheter in place Extremities trace pedal edema bilaterally - Labs CBC & Chem 7: 06/22/18 08:35 06/22/18 08:35 Labs: Abnormal Lab Results - Last 24 Hours (Table) 06/21/18 06/21/18 06/21/18 Range/Units 11:55 17:11 20:37 RBC (3.80-5.40) m/uL Hgb (11.4-16.0) gm/dL Hct (34.0-46.0) % MCHC (31.0-37.0) g/dL RDW (11.5-15.5) % Lymphocytes # (1.0-4.8) k/uL Sodium (137-145) mmol/L Chloride (98-107) mmol/L Carbon Dioxide (22-30) mmol/L BUN (7-17) mg/dL Glucose (74-99) mg/dL POC Glucose (mg/dL) 159 H 149 H 121 H (75-99) mg/dL Calcium (8.4-10.2) mg/dL 06/22/18 06/22/18 06/22/18 Range/Units 07:12 08:35 08:35 RBC 3.25 L (3.80-5.40) m/uL Hgb 9.0 L (11.4-16.0) gm/dL Hct 29.1 L (34.0-46.0) % MCHC 30.9 L (31.0-37.0) g/dL RDW 16.1 H (11.5-15.5) % Lymphocytes # 0.7 L (1.0-4.8) k/uL Sodium 135 L (137-145) mmol/L Chloride 93 L (98-107) mmol/L Carbon Dioxide 35 H (22-30) mmol/L BUN 22 H (7-17) mg/dL Glucose 118 H (74-99) mg/dL POC Glucose (mg/dL) 124 H (75-99) mg/dL Calcium 7.8 L (8.4-10.2) mg/dL Microbiology - Last 24 Hours (Table) 06/18/18 06:57 Blood Culture - Preliminary Blood No Growth after 96 hours Assessment and Plan Assessment: Impression Present on admission abdominal distention suspect due to colonic ileus or distal colonic obstruction CAT scan abdomen pelvis showed suspected mild sigmoid diverticulitis obtained 2 days prior to admission Acute on chronic Constipation Present on admission leukocytosis suspect reactive Present on admission electrolyte imbalance hypokalemia corrected resolved CAT scan abdomen pelvis findings constipation and sigmoid diverticulitis some degree of colonic obstruction related to inflammatory changes sigmoid colon X-ray abdomen reports indicate evidence of colonic ileus or distal colonic obstruction Baseline dementia Paroxysmal atrial fibrillation with rapid ventricular response started on elquis Systolic ejection murmur suspect aortic stenosis Abnormal troponin cardiology following suspect related to supply and demand mismatch 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 Kincaid Continue local wound care at the wound sites PT OT eval Increase activity as tolerated The above impression and plan of care have been discussed and directed by signing physician. Jane Chappell nurse practitioner acting as scribe for signing physician. <Anival Garcia - Last Filed: 06/22/18 12:47> Objective - Vital Signs Vital signs: Vital Signs Temp 98.1 F 06/22/18 06:10 Pulse 84 06/22/18 09:04 Resp 17 06/22/18 06:10 BP 147/71 06/22/18 06:10 Pulse Ox 97 06/22/18 06:10 Intake & Output 06/21/18 06/22/18 06/22/18 18:59 06:59 18:59 Intake Total 180 50 Output Total 500 1350 1200 Balance -320 -1350 -1150 Weight 62 kg 56.5 kg Intake: IV 80 Sodium Chloride 0.9% 1, 80 000 ml @ 10 mls/hr IV . Q24H ALY Rx#:[id number] Intake, IV Titration 100 Amount Meropenem 1 gm In Sodium 100 Chloride 0.9% 100 ml @ 200 mls/hr IVPB Q12HR ALY Rx#:[id number] Oral 50 Output: Urine 1350 800 Stool 500 400 Other: Voiding Method Indwelling Catheter Indwelling Catheter Indwelling Catheter - Labs CBC & Chem 7: 06/22/18 08:35 06/22/18 08:35 Labs: Abnormal Lab Results - Last 24 Hours (Table) 06/21/18 06/21/18 06/21/18 Range/Units 11:55 17:11 20:37 RBC (3.80-5.40) m/uL Hgb (11.4-16.0) gm/dL Hct (34.0-46.0) % MCHC (31.0-37.0) g/dL RDW (11.5-15.5) % Lymphocytes # (1.0-4.8) k/uL Sodium (137-145) mmol/L Chloride (98-107) mmol/L Carbon Dioxide (22-30) mmol/L BUN (7-17) mg/dL Glucose (74-99) mg/dL POC Glucose (mg/dL) 159 H 149 H 121 H (75-99) mg/dL Calcium (8.4-10.2) mg/dL 06/22/18 06/22/18 06/22/18 Range/Units 07:12 08:35 08:35 RBC 3.25 L (3.80-5.40) m/uL Hgb 9.0 L (11.4-16.0) gm/dL Hct 29.1 L (34.0-46.0) % MCHC 30.9 L (31.0-37.0) g/dL RDW 16.1 H (11.5-15.5) % Lymphocytes # 0.7 L (1.0-4.8) k/uL Sodium 135 L (137-145) mmol/L Chloride 93 L (98-107) mmol/L Carbon Dioxide 35 H (22-30) mmol/L BUN 22 H (7-17) mg/dL Glucose 118 H (74-99) mg/dL POC Glucose (mg/dL) 124 H (75-99) mg/dL Calcium 7.8 L (8.4-10.2) mg/dL 06/22/18 Range/Units 12:00 RBC (3.80-5.40) m/uL Hgb (11.4-16.0) gm/dL Hct (34.0-46.0) % MCHC (31.0-37.0) g/dL RDW (11.5-15.5) % Lymphocytes # (1.0-4.8) k/uL Sodium (137-145) mmol/L Chloride (98-107) mmol/L Carbon Dioxide (22-30) mmol/L BUN (7-17) mg/dL Glucose (74-99) mg/dL POC Glucose (mg/dL) 159 H (75-99) mg/dL Calcium (8.4-10.2) mg/dL Microbiology - Last 24 Hours (Table) 06/18/18 06:57 Blood Culture - Preliminary Blood No Growth after 96 hours Assessment and Plan Assessment: As above. Patient doing well today. Still with poor oral intake however. Denies pain. Continue physical therapy. Continue encouraging diet. (1) Sigmoid diverticulitis Current Visit: Yes Status: Acute Code(s): K57.32 - DVTRCLI OF LG INT W/O PERFORATION OR ABSCESS W/O BLEEDING SNOMED Code(s): 754714150
--- NOTE | 2018-06-22 11:44 | P.PN ---
Subjective Progress Note Date: 06/22/18 Principal diagnosis: Acute diverticulitis, completed by bowel obstruction, requiring exploratory laparotomy and subtotal colectomy 87-year-old female patient with known history of dementia presented to the hospital because of abdominal pain and constipation. Initial presentation with a 97 2018 and the patient hospital sinus. The patient had CAT scan of the abdomen that showed mild sigmoid diverticulitis. The patient continued to have abdominal discomfort and subsequent bloating and subsequent inability to pass any bowel movements. Soapsuds enemas were utilized and there was minimal stool production. She continued to have nausea and vomiting and surgery was involved in the case and the patient underwent a barium enema yesterday that showed localized area of irregular narrowing involving the sigmoid colon in addition to a high-grade obstruction and based on his findings the patient be taken to the operating room for colectomy and possible diverticular colostomy. I was asked even with this patient's pulmonary status and be involved in the postoperative care due to her age and the complexity of her medical problems. Note that this patient has been labeled to have a mild component of COPD despite her nonsmoking history. 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 She is exposed to respiratory irritants or chemicals. No recurrent pneumonias. No use of home oxygen. Exercise capacity has been limited and the patient reports some limited capacity even prior to this ongoing abdominal problems. During this current hospital stay she had a short run of atrial fibrillation she converted back to normal sinus rhythm. Echo was done and the patient is an ejection fraction of 6065% and mild aortic valve sclerosis and moderate degree of stenosis with a peak gradient across the valve of 32 and mother degree of pulmonary hypertension with a PA pressure of 53. Currently she is free of any chest pain. No cough sputum production. She is on room air oxygen. She'll be going to surgery at around 2 PM this afternoon.. 06/08/2008 and the patient is postop day #1. The patient was taken to the operating room yesterday and underwent a subtotal colectomy. Cecum was also ischemic and the patient underwent a subtotal colectomy and diverting colostomy was performed. Postop the patient was brought into the intensive care unit. She was extubated postop without any major difficulties. Overnight she continued to have episodes of low urine output. She was given a total of 2 L of IV fluid in the form of normal saline. The bicarbonate drip was also continued at the rate of 100 mL an hour. She'll be receiving a third liter for now. She is arousable and awake but a bit lethargic. Pain is under good control. NG tube is in place. Surgical site is dry clean and intact. BRIGITTE drain is also in place with minimal amount of output. No abdominal tenderness at this point in time. No major edema in lower extremities. She is hemodynamic is stable and she has not required any pressors. She is currently in a normal sinus rhythm. She converted this morning from an underlying A. fib fibrillation. Echocardiogram at shown a preserved LV function. No respiratory distress. Her white cell count is up to 34 which is an expected finding. 06/09/2018, patient is postop day #2. Doing well. Awake and alert. Following commands and answering questions. No major altered mentation or confusion. The patient has an ileostomy which is still nonfunctional at this point in time he had viable. Abdomen is soft and slightly distended. The patient is producing adequate amount of urine output. The serum bicarb is up to 30 and based on that the patient was taken off the bicarb drip and currently she is on normal saline today to have 100 mL an hour. Renal function is also stable with a creatinine of 0.9. White cell count is improving is down to 20.5. She is in normal sinus rhythm. She has occasional PVCs. No other issues otherwise for now. She remains on a combination of Rocephin and Flagyl. BRIGITTE drain is in place and the total amount of output has been 65 mL since yesterday. The neck fluid balance is +5.5 L for yesterday. 06/10/2018 patient is postop day #3. Awake and alert and he of any significant pain. Using incentive spirometer. Still nothing by mouth. Based on surgical recommendation, the patient was given a ticket tube feed yesterday at the rate of 10 mL an hour. She was unable to tolerate. She had emesis and subsequently 400 mL of aspirate was obtained from the stomach. The patient is currently nothing by mouth. The bowel sounds are still hypoactive. Surgical wound site is dry clean and intact. Her white cell count is down to 18.5. She is following commands and answering questions appropriately. BRIGITTE drain is still in place. Renal function is stable. No other significant events over the past 24 hours. Discussed the case with general surgery and were considering a PICC line and TPN for the next few days. 06/11/2018 patient is postop day #4. The patient is awake and alert. NG tube is in place. Output overnight has been only 100 mL. We are seeing more output and had ileostomy back. Surgical wound site is clean. BRIGITTE drains is still putting out some amount of drainage and the total amount of drainage was 2 25 mL for yesterday. Surgical wound site is dry clean and intact. She is afebrile. No nausea. No vomiting. No emesis. She has a PICC line and the patient was started on TPN for nutritional support through a left upper extremity PICC line. She is afebrile. She is hemodynamically stable. She is still requiring Cardizem drip for rate control today to 7.5 mg an hour. The fluid balance has been positive and the patient is a significant amount of fluid positivity and the patient will need some diuretics knowing that the chest x-rays also showing evidence of pulmonary vessel congestion development of bilateral pleural effusions. She was able to sit up on a chair yesterday. She is using incentive spirometer. No altered mentation. No agitation pH is calm and comfortable. No other significant events overnight. On 06/12/2018 patient is postop day #5. Doing well. Communicating. Awake and alert. NG tube is in place and output is minimal. Ileostomy site is putting minimal amount of bilious material. Surgical wound site is dry clean and intact. No abdominal distention. No nausea. No vomiting. She is on TPN for nutritional support. She is on Cardizem drip for rate control in regards to her chronic atrial fibrillation. She is on a combination of IV Rocephin and Flagyl. No other significant events overnight. For the most part, the patient is doing well and she was able to sit up on a chair yesterday. She is using incentive spirometer. On 06/13/2018, patient is postoperative day #6, continues to have nasogastric tube in place, patient remains on Cardizem for atrial fibrillation with RVR, and considering the patient cannot have anything orally, we'll continue Cardizem at 75 mg per hour, cardiology is addressing that situation. Patient remains on TPN for nutritional support. Remains on antibiotics in the form of Rocephin and Flagyl. Patient is arousable, relatively asymptomatic, she feels generally weak. Labs were reviewed her WBC count is 16.6 hemoglobin is 9.1 electrolytes and renal profile are normal. On 06/14/2018, patient is postoperative day #7. Her clinical status is improved , patient does not seem to be in any distress. She is now still on Cardizem, but considering the nasogastric tube was removed, and she is on liquid diet, we will switch Cardizem to oral and likely arrange for the patient to be transferred to a monitor bed on selective today. Patient is feeling better breathing easier. Chest x-ray continues to show evidence of congestive heart failure, hence the Lasix dose was increased to 40 mg IV push every 12 hours. CBC showed WBC count of 14.6 hemoglobin of 8.9 basic metabolic profile is relatively normal. On 06/15/2018, patient is postoperative day #8. Patient is resting in bed, comfortable, and in no distress. She is now on oral Cardizem, awaiting for a bed on selective, however considering the patient has been hemodynamically stable, and her cardiac arrhythmia is under control, we will arrange for the patient to be transferred to a regular medical floor with remote telemetry. Labs were reviewed WBC count is 18.9 hemoglobin is 9.6, basic metabolic profile is relatively normal and renal profile is normal. Patient is hemodynamically stable, urine output is excellent, no major issues overnight. The only abnormality since yesterday is the slight elevation in blood count. On 06/16/2018 patient seen in follow-up on medical surgical floor. Having some urinary retention issues, she required to be straight cathed, bladder was very distended, and patient subsequently had 800 mL of urine output via straight catheter. Having a similar episode this morning, and ultrasound of the bladder showed 750 mL of urine in the bladder. Complaining of bladder distention, and inability to void. Protocol patient will be straight cath again. Exacerbating the problem are the diuretics on which she remains. On Lasix 40 mg IV push every 12 hours. Has significant amount of bilateral lower extremity edema. Today's chest x-ray showed improvement of congestive heart failure and small bilateral pleural effusions. We'll obtain a repeat chest x-ray today. Patient is on oral diet, with modified consistency, however appetite is quite poor, and patient remains on TPN and lipids. Right lower abdomen ileostomy putting out liquid green output, the stoma is pink, and the appliance was just changed. FiO2 is at 4 L, and her pulse ox is 94%, afebrile, hemodynamically stable, heart rate is from 96-100 bpm, patient is on oral Cardizem. On 06/17/2018 patient seen in follow-up on medical surgical floor. She is sitting up in the chair, she has generalized weakness, pulse ox on 3 L per nasal cannula is 92%, patient's inspiratory effort is poor,shallow breaths. She is afebrile, dynamically stable, her heart rate is controlled, she continues on oral Cardizem. Today's chest x-ray has been reviewed, and showed patchy basilar infiltrates and pleural effusions, patient remains on the Lasix, she continues to diurese, and she is in -2575 ML fluid balance over the last 24 hours, the appearance of bilateral lower extremity edema is improving. Patient was upgraded to a regular diet, however her appetite remains extremely poor, and patient remains on TPN and lipids. Patient's family is at the bedside, and they state the patient is not motivated to participate in therapy. Patient was restarted on her Zoloft. Otherwise no acute complaints, Mancini catheter was placed back in for persistent urinary retention. 'Today's labs have been reviewed, WBCs 19.6, hemoglobin is 9.5, sodium is 131, chloride is 93, renal profile is relatively stable, with B UN of 48, creatinine is 1.14. Ostomy with liquid output. On oral 06/19/2018 patient seen in follow-up on medical surgical floor. More short breath today, her pulse ox is only 88% on 3 L, FiO2 was increased to 5 L, physical exam reveals diminished breath sounds and dullness at bilateral bases, strongly suspect pleural effusions. Patient's inspiratory effort has been suboptimal, her IS effort is only to 250 at best. No cough, no congestion, patient has been getting diuretics in the form of Lasix 40 mg once daily, diuresing, she is in -1790 over last 24 hours, but her weight has increased. Today's lab work has been reviewed, and showed WBC is down, to 17.7 from 23, hemoglobin is 9.0, sodium is 133, potassium is 4.2, chloride is 95, BUN is 38, and creatinine is 1.19. Renal profile has slightly improved. D-dimer was completed in view of patient's increasing shortness of breath and was found to be elevated at 6.61, this is nonspecific, and patient has been on anticoagulation in the form of subcu heparin. Afebrile. Stat chest x-ray showed worsening bilateral infiltrates with concomitant pleural effusions. Remains on IV meropenem for the sigmoid diverticulitis status post subtotal colectomy. Her ileostomy is functioning, appetite remains poor, TPN and lipids had been discontinued. On 06/20/2018 patient seen in follow-up on medical surgical floor. Much easier today, currently on 3 L per nasal cannula, her pulse ox is 91-93%. Afebrile, hemodynamically stable, no chest pain or shortness of breath. History we increased the patient's IV Lasix to twice daily, she is diuresing, she is -1400 mL fluid balance over last 24 hours. Lung sounds positive for diminished breath sounds and some crackles at the bilateral bases, no rhonchi, no wheezing. Continue encouraging incentive spirometry. Bowel sounds are hypoactive, the last many is functioning, abdomen is soft, nontender. No nausea or vomiting. White count is improving. On 06/21/2018 patient seen in follow-up on medical surgical floor. Less short of breath, seems to be comfortable, resting in bed. She is in -3120 ML fluid balance over the last 24 hours, no new chest x-rays today, yesterday's chest x- ray showed persistent pleural effusions, with adjacent atelectasis. Pulse ox on 4 L per nasal cannula is 91%. Denies any chest pain. Continues to need encouragement to do her incentive spirometry. No nausea or vomiting, abdomen is soft, appetite remains poor. No new labs today. On 06/22/2018 patient seen in follow-up on medical surgical floor. She is resting in bed, is any acute distress, denies any worsening dyspnea. Currently on 4 L per nasal cannula, and her pulse ox is 97%, she is afebrile, lung sounds are diminished at the bases, with some bibasilar crackles. Today's chest x-ray has been reviewed, and shows persistence of bilateral pleural effusions, and pulmonary venous congestion, which appears to be slightly worsened since last chest x-ray. Patient remains on IV diuretics Lasix 40 mg every 12 hours, he is in -1150 ML fluid balance over the last 24 hours, bilateral lower extremity edema is improving, however residual edema remains. TPN has been discontinued, her appetite remains poor. Today's labs have been reviewed, WBC 7.9, hemoglobin is 9.0, sodium is 135, chloride is 93, B1 is 22, and creatinine is 1.04. Her ostomy is functioning, there is liquid output in it. Pain is controlled. Patient still requires a lot of coaching and encouragement to do her incentive spirometry. Objective - Vital Signs Vital signs: Vital Signs Temp 98.1 F 06/22/18 06:10 Pulse 84 06/22/18 09:04 Resp 17 06/22/18 06:10 BP 147/71 06/22/18 06:10 Pulse Ox 97 06/22/18 06:10 Intake & Output 06/21/18 06/22/18 06/22/18 18:59 06:59 18:59 Intake Total 180 50 Output Total 500 1350 1200 Balance -320 -1350 -1150 Weight 62 kg 56.5 kg Intake: IV 80 Sodium Chloride 0.9% 1, 80 000 ml @ 10 mls/hr IV . Q24H ALY Rx#:[id number] Intake, IV Titration 100 Amount Meropenem 1 gm In Sodium 100 Chloride 0.9% 100 ml @ 200 mls/hr IVPB Q12HR ALY Rx#:[id number] Oral 50 Output: Urine 1350 800 Stool 500 400 Other: Voiding Method Indwelling Catheter Indwelling Catheter Indwelling Catheter - Exam Physical Exam: Revealed an 88-year-old female mildly short of breath, pulse ox is 88% on 3 L per nasal cannula Head: Atraumatic, normocephalic. HEENT:[Neck is supple.] [No neck masses.] [No thyromegaly.] [No JVD.] Moist mucous membranes, no icterus. Chest: [Diminished, with dullness at bilateral bases, and some crackles] Cardiac Exam: [Normal S1 and S2, no S3 gallop, no murmur.] ABDOMEN: Soft, obese. Hypoactive bowel sounds. No direct tenderness. No rebound tenderness. No guarding. Surgical site is dry clean and intact. BRIGITTE drain is in place. No evidence of abdominal distention Ileostomy site is functional. Ostomy Viable. SKIN: No rashes, no jaundice. Examination of the skin revealed no evidence of significant rashes, NEUROLOGIC:impaired short-term memory. The patient has an underlying dementia. Otherwise no focal neurologic deficit. Extremities revealed +1-2 pitting edema both in upper and lower extremities. No cyanosis. No clubbing. Lymphatics: No lymphadenopathy. - Labs CBC & Chem 7: 06/22/18 08:35 06/22/18 08:35 Labs: Abnormal Lab Results - Last 24 Hours (Table) 06/21/18 06/21/18 06/21/18 Range/Units 11:55 17:11 20:37 RBC (3.80-5.40) m/uL Hgb (11.4-16.0) gm/dL Hct (34.0-46.0) % MCHC (31.0-37.0) g/dL RDW (11.5-15.5) % Lymphocytes # (1.0-4.8) k/uL Sodium (137-145) mmol/L Chloride (98-107) mmol/L Carbon Dioxide (22-30) mmol/L BUN (7-17) mg/dL Glucose (74-99) mg/dL POC Glucose (mg/dL) 159 H 149 H 121 H (75-99) mg/dL Calcium (8.4-10.2) mg/dL 06/22/18 06/22/18 06/22/18 Range/Units 07:12 08:35 08:35 RBC 3.25 L (3.80-5.40) m/uL Hgb 9.0 L (11.4-16.0) gm/dL Hct 29.1 L (34.0-46.0) % MCHC 30.9 L (31.0-37.0) g/dL RDW 16.1 H (11.5-15.5) % Lymphocytes # 0.7 L (1.0-4.8) k/uL Sodium 135 L (137-145) mmol/L Chloride 93 L (98-107) mmol/L Carbon Dioxide 35 H (22-30) mmol/L BUN 22 H (7-17) mg/dL Glucose 118 H (74-99) mg/dL POC Glucose (mg/dL) 124 H (75-99) mg/dL Calcium 7.8 L (8.4-10.2) mg/dL Microbiology - Last 24 Hours (Table) 06/18/18 06:57 Blood Culture - Preliminary Blood No Growth after 96 hours Assessment and Plan Plan: 1 Status post exploratory laparotomy, subtotal colectomy and diverting ileostomy postoperative day #15. 2 acute sigmoid diverticulitis complicated by bowel obstruction requiring surgery as above. 3 acute hypoxemic respiratory failure secondary to fluid overload, worsening bilateral infiltrates, and bilateral pleural effusions and cardiomegaly 4 elevated d-dimer, nonspecific, patient has been on anticoagulation heparin 5 COPD, presently inactive. 6 moderate aortic stenosis and secondary pulmonary hypertension 7 paroxysmal atrial fibrillation presently on oral Cardizem. 8 underlying dementia 9 remote history of C. difficile colitis. 10 Urinary retention in the postoperative period after removal of the Mancini catheter, and the Mancini to be reinserted back in for persistent urinary retention Recommendation: We will increase the Lasix to 40 mg every 8 hours, we'll continue to diurese the patient, continue encouraging deep breathing and coughing, and incentive spirometry use. Wean down FiO2, encourage patient to sit up in the chair increase activity as tolerated. I performed a history & physical examination of the patient and discussed their management with my nurse practitioner, Tomeka Hansen. I reviewed the nurse practitioner's note and agree with the documented findings and plan of care. Lung sounds diminished, with dullness at the bases. The findings and the impression was discussed with the patient. I attest to the documentation by the nurse practitioner. Time with Patient: Less than 30
--- NOTE | 2018-06-22 11:57 | PN ---
PROGRESS NOTE DATE OF SERVICE: 06/19/2018. CHIEF COMPLAINT: Status post subtotal colectomy for ischemic bowel. HISTORY OF PRESENT ILLNESS: This lady is coming along very slowly. She is trying to eat. She remains alert. She has had no fever, chills, and she has had no further vomiting. PHYSICAL EXAM: Hydration is adequate. Her chest is clear and cardiac exam is unremarkable. The bowel sounds are present and the abdomen is soft. IMPRESSION: Status post subtotal sigmoid resection with ileostomy. PLAN: Continue to progress her activity and diet and then arrange for fdc placement after discharge. MMODL / IJN: [id number] /
[2018-06-22 12:02] LABS: Glucose,Whole Blood 159 mg/dL (75-99)
--- NOTE | 2018-06-22 12:06 | PN ---
PROGRESS NOTE DATE OF SERVICE: 06/20/2018. CHIEF COMPLAINT: Status post subtotal colectomy. HISTORY OF PRESENT ILLNESS: This lady seems to be doing fairly well and is somewhat stable, considering everything. Her white count is still 17,700 with a hemoglobin of 9. BUN 34, the creatinine 1.14. PHYSICAL EXAM: She is awake and alert. Temperature is 99.7. Hydration is good. Head, ears, eyes, nose, mouth, and throat were normal and chest was fairly clear. Cardiac exam is unchanged. Abdomen is soft and bowel sounds are present. IMPRESSION: 1. Status post subtotal colectomy. 2. Anemia. 3. Renal failure. PLAN: Continue to monitor white count and temperature as she improves. MMODL / IJN: [id number] /
--- NOTE | 2018-06-22 12:18 | PN ---
PROGRESS NOTE DATE OF SERVICE: 06/22/2018. CHIEF COMPLAINT: Status post subtotal colectomy. HISTORY OF PRESENT ILLNESS: This lady's doing well and does not complain of pain. She is eating. She is not nauseated. PHYSICAL EXAM: Her chest is clear and cardiac exam demonstrates her murmur and she has what sounds like atrial fibrillation. IMPRESSION: Status post subtotal sigmoid colectomy. PLAN: Continue to progress and hopefully, we will move her to a mcc soon. MMODL / IJN: [id number] /
[2018-06-22 17:45] LABS: Glucose,Whole Blood 146 mg/dL (75-99)
[2018-06-22 21:20] LABS: Glucose,Whole Blood 175 mg/dL (75-99)
[2018-06-22] MEDS: ANIDULAFUNGIN 100 MG in SODIUM CHLORIDE 0.9% 100 ML IVPB SCH (21:37)
[2018-06-23] MEDS: FUROSEMIDE 10 MG/ML 4 ML VIAL IV SCH ×4 (00:20→23:07)
[2018-06-23] MEDS: HEPARIN SODIUM,PORCINE 5,000 UNIT/ML 1 ML VIAL SQ SCH ×4 (00:20→23:07)
[2018-06-23 07:19] LABS: Glucose,Whole Blood 106 mg/dL (75-99)
[2018-06-23] MEDS: IPRATROPIUM-ALBUTEROL 3 ML NEB INHALATION SCH ×4 (07:23→19:39)
[2018-06-23] MEDS: INSULIN ASPART 100 UNIT/ML 1 ML 10 ML VIAL SQ SCH ×4 (07:35→21:05)
[2018-06-23] MEDS: SODIUM CHLORIDE 5% OPHTH DROPS 15 ML BTL BOTH EYES SCH ×4 (07:52→21:42)
[2018-06-23] MEDS: SERTRALINE 100 MG TAB PO SCH (07:53)
[2018-06-23] MEDS: PANTOPRAZOLE 40 MG/10 ML VIAL IVP SCH (07:53)
[2018-06-23] MEDS: hydrALAZINE HCL 50 MG TAB PO SCH ×4 (07:53→21:41)
[2018-06-23] MEDS: traMADol 50 MG TAB PO SCH ×4 (07:53→21:41)
[2018-06-23] MEDS: DILTIAZEM ORAL 60 MG TAB PO SCH ×3 (07:53→21:41)
[2018-06-23] MEDS: MEROPENEM 1 GM in SODIUM CHLORIDE 0.9% 100 ML IVPB SCH ×2 (09:01→21:45)
--- NOTE | 2018-06-23 10:59 | P.PN ---
Subjective Progress Note Date: 06/23/18 Principal diagnosis: Acute diverticulitis, completed by bowel obstruction, requiring exploratory laparotomy and subtotal colectomy 87-year-old female patient with known history of dementia presented to the hospital because of abdominal pain and constipation. Initial presentation with a 97 2018 and the patient hospital sinus. The patient had CAT scan of the abdomen that showed mild sigmoid diverticulitis. The patient continued to have abdominal discomfort and subsequent bloating and subsequent inability to pass any bowel movements. Soapsuds enemas were utilized and there was minimal stool production. She continued to have nausea and vomiting and surgery was involved in the case and the patient underwent a barium enema yesterday that showed localized area of irregular narrowing involving the sigmoid colon in addition to a high-grade obstruction and based on his findings the patient be taken to the operating room for colectomy and possible diverticular colostomy. I was asked even with this patient's pulmonary status and be involved in the postoperative care due to her age and the complexity of her medical problems. Note that this patient has been labeled to have a mild component of COPD despite her nonsmoking history. 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 She is exposed to respiratory irritants or chemicals. No recurrent pneumonias. No use of home oxygen. Exercise capacity has been limited and the patient reports some limited capacity even prior to this ongoing abdominal problems. During this current hospital stay she had a short run of atrial fibrillation she converted back to normal sinus rhythm. Echo was done and the patient is an ejection fraction of 6065% and mild aortic valve sclerosis and moderate degree of stenosis with a peak gradient across the valve of 32 and mother degree of pulmonary hypertension with a PA pressure of 53. Currently she is free of any chest pain. No cough sputum production. She is on room air oxygen. She'll be going to surgery at around 2 PM this afternoon.. 06/08/2008 and the patient is postop day #1. The patient was taken to the operating room yesterday and underwent a subtotal colectomy. Cecum was also ischemic and the patient underwent a subtotal colectomy and diverting colostomy was performed. Postop the patient was brought into the intensive care unit. She was extubated postop without any major difficulties. Overnight she continued to have episodes of low urine output. She was given a total of 2 L of IV fluid in the form of normal saline. The bicarbonate drip was also continued at the rate of 100 mL an hour. She'll be receiving a third liter for now. She is arousable and awake but a bit lethargic. Pain is under good control. NG tube is in place. Surgical site is dry clean and intact. BRIGITTE drain is also in place with minimal amount of output. No abdominal tenderness at this point in time. No major edema in lower extremities. She is hemodynamic is stable and she has not required any pressors. She is currently in a normal sinus rhythm. She converted this morning from an underlying A. fib fibrillation. Echocardiogram at shown a preserved LV function. No respiratory distress. Her white cell count is up to 34 which is an expected finding. 06/09/2018, patient is postop day #2. Doing well. Awake and alert. Following commands and answering questions. No major altered mentation or confusion. The patient has an ileostomy which is still nonfunctional at this point in time he had viable. Abdomen is soft and slightly distended. The patient is producing adequate amount of urine output. The serum bicarb is up to 30 and based on that the patient was taken off the bicarb drip and currently she is on normal saline today to have 100 mL an hour. Renal function is also stable with a creatinine of 0.9. White cell count is improving is down to 20.5. She is in normal sinus rhythm. She has occasional PVCs. No other issues otherwise for now. She remains on a combination of Rocephin and Flagyl. BRIGITTE drain is in place and the total amount of output has been 65 mL since yesterday. The neck fluid balance is +5.5 L for yesterday. 06/10/2018 patient is postop day #3. Awake and alert and he of any significant pain. Using incentive spirometer. Still nothing by mouth. Based on surgical recommendation, the patient was given a ticket tube feed yesterday at the rate of 10 mL an hour. She was unable to tolerate. She had emesis and subsequently 400 mL of aspirate was obtained from the stomach. The patient is currently nothing by mouth. The bowel sounds are still hypoactive. Surgical wound site is dry clean and intact. Her white cell count is down to 18.5. She is following commands and answering questions appropriately. BRIGITTE drain is still in place. Renal function is stable. No other significant events over the past 24 hours. Discussed the case with general surgery and were considering a PICC line and TPN for the next few days. 06/11/2018 patient is postop day #4. The patient is awake and alert. NG tube is in place. Output overnight has been only 100 mL. We are seeing more output and had ileostomy back. Surgical wound site is clean. BRIGITTE drains is still putting out some amount of drainage and the total amount of drainage was 2 25 mL for yesterday. Surgical wound site is dry clean and intact. She is afebrile. No nausea. No vomiting. No emesis. She has a PICC line and the patient was started on TPN for nutritional support through a left upper extremity PICC line. She is afebrile. She is hemodynamically stable. She is still requiring Cardizem drip for rate control today to 7.5 mg an hour. The fluid balance has been positive and the patient is a significant amount of fluid positivity and the patient will need some diuretics knowing that the chest x-rays also showing evidence of pulmonary vessel congestion development of bilateral pleural effusions. She was able to sit up on a chair yesterday. She is using incentive spirometer. No altered mentation. No agitation pH is calm and comfortable. No other significant events overnight. On 06/12/2018 patient is postop day #5. Doing well. Communicating. Awake and alert. NG tube is in place and output is minimal. Ileostomy site is putting minimal amount of bilious material. Surgical wound site is dry clean and intact. No abdominal distention. No nausea. No vomiting. She is on TPN for nutritional support. She is on Cardizem drip for rate control in regards to her chronic atrial fibrillation. She is on a combination of IV Rocephin and Flagyl. No other significant events overnight. For the most part, the patient is doing well and she was able to sit up on a chair yesterday. She is using incentive spirometer. On 06/13/2018, patient is postoperative day #6, continues to have nasogastric tube in place, patient remains on Cardizem for atrial fibrillation with RVR, and considering the patient cannot have anything orally, we'll continue Cardizem at 75 mg per hour, cardiology is addressing that situation. Patient remains on TPN for nutritional support. Remains on antibiotics in the form of Rocephin and Flagyl. Patient is arousable, relatively asymptomatic, she feels generally weak. Labs were reviewed her WBC count is 16.6 hemoglobin is 9.1 electrolytes and renal profile are normal. On 06/14/2018, patient is postoperative day #7. Her clinical status is improved , patient does not seem to be in any distress. She is now still on Cardizem, but considering the nasogastric tube was removed, and she is on liquid diet, we will switch Cardizem to oral and likely arrange for the patient to be transferred to a monitor bed on selective today. Patient is feeling better breathing easier. Chest x-ray continues to show evidence of congestive heart failure, hence the Lasix dose was increased to 40 mg IV push every 12 hours. CBC showed WBC count of 14.6 hemoglobin of 8.9 basic metabolic profile is relatively normal. On 06/15/2018, patient is postoperative day #8. Patient is resting in bed, comfortable, and in no distress. She is now on oral Cardizem, awaiting for a bed on selective, however considering the patient has been hemodynamically stable, and her cardiac arrhythmia is under control, we will arrange for the patient to be transferred to a regular medical floor with remote telemetry. Labs were reviewed WBC count is 18.9 hemoglobin is 9.6, basic metabolic profile is relatively normal and renal profile is normal. Patient is hemodynamically stable, urine output is excellent, no major issues overnight. The only abnormality since yesterday is the slight elevation in blood count. On 06/16/2018 patient seen in follow-up on medical surgical floor. Having some urinary retention issues, she required to be straight cathed, bladder was very distended, and patient subsequently had 800 mL of urine output via straight catheter. Having a similar episode this morning, and ultrasound of the bladder showed 750 mL of urine in the bladder. Complaining of bladder distention, and inability to void. Protocol patient will be straight cath again. Exacerbating the problem are the diuretics on which she remains. On Lasix 40 mg IV push every 12 hours. Has significant amount of bilateral lower extremity edema. Today's chest x-ray showed improvement of congestive heart failure and small bilateral pleural effusions. We'll obtain a repeat chest x-ray today. Patient is on oral diet, with modified consistency, however appetite is quite poor, and patient remains on TPN and lipids. Right lower abdomen ileostomy putting out liquid green output, the stoma is pink, and the appliance was just changed. FiO2 is at 4 L, and her pulse ox is 94%, afebrile, hemodynamically stable, heart rate is from 96-100 bpm, patient is on oral Cardizem. On 06/17/2018 patient seen in follow-up on medical surgical floor. She is sitting up in the chair, she has generalized weakness, pulse ox on 3 L per nasal cannula is 92%, patient's inspiratory effort is poor,shallow breaths. She is afebrile, dynamically stable, her heart rate is controlled, she continues on oral Cardizem. Today's chest x-ray has been reviewed, and showed patchy basilar infiltrates and pleural effusions, patient remains on the Lasix, she continues to diurese, and she is in -2575 ML fluid balance over the last 24 hours, the appearance of bilateral lower extremity edema is improving. Patient was upgraded to a regular diet, however her appetite remains extremely poor, and patient remains on TPN and lipids. Patient's family is at the bedside, and they state the patient is not motivated to participate in therapy. Patient was restarted on her Zoloft. Otherwise no acute complaints, Mancini catheter was placed back in for persistent urinary retention. 'Today's labs have been reviewed, WBCs 19.6, hemoglobin is 9.5, sodium is 131, chloride is 93, renal profile is relatively stable, with B UN of 48, creatinine is 1.14. Ostomy with liquid output. On oral 06/19/2018 patient seen in follow-up on medical surgical floor. More short breath today, her pulse ox is only 88% on 3 L, FiO2 was increased to 5 L, physical exam reveals diminished breath sounds and dullness at bilateral bases, strongly suspect pleural effusions. Patient's inspiratory effort has been suboptimal, her IS effort is only to 250 at best. No cough, no congestion, patient has been getting diuretics in the form of Lasix 40 mg once daily, diuresing, she is in -1790 over last 24 hours, but her weight has increased. Today's lab work has been reviewed, and showed WBC is down, to 17.7 from 23, hemoglobin is 9.0, sodium is 133, potassium is 4.2, chloride is 95, BUN is 38, and creatinine is 1.19. Renal profile has slightly improved. D-dimer was completed in view of patient's increasing shortness of breath and was found to be elevated at 6.61, this is nonspecific, and patient has been on anticoagulation in the form of subcu heparin. Afebrile. Stat chest x-ray showed worsening bilateral infiltrates with concomitant pleural effusions. Remains on IV meropenem for the sigmoid diverticulitis status post subtotal colectomy. Her ileostomy is functioning, appetite remains poor, TPN and lipids had been discontinued. On 06/20/2018 patient seen in follow-up on medical surgical floor. Much easier today, currently on 3 L per nasal cannula, her pulse ox is 91-93%. Afebrile, hemodynamically stable, no chest pain or shortness of breath. History we increased the patient's IV Lasix to twice daily, she is diuresing, she is -1400 mL fluid balance over last 24 hours. Lung sounds positive for diminished breath sounds and some crackles at the bilateral bases, no rhonchi, no wheezing. Continue encouraging incentive spirometry. Bowel sounds are hypoactive, the last many is functioning, abdomen is soft, nontender. No nausea or vomiting. White count is improving. On 06/21/2018 patient seen in follow-up on medical surgical floor. Less short of breath, seems to be comfortable, resting in bed. She is in -3120 ML fluid balance over the last 24 hours, no new chest x-rays today, yesterday's chest x- ray showed persistent pleural effusions, with adjacent atelectasis. Pulse ox on 4 L per nasal cannula is 91%. Denies any chest pain. Continues to need encouragement to do her incentive spirometry. No nausea or vomiting, abdomen is soft, appetite remains poor. No new labs today. On 06/22/2018 patient seen in follow-up on medical surgical floor. She is resting in bed, is any acute distress, denies any worsening dyspnea. Currently on 4 L per nasal cannula, and her pulse ox is 97%, she is afebrile, lung sounds are diminished at the bases, with some bibasilar crackles. Today's chest x-ray has been reviewed, and shows persistence of bilateral pleural effusions, and pulmonary venous congestion, which appears to be slightly worsened since last chest x-ray. Patient remains on IV diuretics Lasix 40 mg every 12 hours, he is in -1150 ML fluid balance over the last 24 hours, bilateral lower extremity edema is improving, however residual edema remains. TPN has been discontinued, her appetite remains poor. Today's labs have been reviewed, WBC 7.9, hemoglobin is 9.0, sodium is 135, chloride is 93, B1 is 22, and creatinine is 1.04. Her ostomy is functioning, there is liquid output in it. Pain is controlled. Patient still requires a lot of coaching and encouragement to do her incentive spirometry. On 06/23/2018 patient seen in follow-up on medical surgical floor. She is resting comfortably in bed, in no acute distress, FiO2 is currently down to 1/2 L per nasal cannula. Denies any worsening shortness of breath, no chest pain, she has been afebrile. Yesterday we increased the patient's diuretics, and patient has produced over 6 L and urine output the last 24 hours. She is in - 5860 ML fluid balance. Repeat chest x-ray was ordered for this morning, lung sounds reveal diminished breath sounds over left lower base, some minimal crackles at the right base. No new labs today. IS effort is 500 mL today. Her ostomy is functioning, bilateral lower extremity edema is improving. Objective - Vital Signs Vital signs: Vital Signs Temp 99.2 F 06/23/18 07:00 Pulse 82 06/23/18 07:33 Resp 16 06/23/18 07:00 BP 139/72 06/23/18 07:00 Pulse Ox 96 06/23/18 07:00 Intake & Output 06/22/18 06/23/18 06/23/18 18:59 06:59 18:59 Intake Total 90 100 137 Output Total 3950 2100 Balance -386 -1999 137 Weight 56.5 kg Intake: Oral 90 100 137 Output: Urine 2750 1600 Stool 1200 500 Other: Voiding Method Indwelling Catheter Indwelling Catheter - Exam Physical Exam: Revealed an 88-year-old female mildly short of breath, pulse ox is 88% on 3 L per nasal cannula Head: Atraumatic, normocephalic. HEENT:[Neck is supple.] [No neck masses.] [No thyromegaly.] [No JVD.] Moist mucous membranes, no icterus. Chest: [Diminished at the left base, with some minimal crackles at the right base] Cardiac Exam: [Normal S1 and S2, no S3 gallop, no murmur.] ABDOMEN: Soft, obese. Hypoactive bowel sounds. No direct tenderness. No rebound tenderness. No guarding. Surgical site is dry clean and intact. BRIGITTE drain is in place. No evidence of abdominal distention Ileostomy site is functional. Ostomy Viable. SKIN: No rashes, no jaundice. Examination of the skin revealed no evidence of significant rashes, NEUROLOGIC:impaired short-term memory. The patient has an underlying dementia. Otherwise no focal neurologic deficit. Extremities revealed +1-2 pitting edema both in upper and lower extremities. No cyanosis. No clubbing. Lymphatics: No lymphadenopathy. - Labs CBC & Chem 7: 06/22/18 08:35 06/22/18 08:35 Labs: Abnormal Lab Results - Last 24 Hours (Table) 06/22/18 06/22/18 06/22/18 Range/Units 12:00 17:11 20:37 POC Glucose (mg/dL) 159 H 146 H 175 H (75-99) mg/dL 06/23/18 Range/Units 07:14 POC Glucose (mg/dL) 106 H (75-99) mg/dL Microbiology - Last 24 Hours (Table) 06/18/18 06:57 Blood Culture - Preliminary Blood No Growth after 120 hours Assessment and Plan Plan: 1 Status post exploratory laparotomy, subtotal colectomy and diverting ileostomy postoperative day #16. 2 acute sigmoid diverticulitis complicated by bowel obstruction requiring surgery as above. 3 acute hypoxemic respiratory failure secondary to fluid overload, worsening bilateral infiltrates, and bilateral pleural effusions and cardiomegaly 4 elevated d-dimer, nonspecific, patient has been on anticoagulation heparin 5 COPD, presently inactive. 6 moderate aortic stenosis and secondary pulmonary hypertension 7 paroxysmal atrial fibrillation presently on oral Cardizem. 8 underlying dementia 9 remote history of C. difficile colitis. 10 Urinary retention in the postoperative period after removal of the Mancini catheter, and the Mancini to be reinserted back in for persistent urinary retention Recommendation: Repeat chest x-ray has been ordered, however has not been completed yet. FiO2 is down to 1/2 L, patient is breathing easier, no acute complaints, she has produced over 6 L and urine output last 24 hours. Generalized edema is improving. Continue encouraging deep breathing and coughing, anticipate improvement on the chest x-ray, be able to switch the patient to oral Lasix today, and possible discharge to subacute rehab in the next 24 hours I performed a history & physical examination of the patient and discussed their management with my nurse practitioner, Tomeka Hansen. I reviewed the nurse practitioner's note and agree with the documented findings and plan of care. Lung sounds diminished, with dullness at the bases. The findings and the impression was discussed with the patient. I attest to the documentation by the nurse practitioner. Time with Patient: Less than 30
--- NOTE | 2018-06-23 12:18 | P.PN ---
<Jane Chappell M - Last Filed: 06/23/18 12:14> Subjective Progress Note Date: 06/23/18 88-year-old female seen sitting up in a chair. Nursing reports the patient did eat 75% of the tray this morning increasingly more awake and alert. Ostomy a moderate amount of stool noted. No labs pending temp this morning 99.2 Surgical dressing site dry no nausea no vomiting when questioning denying abdominal pain moderate amount of stool brown the ostomy bag. Status post exploratory laparotomy, subtotal colectomy, diverting ileostomy Objective - Vital Signs Vital signs: Vital Signs Temp 99.2 F 06/23/18 07:00 Pulse 82 06/23/18 07:33 Resp 16 06/23/18 07:00 BP 139/72 06/23/18 07:00 Pulse Ox 96 06/23/18 07:00 Intake & Output 06/22/18 06/23/18 06/23/18 18:59 06:59 18:59 Intake Total 90 100 137 Output Total 3950 2100 1600 Balance -3860 -2000 -1463 Weight 56.5 kg 56.5 kg Intake: Oral 90 100 137 Output: Urine 2750 1600 1100 Stool 1200 500 500 Other: Voiding Method Indwelling Catheter Indwelling Catheter # Voids 0 - Exam Exam 88-year-old female sitting up in a chair more awake more alert nursing reports patient did eat about 75% of the diet this morning Lungs posterior diminished at the bases nasal cannula 3 L no wheezing noted no cough noted Heart S1-S2 audible regular Abdomen soft surgical tenderness appropriate moderate amount of liquid stool in ostomy bag tolerating diet dysphagia level III with 75% of the diet taken this morning no nausea no vomiting surgical dressing site dry indwelling Mancini catheter in place Extremities trace pedal edema bilaterally - Labs CBC & Chem 7: 06/22/18 08:35 06/22/18 08:35 Labs: Abnormal Lab Results - Last 24 Hours (Table) 06/22/18 06/22/18 06/23/18 Range/Units 17:11 20:37 07:14 POC Glucose (mg/dL) 146 H 175 H 106 H (75-99) mg/dL Microbiology - Last 24 Hours (Table) 06/18/18 06:57 Blood Culture - Preliminary Blood No Growth after 120 hours Assessment and Plan Assessment: Impression Present on admission abdominal distention suspect due to colonic ileus or distal colonic obstruction CAT scan abdomen pelvis showed suspected mild sigmoid diverticulitis obtained 2 days prior to admission Acute on chronic Constipation Present on admission leukocytosis suspect reactive Present on admission electrolyte imbalance hypokalemia corrected resolved CAT scan abdomen pelvis findings constipation and sigmoid diverticulitis some degree of colonic obstruction related to inflammatory changes sigmoid colon X-ray abdomen reports indicate evidence of colonic ileus or distal colonic obstruction Baseline dementia Paroxysmal atrial fibrillation with rapid ventricular response started on elquis Systolic ejection murmur suspect aortic stenosis Abnormal troponin cardiology following suspect related to supply and demand mismatch 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 Kincaid Continue local wound care at the wound sites PT OT eval Increase activity as tolerated The above impression and plan of care have been discussed and directed by signing physician. Jane Chappell nurse practitioner acting as scribe for signing physician. <Anival Garcia - Last Filed: 06/23/18 15:26> Objective - Vital Signs Vital signs: Vital Signs Temp 99.2 F 06/23/18 07:00 Pulse 84 06/23/18 12:12 Resp 16 06/23/18 07:00 BP 139/72 06/23/18 07:00 Pulse Ox 96 06/23/18 07:00 Intake & Output 06/22/18 06/23/18 06/23/18 18:59 06:59 18:59 Intake Total 90 100 137 Output Total 3950 2100 1800 Balance -3861 -2000 -1663 Weight 56.5 kg 56.5 kg Intake: Oral 90 100 137 Output: Urine 2750 1600 1300 Stool 1200 500 500 Other: Voiding Method Indwelling Catheter Indwelling Catheter # Voids 0 - Labs CBC & Chem 7: 06/22/18 08:35 06/22/18 08:35 Labs: Abnormal Lab Results - Last 24 Hours (Table) 06/22/18 06/22/18 06/23/18 Range/Units 17:11 20:37 07:14 POC Glucose (mg/dL) 146 H 175 H 106 H (75-99) mg/dL 06/23/18 Range/Units 12:18 POC Glucose (mg/dL) 148 H (75-99) mg/dL Microbiology - Last 24 Hours (Table) 06/18/18 06:57 Blood Culture - Preliminary Blood No Growth after 120 hours Assessment and Plan Assessment: As above. Patient still feels weak. Poor oral intake. Denies abdominal pain. Wounds are clean. We'll discuss with family regarding possible PEG tube placement if oral intake remains poor. (1) Sigmoid diverticulitis Current Visit: Yes Status: Acute Code(s): K57.32 - DVTRCLI OF LG INT W/O PERFORATION OR ABSCESS W/O BLEEDING SNOMED Code(s): 477724478
[2018-06-23 12:33] LABS: Glucose,Whole Blood 148 mg/dL (75-99)
--- NOTE | 2018-06-23 15:30 | XR ---
EXAMINATION TYPE: XR chest 1V portable DATE OF EXAM: 06/23/2018 Comparison: 06/22/2018 Clinical History: 88 year-old female shortness of breath, effusions, followup Findings: Left PICC tip at the brachiocephalic vein confluence. Heart mildly enlarged. Continued small to moder ate pleural effusions with bibasilar opacities. Improving airspace opacities. Impression: Improving CHF. Most of the pulmonary edema has resolved. There is residual pulmonary vascular congest ion. Also, residual moderate pleural effusions with adjacent atelectasis and/or consolidation.
[2018-06-23 17:21] LABS: Glucose,Whole Blood 191 mg/dL (75-99)
[2018-06-23 20:52] LABS: Glucose,Whole Blood 129 mg/dL (75-99)
[2018-06-23] MEDS: SODIUM CHLORIDE 0.9% 1,000 ML IV SCH (21:36)
--- NOTE | 2018-06-23 22:05 | PN ---
PROGRESS NOTE DATE OF SERVICE: 06/23/2018. CHIEF COMPLAINT: Status post subtotal sigmoid resection. HISTORY OF PRESENT ILLNESS: This lady is slowly doing a little bit better. She is starting to the eat more. She does have some dependent edema. She is not complaining of a lot of shortness of breath. PHYSICAL EXAM: Chest is quite clear. Cardiac exam is unremarkable with a faint murmur. The abdomen is soft and nontender. Extremities demonstrate 1 or 2+ edema. IMPRESSION: 1. Status post sigmoid resection. 2. Slight fluid overload. PLAN: Continue to monitor and she can probably go to the retirement soon. MMODL / IJN: [id number] /
--- NOTE | 2018-06-23 22:49 | P.PN ---
Subjective Progress Note Date: 06/23/18 This is an 88-year-old female who presented to be [facility] emergency center on June 01 with complaints of increasing abdominal pain and been going on for 8 days without a bowel movement. CAT scan of the abdomen but did show sigmoid diverticulitis and patient was treated with antibiotics and conservative management. 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 Garcia on June 07. Patient was managed in the intensive care unit and progressed very slowly. She was started on TPN and lipids. She was followed by Dr. Coello for intensive care management and also by cardiology for A. fib with RVR with history of paroxysmal atrial fibrillation. She did not require vasopressor support. Around June 13June 14, NG tube was removed and patient was started on liquid diet which has been advanced. She has been on IV Lasix for fluid overload. Regarding her white count, this was increasing and peaked at 34.5 on June 08 is currently 19.6 and worsening over the last couple days. She has been afebrile since admission. Patient is eating less than 25% and remains on TPN. Dr. Garcia is ordered repeat CAT scan of the abdomen and pelvis for this afternoon. Son, Eric, is at the bedside and most history is obtained from him. Patient is able to answer simple questions but due to underlying dementia is unable to provide adequate history. Patient has also had urinary retention for which she was straight cath and Mancini catheter eventually was replaced. Patient does have a history of C. difficile colitis in [address] [facility]. 06/18/2018 reveals the patient to be more awake and alert. She is not very uncomfortable today. Is unable to state who brought the duffy at her bedside. 06/20/2018 without acute changes being noted today. 06/23/2018 patient is comfortable and is feeling somewhat better. She has significant volume overload him with nearly 6 L of urinary output she is now much less short of breath without new acute complaints. Objective - Vital Signs Vital signs: Vital Signs Temp 98.3 F 06/23/18 15:00 Pulse 91 06/23/18 19:50 Resp 16 06/23/18 15:46 BP 163/73 06/23/18 15:00 Pulse Ox 95 06/23/18 15:38 Intake & Output 0906/23/18 06/24/18 06:59 18:59 06:59 Intake Total 100 137 Output Total 2100 3125 Balance -1999 Weight 56.5 kg 56.5 kg 56.5 kg Intake: Oral 100 137 Output: Urine 1600 1975 Stool 500 1150 Other: Voiding Method Indwelling Catheter Indwelling Catheter # Voids 0 - Exam Gen: This is a 88-year-old female. She is in bed and appears to be comfortable and in no acute distress. HEENT: Head is atraumatic, normocephalic. Pupils equal, round. Sclerae is anicteric. Conjunctiva pink. Because members of the mouth are dry NECK: Supple. No JVD. No lymphadenopathy. No thyromegaly. LUNGS: Diminished bilat bases. No wheezing. No intercostal retractions. HEART: Irregular rate and rhythm. No murmur. ABDOMEN: Soft. Bowel sounds are present. No tenderness to light palpation. Patient has ileostomy to the right lower quadrant with liquid dark brown stool. Drain to the left lower quadrant with serous drainage.. EXTREMITIES: 1+ pedal edema. No calf tenderness. Dorsalis pedis +1 bilaterally. NEUROLOGICAL: Patient is awake, alert and oriented x1. Generalized weakness noted. No focal neural deficits. - Labs CBC & Chem 7: 06/22/18 08:35 06/22/18 08:35 Labs: Abnormal Lab Results - Last 24 Hours (Table) 06/23/18 06/23/18 06/23/18 Range/Units 07:14 12:18 17:15 POC Glucose (mg/dL) 106 H 148 H 191 H (75-99) mg/dL 06/23/18 Range/Units 20:50 POC Glucose (mg/dL) 129 H (75-99) mg/dL Microbiology - Last 24 Hours (Table) 06/18/18 06:57 Blood Culture - Preliminary Blood No Growth after 120 hours Laboratory Results WBC 7.9 k/uL (3.8-10.6) 06/22/18 08:35 RBC 3.25 m/uL (3.80-5.40) L 06/22/18 08:35 Hgb 9.0 gm/dL (11.4-16.0) L 06/22/18 08:35 Hct 29.1 % (34.0-46.0) L 06/22/18 08:35 MCV 89.6 fL (80.0-100.0) 06/22/18 08:35 MCH 27.7 pg (25.0-35.0) 06/22/18 08:35 MCHC 30.9 g/dL (31.0-37.0) L 06/22/18 08:35 RDW 16.1 % (11.5-15.5) H 06/22/18 08:35 Plt Count 316 k/uL (150-450) 06/22/18 08:35 Neutrophils % 83 % 06/22/18 08:35 Lymphocytes % 9 % 06/22/18 08:35 Monocytes % 5 % 06/22/18 08:35 Eosinophils % 1 % 06/22/18 08:35 Basophils % 0 % 06/22/18 08:35 Neutrophils # 6.6 k/uL (1.3-7.7) 06/22/18 08:35 Lymphocytes # 0.7 k/uL (1.0-4.8) L 06/22/18 08:35 Monocytes # 0.4 k/uL (0-1.0) 06/22/18 08:35 Eosinophils # 0.1 k/uL (0-0.7) 06/22/18 08:35 Basophils # 0.0 k/uL (0-0.2) 06/22/18 08:35 Hypochromasia Slight 06/22/18 08:35 Anisocytosis Slight 06/22/18 08:35 PT 12.2 sec (9.0-12.0) H 06/07/18 09:08 INR 1.3 (<1.2) H 06/07/18 09:08 APTT 28.5 sec (22.0-30.0) 06/07/18 09:08 D-Dimer 6.61 mg/L FEU (<0.60) H 06/19/18 08:00 Sodium 135 mmol/L (137-145) L 06/22/18 08:35 Potassium 3.7 mmol/L (3.5-5.1) 06/22/18 08:35 Chloride 93 mmol/L (98-107) L 06/22/18 08:35 Carbon Dioxide 35 mmol/L (22-30) H 06/22/18 08:35 Anion Gap 7 mmol/L 06/22/18 08:35 BUN 22 mg/dL (7-17) H 06/22/18 08:35 Creatinine 1.04 mg/dL (0.52-1.04) 06/22/18 08:35 Est GFR (CKD-EPI)AfAm 56 (>60 ml/min/1.73 sqM) 06/22/18 08:35 Est GFR (CKD-EPI)NonAf 48 (>60 ml/min/1.73 sqM) 06/22/18 08:35 Glucose 118 mg/dL (74-99) H 06/22/18 08:35 POC Glucose (mg/dL) 129 mg/dL (75-99) H 06/23/18 20:50 POC Glu Drop Forger Yani Estrella 06/23/18 20:[address] Glu mg/dL 137 06/17/18 07:53 Hemoglobin A1c 6.4 % (4.0-6.0) H 06/17/18 07:53 Plasma Lactic Acid Jake 0.8 mmol/L (0.7-2.0) 06/07/18 10:52 Calcium 7.8 mg/dL (8.4-10.2) L 06/22/18 08:35 Ionized Calcium Dipesh 4.5 mg/dL (4.5-5.3) 06/20/18 07:32 Phosphorus 4.4 mg/dL (2.5-4.5) 06/20/18 07:32 Magnesium 1.8 mg/dL (1.6-2.3) 06/20/18 07:32 Total Bilirubin 0.5 mg/dL (0.2-1.3) 06/07/18 09:08 AST 26 U/L (14-36) 06/07/18 09:08 ALT 33 U/L (9-52) 06/07/18 09:08 Alkaline Phosphatase 55 U/L (38-126) 06/07/18 09:08 Troponin I 0.169 ng/mL (0.000-0.034) H* 06/03/18 07:56 NT-Pro-B Natriuret Pep 7280 pg/mL 06/03/18 11:50 Total Protein 6.2 g/dL (6.3-8.2) L 06/07/18 09:08 Albumin 3.2 g/dL (3.5-5.0) L 06/07/18 09:08 Triglycerides 136 mg/dL (<150) 06/10/18 15:15 Amylase 31 U/L (30-110) 06/01/18 14:36 Lipase 18 U/L (23-300) L 06/01/18 14:36 TSH 1.270 mIU/L (0.465-4.680) 06/03/18 07:56 Urine Color Yellow 06/01/18 15:49 Urine Appearance Cloudy (Clear) H 06/01/18 15:49 Urine pH 6.0 (5.0-8.0) 06/01/18 15:49 Ur Specific Tutor Key 1.021 (1.001-1.035) 06/01/18 15:49 Urine Protein 2+ (Negative) H 06/01/18 15:49 Urine Glucose (UA) Negative (Negative) 06/01/18 15:49 Urine Ketones Trace (Negative) H 06/01/18 15:49 Urine Blood Negative (Negative) 06/01/18 15:49 Urine Nitrite Negative (Negative) 06/01/18 15:49 Urine Bilirubin 1+ (Negative) H 06/01/18 15:49 Urine Urobilinogen 2.0 mg/dL (<2.0) 06/01/18 15:49 Ur Leukocyte Esterase Trace (Negative) H 06/01/18 15:49 Urine RBC 1 /hpf (0-5) 06/01/18 15:49 Urine WBC 12 /hpf (0-5) H 06/01/18 15:49 Ur Squamous Epith Cells 1 /hpf (0-4) 06/01/18 15:49 Urine Bacteria Rare /hpf (None) H 06/01/18 15:49 Hyaline Casts 3 /lpf (0-2) H 06/01/18 15:49 Urine Mucus Rare /hpf (None) H 06/01/18 15:49 Blood Type B Positive 06/07/18 15:15 Blood Type Confirm B Positive 06/07/18 21:18 Blood Type Recheck CABO Indicated 06/07/18 15:15 Antibody Screen NEGATIVE 06/07/18 15:15 Spec Expiration Date 06/10/2018 - 8904 06/07/18 15:15 Microbiology 06/18/18 06:57 Blood Blood Culture - Preliminary No Growth after 120 hours 06/02/18 19:09 Blood Blood Culture - Final No Growth after 144 hours 06/02/18 21:17 Blood Blood Culture - Final No Growth after 144 hours Assessment and Plan Assessment: 88-year-old female who is had a somewhat protracted hospitalization who is now had significant interventions including a subtotal colectomy and end ileostomy with evidence of ischemic colitis. Recent imaging shows no new abscess only some mild ileus. She is having feeding via TPN at this time. There is been some progressive leukocytosis. As noted she is not a good historian and does not seem to have significant amounts of abdominal pain but exam shows evidence of some mild diffuse tenderness. Antimicrobial therapy as transition to meropenem and antifungal therapy with Eraxis is given history, concerns to potential fungal infection or superinfection. Cultures have been obtained. The leukocytosis will be monitored. 06/19/2018 patient is stable at this time. Appears to be showing some improvement with current intravenous antibiotic therapy in addition of antifungal therapy. Leukocytosis persistent will be monitored. The follow-up computed tomography scan did show evidence of the opacification of the superior mesenteric artery. Prognosis is poor. June 20 2018 patient with little overall change except is not having much complaints of pain this afternoon. Tolerating TPN well. Leukocytosis is stable to improved. No fevers are noted. Continue current antibiotic and antifungal medications, following up with surgery does not seem to be a candidate for further surgical interventions at this time. 06/23/2018 the patient had significant volume overload that is now resolved with diuretic therapy and a 6 L diuresis. She is much less short of breath. She will complete her several week course of intravenous antibiotic and antifungal therapy for the significant sepsis from her ischemic colitis. With her poor nutrition and improvement of her abdominal sepsis there is discussion about placement of PEG tube to improve her nutritional status. (1) Colonic infarction Current Visit: Yes Status: Acute Code(s): K55.049 - ACUTE INFARCTION OF LARGE INTESTINE, EXTENT UNSPECIFIED SNOMED Code(s): 228620687
[2018-06-23] MEDS: ANIDULAFUNGIN 100 MG in SODIUM CHLORIDE 0.9% 100 ML IVPB SCH (22:52)
[2018-06-24] MEDS: IPRATROPIUM-ALBUTEROL 3 ML NEB INHALATION SCH ×4 (07:14→20:23)
[2018-06-24 07:37] LABS: Glucose,Whole Blood 131 mg/dL (75-99)
[2018-06-24] MEDS: FUROSEMIDE 10 MG/ML 4 ML VIAL IV SCH (07:47)
[2018-06-24] MEDS: INSULIN ASPART 100 UNIT/ML 1 ML 10 ML VIAL SQ SCH ×4 (07:47→21:13)
[2018-06-24] MEDS: MEROPENEM 1 GM in SODIUM CHLORIDE 0.9% 100 ML IVPB SCH ×2 (07:47→21:36)
[2018-06-24] MEDS: HEPARIN SODIUM,PORCINE 5,000 UNIT/ML 1 ML VIAL SQ SCH ×3 (07:47→22:30)
[2018-06-24] MEDS: SODIUM CHLORIDE 5% OPHTH DROPS 15 ML BTL BOTH EYES SCH ×4 (07:48→21:38)
[2018-06-24] MEDS: PANTOPRAZOLE 40 MG/10 ML VIAL IVP SCH (07:48)
[2018-06-24] MEDS: hydrALAZINE HCL 50 MG TAB PO SCH ×4 (07:48→21:37)
[2018-06-24] MEDS: DILTIAZEM ORAL 60 MG TAB PO SCH ×3 (07:48→21:37)
[2018-06-24] MEDS: traMADol 50 MG TAB PO SCH ×4 (07:49→21:37)
[2018-06-24] MEDS: SERTRALINE 100 MG TAB PO SCH (07:49)
[2018-06-24 08:38] LABS: Basophils % (A) 0 %; Eosinophils # (A) 0.1 k/uL (0-0.7); Eosinophils % (A) 2 %; HCT 33.4 % (34.0-46.0); HGB 10.6 gm/dL (11.4-16.0); Hypochromasia Slight; Lymphocytes # (A) 1.2 k/uL (1.0-4.8); Lymphocytes % (A) 16 %; MCH 28.5 pg (25.0-35.0); MCHC 31.8 g/dL (31.0-37.0); MCV 89.6 fL (80.0-100.0); Mean Platelet Volume 7.7; Monocytes # (A) 0.4 k/uL (0-1.0); Monocytes % (A) 5 %; Neutrophils # (A) 5.6 k/uL (1.3-7.7); Neutrophils % (A) 76 %; Platelet Count 365 k/uL (150-450); RBC 3.73 m/uL (3.80-5.40); RDW 15.7 % (11.5-15.5); WBC 7.4 k/uL (3.8-10.6)
[2018-06-24 08:47] LABS: Potassium 4.1 mmol/L (3.5-5.1)
--- NOTE | 2018-06-24 09:45 | XR ---
EXAMINATION TYPE: XR chest 1V portable DATE OF EXAM: 06/24/2018 COMPARISON: 06/23/2018 INDICATION: Follow-up previous abnormal pleural effusion TECHNIQUE: Single frontal view of the chest is obtained. FINDINGS: The heart size is mildly prominent. The pulmonary vasculature is upper limits of normal. Small bilateral pleural effusions are present. PICC line enters on the left with the tip in the proxi mal superior vena cava region IMPRESSION: 1. Small bilateral pleural effusions.
--- NOTE | 2018-06-24 12:17 | P.PN ---
Subjective Progress Note Date: 06/24/18 Principal diagnosis: Acute diverticulitis, completed by bowel obstruction, requiring exploratory laparotomy and subtotal colectomy 87-year-old female patient with known history of dementia presented to the hospital because of abdominal pain and constipation. Initial presentation with a 97 2018 and the patient hospital sinus. The patient had CAT scan of the abdomen that showed mild sigmoid diverticulitis. The patient continued to have abdominal discomfort and subsequent bloating and subsequent inability to pass any bowel movements. Soapsuds enemas were utilized and there was minimal stool production. She continued to have nausea and vomiting and surgery was involved in the case and the patient underwent a barium enema yesterday that showed localized area of irregular narrowing involving the sigmoid colon in addition to a high-grade obstruction and based on his findings the patient be taken to the operating room for colectomy and possible diverticular colostomy. I was asked even with this patient's pulmonary status and be involved in the postoperative care due to her age and the complexity of her medical problems. Note that this patient has been labeled to have a mild component of COPD despite her nonsmoking history. 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 She is exposed to respiratory irritants or chemicals. No recurrent pneumonias. No use of home oxygen. Exercise capacity has been limited and the patient reports some limited capacity even prior to this ongoing abdominal problems. During this current hospital stay she had a short run of atrial fibrillation she converted back to normal sinus rhythm. Echo was done and the patient is an ejection fraction of 6065% and mild aortic valve sclerosis and moderate degree of stenosis with a peak gradient across the valve of 32 and mother degree of pulmonary hypertension with a PA pressure of 53. Currently she is free of any chest pain. No cough sputum production. She is on room air oxygen. She'll be going to surgery at around 2 PM this afternoon.. 06/08/2008 and the patient is postop day #1. The patient was taken to the operating room yesterday and underwent a subtotal colectomy. Cecum was also ischemic and the patient underwent a subtotal colectomy and diverting colostomy was performed. Postop the patient was brought into the intensive care unit. She was extubated postop without any major difficulties. Overnight she continued to have episodes of low urine output. She was given a total of 2 L of IV fluid in the form of normal saline. The bicarbonate drip was also continued at the rate of 100 mL an hour. She'll be receiving a third liter for now. She is arousable and awake but a bit lethargic. Pain is under good control. NG tube is in place. Surgical site is dry clean and intact. BRIGITTE drain is also in place with minimal amount of output. No abdominal tenderness at this point in time. No major edema in lower extremities. She is hemodynamic is stable and she has not required any pressors. She is currently in a normal sinus rhythm. She converted this morning from an underlying A. fib fibrillation. Echocardiogram at shown a preserved LV function. No respiratory distress. Her white cell count is up to 34 which is an expected finding. 06/09/2018, patient is postop day #2. Doing well. Awake and alert. Following commands and answering questions. No major altered mentation or confusion. The patient has an ileostomy which is still nonfunctional at this point in time he had viable. Abdomen is soft and slightly distended. The patient is producing adequate amount of urine output. The serum bicarb is up to 30 and based on that the patient was taken off the bicarb drip and currently she is on normal saline today to have 100 mL an hour. Renal function is also stable with a creatinine of 0.9. White cell count is improving is down to 20.5. She is in normal sinus rhythm. She has occasional PVCs. No other issues otherwise for now. She remains on a combination of Rocephin and Flagyl. BRIGITTE drain is in place and the total amount of output has been 65 mL since yesterday. The neck fluid balance is +5.5 L for yesterday. 06/10/2018 patient is postop day #3. Awake and alert and he of any significant pain. Using incentive spirometer. Still nothing by mouth. Based on surgical recommendation, the patient was given a ticket tube feed yesterday at the rate of 10 mL an hour. She was unable to tolerate. She had emesis and subsequently 400 mL of aspirate was obtained from the stomach. The patient is currently nothing by mouth. The bowel sounds are still hypoactive. Surgical wound site is dry clean and intact. Her white cell count is down to 18.5. She is following commands and answering questions appropriately. BRIGITTE drain is still in place. Renal function is stable. No other significant events over the past 24 hours. Discussed the case with general surgery and were considering a PICC line and TPN for the next few days. 06/11/2018 patient is postop day #4. The patient is awake and alert. NG tube is in place. Output overnight has been only 100 mL. We are seeing more output and had ileostomy back. Surgical wound site is clean. BRIGITTE drains is still putting out some amount of drainage and the total amount of drainage was 2 25 mL for yesterday. Surgical wound site is dry clean and intact. She is afebrile. No nausea. No vomiting. No emesis. She has a PICC line and the patient was started on TPN for nutritional support through a left upper extremity PICC line. She is afebrile. She is hemodynamically stable. She is still requiring Cardizem drip for rate control today to 7.5 mg an hour. The fluid balance has been positive and the patient is a significant amount of fluid positivity and the patient will need some diuretics knowing that the chest x-rays also showing evidence of pulmonary vessel congestion development of bilateral pleural effusions. She was able to sit up on a chair yesterday. She is using incentive spirometer. No altered mentation. No agitation pH is calm and comfortable. No other significant events overnight. On 06/12/2018 patient is postop day #5. Doing well. Communicating. Awake and alert. NG tube is in place and output is minimal. Ileostomy site is putting minimal amount of bilious material. Surgical wound site is dry clean and intact. No abdominal distention. No nausea. No vomiting. She is on TPN for nutritional support. She is on Cardizem drip for rate control in regards to her chronic atrial fibrillation. She is on a combination of IV Rocephin and Flagyl. No other significant events overnight. For the most part, the patient is doing well and she was able to sit up on a chair yesterday. She is using incentive spirometer. On 06/13/2018, patient is postoperative day #6, continues to have nasogastric tube in place, patient remains on Cardizem for atrial fibrillation with RVR, and considering the patient cannot have anything orally, we'll continue Cardizem at 75 mg per hour, cardiology is addressing that situation. Patient remains on TPN for nutritional support. Remains on antibiotics in the form of Rocephin and Flagyl. Patient is arousable, relatively asymptomatic, she feels generally weak. Labs were reviewed her WBC count is 16.6 hemoglobin is 9.1 electrolytes and renal profile are normal. On 06/14/2018, patient is postoperative day #7. Her clinical status is improved , patient does not seem to be in any distress. She is now still on Cardizem, but considering the nasogastric tube was removed, and she is on liquid diet, we will switch Cardizem to oral and likely arrange for the patient to be transferred to a monitor bed on selective today. Patient is feeling better breathing easier. Chest x-ray continues to show evidence of congestive heart failure, hence the Lasix dose was increased to 40 mg IV push every 12 hours. CBC showed WBC count of 14.6 hemoglobin of 8.9 basic metabolic profile is relatively normal. On 06/15/2018, patient is postoperative day #8. Patient is resting in bed, comfortable, and in no distress. She is now on oral Cardizem, awaiting for a bed on selective, however considering the patient has been hemodynamically stable, and her cardiac arrhythmia is under control, we will arrange for the patient to be transferred to a regular medical floor with remote telemetry. Labs were reviewed WBC count is 18.9 hemoglobin is 9.6, basic metabolic profile is relatively normal and renal profile is normal. Patient is hemodynamically stable, urine output is excellent, no major issues overnight. The only abnormality since yesterday is the slight elevation in blood count. On 06/16/2018 patient seen in follow-up on medical surgical floor. Having some urinary retention issues, she required to be straight cathed, bladder was very distended, and patient subsequently had 800 mL of urine output via straight catheter. Having a similar episode this morning, and ultrasound of the bladder showed 750 mL of urine in the bladder. Complaining of bladder distention, and inability to void. Protocol patient will be straight cath again. Exacerbating the problem are the diuretics on which she remains. On Lasix 40 mg IV push every 12 hours. Has significant amount of bilateral lower extremity edema. Today's chest x-ray showed improvement of congestive heart failure and small bilateral pleural effusions. We'll obtain a repeat chest x-ray today. Patient is on oral diet, with modified consistency, however appetite is quite poor, and patient remains on TPN and lipids. Right lower abdomen ileostomy putting out liquid green output, the stoma is pink, and the appliance was just changed. FiO2 is at 4 L, and her pulse ox is 94%, afebrile, hemodynamically stable, heart rate is from 96-100 bpm, patient is on oral Cardizem. On 06/17/2018 patient seen in follow-up on medical surgical floor. She is sitting up in the chair, she has generalized weakness, pulse ox on 3 L per nasal cannula is 92%, patient's inspiratory effort is poor,shallow breaths. She is afebrile, dynamically stable, her heart rate is controlled, she continues on oral Cardizem. Today's chest x-ray has been reviewed, and showed patchy basilar infiltrates and pleural effusions, patient remains on the Lasix, she continues to diurese, and she is in -2575 ML fluid balance over the last 24 hours, the appearance of bilateral lower extremity edema is improving. Patient was upgraded to a regular diet, however her appetite remains extremely poor, and patient remains on TPN and lipids. Patient's family is at the bedside, and they state the patient is not motivated to participate in therapy. Patient was restarted on her Zoloft. Otherwise no acute complaints, Mancini catheter was placed back in for persistent urinary retention. 'Today's labs have been reviewed, WBCs 19.6, hemoglobin is 9.5, sodium is 131, chloride is 93, renal profile is relatively stable, with B UN of 48, creatinine is 1.14. Ostomy with liquid output. On oral 06/19/2018 patient seen in follow-up on medical surgical floor. More short breath today, her pulse ox is only 88% on 3 L, FiO2 was increased to 5 L, physical exam reveals diminished breath sounds and dullness at bilateral bases, strongly suspect pleural effusions. Patient's inspiratory effort has been suboptimal, her IS effort is only to 250 at best. No cough, no congestion, patient has been getting diuretics in the form of Lasix 40 mg once daily, diuresing, she is in -1790 over last 24 hours, but her weight has increased. Today's lab work has been reviewed, and showed WBC is down, to 17.7 from 23, hemoglobin is 9.0, sodium is 133, potassium is 4.2, chloride is 95, BUN is 38, and creatinine is 1.19. Renal profile has slightly improved. D-dimer was completed in view of patient's increasing shortness of breath and was found to be elevated at 6.61, this is nonspecific, and patient has been on anticoagulation in the form of subcu heparin. Afebrile. Stat chest x-ray showed worsening bilateral infiltrates with concomitant pleural effusions. Remains on IV meropenem for the sigmoid diverticulitis status post subtotal colectomy. Her ileostomy is functioning, appetite remains poor, TPN and lipids had been discontinued. On 06/20/2018 patient seen in follow-up on medical surgical floor. Much easier today, currently on 3 L per nasal cannula, her pulse ox is 91-93%. Afebrile, hemodynamically stable, no chest pain or shortness of breath. History we increased the patient's IV Lasix to twice daily, she is diuresing, she is -1400 mL fluid balance over last 24 hours. Lung sounds positive for diminished breath sounds and some crackles at the bilateral bases, no rhonchi, no wheezing. Continue encouraging incentive spirometry. Bowel sounds are hypoactive, the last many is functioning, abdomen is soft, nontender. No nausea or vomiting. White count is improving. On 06/21/2018 patient seen in follow-up on medical surgical floor. Less short of breath, seems to be comfortable, resting in bed. She is in -3120 ML fluid balance over the last 24 hours, no new chest x-rays today, yesterday's chest x- ray showed persistent pleural effusions, with adjacent atelectasis. Pulse ox on 4 L per nasal cannula is 91%. Denies any chest pain. Continues to need encouragement to do her incentive spirometry. No nausea or vomiting, abdomen is soft, appetite remains poor. No new labs today. On 06/22/2018 patient seen in follow-up on medical surgical floor. She is resting in bed, is any acute distress, denies any worsening dyspnea. Currently on 4 L per nasal cannula, and her pulse ox is 97%, she is afebrile, lung sounds are diminished at the bases, with some bibasilar crackles. Today's chest x-ray has been reviewed, and shows persistence of bilateral pleural effusions, and pulmonary venous congestion, which appears to be slightly worsened since last chest x-ray. Patient remains on IV diuretics Lasix 40 mg every 12 hours, he is in -1150 ML fluid balance over the last 24 hours, bilateral lower extremity edema is improving, however residual edema remains. TPN has been discontinued, her appetite remains poor. Today's labs have been reviewed, WBC 7.9, hemoglobin is 9.0, sodium is 135, chloride is 93, B1 is 22, and creatinine is 1.04. Her ostomy is functioning, there is liquid output in it. Pain is controlled. Patient still requires a lot of coaching and encouragement to do her incentive spirometry. On 06/23/2018 patient seen in follow-up on medical surgical floor. She is resting comfortably in bed, in no acute distress, FiO2 is currently down to 1/2 L per nasal cannula. Denies any worsening shortness of breath, no chest pain, she has been afebrile. Yesterday we increased the patient's diuretics, and patient has produced over 6 L and urine output the last 24 hours. She is in - 5860 ML fluid balance. Repeat chest x-ray was ordered for this morning, lung sounds reveal diminished breath sounds over left lower base, some minimal crackles at the right base. No new labs today. IS effort is 500 mL today. Her ostomy is functioning, bilateral lower extremity edema is improving. On 06/16/2018 patient seen again in follow-up on medical surgical floor. She is again seen laying in bed, currently on 2 L per nasal cannula, pulse ox 94%, hemodynamically stable. Incentive spirometry effort remains poor, and patient in general does not seem to be motivated to participate in her care, physical therapy, with a deep breathing and coughing. Her son is at the bedside, and she seems to be frustrated with patient's lack of motivation. Patient has underlying history of dementia, and when asked if she had given up she states no , and that she wants to live. Today's chest x-ray has been reviewed, and showed persistent small bilateral pleural effusions. Bilateral lower extremity edema has improved. Today's labs have been reviewed, and patient is developing a degree of volume contraction alkalosis. CO2 is up to 40. Switch IV diuretics to oral Lasix. Obtained remains somewhat poor, patient is receiving nutritional supplements on her trays. Objective - Vital Signs Vital signs: Vital Signs Temp 99.9 F H 06/24/18 07:46 Pulse 92 06/24/18 11:45 Resp 16 06/24/18 07:46 BP 126/52 06/24/18 07:46 Pulse Ox 94 L 06/24/18 07:46 Intake & Output 06/23/18 06/24/18 06/24/18 18:59 06:59 18:59 Intake Total 137 60 Output Total 3125 1500 Balance -2988 -1440 Weight 56.5 kg 56.5 kg Intake: Oral 137 60 Output: Urine 1975 1200 Stool 1150 300 Other: Voiding Method Indwelling Catheter Indwelling Catheter Indwelling Catheter # Voids 0 - Exam Physical Exam: Revealed an 88-year-old female mildly short of breath, pulse ox is 88% on 3 L per nasal cannula Head: Atraumatic, normocephalic. HEENT:[Neck is supple.] [No neck masses.] [No thyromegaly.] [No JVD.] Moist mucous membranes, no icterus. Chest: [Diminished at the left base, with some minimal crackles at the right base] Cardiac Exam: [Normal S1 and S2, no S3 gallop, no murmur.] ABDOMEN: Soft, obese. Hypoactive bowel sounds. No direct tenderness. No rebound tenderness. No guarding. Surgical site is dry clean and intact. BRIGITTE drain is in place. No evidence of abdominal distention Ileostomy site is functional. Ostomy Viable. SKIN: No rashes, no jaundice. Examination of the skin revealed no evidence of significant rashes, NEUROLOGIC:impaired short-term memory. The patient has an underlying dementia. Otherwise no focal neurologic deficit. Extremities revealed improving lower extremity edema, right greater than the left. No cyanosis. No clubbing. Lymphatics: No lymphadenopathy. - Labs CBC & Chem 7: 06/24/18 07:57 06/24/18 07:57 Labs: Abnormal Lab Results - Last 24 Hours (Table) 06/23/18 06/23/18 06/23/18 Range/Units 12:18 17:15 20:50 RBC (3.80-5.40) m/uL Hgb (11.4-16.0) gm/dL Hct (34.0-46.0) % RDW (11.5-15.5) % Sodium (137-145) mmol/L Chloride (98-107) mmol/L Carbon Dioxide (22-30) mmol/L BUN (7-17) mg/dL Glucose (74-99) mg/dL POC Glucose (mg/dL) 148 H 191 H 129 H (75-99) mg/dL Calcium (8.4-10.2) mg/dL 06/24/18 06/24/18 06/24/18 Range/Units 07:20 07:57 07:57 RBC 3.73 L (3.80-5.40) m/uL Hgb 10.6 L (11.4-16.0) gm/dL Hct 33.4 L (34.0-46.0) % RDW 15.7 H (11.5-15.5) % Sodium 136 L (137-145) mmol/L Chloride 90 L (98-107) mmol/L Carbon Dioxide 40 H (22-30) mmol/L BUN 23 H (7-17) mg/dL Glucose 131 H (74-99) mg/dL POC Glucose (mg/dL) 131 H (75-99) mg/dL Calcium 8.0 L (8.4-10.2) mg/dL Microbiology - Last 24 Hours (Table) 06/18/18 06:57 Blood Culture - Final Blood No Growth after 144 hours Assessment and Plan Plan: 1 Status post exploratory laparotomy, subtotal colectomy and diverting ileostomy postoperative day #17. 2 acute sigmoid diverticulitis complicated by bowel obstruction requiring surgery as above. 3 acute hypoxemic respiratory failure secondary to fluid overload, worsening bilateral infiltrates, and bilateral pleural effusions and cardiomegaly, improving 4 elevated d-dimer, nonspecific, patient has been on anticoagulation heparin 5 COPD, presently inactive. 6 moderate aortic stenosis and secondary pulmonary hypertension 7 paroxysmal atrial fibrillation presently on oral Cardizem. 8 underlying dementia 9 remote history of C. difficile colitis. 10 Urinary retention in the postoperative period after removal of the Mancini catheter, and the Mancini to be reinserted back in for persistent urinary retention Recommendation: Switched her IV Lasix to oral Lasix 40 mg twice daily. Patient still has small bilateral pleural effusions seen on the chest x-ray, but clinically she has been approved, breathing easier, no chest pain or shortness of breath, lower extremity edema is improving. Overall patient seems to be very unmotivated to participate with therapy, her appetite remains poor. From pulmonary standpoint she is stable, we will see the patient on as-needed basis, however in view of her lack of progress, underlying dementia, multiple comorbidities, the recommendation is to discuss CODE STATUS, and recommend DO NOT RESUSCITATE CODE STATUS. I performed a history & physical examination of the patient and discussed their management with my nurse practitioner, Tomeka Hansen. I reviewed the nurse practitioner's note and agree with the documented findings and plan of care. Lung sounds diminished, with dullness at the bases. The findings and the impression was discussed with the patient. I attest to the documentation by the nurse practitioner. Time with Patient: Less than 30
[2018-06-24 12:46] LABS: Glucose,Whole Blood 128 mg/dL (75-99)
--- NOTE | 2018-06-24 14:41 | P.PN ---
<Sarah Chappellnoel Camarena - Last Filed: 06/24/18 14:31> Subjective Progress Note Date: 06/24/18 88-year-old female resting in bed seen this morning at the bedside nursing reports patient continues to have intermittent episodes of refusing to eat. This morning the patient will not take breakfast. Patient states she has no appetite. No family at bedside. Patient has a ostomy in the right lower quadrant moderate amount of stool. Surgical dressing removed kevin in place with dressings to surgical site. No redness no swelling no odor noted Status post exploratory laparotomy, subtotal colectomy, diverting ileostomy Objective - Vital Signs Vital signs: Vital Signs Temp 99.9 F H 06/24/18 07:46 Pulse 92 06/24/18 11:45 Resp 16 06/24/18 07:46 BP 126/52 06/24/18 07:46 Pulse Ox 94 L 06/24/18 07:46 Intake & Output 06/23/18 06/24/18 06/24/18 18:59 06:59 18:59 Intake Total 137 60 Output Total 3125 1500 Balance -2988 -1440 Weight 56.5 kg 56.5 kg Intake: Oral 137 60 Output: Urine 1975 1200 Stool 1150 300 Other: Voiding Method Indwelling Catheter Indwelling Catheter Indwelling Catheter # Voids 0 - Exam Exam 88-year-old female resting in bed awake alert patient has refused to take a breakfast tray this morning Lungs posterior diminished at the bases nasal cannula 3 L no wheezing noted no cough noted Heart S1-S2 audible regular Abdomen soft surgical tenderness appropriate surgical dressing removed suspected surgical incision kevin in place with dressings in place no redness along surgical site ostomy right lower quadrant moderate amount of stool noted refusing to eat this morning Extremities trace pedal edema bilaterally - Labs CBC & Chem 7: 06/24/18 07:57 06/24/18 07:57 Labs: Abnormal Lab Results - Last 24 Hours (Table) 06/23/18 06/23/18 06/24/18 Range/Units 17:15 20:50 07:20 RBC (3.80-5.40) m/uL Hgb (11.4-16.0) gm/dL Hct (34.0-46.0) % RDW (11.5-15.5) % Sodium (137-145) mmol/L Chloride (98-107) mmol/L Carbon Dioxide (22-30) mmol/L BUN (7-17) mg/dL Glucose (74-99) mg/dL POC Glucose (mg/dL) 191 H 129 H 131 H (75-99) mg/dL Calcium (8.4-10.2) mg/dL 06/24/18 06/24/18 06/24/18 Range/Units 07:57 07:57 12:29 RBC 3.73 L (3.80-5.40) m/uL Hgb 10.6 L (11.4-16.0) gm/dL Hct 33.4 L (34.0-46.0) % RDW 15.7 H (11.5-15.5) % Sodium 136 L (137-145) mmol/L Chloride 90 L (98-107) mmol/L Carbon Dioxide 40 H (22-30) mmol/L BUN 23 H (7-17) mg/dL Glucose 131 H (74-99) mg/dL POC Glucose (mg/dL) 128 H (75-99) mg/dL Calcium 8.0 L (8.4-10.2) mg/dL Microbiology - Last 24 Hours (Table) 06/18/18 06:57 Blood Culture - Final Blood No Growth after 144 hours Assessment and Plan Assessment: Impression Present on admission abdominal distention suspect due to colonic ileus or distal colonic obstruction CAT scan abdomen pelvis showed suspected mild sigmoid diverticulitis obtained 2 days prior to admission Acute on chronic Constipation Present on admission leukocytosis suspect reactive Present on admission electrolyte imbalance hypokalemia corrected resolved CAT scan abdomen pelvis findings constipation and sigmoid diverticulitis some degree of colonic obstruction related to inflammatory changes sigmoid colon X-ray abdomen reports indicate evidence of colonic ileus or distal colonic obstruction Baseline dementia Paroxysmal atrial fibrillation with rapid ventricular response started on elquis Systolic ejection murmur suspect aortic stenosis Abnormal troponin cardiology following suspect related to supply and demand mismatch 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 Kincaid Continue local wound care at the wound sites PT OT eval Increase activity as tolerated The above impression and plan of care have been discussed and directed by signing physicianNicole Chappell nurse practitioner acting as scribe for signing physician. <Anival Garcia - Last Filed: 06/24/18 15:27> Objective - Vital Signs Vital signs: Vital Signs Temp 99.9 F H 06/24/18 07:46 Pulse 92 06/24/18 11:45 Resp 16 06/24/18 07:46 BP 126/52 06/24/18 07:46 Pulse Ox 94 L 06/24/18 07:46 Intake & Output 06/23/18 06/24/18 06/24/18 18:59 06:59 18:59 Intake Total 137 60 Output Total 3125 1500 Balance -0078 -1440 Weight 56.5 kg 56.5 kg Intake: Oral 137 60 Output: Urine 1975 1200 Stool 1150 300 Other: Voiding Method Indwelling Catheter Indwelling Catheter Indwelling Catheter # Voids 0 - Labs CBC & Chem 7: 06/24/18 07:57 06/24/18 07:57 Labs: Abnormal Lab Results - Last 24 Hours (Table) 06/23/18 06/23/18 06/24/18 Range/Units 17:15 20:50 07:20 RBC (3.80-5.40) m/uL Hgb (11.4-16.0) gm/dL Hct (34.0-46.0) % RDW (11.5-15.5) % Sodium (137-145) mmol/L Chloride (98-107) mmol/L Carbon Dioxide (22-30) mmol/L BUN (7-17) mg/dL Glucose (74-99) mg/dL POC Glucose (mg/dL) 191 H 129 H 131 H (75-99) mg/dL Calcium (8.4-10.2) mg/dL 06/24/18 06/24/18 06/24/18 Range/Units 07:57 07:57 12:29 RBC 3.73 L (3.80-5.40) m/uL Hgb 10.6 L (11.4-16.0) gm/dL Hct 33.4 L (34.0-46.0) % RDW 15.7 H (11.5-15.5) % Sodium 136 L (137-145) mmol/L Chloride 90 L (98-107) mmol/L Carbon Dioxide 40 H (22-30) mmol/L BUN 23 H (7-17) mg/dL Glucose 131 H (74-99) mg/dL POC Glucose (mg/dL) 128 H (75-99) mg/dL Calcium 8.0 L (8.4-10.2) mg/dL Microbiology - Last 24 Hours (Table) 06/18/18 06:57 Blood Culture - Final Blood No Growth after 144 hours Assessment and Plan Assessment: As above. Patient denies pain. Appears slightly lethargic however. Patient's still not eating well. Will discuss further with family regarding extent of care. When I had discussed the possibility of feeding tube with the patient she was not interested. At this point I do not believe she will progress well without some form of supplemental feeding. (1) Sigmoid diverticulitis Current Visit: Yes Status: Acute Code(s): K57.32 - DVTRCLI OF LG INT W/O PERFORATION OR ABSCESS W/O BLEEDING SNOMED Code(s): 161185636
--- NOTE | 2018-06-24 14:54 | PN ---
PROGRESS NOTE DATE OF SERVICE: 06/24/2018. CHIEF COMPLAINT: Status post subtotal sigmoid resection. HISTORY OF PRESENT ILLNESS: This lady is still struggling. She remains very weak. She has been eating and GI activity seems to be restored. However, she is running low-grade temperatures at night. She was 99.9 last night. REVIEW OF SYSTEMS: She has no complaints of any abdominal pain, chest pain, chills, fever, etc. PHYSICAL EXAM: Color and hydration are reasonably normal. Chest is clear and the cardiac exam is unchanged and the abdomen is soft, nontender. IMPRESSION: 1. Status post subtotal sigmoid colectomy for ischemic bowel. 2. Low-grade temperatures. PLAN: She will not be discharged until her temperature is normal. MMODL / IJN: [id number] /
[2018-06-24] MEDS: FUROSEMIDE 40 MG TAB PO SCH (16:57)
[2018-06-24 17:13] LABS: Glucose,Whole Blood 148 mg/dL (75-99)
[2018-06-24 21:10] LABS: Glucose,Whole Blood 126 mg/dL (75-99)
[2018-06-24] MEDS: SODIUM CHLORIDE 0.9% 1,000 ML IV SCH (21:36)
[2018-06-24] MEDS: ANIDULAFUNGIN 100 MG in SODIUM CHLORIDE 0.9% 100 ML IVPB SCH (22:28)
[2018-06-25 07:31] LABS: Glucose,Whole Blood 124 mg/dL (75-99)
[2018-06-25] MEDS: IPRATROPIUM-ALBUTEROL 3 ML NEB INHALATION SCH ×4 (07:40→20:34)
[2018-06-25] MEDS: INSULIN ASPART 100 UNIT/ML 1 ML 10 ML VIAL SQ SCH ×4 (08:28→21:24)
[2018-06-25] MEDS: DILTIAZEM ORAL 60 MG TAB PO SCH ×3 (09:10→21:25)
[2018-06-25] MEDS: PANTOPRAZOLE 40 MG/10 ML VIAL IVP SCH (09:10)
[2018-06-25] MEDS: FUROSEMIDE 40 MG TAB PO SCH ×2 (09:10→17:11)
[2018-06-25] MEDS: SERTRALINE 100 MG TAB PO SCH (09:10)
[2018-06-25] MEDS: MEROPENEM 1 GM in SODIUM CHLORIDE 0.9% 100 ML IVPB SCH ×2 (09:10→21:24)
[2018-06-25] MEDS: HEPARIN SODIUM,PORCINE 5,000 UNIT/ML 1 ML VIAL SQ SCH ×2 (09:10→17:11)
[2018-06-25] MEDS: traMADol 50 MG TAB PO SCH ×4 (09:11→21:16)
--- NOTE | 2018-06-25 10:16 | P.PN ---
Subjective Progress Note Date: 06/25/18 Principal diagnosis: Colonic obstruction Patient remains fatigued. The patient's son is present at the bedside. He states that she ate over 50% of her breakfast and dinner yesterday. He said she did likewise this morning. No pain. Objective - Vital Signs Vital signs: Vital Signs Temp 97.0 F L 06/25/18 06:44 Pulse 86 06/25/18 07:52 Resp 16 06/25/18 06:44 BP 151/71 06/25/18 06:44 Pulse Ox 97 06/25/18 06:44 Intake & Output 06/24/18 06/25/18 06/25/18 18:59 06:59 18:59 Intake Total 0 Output Total 1525 1000 200 Balance -1525 -1000 -200 Weight 57 kg Intake: Oral 0 Output: Urine 1175 1000 Stool 350 200 Other: Voiding Method Indwelling Catheter Indwelling Catheter Indwelling Catheter - Exam Abdomen: Soft, nondistended, wound clean, ostomy functioning - Labs CBC & Chem 7: 06/24/18 07:57 06/24/18 07:57 Labs: Abnormal Lab Results - Last 24 Hours (Table) 06/24/18 06/24/18 06/24/18 Range/Units 12:29 17:04 20:52 POC Glucose (mg/dL) 128 H 148 H 126 H (75-99) mg/dL 06/25/18 Range/Units 07:06 POC Glucose (mg/dL) 124 H (75-99) mg/dL Microbiology - Last 24 Hours (Table) 06/18/18 06:57 Blood Culture - Final Blood No Growth after 144 hours Assessment and Plan (1) Sigmoid diverticulitis Narrative/Plan: Continue encouraging oral intake. Continue physical therapy. Once again discussed options of feeding tube placement with the son. He will consider further. Current Visit: Yes Status: Acute Code(s): K57.32 - DVTRCLI OF LG INT W/O PERFORATION OR ABSCESS W/O BLEEDING SNOMED Code(s): 626061752
[2018-06-25] MEDS: hydrALAZINE HCL 50 MG TAB PO SCH ×4 (11:29→21:25)
[2018-06-25] MEDS: SODIUM CHLORIDE 5% OPHTH DROPS 15 ML BTL BOTH EYES SCH ×4 (11:29→21:25)
[2018-06-25 11:47] LABS: Glucose,Whole Blood 162 mg/dL (75-99)
--- NOTE | 2018-06-25 14:25 | PN ---
PROGRESS NOTE CHIEF COMPLAINT: Status post partial sigmoid resection. HISTORY OF PRESENT ILLNESS: This lady is eating and doing fairly well, but she remains very weak. She will be watched over the weekend with the hopes that she can be discharged to a rehab facility early in the week. PHYSICAL EXAM: She is awake and alert and seems comfortable. Breath sounds are heard on both sides and the abdomen is soft and there are bowel sounds. IMPRESSION: Status post sigmoid resection with colostomy. PLAN: Will discharge to outpatient physical therapy as soon as she can tolerate it.. MMODL / IJN: [id number] /
--- NOTE | 2018-06-25 14:49 | MISC ---
MISCELLANOUS REPORT QUERY: Specify type of anemia: Anemia of chronic disease. MMODL / IJN: [id number] /
[2018-06-25 17:09] LABS: Glucose,Whole Blood 149 mg/dL (75-99)
[2018-06-25 20:42] LABS: Glucose,Whole Blood 199 mg/dL (75-99)
[2018-06-25] MEDS: ANIDULAFUNGIN 100 MG in SODIUM CHLORIDE 0.9% 100 ML IVPB SCH (22:42)
[2018-06-26] MEDS: HEPARIN SODIUM,PORCINE 5,000 UNIT/ML 1 ML VIAL SQ SCH ×4 (00:59→23:01)
[2018-06-26] MEDS: SODIUM CHLORIDE 0.9% 1,000 ML IV SCH ×2 (00:59→21:40)
[2018-06-26 07:29] LABS: Glucose,Whole Blood 108 mg/dL (75-99)
[2018-06-26] MEDS: IPRATROPIUM-ALBUTEROL 3 ML NEB INHALATION SCH ×4 (08:20→19:55)
[2018-06-26] MEDS: DILTIAZEM ORAL 60 MG TAB PO SCH ×3 (08:29→21:42)
[2018-06-26] MEDS: SODIUM CHLORIDE 5% OPHTH DROPS 15 ML BTL BOTH EYES SCH ×4 (08:29→21:42)
[2018-06-26] MEDS: MEROPENEM 1 GM in SODIUM CHLORIDE 0.9% 100 ML IVPB SCH ×2 (08:29→21:40)
[2018-06-26] MEDS: hydrALAZINE HCL 50 MG TAB PO SCH ×4 (08:29→21:42)
[2018-06-26] MEDS: PANTOPRAZOLE SODIUM 40 MG GRANULE PKT PO SCH (08:29)
[2018-06-26] MEDS: FUROSEMIDE 40 MG TAB PO SCH ×2 (08:29→17:20)
[2018-06-26] MEDS: SERTRALINE 100 MG TAB PO SCH (08:29)
[2018-06-26] MEDS: INSULIN ASPART 100 UNIT/ML 1 ML 10 ML VIAL SQ SCH ×4 (08:30→21:41)
[2018-06-26] MEDS: traMADol 50 MG TAB PO SCH ×4 (08:30→21:43)
--- NOTE | 2018-06-26 10:37 | P.PN ---
Subjective Progress Note Date: 06/26/18 Principal diagnosis: Colonic obstruction Patient had about 40% of her breakfast today. Family still discussing options of PEG tube placement. She feels weak. No significant improvement in her physical therapy. Objective - Vital Signs Vital signs: Vital Signs Temp 97.9 F 06/26/18 06:19 Pulse 84 06/26/18 08:32 Resp 17 06/26/18 06:19 BP 150/67 06/26/18 06:19 Pulse Ox 98 06/26/18 06:19 Intake & Output 06/25/18 06/26/18 06/26/18 18:59 06:59 18:59 Intake Total 1300 Output Total 950 1000 Balance 350 -1000 Weight 48.5 kg Intake: Intake, IV Titration 100 Amount Meropenem 1 gm In Sodium 100 Chloride 0.9% 100 ml @ 200 mls/hr IVPB Q12HR [facility] Rx#:[id number] Oral 1200 Output: Urine 600 1000 Stool 350 Other: Voiding Method Indwelling Catheter Indwelling Catheter - Exam Abdomen: Soft, nondistended, wound clean, ostomy function, nontender - Labs CBC & Chem 7: 06/24/18 07:57 06/24/18 07:57 Labs: Abnormal Lab Results - Last 24 Hours (Table) 06/25/18 06/25/18 06/25/18 Range/Units 11:24 16:50 20:40 POC Glucose (mg/dL) 162 H 149 H 199 H (75-99) mg/dL 06/26/18 Range/Units 07:09 POC Glucose (mg/dL) 108 H (75-99) mg/dL Assessment and Plan (1) Sigmoid diverticulitis Narrative/Plan: Continue encouraging diet. Possible PEG tube. Discharge planning. Current Visit: Yes Status: Acute Code(s): K57.32 - DVTRCLI OF LG INT W/O PERFORATION OR ABSCESS W/O BLEEDING SNOMED Code(s): 209766846
[2018-06-26 11:27] LABS: Glucose,Whole Blood 142 mg/dL (75-99)
--- NOTE | 2018-06-26 16:26 | PN ---
PROGRESS NOTE DATE OF SERVICE: 06/26/2018 I am covering for Dr. Ronquillo. INTERIM HISTORY: This 88-year-old woman who was admitted with sigmoid diverticulitis, underwent exploratory laparotomy and subtotal colectomy and diverting ileostomy. The patient is being worked up for any PEG tube placement also. No chest pain. No palpitations. No fever. EXAM: The patient is confused. Pulse 83, blood pressure 120/59, respirations 16, temperature 97.5, pulse ox 97% on 2 L. HEENT: Conjunctivae normal. NECK: No jugular venous distention. Cardiovascular: S1, S2 muffled. RESPIRATORY: Breath sounds diminished in the bases. A few scattered rhonchi and crackles. ABDOMEN: Soft, nontender. No masses palpable. Legs are no edema. Central nervous system: No focal deficits. LABORATORY DATA: Glucose is 148, 142. ASSESSMENT: 1. Acute sigmoid diverticulitis, status post sigmoid resection, colostomy. 2. History of chronic obstructive pulmonary disease, asthma. 3. Gastroesophageal reflux disease. 4. Dementia. 5. Hypertension. RECOMMENDATIONS AND DISCUSSION: Recommend to continue current management. Symptomatic treatment. The PEG tube options to be addressed by surgery and the patient's family otherwise Dr. Ronquillo will follow tomorrow. Possible ECF rehab. Further recommendations to follow. MMODL / IJN: [id number] /
[2018-06-26 16:59] LABS: Glucose,Whole Blood 145 mg/dL (75-99)
[2018-06-26 21:08] LABS: Glucose,Whole Blood 154 mg/dL (75-99)
[2018-06-26] MEDS: ANIDULAFUNGIN 100 MG in SODIUM CHLORIDE 0.9% 100 ML IVPB SCH (23:00)
[2018-06-27] MEDS: IPRATROPIUM-ALBUTEROL 3 ML NEB INHALATION SCH ×4 (07:09→19:10)
[2018-06-27 07:14] LABS: Glucose,Whole Blood 136 mg/dL (75-99)
--- NOTE | 2018-06-27 08:30 | P.PN ---
Progress Note - Text Progress Note Date: 06/27/18 Spoke with the patient's son by phone this morning. Patient still with poor oral intake. They are agreeable to PEG tube placement. Scheduled for EGD with PEG tube. Risks of bleeding, infection, bowel injury, respiratory failure, catheter malfunction were reviewed. They understand and wish to proceed.
[2018-06-27] MEDS: MEROPENEM 1 GM in SODIUM CHLORIDE 0.9% 100 ML IVPB SCH ×2 (09:09→20:18)
[2018-06-27] MEDS: HEPARIN SODIUM,PORCINE 5,000 UNIT/ML 1 ML VIAL SQ SCH ×3 (09:13→23:17)
[2018-06-27] MEDS: DILTIAZEM ORAL 60 MG TAB PO SCH ×3 (09:13→20:16)
[2018-06-27] MEDS: hydrALAZINE HCL 50 MG TAB PO SCH ×4 (09:14→20:17)
[2018-06-27] MEDS: INSULIN ASPART 100 UNIT/ML 1 ML 10 ML VIAL SQ SCH ×4 (09:14→21:06)
[2018-06-27] MEDS: FUROSEMIDE 40 MG TAB PO SCH ×2 (09:14→17:31)
[2018-06-27] MEDS: traMADol 50 MG TAB PO SCH ×4 (09:14→20:05)
[2018-06-27] MEDS: SODIUM CHLORIDE 5% OPHTH DROPS 15 ML BTL BOTH EYES SCH ×4 (09:16→20:22)
[2018-06-27 11:26] LABS: Glucose,Whole Blood 144 mg/dL (75-99)
[2018-06-27] MEDS: SERTRALINE 100 MG TAB PO SCH (12:52)
[2018-06-27] MEDS: PANTOPRAZOLE SODIUM 40 MG GRANULE PKT PO SCH (12:52)
[2018-06-27] MEDS ORDERED: LIDOCAINE 1% INJ 10MG/ML (20 ML MDV) ONE (16:30)
[2018-06-27] MEDS ORDERED: PROPOFOL 10 MG/ML 20 ML VIAL IV ONE (16:30)
[2018-06-27] MEDS ORDERED: LACTATED RINGERS 1,000 ML IV ONE (16:33)
--- NOTE | 2018-06-27 17:00 | P.PCN ---
Date of Procedure: 06/27/18 Procedure(s) Performed: PREOPERATIVE DIAGNOSIS: Malnutrition POSTOPERATIVE DIAGNOSIS: Same PROCEDURE: EGD with PEG tube placement SURGEON: Radha EBL: Minimal ANESTHESIA: Sedation COMPLICATIONS: None OPERATIVE PROCEDURE: The patient was placed in the supine position on the endoscopy table. The patient was sedated per anesthesia that time. The Olympus gastroscope was inserted into the oropharynx and passed under direct visualization to the region of the duodenum. No obstruction was seen. The pylorus was widely patent. The stomach was carefully inspected. The stomach was fully insufflated with air. The abdominal wall was inspected. The light was seen shining through the abdominal wall in the left upper quadrant. This site was chosen for PEG tube placement. The area was prepped in the usual sterile fashion. This area was then localized with lidocaine. A small vertical incision was made using the scalpel. The Seldinger needle was advanced into the lumen of the stomach the wire was advanced. The wire was grasped with an endoscopic snare. The wire was pulled through the oropharynx. The catheter was then threaded over the guidewire and the guidewire and catheter were pulled anteriorly until the hub of the PEG tube catheter was seated against the anterior wall the stomach. The circular bolster was applied and tightened down. The endoscope was then readvanced into the stomach. There was no evidence of any bleeding and there was appropriate tightness on the bolster. The catheter was cut appropriately. The dual port feeding adapter was applied. DISPOSITION: Stable to recovery room
[2018-06-27 17:29] LABS: Glucose,Whole Blood 126 mg/dL (75-99)
[2018-06-27] MEDS: SODIUM CHLORIDE 0.9% 1,000 ML IV SCH (20:19)
[2018-06-27] MEDS: ANIDULAFUNGIN 100 MG in SODIUM CHLORIDE 0.9% 100 ML IVPB SCH (21:07)
[2018-06-27 21:18] LABS: Glucose,Whole Blood 131 mg/dL (75-99)
--- NOTE | 2018-06-27 21:34 | PN ---
PROGRESS NOTE CHIEF COMPLAINT: Status post subtotal sigmoid colectomy. HISTORY OF PRESENT ILLNESS: This lady is not maintaining nutrition well and she is going today for a PEG tube. PHYSICAL EXAM: Is otherwise normal. Chest is clear. Cardiac exam is unchanged with a murmur. The abdomen is soft, nontender. IMPRESSION: Inadequate nutrition status post subtotal sigmoid resection and colostomy. PLAN: PEG tube today. MMODL / IJN: [id number] /
--- NOTE | 2018-06-27 23:16 | P.PN ---
Subjective Progress Note Date: 06/27/18 This is an 88-year-old female who presented to be [facility] emergency center on June 01 with complaints of increasing abdominal pain and been going on for 8 days without a bowel movement. CAT scan of the abdomen but did show sigmoid diverticulitis and patient was treated with antibiotics and conservative management. 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 Garcia on June 07. Patient was managed in the intensive care unit and progressed very slowly. She was started on TPN and lipids. She was followed by Dr. Coello for intensive care management and also by cardiology for A. fib with RVR with history of paroxysmal atrial fibrillation. She did not require vasopressor support. Around June 13June 14, NG tube was removed and patient was started on liquid diet which has been advanced. She has been on IV Lasix for fluid overload. Regarding her white count, this was increasing and peaked at 34.5 on June 08 is currently 19.6 and worsening over the last couple days. She has been afebrile since admission. Patient is eating less than 25% and remains on TPN. Dr. Garcia is ordered repeat CAT scan of the abdomen and pelvis for this afternoon. Son, Eric, is at the bedside and most history is obtained from him. Patient is able to answer simple questions but due to underlying dementia is unable to provide adequate history. Patient has also had urinary retention for which she was straight cath and Mancini catheter eventually was replaced. Patient does have a history of C. difficile colitis in 2011 treated at [facility]. 06/18/2018 reveals the patient to be more awake and alert. She is not very uncomfortable today. Is unable to state who brought the duffy at her bedside. 06/20/2018 without acute changes being noted today. 06/23/2018 patient is comfortable and is feeling somewhat better. She has significant volume overload him with nearly 6 L of urinary output she is now much less short of breath without new acute complaints. 06/27/2018 patient's [place] status is stable. She will have a PEG tube placed today. Objective - Vital Signs Vital signs: Vital Signs Temp 98.5 F 06/27/18 23:00 Pulse 87 06/27/18 23:00 Resp 17 06/27/18 23:00 BP 110/55 06/27/18 23:00 Pulse Ox 99 06/27/18 23:00 Intake & Output 06/27/18 06/27/18 06/28/18 06:59 18:59 06:59 Intake Total 200 100 Output Total 800 1000 850 Balance -600 -900 -850 Weight 49 kg 49 kg Intake: IV 100 Oral 200 Output: Urine 800 800 850 Stool 200 Other: Voiding Method Indwelling Catheter Indwelling Catheter Indwelling Catheter - Exam Gen: This is a 88-year-old female. She is in bed and appears to be comfortable and in no acute distress. HEENT: Head is atraumatic, normocephalic. Pupils equal, round. Sclerae is anicteric. Conjunctiva pink. Because members of the mouth are dry NECK: Supple. No JVD. No lymphadenopathy. No thyromegaly. LUNGS: Diminished bilat bases. No wheezing. No intercostal retractions. HEART: Irregular rate and rhythm. No murmur. ABDOMEN: Soft. Bowel sounds are present. No tenderness to light palpation. Patient has ileostomy to the right lower quadrant with liquid dark brown stool. Drain to the left lower quadrant with serous drainage.. EXTREMITIES: 1+ pedal edema. No calf tenderness. Dorsalis pedis +1 bilaterally. NEUROLOGICAL: Patient is awake, alert and oriented x1. Generalized weakness noted. No focal neural deficits. - Labs CBC & Chem 7: 06/24/18 07:57 06/24/18 07:57 Labs: Abnormal Lab Results - Last 24 Hours (Table) 06/27/18 06/27/18 06/27/18 Range/Units 07:09 11:06 17:24 POC Glucose (mg/dL) 136 H 144 H 126 H (75-99) mg/dL 06/27/18 Range/Units 20:48 POC Glucose (mg/dL) 131 H (75-99) mg/dL Laboratory Results WBC 7.4 k/uL (3.8-10.6) 06/24/18 07:57 RBC 3.73 m/uL (3.80-5.40) L 06/24/18 07:57 Hgb 10.6 gm/dL (11.4-16.0) L 06/24/18 07:57 Hct 33.4 % (34.0-46.0) L 06/24/18 07:57 MCV 89.6 fL (80.0-100.0) 06/24/18 07:57 MCH 28.5 pg (25.0-35.0) 06/24/18 07:57 MCHC 31.8 g/dL (31.0-37.0) 06/24/18 07:57 RDW 15.7 % (11.5-15.5) H 06/24/18 07:57 Plt Count 365 k/uL (150-450) 06/24/18 07:57 Neutrophils % 76 % 06/24/18 07:57 Lymphocytes % 16 % 06/24/18 07:57 Monocytes % 5 % 06/24/18 07:57 Eosinophils % 2 % 06/24/18 07:57 Basophils % 0 % 06/24/18 07:57 Neutrophils # 5.6 k/uL (1.3-7.7) 06/24/18 07:57 Lymphocytes # 1.2 k/uL (1.0-4.8) 06/24/18 07:57 Monocytes # 0.4 k/uL (0-1.0) 06/24/18 07:57 Eosinophils # 0.1 k/uL (0-0.7) 06/24/18 07:57 Basophils # 0.0 k/uL (0-0.2) 06/24/18 07:57 Hypochromasia Slight 06/24/18 07:57 Anisocytosis Slight 06/22/18 08:35 PT 12.2 sec (9.0-12.0) H 06/07/18 09:08 INR 1.3 (<1.2) H 06/07/18 09:08 APTT 28.5 sec (22.0-30.0) 06/07/18 09:08 D-Dimer 6.61 mg/L FEU (<0.60) H 06/19/18 08:00 Sodium 136 mmol/L (137-145) L 06/24/18 07:57 Potassium 4.1 mmol/L (3.5-5.1) 06/24/18 07:57 Chloride 90 mmol/L (98-107) L 06/24/18 07:57 Carbon Dioxide 40 mmol/L (22-30) H 06/24/18 07:57 Anion Gap 6 mmol/L 06/24/18 07:57 BUN 23 mg/dL (7-17) H 06/24/18 07:57 Creatinine 0.96 mg/dL (0.52-1.04) 06/24/18 07:57 Est GFR (CKD-EPI)AfAm 61 (>60 ml/min/1.73 sqM) 06/24/18 07:57 Est GFR (CKD-EPI)NonAf 53 (>60 ml/min/1.73 sqM) 06/24/18 07:57 Glucose 131 mg/dL (74-99) H 06/24/18 07:57 POC Glucose (mg/dL) 131 mg/dL (75-99) H 06/27/18 20:48 POC Glu Loan Consultant Julia Kenyon 06/27/18 20:[address] Glu mg/dL 137 06/17/18 07:53 Hemoglobin A1c 6.4 % (4.0-6.0) H 06/17/18 07:53 Plasma Lactic Acid Jake 0.8 mmol/L (0.7-2.0) 06/07/18 10:52 Calcium 8.0 mg/dL (8.4-10.2) L 06/24/18 07:57 Ionized Calcium Dipesh 4.5 mg/dL (4.5-5.3) 06/20/18 07:32 Phosphorus 4.4 mg/dL (2.5-4.5) 06/20/18 07:32 Magnesium 1.8 mg/dL (1.6-2.3) 06/20/18 07:32 Total Bilirubin 0.5 mg/dL (0.2-1.3) 06/07/18 09:08 AST 26 U/L (14-36) 06/07/18 09:08 ALT 33 U/L (9-52) 06/07/18 09:08 Alkaline Phosphatase 55 U/L (38-126) 06/07/18 09:08 Troponin I 0.169 ng/mL (0.000-0.034) H* 06/03/18 07:56 NT-Pro-B Natriuret Pep 7280 pg/mL 06/03/18 11:50 Total Protein 6.2 g/dL (6.3-8.2) L 06/07/18 09:08 Albumin 3.2 g/dL (3.5-5.0) L 06/07/18 09:08 Triglycerides 136 mg/dL (<150) 06/10/18 15:15 Amylase 31 U/L (30-110) 06/01/18 14:36 Lipase 18 U/L (23-300) L 06/01/18 14:36 TSH 1.270 mIU/L (0.465-4.680) 06/03/18 07:56 Urine Color Yellow 06/01/18 15:49 Urine Appearance Cloudy (Clear) H 06/01/18 15:49 Urine pH 6.0 (5.0-8.0) 06/01/18 15:49 Ur Specific [place] 1.021 (1.001-1.035) 06/01/18 15:49 Urine Protein 2+ (Negative) H 06/01/18 15:49 Urine Glucose (UA) Negative (Negative) 06/01/18 15:49 Urine Ketones Trace (Negative) H 06/01/18 15:49 Urine Blood Negative (Negative) 06/01/18 15:49 Urine Nitrite Negative (Negative) 06/01/18 15:49 Urine Bilirubin 1+ (Negative) H 06/01/18 15:49 Urine Urobilinogen 2.0 mg/dL (<2.0) 06/01/18 15:49 Ur Leukocyte Esterase Trace (Negative) H 06/01/18 15:49 Urine RBC 1 /hpf (0-5) 06/01/18 15:49 Urine WBC 12 /hpf (0-5) H 06/01/18 15:49 Ur Squamous Epith Cells 1 /hpf (0-4) 06/01/18 15:49 Urine Bacteria Rare /hpf (None) H 06/01/18 15:49 Hyaline Casts 3 /lpf (0-2) H 06/01/18 15:49 Urine Mucus Rare /hpf (None) H 06/01/18 15:49 Blood Type B Positive 06/07/18 15:15 Blood Type Confirm B Positive 06/07/18 21:18 Blood Type Recheck CABO Indicated 06/07/18 15:15 Antibody Screen NEGATIVE 06/07/18 15:15 Spec Expiration Date 06/10/2018 - 5307 06/07/18 15:15 Microbiology 06/18/18 06:57 Blood Blood Culture - Final No Growth after 144 hours 06/02/18 19:09 Blood Blood Culture - Final No Growth after 144 hours 06/02/18 21:17 Blood Blood Culture - Final No Growth after 144 hours Assessment and Plan Assessment: 88-year-old female who is had a somewhat protracted hospitalization who is now had significant interventions including a subtotal colectomy and end ileostomy with evidence of ischemic colitis. Recent imaging shows no new abscess only some mild ileus. She is having feeding via TPN at this time. There is been some progressive leukocytosis. As noted she is not a good historian and does not seem to have significant amounts of abdominal pain but exam shows evidence of some mild diffuse tenderness. Antimicrobial therapy as transition to meropenem and antifungal therapy with Eraxis is given history, concerns to potential fungal infection or superinfection. Cultures have been obtained. The leukocytosis will be monitored. 06/19/2018 patient is stable at this time. Appears to be showing some improvement with current intravenous antibiotic therapy in addition of antifungal therapy. Leukocytosis persistent will be monitored. The follow-up computed tomography scan did show evidence of the opacification of the superior mesenteric artery. Prognosis is poor. June 20 2018 patient with little overall change except is not having much complaints of pain this afternoon. Tolerating TPN well. Leukocytosis is stable to improved. No fevers are noted. Continue current antibiotic and antifungal medications, following up with surgery does not seem to be a candidate for further surgical interventions at this time. 06/23/2018 the patient had significant volume overload that is now resolved with diuretic therapy and a 6 L diuresis. She is much less short of breath. She will complete her several week course of intravenous antibiotic and antifungal therapy for the significant sepsis from her ischemic colitis. With her poor nutrition and improvement of her abdominal sepsis there is discussion about placement of PEG tube to improve her nutritional status. 06/27/2018 the patient will have PEG tube placed today to further support her nutritional status. The significant leukocytosis has resolved and remains improved. Current plan is to complete several more days of the antimicrobial therapy for her intra-abdominal sepsis. Hopefully she will transition from TPN to parenteral nutrition next few days. In allowing placement. (1) Colonic infarction Current Visit: Yes Status: Acute Code(s): K55.049 - ACUTE INFARCTION OF LARGE INTESTINE, EXTENT UNSPECIFIED SNOMED Code(s): 496722028
[2018-06-28 07:36] LABS: Glucose,Whole Blood 124 mg/dL (75-99)
[2018-06-28] MEDS: IPRATROPIUM-ALBUTEROL 3 ML NEB INHALATION SCH ×4 (07:38→19:16)
[2018-06-28] MEDS: INSULIN ASPART 100 UNIT/ML 1 ML 10 ML VIAL SQ SCH ×4 (07:47→21:17)
[2018-06-28] MEDS: DILTIAZEM ORAL 60 MG TAB PO SCH ×3 (09:07→21:18)
[2018-06-28] MEDS: PANTOPRAZOLE SODIUM 40 MG GRANULE PKT PO SCH (09:07)
[2018-06-28] MEDS: HEPARIN SODIUM,PORCINE 5,000 UNIT/ML 1 ML VIAL SQ SCH ×3 (09:07→22:44)
[2018-06-28] MEDS: FUROSEMIDE 40 MG TAB PO SCH ×2 (09:07→17:21)
[2018-06-28] MEDS: SERTRALINE 100 MG TAB PO SCH (09:08)
[2018-06-28] MEDS: MEROPENEM 1 GM in SODIUM CHLORIDE 0.9% 100 ML IVPB SCH ×2 (09:08→21:19)
[2018-06-28] MEDS: hydrALAZINE HCL 50 MG TAB PO SCH ×4 (09:08→21:18)
[2018-06-28] MEDS: SODIUM CHLORIDE 5% OPHTH DROPS 15 ML BTL BOTH EYES SCH ×3 (09:09→17:20)
[2018-06-28] MEDS: traMADol 50 MG TAB PO SCH ×3 (09:09→17:20)
[2018-06-28 12:27] LABS: Glucose,Whole Blood 139 mg/dL (75-99)
[2018-06-28 17:04] LABS: Glucose,Whole Blood 125 mg/dL (75-99)
--- NOTE | 2018-06-28 17:20 | P.PN ---
Subjective Progress Note Date: 06/28/18 Principal diagnosis: Colonic obstruction Patient more sleepy today. Tolerating tube feeds currently at 20 mL per hour. She is afebrile. Objective - Vital Signs Vital signs: Vital Signs Temp 98.3 F 06/28/18 14:21 Pulse 88 06/28/18 15:51 Resp 16 06/28/18 14:21 BP 137/63 06/28/18 14:21 Pulse Ox 99 06/28/18 14:21 Intake & Output 06/27/18 06/28/18 06/28/18 18:59 06:59 18:59 Intake Total 100 20 Output Total 1000 1150 700 Balance -900 -1150 -680 Weight 49 kg 49 kg 46 kg Intake: IV 100 Tube Feeding 20 Output: Urine 800 1150 700 Stool 200 Other: Voiding Method Indwelling Catheter Indwelling Catheter Indwelling Catheter - Exam Abdomen: Soft, nondistended, mild tenderness at PEG tube site, wounds clean, ostomy functioning - Labs CBC & Chem 7: 06/24/18 07:57 06/24/18 07:57 Labs: Abnormal Lab Results - Last 24 Hours (Table) 06/27/18 06/27/18 06/28/18 Range/Units 17:24 20:48 07:28 POC Glucose (mg/dL) 126 H 131 H 124 H (75-99) mg/dL 06/28/18 06/28/18 Range/Units 12:21 17:00 POC Glucose (mg/dL) 139 H 125 H (75-99) mg/dL Assessment and Plan (1) Sigmoid diverticulitis Narrative/Plan: Continue gradually advancing tube feeds to goal. Increase activity. Diet as tolerated. Discharge planning. Current Visit: Yes Status: Acute Code(s): K57.32 - DVTRCLI OF LG INT W/O PERFORATION OR ABSCESS W/O BLEEDING SNOMED Code(s): 916365359
[2018-06-28 20:50] LABS: Glucose,Whole Blood 143 mg/dL (75-99)
[2018-06-28] MEDS: ANIDULAFUNGIN 100 MG in SODIUM CHLORIDE 0.9% 100 ML IVPB SCH (22:44)
[2018-06-29] MEDS: traMADol 50 MG TAB PO SCH ×5 (01:20→22:14)
[2018-06-29] MEDS: SODIUM CHLORIDE 5% OPHTH DROPS 15 ML BTL BOTH EYES SCH ×5 (01:20→23:22)
[2018-06-29] MEDS: SODIUM CHLORIDE 0.9% 1,000 ML IV SCH ×2 (03:41→22:15)
[2018-06-29 07:10] LABS: Glucose,Whole Blood 129 mg/dL (75-99)
[2018-06-29] MEDS: INSULIN ASPART 100 UNIT/ML 1 ML 10 ML VIAL SQ SCH ×4 (07:29→22:15)
[2018-06-29] MEDS: hydrALAZINE HCL 50 MG TAB PO SCH ×4 (09:15→22:14)
[2018-06-29] MEDS: PANTOPRAZOLE SODIUM 40 MG GRANULE PKT PO SCH (09:15)
[2018-06-29] MEDS: HEPARIN SODIUM,PORCINE 5,000 UNIT/ML 1 ML VIAL SQ SCH ×3 (09:15→23:23)
[2018-06-29] MEDS: DILTIAZEM ORAL 60 MG TAB PO SCH ×3 (09:15→22:14)
[2018-06-29] MEDS: FUROSEMIDE 40 MG TAB PO SCH ×2 (09:15→17:04)
[2018-06-29] MEDS: SERTRALINE 100 MG TAB PO SCH (09:16)
[2018-06-29] MEDS: MEROPENEM 1 GM in SODIUM CHLORIDE 0.9% 100 ML IVPB SCH ×2 (09:16→22:12)
[2018-06-29] MEDS: IPRATROPIUM-ALBUTEROL 3 ML NEB INHALATION SCH ×4 (10:01→19:19)
[2018-06-29 11:42] LABS: Glucose,Whole Blood 160 mg/dL (75-99)
--- NOTE | 2018-06-29 12:01 | P.PN ---
Subjective Progress Note Date: 06/29/18 Principal diagnosis: Colonic obstruction Patient doing better today. Much more alert. Tolerating diet thus far. Tolerating tube feeds at 20 mL per hour. Objective - Vital Signs Vital signs: Vital Signs Temp 97.7 F 06/29/18 06:16 Pulse 84 06/29/18 06:16 Resp 17 06/29/18 06:16 BP 139/64 06/29/18 06:16 Pulse Ox 94 L 06/29/18 06:16 Intake & Output 06/28/18 06/29/18 06/29/18 18:59 06:59 18:59 Intake Total 20 40 20 Output Total 700 350 Balance -680 -310 20 Weight 46 kg 45 kg Intake: Tube Feeding 20 40 20 Output: Urine 700 350 Other: Voiding Method Indwelling Catheter Indwelling Catheter Indwelling Catheter - Exam Abdomen: Soft, nondistended, PEG site clean and dry, wounds clean - Labs CBC & Chem 7: 06/24/18 07:57 06/24/18 07:57 Labs: Abnormal Lab Results - Last 24 Hours (Table) 06/28/18 06/28/18 06/28/18 Range/Units 12:21 17:00 20:48 POC Glucose (mg/dL) 139 H 125 H 143 H (75-99) mg/dL 06/29/18 06/29/18 Range/Units 06:57 11:38 POC Glucose (mg/dL) 129 H 160 H (75-99) mg/dL Assessment and Plan (1) Sigmoid diverticulitis Narrative/Plan: Increase diet. Increase tube feeds. Discharge planning. Current Visit: Yes Status: Acute Code(s): K57.32 - DVTRCLI OF LG INT W/O PERFORATION OR ABSCESS W/O BLEEDING SNOMED Code(s): 990430986
[2018-06-29 17:05] LABS: Glucose,Whole Blood 146 mg/dL (75-99)
--- NOTE | 2018-06-29 19:05 | PN ---
PROGRESS NOTE DATE OF SERVICE: 06/28/2018 CHIEF COMPLAINT: Status post subtotal resection of the sigmoid colon. HISTORY OF PRESENT ILLNESS: This lady is doing fairly well. PEG tube has been placed. Attention will now be directed to discharge planning. It is not clear if she will be taken home or go to a [facility]. This is being discussed with her son. PHYSICAL EXAMINATION: She is awake and alert. Vital signs are normal. Her chest is clear. Cardiac exam is normal. IMPRESSION: 1. Status post subtotal colectomy secondary to ischemia with colostomy. 2. General debility and failure to thrive. PLAN: Continue supportive care. Await discharge planning. MMODL / IJN: [id number] /
--- NOTE | 2018-06-29 19:14 | PN ---
PROGRESS NOTE DATE OF SERVICE: 06/29/2018 CHIEF COMPLAINT: Status post subtotal colectomy, colostomy and PEG tube placement. HISTORY OF PRESENT ILLNESS: This lady has PEG tube placed and attention now to be returned to where she will go actually to the hospital. PHYSICAL EXAM: Vital signs normal and she is awake and alert. Chest is clear. Cardiac exam is normal. IMPRESSION: 1. Status post subtotal colectomy with colostomy. 2. PEG tube. 3. General debility and failure to thrive. PLAN: Start to use PEG tube and work on discharge plan. MMODL / [place]: [id number] /
[2018-06-29 20:56] LABS: Glucose,Whole Blood 188 mg/dL (75-99)
[2018-06-29] MEDS: ANIDULAFUNGIN 100 MG in SODIUM CHLORIDE 0.9% 100 ML IVPB SCH (23:22)
[2018-06-30 07:28] LABS: Glucose,Whole Blood 124 mg/dL (75-99)
[2018-06-30] MEDS: IPRATROPIUM-ALBUTEROL 3 ML NEB INHALATION SCH ×4 (07:32→19:27)
[2018-06-30] MEDS: INSULIN ASPART 100 UNIT/ML 1 ML 10 ML VIAL SQ SCH ×4 (07:41→21:06)
[2018-06-30] MEDS: PANTOPRAZOLE SODIUM 40 MG GRANULE PKT PO SCH (08:31)
[2018-06-30] MEDS: HEPARIN SODIUM,PORCINE 5,000 UNIT/ML 1 ML VIAL SQ SCH ×2 (08:31→15:53)
[2018-06-30] MEDS: hydrALAZINE HCL 50 MG TAB PO SCH ×4 (08:32→21:09)
[2018-06-30] MEDS: DILTIAZEM ORAL 60 MG TAB PO SCH ×3 (08:32→21:09)
[2018-06-30] MEDS: MEROPENEM 1 GM in SODIUM CHLORIDE 0.9% 100 ML IVPB SCH ×2 (08:32→21:08)
[2018-06-30] MEDS: FUROSEMIDE 40 MG TAB PO SCH ×2 (08:32→15:53)
[2018-06-30] MEDS: traMADol 50 MG TAB PO SCH ×4 (08:34→21:09)
[2018-06-30] MEDS: SODIUM CHLORIDE 5% OPHTH DROPS 15 ML BTL BOTH EYES SCH ×5 (08:34→21:10)
[2018-06-30] MEDS: SERTRALINE 100 MG TAB PO SCH (09:24)
[2018-06-30] MEDS: ACETAMINOPHEN TAB 325 MG TAB PO PRN (10:21)
[2018-06-30 11:41] LABS: Glucose,Whole Blood 175 mg/dL (75-99)
[2018-06-30 12:00] VITALS: BMI 17.6
--- NOTE | 2018-06-30 13:39 | P.PN ---
<Jane Chappell - Last Filed: 06/30/18 13:22> Subjective Progress Note Date: 06/30/18 88-year-old female sitting up in a chair more awake and alert tube feeds at 40 mL per hour tolerating no redness noted at the PEG tube site surgical dressing dry nondistended with an indwelling Mancini catheter moderate amount of stool from the ostomy Status post exploratory laparotomy, subtotal colectomy, diverting ileostomy 07/2018 EGD with PEG tube placement for nutritional support done June 27 Objective - Vital Signs Vital signs: Vital Signs Temp 98.3 F 06/30/18 07:00 Pulse 88 06/30/18 12:01 Resp 16 06/30/18 07:00 BP 142/81 06/30/18 07:00 Pulse Ox 98 06/30/18 07:32 Intake & Output 06/29/18 06/30/18 06/30/18 18:59 06:59 18:59 Intake Total 100 200 40 Output Total 900 1300 Balance -800 -1100 40 Weight 46 kg 48 kg 48 kg Intake: Oral 200 Tube Feeding 100 40 Output: Urine 700 1000 Uretheral (Mancini) 500 Stool 200 300 Other: Voiding Method Indwelling Catheter Indwelling Catheter Indwelling Catheter # Voids 0 # Bowel Movements 0 - Exam Exam 88-year-old female sitting up in a chair more awake and alert this morning Lungs posterior diminished at the bases nasal cannula 3 L no wheezing noted no cough noted Heart S1-S2 audible regular Abdomen soft surgical tenderness appropriate nondistended surgical dressing in place ostomy right lower quadrant moderate amount of stool noted no redness around PEG tube site tube feed at 40 mL per hour indwelling Mancini catheter in place Extremities trace pedal edema bilaterally - Labs CBC & Chem 7: 06/24/18 07:57 06/24/18 07:57 Labs: Abnormal Lab Results - Last 24 Hours (Table) 06/29/18 06/29/18 06/30/18 Range/Units 17:00 20:54 07:23 POC Glucose (mg/dL) 146 H 188 H 124 H (75-99) mg/dL 06/30/18 Range/Units 11:38 POC Glucose (mg/dL) 175 H (75-99) mg/dL Assessment and Plan Assessment: Impression Present on admission abdominal distention suspect due to colonic ileus or distal colonic obstruction CAT scan abdomen pelvis showed suspected mild sigmoid diverticulitis obtained 2 days prior to admission Acute on chronic Constipation Present on admission leukocytosis suspect reactive Present on admission electrolyte imbalance hypokalemia corrected resolved CAT scan abdomen pelvis findings constipation and sigmoid diverticulitis some degree of colonic obstruction related to inflammatory changes sigmoid colon X-ray abdomen reports indicate evidence of colonic ileus or distal colonic obstruction Baseline dementia Paroxysmal atrial fibrillation with rapid ventricular response started on elquis Systolic ejection murmur suspect aortic stenosis Abnormal troponin cardiology following suspect related to supply and demand mismatch Subtotal colectomy with end ileostomy for colon obstruction with ischemia at the cecum done June 07 Status post PEG tube placement for nutritional support done on June 27 due to poor caloric intake Plan Continue discharge plan Continue tube feed to goal Continue postop surgical care IV antibiotics per Dr. Kincaid Continue local wound care at the wound sites PT OT eval Increase activity as tolerated The above impression and plan of care have been discussed and directed by signing physician. Jane Chappell nurse practitioner acting as scribe for signing physician. <Anival Garcia - Last Filed: 06/30/18 15:29> Objective - Vital Signs Vital signs: Vital Signs Temp 98.3 F 06/30/18 07:00 Pulse 88 06/30/18 12:01 Resp 16 06/30/18 07:00 BP 142/81 06/30/18 07:00 Pulse Ox 98 06/30/18 07:32 Intake & Output 06/29/18 06/30/18 06/30/18 18:59 06:59 18:59 Intake Total 100 200 40 Output Total 900 1300 Balance -800 -1100 40 Weight 46 kg 48 kg 48 kg Intake: Oral 200 Tube Feeding 100 40 Output: Urine 700 1000 Uretheral (Mancini) 500 Stool 200 300 Other: Voiding Method Indwelling Catheter Indwelling Catheter Indwelling Catheter # Voids 0 # Bowel Movements 0 - Labs CBC & Chem 7: 06/24/18 07:57 06/24/18 07:57 Labs: Abnormal Lab Results - Last 24 Hours (Table) 06/29/18 06/29/18 06/30/18 Range/Units 17:00 20:54 07:23 POC Glucose (mg/dL) 146 H 188 H 124 H (75-99) mg/dL 06/30/18 Range/Units 11:38 POC Glucose (mg/dL) 175 H (75-99) mg/dL Assessment and Plan Assessment: As above. Patient tolerating tube feeds. Feels weak once again today. Poor oral intake. Discharge planning in progress. (1) Sigmoid diverticulitis Current Visit: Yes Status: Acute Code(s): K57.32 - DVTRCLI OF LG INT W/O PERFORATION OR ABSCESS W/O BLEEDING SNOMED Code(s): 826961949
--- NOTE | 2018-06-30 16:42 | P.CONS ---
History of Present Illness - Chief Complaint Medical debility - History of Present Illness I had the opportunity to see patient for inpatient rehab consultation with regard to medical debility. Patient admitted to [facility] June 01 abdominal pain. Seen in cardiology for atrial fibrillation with rapid ventricular response. Seen by Drs. pisano and Dora for sigmoid diverticulitis. In June 07 underwent subtotal colectomy with ileostomy by Dr. pisano. Chest x- rays followed for small bilateral effusions. 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 Has been seen by Dr. Kincaid. PT reports maximal assistance for bed mobility and sitting. Minimal assistance to person for gait 4 feet with roller walker. Endurance poor. OT reports maximal assistance for upper dressing and two-person total assistance for lower dressing and toileting and total assistance for bathing. Previous functional history as elicited from [id number]: 88-year-old right- handed white female who live in son and [id number]'s home on a first- floor. Patient . [id number] does the cooking and laundry and assist patient with shower transfers. Patient does a sitdown shower and uses no assistive device for gait. Doesn't smoke or drink. Dr. Liza Hernandez of [facility] was her regular doctor. Family history sisters with diabetes. Review of Systems Review of systems: ENT: Denies sneezes or discharge. Eyes: Denies discharge or photophobia. Cardiac: Denies chest pain or palpitation. Pulmonary: Denies cough or shortness of breath. Breast: Denies discharge or lumps. Gastrointestinal: At least mild abdominal discomfort. Genitourinary: Denies discharge or frequency. Musculoskeletal: Denies muscle or bone aches. Neurologic: Generalized weakness. Endocrine: Denies shakes or sweats. Oncology: Denies cancers. Dermatologic: Denies rash, itching, pruritus. ALLERGY/immunology: Denies sneezes, rashes. Past Medical History Past Medical History: COPD, Dementia, GERD/Reflux, Hypertension Additional Past Medical History / Comment(s): frequent UTI's, past falls. hx c- diff 2011. uses magnifying glass to read.PT STATED HAS HAD THE PNE AND SHINGLES VACCINE BUT NOT SURE OF THE DATES. MENTAL HEALTH ASSOCIATE UNABLE TO VERIFY DATE AT TIME OF THIS ADMIT. History of Any Multi-Drug Resistant Organisms: None Reported Year Discovered:: None MDRO Source:: None Past Surgical History: Appendectomy, Hysterectomy Additional Past Surgical History / Comment(s): lasik eye sx Past Anesthesia/Blood Transfusion Reactions: No Reported Reaction Additional Past Anesthesia/Blood Transfusion Reaction / Comm: CLAUSTERPHOBIA Past Psychological History: No Psychological Hx Reported Smoking Status: Never smoker Past Alcohol Use History: None Reported Past Drug Use History: None Reported - Past Family History Mother Family Medical History: Renal Disease Father Family Medical History: No Reported History Additional Family Medical History / Comment(s): IN A COAL MINE DISASTER IN HIS Medications and Allergies Home Medications Medication Instructions Recorded Confirmed Type Aspirin EC [Ecotrin Low Dose] 81 mg PO DAILY 06/01/18 06/01/18 History Cholecalciferol (Vitamin D3) 2,000 unit PO DAILY 06/01/18 06/01/18 History [Vitamin D3] Dicyclomine [Bentyl] 10 mg PO BID 06/01/18 06/01/18 History Doxazosin [Cardura] 2 mg PO HS 06/01/18 06/01/18 History L.acidoph,Paracasei, B.lactis 1 cap PO DAILY 06/01/18 06/01/18 History [Probiotic] Omeprazole 20 mg PO HS 06/01/18 06/01/18 History Sertraline [Zoloft] 100 mg PO DAILY 06/01/18 06/01/18 History Sodium Chloride 5% Ophth Soln 1 drops BOTH EYES QID 06/01/18 06/01/18 History [Virginie 128] Tiotropium [place] [Spiriva] 1 cap INHALATION RT-HS 06/01/18 06/01/18 History Trimethoprim [Trimpex] 100 mg PO HS 06/01/18 06/01/18 History Vancomycin HCl [Vancocin HCl] 125 mg PO HS 06/01/18 06/01/18 History Vitamin B Complex 1 cap PO DAILY 06/01/18 06/01/18 History amLODIPine [Norvasc] 5 mg PO DAILY 06/01/18 06/01/18 History Allergies Allergy/AdvReac Type Severity Reaction Status Date / Time nitrofurantoin Allergy Unknown Verified 06/07/18 14:42 [From Macrobid] Penicillins Allergy Unknown Verified 06/07/18 14:42 sulfamethoxazole Allergy Unknown Verified 06/07/18 14:42 [From Bactrim] trimethoprim [From Bactrim] Allergy Unknown Verified 06/07/18 14:42 Physical Exam Vitals: Vital Signs Temp Pulse Pulse Resp BP Pulse Ox 06/30/18 15:59 85 06/30/18 15:46 84 06/30/18 12:01 88 06/30/18 11:49 88 06/30/18 07:43 90 06/30/18 07:32 88 98 06/30/18 07:00 98.3 F 93 16 142/81 96 06/29/18 23:00 98.2 F 84 20 131/72 98 06/29/18 19:29 84 06/29/18 19:19 84 Intake and Output 06/30/18 06/30/18 06/30/18 06:59 14:59 22:59 Intake Total 100 40 40 Output Total 1100 Balance -1000 40 40 Intake: Oral 100 Tube Feeding 40 40 Output: Urine 1000 Uretheral (Mancini) 500 Stool 100 Other: Voiding Method Indwelling Catheter Indwelling Catheter Indwelling Catheter # Voids 0 Weight 48 kg 48 kg 43.6 kg Skin: Atrophic, intact. General: Medium build and comfortable appearance. Head: Normocephalic, atraumatic. Eyes: Symmetric. Pupils equal round. Ears: Symmetric. Hearing within normal limits. Mouth: Clear. Neck: Supple. Carotid without bruit. Cardiac: Regular rate and rhythm. Lungs: Clear anteriorly and posteriorly. Abdomen: Soft active nontender. Wound clean and dressed Extremities: Normal tone. Neurological: Mental status: Alert, cooperative, pleasant. Cranial nerves: Symmetric facial tone and trapezius. Motor: Poor elevation of legs off of bed and poor plus arms. Sensation: Intact throughout. DTRs: Symmetric and equal throughout. Mobility: Requires assistance for bed mobility. Results CBC & Chem 7: 06/24/18 07:57 06/24/18 07:57 Labs: Abnormal Lab Results - Last 24 Hours (Table) 06/29/18 06/29/18 06/30/18 Range/Units 17:00 20:54 07:23 POC Glucose (mg/dL) 146 H 188 H 124 H (75-99) mg/dL 06/30/18 Range/Units 11:38 POC Glucose (mg/dL) 175 H (75-99) mg/dL Assessment and Plan (1) Sigmoid diverticulitis Current Visit: Yes Status: Acute Code(s): K57.32 - DVTRCLI OF LG INT W/O PERFORATION OR ABSCESS W/O BLEEDING SNOMED Code(s): 699296722 Plan: Impression: 1. Medical debility. 2. Sigmoid diverticulitis status post subtotal colectomy and partial ileostomy. 3. Dementia. 4. Hypertension. 5. GERD. 6. COPD. Comments and plan: At this time PT and OT are ongoing and document diminished endurance. Do not believe that patient would be able tolerate a full inpatient rehab program. Family investigating [facility] and would encourage this placement. Discussed with [id number].
[2018-06-30 17:45] LABS: Glucose,Whole Blood 136 mg/dL (75-99)
--- NOTE | 2018-06-30 18:16 | PN ---
PROGRESS NOTE DATE OF SERVICE: 06/30/2018 CHIEF COMPLAINT: Status post subtotal colectomy with ileostomy. HISTORY OF PRESENT ILLNESS: This lady is doing well with the PEG tube. We are now going to have to look at the discharge planning. PHYSICAL EXAMINATION: Her chest is clear and cardiac exam is normal except for a murmur. The abdomen is soft. IMPRESSION: 1. Status post subtotal colectomy with ileostomy. 2. Generalized weakness and debility. PLAN: Start to look into discharge planning, either to a senior care or rehab unit. MMODL / IJN: [id number] /
[2018-06-30 20:49] LABS: Glucose,Whole Blood 149 mg/dL (75-99)
[2018-06-30] MEDS: ANIDULAFUNGIN 100 MG in SODIUM CHLORIDE 0.9% 100 ML IVPB SCH (22:50)
[2018-07-01] MEDS: HEPARIN SODIUM,PORCINE 5,000 UNIT/ML 1 ML VIAL SQ SCH ×3 (02:14→15:37)
[2018-07-01] MEDS: SODIUM CHLORIDE 0.9% 1,000 ML IV SCH (02:14)
[2018-07-01 07:06] LABS: Glucose,Whole Blood 144 mg/dL (75-99)
[2018-07-01] MEDS: IPRATROPIUM-ALBUTEROL 3 ML NEB INHALATION SCH ×3 (08:36→16:51)
[2018-07-01] MEDS: INSULIN ASPART 100 UNIT/ML 1 ML 10 ML VIAL SQ SCH ×2 (08:57→13:56)
[2018-07-01] MEDS: FUROSEMIDE 40 MG TAB PO SCH ×2 (08:57→15:38)
[2018-07-01] MEDS: PANTOPRAZOLE SODIUM 40 MG GRANULE PKT PO SCH (08:57)
[2018-07-01] MEDS: DILTIAZEM ORAL 60 MG TAB PO SCH ×2 (08:57→15:37)
[2018-07-01] MEDS: MEROPENEM 1 GM in SODIUM CHLORIDE 0.9% 100 ML IVPB SCH (08:58)
[2018-07-01] MEDS: SERTRALINE 100 MG TAB PO SCH (08:58)
[2018-07-01] MEDS: hydrALAZINE HCL 50 MG TAB PO SCH ×2 (08:58→15:37)
[2018-07-01] MEDS: traMADol 50 MG TAB PO SCH ×3 (08:59→15:36)
[2018-07-01] MEDS: SODIUM CHLORIDE 5% OPHTH DROPS 15 ML BTL BOTH EYES SCH ×3 (08:59→15:36)
--- NOTE | 2018-07-01 11:04 | P.PN ---
<Jane Chappell - Last Filed: 07/01/18 11:16> Subjective Progress Note Date: 07/01/18 88-year-old female seen sitting up in bed discharge plan is in progress. Patients being evaluated for [facility] subacute rehab tube feeds at 40 per PEG tube no redness at site moderate amount of brown stool from the ostomy.Stoma pink surgical dressing dry Status post exploratory laparotomy, subtotal colectomy, diverting ileostomy 07/2018 EGD with PEG tube placement for nutritional support done June 27 Objective - Vital Signs Vital signs: Vital Signs Temp 98.6 F 07/01/18 06:11 Pulse 90 07/01/18 08:47 Resp 16 07/01/18 08:37 BP 142/64 07/01/18 06:11 Pulse Ox 95 07/01/18 06:11 Intake & Output 06/30/18 07/01/18 07/01/18 18:59 06:59 18:59 Intake Total 80 Output Total 1300 Balance 80 -1300 Weight 43.6 kg 45 kg Intake: Tube Feeding 80 Output: Urine 1300 Other: Voiding Method Indwelling Catheter Indwelling Catheter Indwelling Catheter - Exam Exam 88-year-old female sitting up in bed more awake and alert this morning oriented to self and place Lungs posterior diminished at the bases nasal cannula L no wheezing noted no cough noted Heart S1-S2 audible regular Abdomen soft surgical tenderness appropriate nondistended surgical dressing in place ostomy right lower quadrant moderate amount of stool noted no redness around PEG tube site tube feed at 40 mL per hour indwelling Mancini catheter in place Extremities trace pedal edema bilaterally - Labs CBC & Chem 7: 06/24/18 07:57 06/24/18 07:57 Labs: Abnormal Lab Results - Last 24 Hours (Table) 06/30/18 06/30/18 06/30/18 Range/Units 11:38 17:39 20:47 POC Glucose (mg/dL) 175 H 136 H 149 H (75-99) mg/dL 07/01/18 Range/Units 06:56 POC Glucose (mg/dL) 144 H (75-99) mg/dL Assessment and Plan Assessment: Impression Present on admission abdominal distention suspect due to colonic ileus or distal colonic obstruction CAT scan abdomen pelvis showed suspected mild sigmoid diverticulitis obtained 2 days prior to admission Acute on chronic Constipation Present on admission leukocytosis suspect reactive Present on admission electrolyte imbalance hypokalemia corrected resolved CAT scan abdomen pelvis findings constipation and sigmoid diverticulitis some degree of colonic obstruction related to inflammatory changes sigmoid colon X-ray abdomen reports indicate evidence of colonic ileus or distal colonic obstruction Baseline dementia Paroxysmal atrial fibrillation with rapid ventricular response started on elquis Systolic ejection murmur suspect aortic stenosis Abnormal troponin cardiology following suspect related to supply and demand mismatch Subtotal colectomy with end ileostomy for colon obstruction with ischemia at the cecum done June 07 Status post PEG tube placement for nutritional support done on June 27 due to poor caloric intake Plan Okay to proceed with a discharge to subacute rehab from a surgical perspective Continue tube feed to goal Continue postop surgical care IV antibiotics per Dr. Kincaid Continue local wound care at the wound sites PT OT eval Increase activity as tolerated The above impression and plan of care have been discussed and directed by signing physician. Jane Chappell nurse practitioner acting as scribe for signing physician. <Anival Garcia - Last Filed: 07/01/18 13:25> Objective - Vital Signs Vital signs: Vital Signs Temp 98.6 F 07/01/18 06:11 Pulse 90 07/01/18 08:47 Resp 16 07/01/18 08:37 BP 142/64 07/01/18 06:11 Pulse Ox 95 07/01/18 06:11 Intake & Output 06/30/18 07/01/18 07/01/18 18:59 06:59 18:59 Intake Total 80 Output Total 1300 Balance 80 -1300 Weight 43.6 kg 45 kg Intake: Tube Feeding 80 Output: Urine 1300 Other: Voiding Method Indwelling Catheter Indwelling Catheter Indwelling Catheter - Labs CBC & Chem 7: 06/24/18 07:57 06/24/18 07:57 Labs: Abnormal Lab Results - Last 24 Hours (Table) 06/30/18 06/30/18 07/01/18 Range/Units 17:39 20:47 06:56 POC Glucose (mg/dL) 136 H 149 H 144 H (75-99) mg/dL 07/01/18 Range/Units 12:13 POC Glucose (mg/dL) 135 H (75-99) mg/dL Assessment and Plan Assessment: As above. Patient doing well. Continue diet and physical therapy. Agree with plans for transfer. Follow-up as outpatient. (1) Sigmoid diverticulitis Current Visit: Yes Status: Acute Code(s): K57.32 - DVTRCLI OF LG INT W/O PERFORATION OR ABSCESS W/O BLEEDING SNOMED Code(s): 726978144
[2018-07-01 12:15] LABS: Glucose,Whole Blood 135 mg/dL (75-99)
--- NOTE | 2018-07-01 12:20 | DS ---
DISCHARGE SUMMARY CHIEF COMPLAINT: Abdominal pain. HISTORY OF PRESENT ILLNESS AND PHYSICAL EXAM: Details of this lady's history and physical can be found in the initial workup. LABORATORY STUDIES: While she was in a hospital, she had laboratory studies, details which can be found in the laboratory section of her chart. COURSE IN HOSPITAL: After admission, she was placed on bedrest, started on intravenous fluids and her abdominal pain was monitored. Studies failed to show a definite cause of her pain, but they continued to grow worse and she started to become more and more distended. Eventually, she was taken the operating room where she was found to have an ischemic segment of the sigmoid colon which was removed and ileostomy structured. Throughout her hospitalization, she remained weak and very inactive. She was gradually able to be started on a diet, but she ate very little and was not maintaining nutrition. A PEG tube was then placed. It was felt, at this point that she had reached maximum hospital benefit and that she should be moved to rehab. She will be going to [facility]. FINAL DIAGNOSES: 1. Abdominal pain and ileus secondary to ischemic sigmoid colitis. 2. Mild dementia. 3. Congestive heart failure. 4. Renal failure. 5. Failure to thrive and general debility. OPERATIONS: Laparotomy, subtotal sigmoid resection and ileostomy. CONSULTATION: General Surgery. She is improved. MMODL / IJN: [id number] /
[2018-07-01 14:19] LABS: Glucose,Whole Blood 159 mg/dL (75-99)
[2018-07-01 15:23] VITALS: BP 157/71; RESP 19; TEMP 98.5
[2018-07-01 17:03] VITALS: PULSE 90
[2018-07-01 17:11] LABS: Glucose,Whole Blood 128 mg/dL (75-99)
== END 2018-07-01 17:43 | DRG 329 ==
LOC: EC 13:32 → 4MS4W 18:04 → 6SEL 06-02 22:08 → 4MS4W 06-05 15:57 → 6ICU 06-07 20:01 → 4MS4W 06-15 15:06 → 6ICU 06-29 08:32 → 4MS4W 06-29 08:34
PROVIDERS: ADMIT Family Medicine; ATTEND Family Medicine
PROC: 0D1B0Z4 Bypass Ileum to Cutaneous, Open Approach (ICD-10-PCS; 2018-06-07)
PROC: 0DTH0ZZ Resection of Cecum, Open Approach (ICD-10-PCS; 2018-06-07)
PROC: 0DTL0ZZ Resection of Transverse Colon, Open Approach (ICD-10-PCS; 2018-06-07)
PROC: 0DTM0ZZ Resection of Descending Colon, Open Approach (ICD-10-PCS; 2018-06-07)
PROC: 0DTN0ZZ Resection of Sigmoid Colon, Open Approach (ICD-10-PCS; 2018-06-07)
PROC: 02HV33Z Insertion of Infusion Device into Superior Vena Cava, Percutaneous Approach (ICD-10-PCS; 2018-06-07)
PROC: 0DTK0ZZ Resection of Ascending Colon, Open Approach (ICD-10-PCS; principal; 2018-06-07 08:20)
PROC: 3E0G76Z Introduction of Nutritional Substance into Upper GI, Via Natural or Artificial Opening (ICD-10-PCS; 2018-06-10)
PROC: 0DH63UZ Insertion of Feeding Device into Stomach, Percutaneous Approach (ICD-10-PCS; 2018-06-27)
DX: K55.039 Acute (reversible) ischemia of large intestine, extent unspecified (principal); I50.33 Acute on chronic diastolic (congestive) heart failure; J96.01 Acute respiratory failure with hypoxia; E43 Unspecified severe protein-calorie malnutrition; E87.4 Mixed disorder of acid-base balance; I13.0 Hypertensive heart and chronic kidney disease with heart failure and stage 1 through stage 4 chronic kidney disease, or unspecified chronic kidney disease; I47.1 Supraventricular tachycardia; K57.32 Diverticulitis of large intestine without perforation or abscess without bleeding; J98.11 Atelectasis; F05 Delirium due to known physiological condition; Z68.1 Body mass index [BMI] 19.9 or less, adult; E66.9 Obesity, unspecified; K55.049 Acute infarction of large intestine, extent unspecified; I27.29 Other secondary pulmonary hypertension; I48.2 Chronic atrial fibrillation; J44.9 Chronic obstructive pulmonary disease, unspecified; E83.51 Hypocalcemia; F03.90 Unspecified dementia, unspecified severity, without behavioral disturbance, psychotic disturbance, mood disturbance, and anxiety; I35.0 Nonrheumatic aortic (valve) stenosis; N18.3 Chronic kidney disease, stage 3 (moderate); D63.8 Anemia in other chronic diseases classified elsewhere; E87.6 Hypokalemia; I49.3 Ventricular premature depolarization; K21.9 Gastro-esophageal reflux disease without esophagitis; N32.89 Other specified disorders of bladder; R62.7 Adult failure to thrive; R33.9 Retention of urine, unspecified; D72.829 Elevated white blood cell count, unspecified; F32.9 Major depressive disorder, single episode, unspecified; K59.00 Constipation, unspecified; F40.240 Claustrophobia; R77.9 Abnormality of plasma protein, unspecified; R32 Unspecified urinary incontinence; Z79.899 Other long term (current) drug therapy; Z79.82 Long term (current) use of aspirin; Z86.19 Personal history of other infectious and parasitic diseases; Z87.440 Personal history of urinary (tract) infections; Z90.49 Acquired absence of other specified parts of digestive tract; Z90.710 Acquired absence of both cervix and uterus; Z88.1 Allergy status to other antibiotic agents; Z88.0 Allergy status to penicillin; Z88.2 Allergy status to sulfonamides; Z91.81 History of falling
CPT/HCPCS: 36415; 36569; 43246; 71045; 74018; 74019; 74176; 74177; 74270; 76937; 80048; 80053; 81001; 82150; 82330; 83036; 83605; 83690; 83735; 83880; 84100; 84132; 84443; 84478; 84484; 85025; 85347; 85379; 85610; 85730; 86850; 86900; 86901; 87040; 88309; 93005; 93306; 94640; 94760; 96361; 96365; 96375; 99285

== ENCOUNTER 2018-08-29 14:50 | Inpatient (IN) | payer MEDICARE ==
[2018-08-29] MEDS ORDERED: SODIUM CHLORIDE 0.9% 1,000 ML IV STA ×2 (15:38→18:15)
--- NOTE | 2018-08-29 15:48 | ED ---
Weakness HPI - General Chief complaint: Weakness Stated complaint: Weakness Time Seen by Provider: 08/29/18 15:37 Source: patient, EMS, RN notes reviewed, old records reviewed Mode of arrival: EMS Limitations: no limitations - History of Present Illness Initial comments: This is an 80-year-old female the ER for evaluation weakness weakness, not eating not acting appropriately, patient is difficult historian secondary to dementia, history obtained from family who states patient is not acting appropriately. Patient himself is denying any complaints but again is unable to answer questions MD Complaint: generalized weakness -: days(s) Location: generalized Severity: severe Severity scale (1-10): 9 Quality: constant Consistency: constant Improves with: none Worsens with: none Context: new medication, recent illness, recent surgery Associated Symptoms: denies other symptoms - Related Data Home Medications Medication Instructions Recorded Confirmed Aspirin EC [Ecotrin Low Dose] 81 mg PO DAILY 06/01/18 08/29/18 L.acidoph,Paracasei, B.lactis 1 cap PO DAILY 06/01/18 08/29/18 [Probiotic] Omeprazole 20 mg PO HS 06/01/18 08/29/18 Sertraline [Zoloft] 100 mg PO DAILY 06/01/18 08/29/18 Apixaban [Eliquis] 2.5 mg PO BID 08/29/18 08/29/18 Diltiazem Oral [Cardizem*] 60 mg PO TID 08/29/18 08/29/18 Dronabinol [Marinol] 5 mg PO HS 08/29/18 08/29/18 Ondansetron [Zofran] 4 mg PO TID 08/29/18 08/29/18 Vancomycin HCl 125 mg PO DAILY 08/29/18 08/29/18 hydrALAZINE HCL [Apresoline] 50 mg PO QID 08/29/18 08/29/18 Previous Rx's Medication Instructions Recorded Ipratropium-Albuterol Nebulize 3 ml INHALATION RT-QID #120 07/01/18 [Duoneb 0.5 mg-3 mg/3 ml Soln] ampul.neb Allergies Allergy/AdvReac Type Severity Reaction Status Date / Time nitrofurantoin Allergy Unknown Verified 08/29/18 15:11 [From Macrobid] Penicillins Allergy Unknown Verified 08/29/18 15:11 sulfamethoxazole Allergy Unknown Verified 08/29/18 15:11 [From Bactrim] trimethoprim [From Bactrim] Allergy Unknown Verified 08/29/18 15:11 Review of Systems ROS Statement: Those systems with pertinent positive or pertinent negative responses have been documented in the HPI. ROS Other: All systems not noted in ROS Statement are negative. Past Medical History Past Medical History: COPD, Dementia, GERD/Reflux, Hypertension Additional Past Medical History / Comment(s): frequent UTI's, past falls. hx c- diff 2011. uses magnifying glass to read.PT STATED HAS HAD THE PNE AND SHINGLES VACCINE BUT NOT SURE OF THE DATES. OCCUPATIONAL THERAPY ASSISTANT UNABLE TO VERIFY DATE AT TIME OF THIS ADMIT. History of Any Multi-Drug Resistant Organisms: None Reported Date of last positivie culture/infection: None MDRO Source:: None Past Surgical History: Appendectomy, Hysterectomy Additional Past Surgical History / Comment(s): lasik eye sx Past Anesthesia/Blood Transfusion Reactions: No Reported Reaction Additional Past Anesthesia/Blood Transfusion Reaction / Comment(s): CLAUSTERPHOBIA Past Psychological History: No Psychological Hx Reported Smoking Status: Never smoker Past Alcohol Use History: None Reported Past Drug Use History: None Reported - Past Family History Mother Family Medical History: Renal Disease Father Family Medical History: No Reported History Additional Family Medical History / Comment(s): IN A COAL MINE DISASTER IN HIS 30'S General Exam Limitations: no limitations General appearance: alert, in no apparent distress Head exam: Present: atraumatic, normocephalic, normal inspection Eye exam: Present: normal appearance, PERRL, EOMI. Absent: scleral icterus, conjunctival injection, periorbital swelling ENT exam: Present: normal exam, mucous membranes moist Neck exam: Present: normal inspection. Absent: tenderness, meningismus, lymphadenopathy Respiratory exam: Present: normal lung sounds bilaterally. Absent: respiratory distress, wheezes, rales, rhonchi, stridor Cardiovascular Exam: Present: regular rate, normal rhythm, normal heart sounds. Absent: systolic murmur, diastolic murmur, rubs, gallop, clicks GI/Abdominal exam: Present: soft, normal bowel sounds. Absent: distended, tenderness, guarding, rebound, rigid Extremities exam: Present: normal inspection, full ROM, normal capillary refill. Absent: tenderness, pedal edema, joint swelling, calf tenderness Back exam: Present: normal inspection Neurological exam: Present: alert, oriented X3, CN II-XII intact Psychiatric exam: Present: normal affect, normal mood Skin exam: Present: warm, dry, intact, normal color. Absent: rash Course Vital Signs 08/29/18 08/29/18 08/29/18 14:54 15:56 17:00 Temperature 97.8 F Pulse Rate 91 85 84 Respiratory 18 18 16 Rate Blood Pressure 157/111 152/102 132/93 O2 Sat by Pulse 96 98 96 Oximetry - Reevaluation(s) Reevaluation #1: 08/29/18 18:15 Medical record is reviewed Reevaluation #2: 08/29/18 18:15 Spoke with family regarding patient's findings, EKG Findings - EKG Comments: EKG Findings:: EKG shows A. fib rate of 91, QRS 72, QTc 4 Medical Decision Making - Medical Decision Making 88 female to the complaint of weakness, severe dehydration, over diuresis with increased renal failure, UTI - Lab Data Result diagrams: 08/29/18 16:31 08/29/18 16:31 Lab Results 08/29/18 08/29/18 08/29/18 Range/Units 16:31 16:31 16:31 WBC 10.1 (3.8-10.6) k/uL RBC 5.66 H (3.80-5.40) m/uL Hgb 15.3 D (11.4-16.0) gm/dL Hct 46.9 H (34.0-46.0) % MCV 83.0 (80.0-100.0) fL MCH 27.1 (25.0-35.0) pg MCHC 32.7 (31.0-37.0) g/dL RDW 16.2 H (11.5-15.5) % Plt Count 311 (150-450) k/uL Neutrophils % 75 % Lymphocytes % 18 % Monocytes % 3 % Eosinophils % 2 % Basophils % 0 % Neutrophils # 7.6 (1.3-7.7) k/uL Lymphocytes # 1.8 (1.0-4.8) k/uL Monocytes # 0.3 (0-1.0) k/uL Eosinophils # 0.2 (0-0.7) k/uL Basophils # 0.0 (0-0.2) k/uL Poikilocytosis Slight Anisocytosis Slight PT (9.0-12.0) sec INR (<1.2) APTT (22.0-30.0) sec Sodium 138 (137-145) mmol/L Potassium 5.3 H (3.5-5.1) mmol/L Chloride 107 (98-107) mmol/L Carbon Dioxide 17 L (22-30) mmol/L Anion Gap 14 mmol/L BUN 45 H (7-17) mg/dL Creatinine 2.18 H (0.52-1.04) mg/dL Est GFR (CKD-EPI)AfAm 23 (>60 ml/min/1.73 sqM) Est GFR (CKD-EPI)NonAf 20 (>60 ml/min/1.73 sqM) Glucose 129 H (74-99) mg/dL Calcium 10.2 (8.4-10.2) mg/dL Phosphorus 5.2 H (2.5-4.5) mg/dL Magnesium 1.6 (1.6-2.3) mg/dL Total Bilirubin 0.6 (0.2-1.3) mg/dL AST 29 (14-36) U/L ALT 30 (9-52) U/L Alkaline Phosphatase 73 (38-126) U/L Total Creatine Kinase 52 (30-135) U/L CK-MB (CK-2) 3.7 H (0.0-2.4) ng/mL CK-MB (CK-2) Rel Index 7.1 Troponin I 0.021 (0.000-0.034) ng/mL Total Protein 8.7 H (6.3-8.2) g/dL Albumin 4.1 (3.5-5.0) g/dL Urine Color Urine Appearance (Clear) Urine pH (5.0-8.0) Ur Specific [place] (1.001-1.035) Urine Protein (Negative) Urine Glucose (UA) (Negative) Urine Ketones (Negative) Urine Blood (Negative) Urine Nitrite (Negative) Urine Bilirubin (Negative) Urine Urobilinogen (<2.0) mg/dL Ur Leukocyte Esterase (Negative) Urine WBC (0-5) /hpf Urine WBC Clumps (None) /hpf 08/29/18 08/29/18 Range/Units 16:31 17:15 WBC (3.8-10.6) k/uL RBC (3.80-5.40) m/uL Hgb (11.4-16.0) gm/dL Hct (34.0-46.0) % MCV (80.0-100.0) fL MCH (25.0-35.0) pg MCHC (31.0-37.0) g/dL RDW (11.5-15.5) % Plt Count (150-450) k/uL Neutrophils % % Lymphocytes % % Monocytes % % Eosinophils % % Basophils % % Neutrophils # (1.3-7.7) k/uL Lymphocytes # (1.0-4.8) k/uL Monocytes # (0-1.0) k/uL Eosinophils # (0-0.7) k/uL Basophils # (0-0.2) k/uL Poikilocytosis Anisocytosis PT 10.7 (9.0-12.0) sec INR 1.1 (<1.2) APTT 19.2 L (22.0-30.0) sec Sodium (137-145) mmol/L Potassium (3.5-5.1) mmol/L Chloride (98-107) mmol/L Carbon Dioxide (22-30) mmol/L Anion Gap mmol/L BUN (7-17) mg/dL Creatinine (0.52-1.04) mg/dL Est GFR (CKD-EPI)AfAm (>60 ml/min/1.73 sqM) Est GFR (CKD-EPI)NonAf (>60 ml/min/1.73 sqM) Glucose (74-99) mg/dL Calcium (8.4-10.2) mg/dL Phosphorus (2.5-4.5) mg/dL Magnesium (1.6-2.3) mg/dL Total Bilirubin (0.2-1.3) mg/dL AST (14-36) U/L ALT (9-52) U/L Alkaline Phosphatase (38-126) U/L Total Creatine Kinase (30-135) U/L CK-MB (CK-2) (0.0-2.4) ng/mL CK-MB (CK-2) Rel Index Troponin I (0.000-0.034) ng/mL Total Protein (6.3-8.2) g/dL Albumin (3.5-5.0) g/dL Urine Color Yellow Urine Appearance Turbid H (Clear) Urine pH 5.5 (5.0-8.0) Ur Specific [place] 1.013 (1.001-1.035) Urine Protein 1+ H (Negative) Urine Glucose (UA) Negative (Negative) Urine Ketones Negative (Negative) Urine Blood Small H (Negative) Urine Nitrite Negative (Negative) Urine Bilirubin Negative (Negative) Urine Urobilinogen <2.0 (<2.0) mg/dL Ur Leukocyte Esterase Large H (Negative) Urine WBC >182 H (0-5) /hpf Urine WBC Clumps Many H (None) /hpf Disposition Clinical Impression: Dehydration, ARF (acute renal failure), UTI (urinary tract infection) Disposition: ADMITTED IP TO THIS [facility] Condition: Fair Is patient prescribed a controlled substance at d/c from ED?: No Referrals: Amy Chan MD [Primary Care Provider] - 1-2 days
[2018-08-29 16:50] LABS: Anisocytosis Slight; Basophils % (A) 0 %; Eosinophils # (A) 0.2 k/uL (0-0.7); Eosinophils % (A) 2 %; HCT 46.9 % (34.0-46.0); Lymphocytes # (A) 1.8 k/uL (1.0-4.8); Lymphocytes % (A) 18 %; MCH 27.1 pg (25.0-35.0); MCHC 32.7 g/dL (31.0-37.0); Mean Platelet Volume 6.7; Monocytes # (A) 0.3 k/uL (0-1.0); Monocytes % (A) 3 %; Neutrophils # (A) 7.6 k/uL (1.3-7.7); Neutrophils % (A) 75 %; Platelet Count 311 k/uL (150-450); Poikilocytosis Slight; RBC 5.66 m/uL (3.80-5.40); RDW 16.2 % (11.5-15.5); WBC 10.1 k/uL (3.8-10.6)
[2018-08-29 16:53] LABS: HGB 15.3 gm/dL (11.4-16.0)
[2018-08-29 16:55] LABS: Albumin 4.1 g/dL (3.5-5.0); Calcium 10.2 mg/dL (8.4-10.2); Magnesium 1.6 mg/dL (1.6-2.3); Phosphorus 5.2 mg/dL (2.5-4.5); Potassium 5.3 mmol/L (3.5-5.1); Total Bilirubin 0.6 mg/dL (0.2-1.3); Total Protein 8.7 g/dL (6.3-8.2)
[2018-08-29 17:06] LABS: INR 1.1 (<1.2); Prothrombin Time 10.7 sec (9.0-12.0)
[2018-08-29 17:07] LABS: Creatine Kinase MB 3.7 ng/mL (0.0-2.4); Troponin I 0.021 ng/mL (0.000-0.034)
[2018-08-29 17:09] LABS: Partial Thromboplastin Time 19.2 sec (22.0-30.0)
[2018-08-29 17:32] LABS: Appearance,Urine Turbid (Clear); Bilirubin,Urine Negative (Negative); Blood,Urine Small (Negative); Color,Urine Yellow; Glucose,Urine (UA) Negative (Negative); Ketones,Urine Negative (Negative); Leukocyte Esterase,Urine Large (Negative); Nitrite,Urine Negative (Negative); PH, Urine 5.5 (5.0-8.0); Protein,Urine 1+ (Negative); Specific Gravity,Urine 1.013 (1.001-1.035); Urobilinogen,Urine <2.0 mg/dL (<2.0); WBC,Urine >182 /hpf (0-5)
[2018-08-29] MEDS ORDERED: SODIUM CHLORIDE 0.9% 1,000 ML IV ONE ×2 (18:13→19:23)
[2018-08-29] MEDS ORDERED: cefTRIAXone 2,000 MG in SODIUM CHLORIDE 0.9% 100 ML IVPB STA (18:16)
[2018-08-29] MEDS ORDERED: HYDROcodone/APAP 5-325MG 1 EACH TAB PO PRN (18:18)
[2018-08-29] MEDS ORDERED: MELATONIN 3 MG TABLET PO PRN (18:19)
[2018-08-29] MEDS ORDERED: ONDANSETRON 4 MG/2 ML VIAL IVP STA (19:18)
[2018-08-29] MEDS ORDERED: SODIUM CHLORIDE 0.9% 500 ML 500 ML IV ONE (19:23)
[2018-08-29] MEDS ORDERED: DILTIAZEM DRIP BOLUS FROM BAG 1 MG SOLN IV ONE (19:23)
[2018-08-29] MEDS: DILTIAZEM 50 MG in SODIUM CHLORIDE 0.9% 40 ML IV SCH ×2 (19:37→21:36)
[2018-08-29] MEDS ORDERED: PANTOPRAZOLE 40 MG TABLET PO SCH (21:00)
[2018-08-29] MEDS: IPRATROPIUM-ALBUTEROL 3 ML NEB INHALATION SCH (21:49)
[2018-08-29] MEDS: DRONABINOL 2.5 MG CAP PO SCH (21:50)
[2018-08-29] MEDS: hydrALAZINE HCL 50 MG TAB PO SCH (21:51)
[2018-08-29] MEDS ORDERED: DILTIAZEM ORAL 60 MG TAB PO SCH (22:00)
[2018-08-29] MEDS ORDERED: ONDANSETRON 4 MG TAB PO SCH (22:00)
--- NOTE | 2018-08-29 22:47 | HP ---
HISTORY AND PHYSICAL DATE OF SERVICE: 08/29/2018. CHIEF COMPLAINT: Weakness. HISTORY OF PRESENT ILLNESS: This 88-year-old woman with a past medical history of multiple medical problems including history of dementia, COPD, history of GERD, hypertension, history of frequent UTIs, being followed by Dr. Chan in the outpatient setting was recently admitted with ischemic colitis and patient had ileostomy by Dr. Garcia. The patient also was in the [facility]. The patient went home. The patient also had a PEG tube placed because of poor p.o. intake. Apparently according to the family, the patient improved significantly and at home was taking enough solids and the PEG tube was not used for some time. Currently the patient complains of weakness and tiredness. The patient taken to [facility] admitted for further evaluation and treatment. The patient was found to have elevated creatinine from Dr. Chan's office as well. There is no history of fever, rigors. No headache, loss of consciousness, seizures at this time. The patient has had a history of C difficile colitis also. PAST MEDICAL HISTORY: History of COPD, dementia, history of GERD, hypertension, history of frequent UTIs, claustrophobia. MEDICATIONS: 1. Apresoline 50 mg p.o. daily. 2. Zoloft 100 mg. 3. Zofran 4 mg p.o. t.i.d. 4. Omeprazole 20 mg at bedtime. 5. Probiotic 1 daily. 6. DuoNeb q.i.d. 7. Marinol 5 mg at bedtime. 8. Cardizem 60 mg p.o. t.i.d. 9. Ecotrin 81 mg p.o. daily. 10.Eliquis 2.5 mg b.i.d. 11.Vancomycin 125 mg p.o. daily. ALLERGIES: MACROBID, PENICILLIN, BACTRIM. FAMILY HISTORY, SOCIAL HISTORY AND REVIEW OF SYSTEMS: Could not be taken due to the patient's change in mental status. Family history of renal disease per chart. PHYSICAL EXAM: Patient is conscious, confused. Pulse is 84, blood pressure 130/90, respirations 16, temperature 97.8, pulse ox 96% on room air. HEENT: Conjunctivae normal. Oral mucosa dry. NECK: No jugular venous distention. No lymph node enlargement. CARDIOVASCULAR: S1 and S2 muffled. Ejection systolic murmur. LUNGS: Breath sounds diminished at the bases. Scattered rhonchi and crackles. ABDOMEN: Soft, status post surgery. Ileostomy present. The patient also has PEG tube placemen also. Abdomen soft, nontender. No mass palpable. Legs no edema, no swelling. NERVOUS SYSTEM: Higher functions as mentioned. Moves all limbs. No focal motor or sensory deficits. SKIN: No ulcer, rash or bleeding. Skin dry. LAB STUDIES: WBC 7.2, hemoglobin 15.3, sodium 130, potassium 5.2. Creatinine is 2.18. UA noted, possibly UTI. ASSESSMENT: 1. Acute renal failure, possible prerenal, acute tubular necrosis with dehydration, for further evaluation. 2. Change in mental status metabolic encephalopathy, acute on chronic. 3. Acute urinary tract infection present on admission. 4. Increased potassium. 5. History of chronic obstructive pulmonary disease. 6. Dementia. 7. Gastroesophageal reflux disease. 8. Hypertension. 9. History of frequent urinary tract infections. 10.History of appendectomy. 11.History of hysterectomy. 12.History of ischemic bowel and sigmoid colectomy as before recently. 13.History of claustrophobia. RECOMMENDATIONS AND DISCUSSION: This 88-year-old woman who presented with multiple complex medical issues. We will monitor the patient closely. Continue the current management. Recommend IV fluids. Otherwise we will stop the nephrotoxic medications. Continue to monitor. I would also recommend IV antibiotics. Vancomycin will be continued. Also obtain an infectious disease evaluation also. Further recommendations to follow. Prognosis guarded. Further recommendations to follow. MMODL / IJN: [id number] /
[2018-08-29] MEDS: APIXABAN 2.5 MG TABLET PO SCH (22:51)
[2018-08-29] MEDS ORDERED: ACETAMINOPHEN TAB 325 MG TAB PO PRN (23:03)
[2018-08-29] MEDS: PANTOPRAZOLE 40 MG/10 ML VIAL IVP SCH (23:25)
[2018-08-29] MEDS: ONDANSETRON 4 MG/2 ML VIAL IVP SCH ×2 (23:25→23:26)
[2018-08-29 23:56] LABS: Anisocytosis Slight; Basophils % (A) 0 %; Eosinophils % (A) 0 %; HCT 46.2 % (34.0-46.0); HGB 14.9 gm/dL (11.4-16.0); Hypochromasia Slight; Lymphocytes # (A) 1.1 k/uL (1.0-4.8); Lymphocytes % (A) 5 %; MCH 27.7 pg (25.0-35.0); MCHC 32.3 g/dL (31.0-37.0); MCV 85.8 fL (80.0-100.0); Monocytes # (A) 0.8 k/uL (0-1.0); Monocytes % (A) 4 %; Neutrophils % (A) 91 %; Platelet Count 333 k/uL (150-450); Poikilocytosis Slight; RBC 5.39 m/uL (3.80-5.40); RDW 16.3 % (11.5-15.5); WBC 22.1 k/uL (3.8-10.6)
[2018-08-30 06:46] LABS: Anisocytosis Slight; Basophils % (A) 0 %; Eosinophils # (A) 0.1 k/uL (0-0.7); Eosinophils % (A) 1 %; HGB 13.4 gm/dL (11.4-16.0); Hypochromasia Slight; Lymphocytes # (A) 1.6 k/uL (1.0-4.8); Lymphocytes % (A) 13 %; MCH 28.5 pg (25.0-35.0); MCHC 33.5 g/dL (31.0-37.0); MCV 85.3 fL (80.0-100.0); Mean Platelet Volume 7.3; Monocytes # (A) 0.5 k/uL (0-1.0); Monocytes % (A) 4 %; Neutrophils % (A) 81 %; Platelet Count 271 k/uL (150-450); Poikilocytosis Slight; RBC 4.69 m/uL (3.80-5.40); RDW 16.4 % (11.5-15.5); WBC 12.3 k/uL (3.8-10.6)
[2018-08-30 07:01] LABS: Potassium 5.4 mmol/L (3.5-5.1)
[2018-08-30] MEDS: IPRATROPIUM-ALBUTEROL 3 ML NEB INHALATION SCH ×4 (08:00→19:10)
[2018-08-30] MEDS: hydrALAZINE HCL 50 MG TAB PO SCH ×3 (08:18→21:02)
[2018-08-30] MEDS: PANTOPRAZOLE 40 MG/10 ML VIAL IVP SCH (08:24)
[2018-08-30] MEDS: ONDANSETRON 4 MG/2 ML VIAL IVP SCH ×3 (08:24→21:33)
[2018-08-30] MEDS: LACTOBACILLUS ACIDOPH & BULGAR 1 EACH PACKET PO SCH (08:24)
[2018-08-30] MEDS: APIXABAN 2.5 MG TABLET PO SCH ×3 (08:24→21:34)
[2018-08-30] MEDS: ASPIRIN 81 MG PO SCH (08:24)
[2018-08-30] MEDS: SERTRALINE 100 MG TAB PO SCH (08:24)
[2018-08-30] MEDS ORDERED: ENOXAPARIN 40 MG/0.4 ML SYRINGE SQ SCH (09:00)
--- NOTE | 2018-08-30 10:13 | P.CRDCN ---
History of Present Illness Consult date: 08/30/18 History of present illness: This is a 88 female who was admitted to the hospital with weakness and not acting right, at home. Patient was brought to the emergency room by her son. It appears that patient was not eating or drinking properly. She was found to have a high creatinine, consistent with dehydration. There is no history suggestive of any chest pain or shortness of breath. Patient was found to be in atrial fibrillation with moderately rapid ventricular response. It's possible that patient may not be taking her medications. Patient was started on IV Cardizem and her heart rate is well controlled. She is also start an IV fluids and creatinine has shown improvement. At the time of my examination patient is comfortable without any evidence of shortness of breath or chest pain. She is lying flat in the bed without any discomfort. I would recommend to continue hydration and switching to by mouth Cardizem for control of her heart rate. Patient is already on anticoagulation therapy. Her echo Cardigan previously showed good LV function with evidence of [id number] aortic stenosis. No further cardiac intervention at this time Review of Systems Not obtained Past Medical History Past Medical History: COPD, Dementia, GERD/Reflux, Hypertension Additional Past Medical History / Comment(s): frequent UTI's, past falls. hx c- diff 2011. uses magnifying glass to read.PT STATED HAS HAD THE PNE AND SHINGLES VACCINE BUT NOT SURE OF THE DATES. 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 History of Any Multi-Drug Resistant Organisms: None Reported Date of last positivie culture/infection: None MDRO Source:: None Past Surgical History: Appendectomy, Hysterectomy Additional Past Surgical History / Comment(s): lasik eye sx Past Anesthesia/Blood Transfusion Reactions: No Reported Reaction Additional Past Anesthesia/Blood Transfusion Reaction / Comment(s): CLAUSTERPHOBIA Smoking Status: Never smoker - Past Family History Mother Family Medical History: Renal Disease Father Family Medical History: No Reported History Additional Family Medical History / Comment(s): IN A COAL MINE DISASTER IN HIS 30'S Medications and Allergies Home Medications Medication Instructions Recorded Confirmed Type Aspirin EC [Ecotrin Low Dose] 81 mg PO DAILY 06/01/18 08/29/18 History L.acidoph,Paracasei, B.lactis 1 cap PO DAILY 06/01/18 08/29/18 History [Probiotic] Omeprazole 20 mg PO HS 06/01/18 08/29/18 History Sertraline [Zoloft] 100 mg PO DAILY 06/01/18 08/29/18 History Ipratropium-Albuterol Nebulize 3 ml INHALATION RT-QID #120 07/01/18 08/29/18 Rx [Duoneb 0.5 mg-3 mg/3 ml Soln] ampul.neb Apixaban [Eliquis] 2.5 mg PO BID 08/29/18 08/29/18 History Diltiazem Oral [Cardizem*] 60 mg PO TID 08/29/18 08/29/18 History Dronabinol [Marinol] 5 mg PO HS 08/29/18 08/29/18 History Ondansetron [Zofran] 4 mg PO TID 08/29/18 08/29/18 History Vancomycin HCl 125 mg PO DAILY 08/29/18 08/29/18 History hydrALAZINE HCL [Apresoline] 50 mg PO QID 08/29/18 08/29/18 History Allergies Allergy/AdvReac Type Severity Reaction Status Date / Time nitrofurantoin Allergy Unknown Verified 08/29/18 15:11 [From Macrobid] Penicillins Allergy Unknown Verified 08/29/18 15:11 sulfamethoxazole Allergy Unknown Verified 08/29/18 15:11 [From Bactrim] trimethoprim [From Bactrim] Allergy Unknown Verified 08/29/18 15:11 Physical Exam Vitals: Vital Signs Temp Pulse Pulse Resp BP BP Pulse Ox 08/30/18 08:11 70 08/30/18 08:00 97.6 F 78 84 18 131/68 99 08/30/18 07:50 78 18 08/30/18 04:00 98.8 F 78 18 122/64 99 08/30/18 03:43 20 08/30/18 00:00 97.5 F L 85 18 138/67 96 08/29/18 20:10 76 20 120/58 95 08/29/18 20:00 80 17 121/54 94 L 08/29/18 19:50 71 11 L 111/52 93 L 08/29/18 19:40 117 H 93 L 08/29/18 19:30 142 H 16 111/100 97 12/03/18 19:20 90 14 79/39 93 L 08/29/18 19:10 123 H 29 H 102/86 91 L 08/29/18 19:00 116 H 14 157/87 95 08/29/18 18:50 93 14 157/87 08/29/18 18:30 84 16 162/87 97 08/29/18 18:13 84 16 162/87 97 08/29/18 18:00 92 16 160/98 97 08/29/18 17:00 84 16 132/93 96 08/29/18 15:56 85 18 152/102 98 08/29/18 14:54 97.8 F 91 18 157/111 96 Intake and Output 08/29/18 08/30/18 08/30/18 22:59 06:59 14:59 Intake Total 9.917 Output Total 100 1200 300 Balance -90.083 -1200 -300 Intake: Intake, IV Titration 9.917 Amount Diltiazem 50 mg In Sodium 9.917 Chloride 0.9% 40 ml @ 5 MG/HR 5 mls/hr IV .Q10H [facility] Rx#:[id number] Output: Urine 100 Uretheral (Mancini) 100 Stool 1200 300 Other: # Voids 1 Weight 62.9 kg 62.9 kg GENERAL EXAM: Patient is alert but doesn't appear to be oriented and doesn't appear to be in any acute distress HEENT: Normocephalic. Normal reaction of pupils, equal size, normal range of extraocular motion. No erythema or exudates in the throat. NECK: No masses, no nuchal rigidity. CHEST: No chest wall deformity. LUNGS: Equal air entry with no crackles or wheeze. HEART: S1 and S2 normal with no audible mumurs or gallops. Irregular heart rhythm ABDOMEN: No hepatosplenomegaly, normal bowel sounds, no guarding or rigidity. SKIN: No rashes CENTRAL NERVOUS SYSTEM: No focal deficits. EXTREMITIES: No cyanosis, clubbing or edema. Results 08/30/18 05:35 08/30/18 05:35 Cardiac Enzymes 08/29/18 08/29/18 Range/Units 16:31 16:31 AST 29 (14-36) U/L CK-MB (CK-2) 3.7 H (0.0-2.4) ng/mL Troponin I 0.021 (0.000-0.034) ng/mL Coagulation 08/29/18 Range/Units 16:31 PT 10.7 (9.0-12.0) sec APTT 19.2 L (22.0-30.0) sec CBC 08/29/18 08/29/18 08/30/18 Range/Units 16:31 23:32 05:35 WBC 10.1 22.1 H 12.3 H (3.8-10.6) k/uL RBC 5.66 H 5.39 4.69 (3.80-5.40) m/uL Hgb 15.3 D 14.9 13.4 (11.4-16.0) gm/dL Hct 46.9 H 46.2 H 40.0 (34.0-46.0) % Plt Count 311 333 271 (150-450) k/uL Comprehensive Metabolic Panel 08/29/18 08/30/18 Range/Units 16:31 05:35 Sodium 138 138 (137-145) mmol/L Potassium 5.3 H 5.4 H (3.5-5.1) mmol/L Chloride 107 116 H (98-107) mmol/L Carbon Dioxide 17 L 12 L (22-30) mmol/L BUN 45 H 42 H (7-17) mg/dL Creatinine 2.18 H 1.99 H (0.52-1.04) mg/dL Glucose 129 H 107 H (74-99) mg/dL Calcium 10.2 9.0 (8.4-10.2) mg/dL AST 29 (14-36) U/L ALT 30 (9-52) U/L Alkaline Phosphatase 73 (38-126) U/L Total Protein 8.7 H (6.3-8.2) g/dL Albumin 4.1 (3.5-5.0) g/dL Current Medications Generic Name Dose Route Start Last Admin Trade Name Freq PRN Reason Stop Dose Admin Acetaminophen 650 mg 08/29/18 23:03 Tylenol Tab PO Q6HR PRN Fever and/ or Pain Hydrocodone Bitart/Acetaminophen 1 each 08/29/18 18:18 Galax 5-325 PO Q6HR PRN Pain Albuterol/Ipratropium 3 ml 08/29/18 20:00 08/30/18 08:00 Duoneb 0.5 Mg-3 Mg/3 Ml Soln INHALATION 3 ml RT-QID ALY Administration Apixaban 2.5 mg 08/29/18 21:00 08/30/18 09:38 Eliquis PO Not Given BID ALY Aspirin 81 mg 08/30/18 09:00 08/30/18 08:24 Aspirin PO 81 mg DAILY ALY Administration Saavedra Syrup 5 ml 08/30/18 12:00 Saavedra Syrup PO Q6HR ALY Dronabinol 5 mg 08/29/18 21:00 08/29/18 21:50 Marinol PO Not Given HS ALY Hydralazine HCl 50 mg 08/29/18 22:00 08/30/18 08:18 Apresoline PO Not Given QID ALY Ceftriaxone Sodium 1,000 mg/ 50 mls @ 100 mls/hr 08/30/18 09:00 08/30/18 08: 34 Sodium Chloride IVPB 100 mls/hr Q24HR ALY Administration Diltiazem HCl 50 mg/ Sodium 50 mls @ 5 mls/hr 08/29/18 19:30 08/29/18 21:36 Chloride IV 5 mg/hr .Q10H ALY 5 mls/hr Administration 5 MG/HR Lactobacillus Acidoph/Bulgaricus 1 each 08/30/18 09:00 08/30/18 08:24 Lactinex PO 1 each DAILY ALY Administration Melatonin 3 mg 08/29/18 18:19 Melatonin PO HS PRN Insomnia Ondansetron HCl 4 mg 08/29/18 21:00 08/30/18 08:24 Zofran IVP 4 mg TID ALY Administration Pantoprazole Sodium 40 mg 08/29/18 21:00 08/30/18 08:24 Protonix IVP 40 mg DAILY ALY Administration Sertraline HCl 100 mg 08/30/18 09:00 08/30/18 08:24 Zoloft PO 100 mg DAILY ALY Administration Vancomycin HCl 250 mg 08/30/18 12:00 Vancomycin Oral Solution PO Q6HR ALY Intake and Output 08/29/18 08/30/18 08/30/18 22:59 06:59 14:59 Intake Total 9.917 Output Total 100 1200 300 Balance -90.083 -1200 -300 Intake: Intake, IV Titration 9.917 Amount Diltiazem 50 mg In Sodium 9.917 Chloride 0.9% 40 ml @ 5 MG/HR 5 mls/hr IV .Q10H [facility] Rx#:[id number] Output: Urine 100 Uretheral (Mancini) 100 Stool 1200 300 Other: # Voids 1 Weight 62.9 kg 62.9 kg Patient Weight 08/31/18 06:59 Weight 62.9 kg 08/30/18 05:35 08/30/18 05:35 EKG Interpretations (text) Atrial fibrillation with moderately rapid ventricular response Assessment and Plan (1) Chronic atrial fibrillation Current Visit: Yes Status: Acute Code(s): I48.2 - CHRONIC ATRIAL FIBRILLATION SNOMED Code(s): 620902558 (2) ARF (acute renal failure) Current Visit: Yes Status: Acute Code(s): N17.9 - ACUTE KIDNEY FAILURE, UNSPECIFIED SNOMED Code(s): 94258318 (3) Dehydration Current Visit: Yes Status: Acute Code(s): E86.0 - DEHYDRATION SNOMED Code( s): 69125900 (4) S/P colectomy Current Visit: No Status: Acute Code(s): Z90.49 - ACQUIRED ABSENCE OF OTHER SPECIFIED PARTS OF DIGESTIVE TRACT SNOMED Code(s): 777748313 Plan: Continue with IV hydration. May switch to by mouth Cardizem. No further cardiac interventions at this time.
[2018-08-30] MEDS: VANCOMYCIN ORAL SOLUTION 250 MG/5 ML BOTTLE PO SCH ×2 (10:57→16:16)
[2018-08-30] MEDS: CHERRY FLAVOR 60 ML BOTTLE PO SCH ×2 (10:57→16:16)
--- NOTE | 2018-08-30 13:20 | P.GSCN ---
History of Present Illness Consult date: 08/30/18 Reason for Consult: GI bleeding History of present illness: Patient came to the hospital because of episodes of weakness and near syncope. She has had some intermittent nausea and vomiting over the last few weeks. This morning or last night they identified some blood in her ileostomy bag. The exact site of bleeding was not seen. No melena or hematochezia. Patient on our service from previous subtotal colectomy and end ileostomy. Patient also has a PEG tube placed during her previous admission. They are not using the PEG except for intermittent ensure and medications at times. Denies abdominal pain. The nausea and vomiting are typically in the morning. She was able to eat most of her meal today. Ileostomy output bilious at this time. Patient is on eloquis for A. fib. Patient's family state that she likely is not drinking enough while at home. Past Medical History Past Medical History: COPD, Dementia, GERD/Reflux, Hypertension Additional Past Medical History / Comment(s): frequent UTI's, past falls. hx c- diff 2011. uses magnifying glass to read.PT STATED HAS HAD THE PNE AND SHINGLES VACCINE BUT NOT SURE OF THE DATES. 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 History of Any Multi-Drug Resistant Organisms: None Reported Year Discovered:: None MDRO Source:: None Past Surgical History: Appendectomy, Hysterectomy Additional Past Surgical History / Comment(s): lasik eye sx Past Anesthesia/Blood Transfusion Reactions: No Reported Reaction Additional Past Anesthesia/Blood Transfusion Reaction / Comm: CLAUSTERPHOBIA Smoking Status: Never smoker - Past Family History Mother Family Medical History: Renal Disease Father Family Medical History: No Reported History Additional Family Medical History / Comment(s): IN A COAL MINE DISASTER IN HIS 30'S Medications and Allergies Home Medications Medication Instructions Recorded Confirmed Type Aspirin EC [Ecotrin Low Dose] 81 mg PO DAILY 06/01/18 08/29/18 History L.acidoph,Paracasei, B.lactis 1 cap PO DAILY 06/01/18 08/29/18 History [Probiotic] Omeprazole 20 mg PO HS 06/01/18 08/29/18 History Sertraline [Zoloft] 100 mg PO DAILY 06/01/18 08/29/18 History Ipratropium-Albuterol Nebulize 3 ml INHALATION RT-QID #120 10/05/18 12/03/18 Rx [Duoneb 0.5 mg-3 mg/3 ml Soln] ampul.neb Apixaban [Eliquis] 2.5 mg PO BID 08/29/18 08/29/18 History Diltiazem Oral [Cardizem*] 60 mg PO TID 08/29/18 08/29/18 History Dronabinol [Marinol] 5 mg PO HS 08/29/18 08/29/18 History Ondansetron [Zofran] 4 mg PO TID 08/29/18 08/29/18 History Vancomycin HCl 125 mg PO DAILY 08/29/18 08/29/18 History hydrALAZINE HCL [Apresoline] 50 mg PO QID 08/29/18 08/29/18 History Allergies Allergy/AdvReac Type Severity Reaction Status Date / Time nitrofurantoin Allergy Unknown Verified 08/29/18 15:11 [From Macrobid] Penicillins Allergy Unknown Verified 08/29/18 15:11 sulfamethoxazole Allergy Unknown Verified 08/29/18 15:11 [From Bactrim] trimethoprim [From Bactrim] Allergy Unknown Verified 08/29/18 15:11 Surgical - Exam Vital Signs Temp Pulse Resp BP Pulse Ox 97.8 F 91 18 157/111 96 08/29/18 14:54 08/29/18 14:54 08/29/18 14:54 08/29/18 14:54 08/29/18 14:54 Physical exam: General: Well-developed, well-nourished HEENT: Normocephalic, sclerae nonicteric Abdomen: Nontender, nondistended, right lower quadrant ostomy with bilious fluid , no bleeding Extremities: No edema Neuro: Alert and oriented Results - Labs 08/30/18 05:35 08/30/18 05:35 Abnormal Lab Results - Last 24 Hours (Table) 08/29/18 08/29/18 08/29/18 Range/Units 16:31 16:31 16:31 WBC (3.8-10.6) k/uL RBC 5.66 H (3.80-5.40) m/uL Hct 46.9 H (34.0-46.0) % RDW 16.2 H (11.5-15.5) % Neutrophils # (1.3-7.7) k/uL APTT (22.0-30.0) sec Potassium 5.3 H (3.5-5.1) mmol/L Chloride (98-107) mmol/L Carbon Dioxide 17 L (22-30) mmol/L BUN 45 H (7-17) mg/dL Creatinine 2.18 H (0.52-1.04) mg/dL Glucose 129 H (74-99) mg/dL Phosphorus 5.2 H (2.5-4.5) mg/dL CK-MB (CK-2) 3.7 H (0.0-2.4) ng/mL Total Protein 8.7 H (6.3-8.2) g/dL Urine Appearance (Clear) Urine Protein (Negative) Urine Blood (Negative) Ur Leukocyte Esterase (Negative) Urine WBC (0-5) /hpf Urine WBC Clumps (None) /hpf Stool Occult Blood (Negative) 08/29/18 08/29/18 08/29/18 Range/Units 16:31 17:15 21:30 WBC (3.8-10.6) k/uL RBC (3.80-5.40) m/uL Hct (34.0-46.0) % RDW (11.5-15.5) % Neutrophils # (1.3-7.7) k/uL APTT 19.2 L (22.0-30.0) sec Potassium (3.5-5.1) mmol/L Chloride (98-107) mmol/L Carbon Dioxide (22-30) mmol/L BUN (7-17) mg/dL Creatinine (0.52-1.04) mg/dL Glucose (74-99) mg/dL Phosphorus (2.5-4.5) mg/dL CK-MB (CK-2) (0.0-2.4) ng/mL Total Protein (6.3-8.2) g/dL Urine Appearance Turbid H (Clear) Urine Protein 1+ H (Negative) Urine Blood Small H (Negative) Ur Leukocyte Esterase Large H (Negative) Urine WBC >182 H (0-5) /hpf Urine WBC Clumps Many H (None) /hpf Stool Occult Blood Positive H (Negative) 08/29/18 08/30/18 08/30/18 Range/Units 23:32 05:35 05:35 WBC 22.1 H 12.3 H (3.8-10.6) k/uL RBC (3.80-5.40) m/uL Hct 46.2 H (34.0-46.0) % RDW 16.3 H 16.4 H (11.5-15.5) % Neutrophils # 20.0 H 10.0 H (1.3-7.7) k/uL APTT (22.0-30.0) sec Potassium 5.4 H (3.5-5.1) mmol/L Chloride 116 H (98-107) mmol/L Carbon Dioxide 12 L (22-30) mmol/L BUN 42 H (7-17) mg/dL Creatinine 1.99 H (0.52-1.04) mg/dL Glucose 107 H (74-99) mg/dL Phosphorus (2.5-4.5) mg/dL CK-MB (CK-2) (0.0-2.4) ng/mL Total Protein (6.3-8.2) g/dL Urine Appearance (Clear) Urine Protein (Negative) Urine Blood (Negative) Ur Leukocyte Esterase (Negative) Urine WBC (0-5) /hpf Urine WBC Clumps (None) /hpf Stool Occult Blood (Negative) Microbiology - Last 24 Hours (Table) 08/29/18 17:15 Urine Culture - Preliminary Urine,Catheterized Diabetes panel 08/29/18 08/30/18 Range/Units 16:31 05:35 Sodium 138 138 (137-145) mmol/L Potassium 5.3 H 5.4 H (3.5-5.1) mmol/L Chloride 107 116 H (98-107) mmol/L Carbon Dioxide 17 L 12 L (22-30) mmol/L BUN 45 H 42 H (7-17) mg/dL Creatinine 2.18 H 1.99 H (0.52-1.04) mg/dL Glucose 129 H 107 H (74-99) mg/dL Calcium 10.2 9.0 (8.4-10.2) mg/dL AST 29 (14-36) U/L ALT 30 (9-52) U/L Alkaline Phosphatase 73 (38-126) U/L Total Protein 8.7 H (6.3-8.2) g/dL Albumin 4.1 (3.5-5.0) g/dL Calcium panel 08/29/18 08/30/18 Range/Units 16:31 05:35 Calcium 10.2 9.0 (8.4-10.2) mg/dL Phosphorus 5.2 H (2.5-4.5) mg/dL Albumin 4.1 (3.5-5.0) g/dL Pituitary panel 08/29/18 08/30/18 Range/Units 16:31 05:35 Sodium 138 138 (137-145) mmol/L Potassium 5.3 H 5.4 H (3.5-5.1) mmol/L Chloride 107 116 H (98-107) mmol/L Carbon Dioxide 17 L 12 L (22-30) mmol/L BUN 45 H 42 H (7-17) mg/dL Creatinine 2.18 H 1.99 H (0.52-1.04) mg/dL Glucose 129 H 107 H (74-99) mg/dL Calcium 10.2 9.0 (8.4-10.2) mg/dL Adrenal panel 08/29/18 08/30/18 Range/Units 16:31 05:35 Sodium 138 138 (137-145) mmol/L Potassium 5.3 H 5.4 H (3.5-5.1) mmol/L Chloride 107 116 H (98-107) mmol/L Carbon Dioxide 17 L 12 L (22-30) mmol/L BUN 45 H 42 H (7-17) mg/dL Creatinine 2.18 H 1.99 H (0.52-1.04) mg/dL Glucose 129 H 107 H (74-99) mg/dL Calcium 10.2 9.0 (8.4-10.2) mg/dL Total Bilirubin 0.6 (0.2-1.3) mg/dL AST 29 (14-36) U/L ALT 30 (9-52) U/L Alkaline Phosphatase 73 (38-126) U/L Total Protein 8.7 H (6.3-8.2) g/dL Albumin 4.1 (3.5-5.0) g/dL Assessment and Plan (1) GI bleed Narrative/Plan: Will monitor for recurrent bleeding but this is likely related to mucosal irritation and the concurrent anticoagulation. Patient's morning nausea and intermittent vomiting may be on the basis of dehydration from high output ileostomy. Will have dietary evaluate the patient and talk to the family regarding appropriate fluid intake. We'll order abdominal x-rays to rule out obstruction although clinically not suspected. Will follow. Current Visit: Yes Status: Acute Code(s): K92.2 - GASTROINTESTINAL HEMORRHAGE, UNSPECIFIED SNOMED Code(s): 59114051
--- NOTE | 2018-08-30 15:34 | XR ---
2 view abdomen HISTORY: Nausea and vomiting 2 views of the abdomen on 4 images correlated to prior abdomen 06/06/2018 There is a PEG tube in place. The colon no longer shows gas distention. There are extensive vascular calcifications present. Suspect a Mancini catheter is in place. Degenerative disc changes are present i n the visualized spine, osteoarthritic change in the hips. Lung bases are clear. No evident pneumoper itoneum or bowel obstruction. IMPRESSION: PEG tube in place. Nonobstructive bowel gas pattern.
[2018-08-30] MEDS: DILTIAZEM ORAL 30 MG TAB PO SCH ×2 (16:40→21:34)
--- NOTE | 2018-08-30 18:36 | PN ---
PROGRESS NOTE DATE OF SERVICE: 08/30/2018 This 88-year-old woman who was admitted with acute renal failure also had change in mental status. The patient also had features of acute urinary tract infection, present on admission. The patient was evaluated by Cardiology and Surgery for the possibility of GI bleed. The patient has some blood in the ileostomy bag. The patient also had some nausea and vomiting. Dr. Garcia has seen the patient and recommended continued followup. The hemoglobin today is 13.4 compared to 15.3 on admission. The patient is being closely monitored. The patient was also seen by Cardiology, who is following the patient for chronic atrial fibrillation. No chest pain. No palpitations. No fever. Past medical history reviewed. REVIEW OF SYSTEMS: CARDIOVASCULAR SYSTEM: No angina, palpitations. RESPIRATORY SYSTEM: As mentioned earlier. GI: As mentioned earlier. : No dysuria or retention. NERVOUS SYSTEM: No numbness, weakness. CURRENT MEDICATIONS: Reviewed. They include: 1. Tylenol 650 q.6 p.r.n. 2. [place] 5 mg q.6 p.r.n. 3. DuoNeb q.i.d. and p.r.n. 4. Eliquis 2.5 mg b.i.d. 5. Aspirin 81 mg. 6. Rocephin 1 gram daily. 7. Saavedra syrup. 8. Cardizem CD 90 mg p.o. t.i.d. 9. Marinol 5 mg at bedtime. 10.Apresoline 50 mg p.o. q.i.d. 11.Lactinex 1 mg p.o. daily. 12.Melatonin 3 mg at bedtime p.r.n. 13.Zofran. 14.Protonix. 15.Zoloft. 16.Vancomycin 250 mg p.o. q.6. PHYSICAL EXAMINATION: Patient is alert, oriented x2. Pulse 87, blood pressure 133/74, respiration 18, temperature 97.9, pulse ox 96% on room air. HEENT: Conjunctivae normal. NECK: No jugular venous distention. CARDIOVASCULAR SYSTEM: S1, S2 muffled. RESPIRATORY SYSTEM: Breath sounds diminished at the bases. A few scattered rhonchi and crackles. ABDOMEN: Soft, non-tender. No mass palpable. Ileostomy present. LEGS: No edema. No swelling. NERVOUS SYSTEM: Higher functions as mentioned earlier. Moves all 4 limbs. No focal motor or sensory deficit. LYMPHATICS: No lymph node palpable in neck, axillae or groin. SKIN: No ulcer, rash, bleeding. LABS: WBC 12.3, sodium 138, potassium 5.4. The CO2 is 12 and creatinine is 1.99. Stool OB is positive. ASSESSMENT: 1. Acute renal failure, possibly prerenal, acute tubular necrosis with dehydration for further evaluation. 2. Change in mental status, metabolic encephalopathy, acute on chronic. 3. Acute urinary tract infection, present on admission. 4. Rule out gastrointestinal bleed. 5. Increased potassium. 6. History of chronic obstructive pulmonary disease. 7. Dementia. 8. Gastroesophageal reflux disease. 9. Hypertension. 10.History of frequent urinary tract infections. 11.History of appendectomy. 12.History of hysterectomy. 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 14.History of claustrophobia. RECOMMENDATIONS AND DISCUSSION: In this 88-year-old woman who presented with multiple complex medical issues, we will monitor the patient closely, continue the current management, continue symptomatic treatment, continue with IV fluids, antibiotics. I would also recommend nephrology consultation because of the worsening acidosis as well as renal failure. The vancomycin to be continued. The prognosis is guarded because of multiple complex medical issues. Further recommendations to follow. MMODL / IJN: [id number] /
[2018-08-30] MEDS: DRONABINOL 2.5 MG CAP PO SCH (21:33)
[2018-08-31] MEDS: CHERRY FLAVOR 60 ML BOTTLE PO SCH ×5 (01:07→23:14)
[2018-08-31] MEDS: VANCOMYCIN ORAL SOLUTION 250 MG/5 ML BOTTLE PO SCH ×5 (01:07→23:14)
[2018-08-31] MEDS: IPRATROPIUM-ALBUTEROL 3 ML NEB INHALATION SCH ×4 (07:18→19:25)
[2018-08-31] MEDS: hydrALAZINE HCL 50 MG TAB PO SCH ×4 (08:07→20:37)
--- NOTE | 2018-08-31 08:19 | P.PN ---
Subjective Progress Note Date: 08/31/18 Principal diagnosis: GI bleeding Patient has had no further bleeding. Ostomy is bilious today. She is confused today. Morning labs are pending. Objective - Vital Signs Vital signs: Vital Signs Temp 98.0 F 08/30/18 23:09 Pulse 84 08/31/18 08:00 Resp 19 08/31/18 08:00 BP 131/71 08/30/18 23:09 Pulse Ox 96 08/30/18 23:09 Intake & Output 08/30/18 08/31/18 08/31/18 18:59 06:59 18:59 Intake Total 220 310 Output Total 900 300 300 Balance -680 10 -300 Weight 62.9 kg 72 kg Intake: Oral 180 Tube Feeding 40 310 Output: Stool 900 300 300 Other: # Bowel Movements 400 - Exam Abdomen: Soft, nondistended, nontender, ostomy ileus - Labs CBC & Chem 7: 08/30/18 05:35 08/30/18 05:35 Labs: Microbiology - Last 24 Hours (Table) 08/29/18 17:15 Urine Culture - Preliminary Urine,Catheterized Gram Neg Bacilli 08/29/18 18:44 Blood Culture - Preliminary Blood No Growth after 24 hours Assessment and Plan (1) GI bleed Narrative/Plan: Continue tube feeds and diet. Check morning labs. No further intervention planned from my standpoint. Current Visit: Yes Status: Acute Code(s): K92.2 - GASTROINTESTINAL HEMORRHAGE, UNSPECIFIED SNOMED Code(s): 33931968
[2018-08-31] MEDS: ONDANSETRON 4 MG/2 ML VIAL IVP SCH ×3 (08:31→20:41)
[2018-08-31] MEDS: ASPIRIN 81 MG PO SCH (08:32)
[2018-08-31] MEDS: PANTOPRAZOLE 40 MG/10 ML VIAL IVP SCH (08:32)
[2018-08-31] MEDS: DILTIAZEM ORAL 30 MG TAB PO SCH ×3 (08:32→20:41)
[2018-08-31] MEDS: LACTOBACILLUS ACIDOPH & BULGAR 1 EACH PACKET PO SCH (08:32)
[2018-08-31] MEDS: APIXABAN 2.5 MG TABLET PO SCH ×2 (08:32→20:41)
[2018-08-31] MEDS: SERTRALINE 100 MG TAB PO SCH (08:32)
--- NOTE | 2018-08-31 10:54 | P.PN ---
Subjective This is a pleasant 88 years old female with past medical history of dementia, COPD, GERD, hypertension, frequent UTI, status post right-sided colostomy. Presents because of altered mental status home on generalized weakness and found to have UTI and acute kidney injury. There was suspicion of some blood in the stomach back, she is been evaluated and thought its is a diffuse to irritation to the mucosa in the area. Patient is still confused. To time place and person. She has leukocytosis of 20 2.1K going down to 12.3 K, repeat WBC still pending. She has mild hyperkalemia. Creatinine is 2.1 and 1.9. Baseline creatinine is around 1.0. Urine culture showing gram-negative bacilli Objective - Vital Signs Vital signs: Vital Signs Temp 97.8 F 08/31/18 08:00 Pulse 67 08/31/18 08:00 Resp 18 08/31/18 08:00 BP 118/68 08/31/18 08:00 Pulse Ox 98 08/31/18 08:00 Intake & Output 08/30/18 08/31/18 08/31/18 18:59 06:59 18:59 Intake Total 220 310 Output Total 900 300 300 Balance -680 10 -300 Weight 62.9 kg 72 kg Intake: Oral 180 Tube Feeding 40 310 Output: Stool 900 300 300 Other: # Bowel Movements 400 - Exam -GENERAL: The patient is alert and oriented x0, not in any acute distress. HEENT: Pupils are round and equally reacting to light. EOMI. No scleral icterus. No conjunctival pallor. Normocephalic, atraumatic. No pharyngeal erythema. No thyromegaly. CARDIOVASCULAR: S1 and S2 present. No murmurs, rubs, or gallops. PULMONARY: Chest is clear to auscultation, no wheezing or crackles. ABDOMEN: Soft, nontender, nondistended, normoactive bowel sounds. No palpable organomegaly. Right colostomy bag, looks empty with no blood in it. MUSCULOSKELETAL: No joint swelling or deformity. EXTREMITIES: No cyanosis, clubbing, or pedal edema. NEUROLOGICAL: Gross neurological examination did not reveal any focal deficits. SKIN: No rashes. - Labs CBC & Chem 7: 08/30/18 05:35 08/30/18 05:35 Labs: Microbiology - Last 24 Hours (Table) 08/29/18 17:15 Urine Culture - Preliminary Urine,Catheterized Gram Neg Bacilli 08/29/18 18:44 Blood Culture - Preliminary Blood No Growth after 24 hours Assessment and Plan Assessment: Acute kidney injury, possibly prerenal, from dehydration and urinary tract infection Metabolic encephalopathy History of dementia Urinary tract infection, with gram-negative bacilli Blood in the back, rule out GI bleed High potassium History of COPD, not in acute exacerbation GERD Essential hypertension History of frequent UTIs 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 Plan: This is a pleasant 88 years old female who presents because of UTI and altered mental status. Continue with antibiotics and fluids.Labs and medication were reviewed.. Continue same treatment. Continue with symptomatic treatment. Resume home medication. Monitor lytes and vitals. DVT and GI prophylaxis. Further recommendations of the clinical course of the patient DVT prophylaxis: eliquis GI Prophylaxis: Protonix PT/OT: Pending Prognosis is guarded
[2018-08-31] MEDS: DEXTROSE 5% IN WATER 1,000 ML with SODIUM BICARB (1 MEQ/ML) 150 ML IV SCH (11:31)
--- NOTE | 2018-08-31 13:58 | CONS ---
CONSULTATION REASON FOR CONSULT: Renal failure. HISTORY OF PRESENT ILLNESS: Patient is a 88-year-old female who was admitted to the hospital on 08/29/2018 with complaints of increased weakness, fatigue, and decreased oral intake. Patient was also noted to have elevated creatinine as outpatient. We have a serum creatinine of 2.1 mg/dL from 08/29/2018. Previous creatinine was 1.0 on 07/04/2018. Patient's blood pressure has not been significantly low. She is currently maintained on IV fluids and her creatinine this morning was down to 1.9 mg/dL. Serum potassium has been slightly on the high side at 5.3 and 5.4. We do not have any labs from today. At home, patient was not on KEARA inhibitors or diuretics. I do not see any nonsteroidal anti-inflammatory agents. Patient also has a history of C diff colitis. She did not have diarrhea on initial admission. PAST MEDICAL HISTORY: Significant for hypertension, dementia, COPD, gastroesophageal reflux disease, frequent UTIs, history of C. diff colitis 2011. SURGICAL HISTORY: Appendectomy, hysterectomy, LASIK eye surgery. SOCIAL HISTORY: Negative for smoking, drug abuse or alcohol abuse. MEDICATIONS: At home prior to admission include hydralazine, oral vancomycin, Marinol, Cardizem, Eliquis, Zoloft, omeprazole, aspirin. ALLERGIES: Include MACROBID, PENICILLIN, BACTRIM. REVIEW OF SYSTEMS: As per HPI, other systems negative. PHYSICAL EXAMINATION: Patient is comfortable, awake. She is not in any acute distress. Blood pressure is 142/81, heart rate 71 per minute. She is afebrile. Examination of the heart, S1, S2. Examination of the lungs, bilateral breath sounds are heard. Abdomen is soft, nontender. Examination of the lower extremities shows no significant edema. MOCCASIN SEWER exam is grossly intact. Patient is moving all 4 extremities. LABS: Reveal stool for occult blood was positive. Hemoglobin 13.4, sodium 138, potassium 5.4. Yesterday CO2 was 12, BUN 42, serum creatinine 1.9. A UA shows 1+ protein, large WBCs. C. diff toxin is negative. Urine culture is growing gram-negative bacilli. Blood cultures negative thus far. ASSESSMENT: 1. Acute kidney injury, most likely acute tubular necrosis, currently nonoliguric. Continue with IV fluids. However, I will change the fluids to IV bicarb given her severe metabolic acidosis. 2. Mild hyperkalemia associated with acute kidney injury and metabolic acidosis. Expect improvement with initiation of bicarb. We will also repeat labs today. 3. Hypovolemia. 4. Urinary tract infection with urine culture growing gram-negative bacilli. 5. Chronic atrial fibrillation, maintained on Eliquis. 6. Gastrointestinal bleed with stool positive for occult blood. Hemoglobin is stable. PLAN: Change IV fluids to IV bicarb. Check labs today. Repeat labs in a.m. Avoid nephrotoxic agents. Okay to use oral vancomycin, if needed. Thank you for this consultation. We will continue to follow the patient with you during her hospitalization. MMODL / IJN: [id number] /
[2018-08-31 13:59] LABS: Anisocytosis Slight; Basophils % (A) 0 %; Eosinophils # (A) 0.4 k/uL (0-0.7); Eosinophils % (A) 4 %; HCT 37.8 % (34.0-46.0); HGB 12.3 gm/dL (11.4-16.0); Hypochromasia Slight; Lymphocytes # (A) 1.7 k/uL (1.0-4.8); Lymphocytes % (A) 18 %; MCH 27.5 pg (25.0-35.0); MCHC 32.5 g/dL (31.0-37.0); MCV 84.6 fL (80.0-100.0); Monocytes # (A) 0.4 k/uL (0-1.0); Monocytes % (A) 4 %; Neutrophils # (A) 6.6 k/uL (1.3-7.7); Neutrophils % (A) 73 %; Platelet Count 219 k/uL (150-450); Poikilocytosis Slight; RBC 4.47 m/uL (3.80-5.40); RDW 16.5 % (11.5-15.5)
[2018-08-31 14:09] LABS: Calcium 8.5 mg/dL (8.4-10.2); Potassium 3.6 mmol/L (3.5-5.1)
[2018-08-31] MEDS: DRONABINOL 2.5 MG CAP PO SCH (20:41)
[2018-09-01] MEDS: CHERRY FLAVOR 60 ML BOTTLE PO SCH ×3 (05:31→16:09)
[2018-09-01] MEDS: PANTOPRAZOLE 40 MG TABLET PO SCH (05:31)
[2018-09-01] MEDS: VANCOMYCIN ORAL SOLUTION 250 MG/5 ML BOTTLE PO SCH ×3 (05:31→16:09)
[2018-09-01] MEDS: DEXTROSE 5% IN WATER 1,000 ML with SODIUM BICARB (1 MEQ/ML) 150 ML IV SCH (05:33)
[2018-09-01 06:16] LABS: Anisocytosis Slight; Basophils % (A) 0 %; Eosinophils # (A) 0.6 k/uL (0-0.7); Eosinophils % (A) 5 %; HGB 11.4 gm/dL (11.4-16.0); Lymphocytes # (A) 1.8 k/uL (1.0-4.8); Lymphocytes % (A) 16 %; MCH 27.4 pg (25.0-35.0); MCHC 32.5 g/dL (31.0-37.0); MCV 84.1 fL (80.0-100.0); Mean Platelet Volume 7.2; Monocytes # (A) 0.5 k/uL (0-1.0); Monocytes % (A) 4 %; Neutrophils # (A) 8.7 k/uL (1.3-7.7); Neutrophils % (A) 74 %; Platelet Count 225 k/uL (150-450); Poikilocytosis Slight; RBC 4.17 m/uL (3.80-5.40); RDW 16.5 % (11.5-15.5); WBC 11.7 k/uL (3.8-10.6)
[2018-09-01 06:24] LABS: Calcium 8.6 mg/dL (8.4-10.2); Potassium 3.6 mmol/L (3.5-5.1)
[2018-09-01] MEDS: APIXABAN 2.5 MG TABLET PO SCH ×2 (07:58→19:55)
[2018-09-01] MEDS: DILTIAZEM ORAL 30 MG TAB PO SCH ×3 (07:58→19:54)
[2018-09-01] MEDS: ONDANSETRON 4 MG/2 ML VIAL IVP SCH ×3 (07:58→19:55)
[2018-09-01] MEDS: ASPIRIN 81 MG PO SCH (07:58)
[2018-09-01] MEDS: SERTRALINE 100 MG TAB PO SCH (07:58)
[2018-09-01] MEDS: hydrALAZINE HCL 50 MG TAB PO SCH ×4 (07:59→23:15)
[2018-09-01] MEDS: LACTOBACILLUS ACIDOPH & BULGAR 1 EACH PACKET PO SCH (07:59)
[2018-09-01] MEDS: IPRATROPIUM-ALBUTEROL 3 ML NEB INHALATION SCH ×4 (08:04→18:54)
--- NOTE | 2018-09-01 09:52 | P.PN ---
Subjective This is a pleasant 88 years old female with past medical history of dementia, COPD, GERD, hypertension, frequent UTI, status post right-sided colostomy. Presents because of altered mental status home on generalized weakness and found to have UTI and acute kidney injury. There was suspicion of some blood in the stomach back, she is been evaluated and thought its is a diffuse to irritation to the mucosa in the area. Patient is still confused. To time place and person. She has leukocytosis of 20 2.1K going down to 12.3 K, repeat WBC still pending. She has mild hyperkalemia. Creatinine is 2.1 and 1.9. Baseline creatinine is around 1.0. Urine culture showing gram-negative bacilli Gen. 618 And is awake and alert and she was sitting in bed eating her breakfast. She is oriented to place and partially to person. Normal to time. She still feeling generally weak but no dysuria or urgency, her increased frequency is improving. No more blood was noticed in the colostomy back. Urine culture is growing Pseudomonas. Infectious disease consulted. Patient still has PEG tube in a Place, however patient is able to eat. Her WBC is 11.7. And his creatinine is improved to 1.2. Nephrology R following the patient's she still on sodium bicarb. Objective - Vital Signs Vital signs: Vital Signs Temp 97.7 F 09/01/18 08:02 Pulse 72 09/01/18 08:15 Resp 20 09/01/18 08:02 BP 147/69 09/01/18 08:02 Pulse Ox 98 09/01/18 08:02 Intake & Output 08/31/18 09/01/18 09/01/18 18:59 06:59 18:59 Intake Total 500 390 240 Output Total 1200 400 200 Balance -700 -10 40 Weight 72.1 kg Intake: Oral 240 240 Tube Feeding 260 390 Output: Stool 1200 400 200 - Exam -GENERAL: The patient is alert and oriented x0, not in any acute distress. HEENT: Pupils are round and equally reacting to light. EOMI. No scleral icterus. No conjunctival pallor. Normocephalic, atraumatic. No pharyngeal erythema. No thyromegaly. CARDIOVASCULAR: S1 and S2 present. No murmurs, rubs, or gallops. PULMONARY: Chest is clear to auscultation, no wheezing or crackles. ABDOMEN: Soft, nontender, nondistended, normoactive bowel sounds. No palpable organomegaly. Right colostomy bag, looks empty with no blood in it. MUSCULOSKELETAL: No joint swelling or deformity. EXTREMITIES: No cyanosis, clubbing, or pedal edema. NEUROLOGICAL: Gross neurological examination did not reveal any focal deficits. SKIN: No rashes. - Labs CBC & Chem 7: 09/01/18 05:12 09/01/18 05:12 Labs: Abnormal Lab Results - Last 24 Hours (Table) 08/31/18 08/31/18 09/01/18 Range/Units 13:47 13:47 05:12 WBC 11.7 H (3.8-10.6) k/uL RDW 16.5 H 16.5 H (11.5-15.5) % Neutrophils # 8.7 H (1.3-7.7) k/uL Sodium (137-145) mmol/L Chloride 112 H (98-107) mmol/L Carbon Dioxide 16 L (22-30) mmol/L BUN 33 H (7-17) mg/dL Creatinine 1.41 H (0.52-1.04) mg/dL Glucose 174 H (74-99) mg/dL 09/01/18 Range/Units 05:12 WBC (3.8-10.6) k/uL RDW (11.5-15.5) % Neutrophils # (1.3-7.7) k/uL Sodium 136 L (137-145) mmol/L Chloride (98-107) mmol/L Carbon Dioxide (22-30) mmol/L BUN 30 H (7-17) mg/dL Creatinine 1.21 H (0.52-1.04) mg/dL Glucose 169 H (74-99) mg/dL Microbiology - Last 24 Hours (Table) 08/29/18 17:15 Urine Culture - Final Urine,Catheterized Pseudomonas aeruginosa 08/29/18 18:44 Blood Culture - Preliminary Blood No Growth after 48 hours Assessment and Plan Assessment: Acute kidney injury, possibly prerenal, from dehydration and urinary tract infection Metabolic encephalopathy History of dementia Urinary tract infection, with pseudomonas. 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 Plan: This is a pleasant 88 years old female who presents because of UTI and altered mental status. Continue with antibiotics and fluids.Labs and medication were reviewed.. Continue same treatment. Continue with symptomatic treatment. Resume home medication. Monitor lytes and vitals. DVT and GI prophylaxis. Further recommendations of the clinical course of the patient DVT prophylaxis: eliquis GI Prophylaxis: Protonix PT/OT: Pending Prognosis is guarded
--- NOTE | 2018-09-01 12:47 | P.CONS ---
History of Present Illness - Reason for Consult Consult date: 09/01/18 C. diff, UTI - History of Present Illness This is an 88-year-old female known to ID service as she was seen during her extended hospitalization in at which time she was treated for diverticulitis and patient was treated with antibiotics and conservative management. 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 Garcia on June 07. Patient was managed in the intensive care unit and progressed very slowly. Patient was then discharged to [facility] and subsequently to home. Patient lives with her son Eric. Eric, is at the bedside and most history is obtained from him. Patient was doing very well at home and increasing her strength. She was able to ambulate with a walker. She has had chronic nausea in the morning for which she gives her Zofran daily but 2 days ago she received her Zofran was able to eat breakfast but after that did not eat for the rest of the day. She did spit up and vomited some through the day. She went to bed early at 6 PM that evening and did not receive any of her medications. The next morning he tried to get her up onto the commode chair and she started passing out on him and she felt dizzy. She was very weak and he had difficulty moving her from commode to the bed. He ended up putting her back into bed. Her arms were shaking alternatingly. He was concerned at that point because she had not had any medications for 24 hours. He tried to use her PEG tube and put Ensure in but she ended up vomiting orally and the Ensure return through her PEG tube. He then called EMS and patient was brought into [facility] emergency center for evaluation. Her white count was 10, creatinine 1.21, urinalysis was turbid, leukoesterase large, WBCs greater than 182 and WBC clumps many. Blood culture showing no growth after 48 hours. C. diff toxin was negative and occult blood was positive. Urine cultures positive for Pseudomonas. Patient has been on Rocephin and oral vancomycin. Patient is able to answer simple questions but due to underlying dementia is unable to provide adequate history. Patient does have a history of C. difficile colitis in 2011 treated at [facility]. Son states that patient is to be on vancomycin 125 mg daily to prevent further episodes of C. difficile colitis. He states that she is also on trimethoprim 100 mg every day to prevent UTIs. Patient was admitted to the cardiac unit and has been seen in consultation by Dr. Andino for A. fib which is chronic moderately controlled and patient was initially on Cardizem drip which is been switched to oral medications. Patient has been seen by Dr. Parr for acute kidney injury and ATN with mild hyperkalemia and metabolic acidosis. Kidney function is improving during her hospitalization. Dr. Garcia was consulted due to blood in the ileostomy bag which is thought to be due to mucosal irritation and concurrent anticoagulation. No blood is noted in the ileostomy bag during this exam. Abdominal x-ray showed nonobstructive bowel gas pattern. The patient is eating very little possibly less than 25% of her meals. Dietitian is following with recommendations for resuming bolus PEG tube feedings between meals. Review of Systems ROS unobtainable: due to mental status Past Medical History Past Medical History: COPD, Dementia, GERD/Reflux, Hypertension Additional Past Medical History / Comment(s): frequent UTI's, past falls. hx c- diff 2011. uses magnifying glass to read.PT STATED HAS HAD THE PNE AND SHINGLES VACCINE BUT NOT SURE OF THE DATES. AMMUNITION OFFICER UNABLE TO VERIFY DATE AT TIME OF THIS ADMIT. History of Any Multi-Drug Resistant Organisms: None Reported Year Discovered:: None MDRO Source:: None Past Surgical History: Appendectomy, Hysterectomy Additional Past Surgical History / Comment(s): lasik eye sx Past Anesthesia/Blood Transfusion Reactions: No Reported Reaction Additional Past Anesthesia/Blood Transfusion Reaction / Comm: CLAUSTERPHOBIA Smoking Status: Never smoker - Past Family History Mother Family Medical History: Renal Disease Father Family Medical History: No Reported History Additional Family Medical History / Comment(s): IN A COAL MINE DISASTER IN HIS 30'S Medications and Allergies Home Medications Medication Instructions Recorded Confirmed Type Aspirin EC [Ecotrin Low Dose] 81 mg PO DAILY 06/01/18 08/29/18 History L.acidoph,Paracasei, B.lactis 1 cap PO DAILY 06/01/18 08/29/18 History [Probiotic] Omeprazole 20 mg PO HS 06/01/18 08/29/18 History Sertraline [Zoloft] 100 mg PO DAILY 06/01/18 08/29/18 History Ipratropium-Albuterol Nebulize 3 ml INHALATION RT-QID #120 07/01/18 08/29/18 Rx [Duoneb 0.5 mg-3 mg/3 ml Soln] ampul.neb Apixaban [Eliquis] 2.5 mg PO BID 08/29/18 08/29/18 History Diltiazem Oral [Cardizem*] 60 mg PO TID 08/29/18 08/29/18 History Dronabinol [Marinol] 5 mg PO HS 08/29/18 08/29/18 History Ondansetron [Zofran] 4 mg PO TID 08/29/18 08/29/18 History Vancomycin HCl 125 mg PO DAILY 08/29/18 08/29/18 History hydrALAZINE HCL [Apresoline] 50 mg PO QID 08/29/18 08/29/18 History Allergies Allergy/AdvReac Type Severity Reaction Status Date / Time nitrofurantoin Allergy Unknown Verified 08/29/18 15:11 [From Macrobid] Penicillins Allergy Unknown Verified 08/29/18 15:11 sulfamethoxazole Allergy Unknown Verified 08/29/18 15:11 [From Bactrim] trimethoprim [From Bactrim] Allergy Unknown Verified 08/29/18 15:11 Physical Exam Vitals: Vital Signs Temp Pulse Pulse Resp BP Pulse Ox 09/01/18 11:55 68 09/01/18 08:15 72 09/01/18 08:04 72 09/01/18 08:02 97.7 F 63 16 147/69 98 09/01/18 04:00 98.2 F 60 20 142/84 94 L 09/01/18 00:00 98.8 F 68 20 144/77 97 08/31/18 20:00 98.4 F 76 18 132/76 95 08/31/18 19:34 65 08/31/18 19:26 66 96 08/31/18 16:00 97.9 F 73 18 134/73 96 08/31/18 15:57 71 18 Intake and Output 08/31/18 09/01/18 09/01/18 22:59 06:59 14:59 Intake Total 500 260 240 Output Total 500 200 200 Balance 0 60 40 Intake: Oral 240 240 Tube Feeding 260 260 Output: Stool 500 200 200 Other: Weight 72.1 kg Gen: This is a 88-year-old female. She is sitting up in bed and appears to be comfortable and in no acute distress. HEENT: Head is atraumatic, normocephalic. Pupils equal, round. Sclerae is anicteric. Conjunctiva pink. Mucous membranes of the mouth are moist. No thrush noted. NECK: Supple. No JVD. No lymphadenopathy. No thyromegaly. LUNGS: Diminished bilat bases. No wheezing. No intercostal retractions. HEART: Irregular rate and rhythm. No murmur. ABDOMEN: Soft. Bowel sounds are present. No tenderness to light palpation. Patient has ileostomy to the right lower quadrant with a mixture of liquid medium brown stool and semi-formed stool. PEG tube in the left upper quadrant with no significant drainage, no bleeding, no tenderness around the site. EXTREMITIES: no pedal edema. No calf tenderness. Dorsalis pedis +1 bilaterally. NEUROLOGICAL: Patient is awake, alert and oriented x1. Generalized weakness noted. No focal neural deficits. Results Results: Laboratory Results WBC 11.7 k/uL (3.8-10.6) H 09/01/18 05:12 RBC 4.17 m/uL (3.80-5.40) 09/01/18 05:12 Hgb 11.4 gm/dL (11.4-16.0) 09/01/18 05:12 Hct 35.0 % (34.0-46.0) 09/01/18 05:12 MCV 84.1 fL (80.0-100.0) 09/01/18 05:12 MCH 27.4 pg (25.0-35.0) 09/01/18 05:12 MCHC 32.5 g/dL (31.0-37.0) 09/01/18 05:12 RDW 16.5 % (11.5-15.5) H 09/01/18 05:12 Plt Count 225 k/uL (150-450) 09/01/18 05:12 Neutrophils % 74 % 09/01/18 05:12 Lymphocytes % 16 % 09/01/18 05:12 Monocytes % 4 % 09/01/18 05:12 Eosinophils % 5 % 09/01/18 05:12 Basophils % 0 % 09/01/18 05:12 Neutrophils # 8.7 k/uL (1.3-7.7) H 09/01/18 05:12 Lymphocytes # 1.8 k/uL (1.0-4.8) 09/01/18 05:12 Monocytes # 0.5 k/uL (0-1.0) 09/01/18 05:12 Eosinophils # 0.6 k/uL (0-0.7) 09/01/18 05:12 Basophils # 0.0 k/uL (0-0.2) 09/01/18 05:12 Hypochromasia Slight 08/31/18 13:47 Poikilocytosis Slight 09/01/18 05:12 Anisocytosis Slight 09/01/18 05:12 PT 10.7 sec (9.0-12.0) 08/29/18 16:31 INR 1.1 (<1.2) 08/29/18 16:31 APTT 19.2 sec (22.0-30.0) L 08/29/18 16:31 Sodium 136 mmol/L (137-145) L 09/01/18 05:12 Potassium 3.6 mmol/L (3.5-5.1) 09/01/18 05:12 Chloride 104 mmol/L (98-107) 09/01/18 05:12 Carbon Dioxide 23 mmol/L (22-30) 09/01/18 05:12 Anion Gap 9 mmol/L 09/01/18 05:12 BUN 30 mg/dL (7-17) H 09/01/18 05:12 Creatinine 1.21 mg/dL (0.52-1.04) H 09/01/18 05:12 Est GFR (CKD-EPI)AfAm 46 (>60 ml/min/1.73 sqM) 09/01/18 05:12 Est GFR (CKD-EPI)NonAf 40 (>60 ml/min/1.73 sqM) 09/01/18 05:12 Glucose 169 mg/dL (74-99) H 09/01/18 05:12 Calcium 8.6 mg/dL (8.4-10.2) 09/01/18 05:12 Phosphorus 3.2 mg/dL (2.5-4.5) 09/01/18 05:12 Magnesium 1.6 mg/dL (1.6-2.3) 08/29/18 16:31 Total Bilirubin 0.6 mg/dL (0.2-1.3) 08/29/18 16:31 AST 29 U/L (14-36) 08/29/18 16:31 ALT 30 U/L (9-52) 08/29/18 16:31 Alkaline Phosphatase 73 U/L (38-126) 08/29/18 16:31 Total Creatine Kinase 52 U/L (30-135) 08/29/18 16:31 CK-MB (CK-2) 3.7 ng/mL (0.0-2.4) H 08/29/18 16:31 CK-MB (CK-2) Rel Index 7.1 08/29/18 16:31 Troponin I 0.021 ng/mL (0.000-0.034) 08/29/18 16:31 Total Protein 8.7 g/dL (6.3-8.2) H 08/29/18 16:31 Albumin 4.1 g/dL (3.5-5.0) 08/29/18 16:31 Urine Color Yellow 08/29/18 17:15 Urine Appearance Turbid (Clear) H 08/29/18 17:15 Urine pH 5.5 (5.0-8.0) 08/29/18 17:15 Ur Specific [place] 1.013 (1.001-1.035) 08/29/18 17:15 Urine Protein 1+ (Negative) H 08/29/18 17:15 Urine Glucose (UA) Negative (Negative) 08/29/18 17:15 Urine Ketones Negative (Negative) 08/29/18 17:15 Urine Blood Small (Negative) H 08/29/18 17:15 Urine Nitrite Negative (Negative) 08/29/18 17:15 Urine Bilirubin Negative (Negative) 08/29/18 17:15 Urine Urobilinogen <2.0 mg/dL (<2.0) 08/29/18 17:15 Ur Leukocyte Esterase Large (Negative) H 08/29/18 17:15 Urine WBC >182 /hpf (0-5) H 08/29/18 17:15 Urine WBC Clumps Many /hpf (None) H 08/29/18 17:15 Stool Occult Blood Positive (Negative) H 08/29/18 21:30 C. difficile (EIA) Intrp Negative (Negative) 08/29/18 21:30 CBC & Chem 7: 09/02/18 05:51 09/02/18 05:51 Labs: Abnormal Lab Results - Last 24 Hours (Table) 08/31/18 08/31/18 09/01/18 Range/Units 13:47 13:47 05:12 WBC 11.7 H (3.8-10.6) k/uL RDW 16.5 H 16.5 H (11.5-15.5) % Neutrophils # 8.7 H (1.3-7.7) k/uL Sodium (137-145) mmol/L Chloride 112 H (98-107) mmol/L Carbon Dioxide 16 L (22-30) mmol/L BUN 33 H (7-17) mg/dL Creatinine 1.41 H (0.52-1.04) mg/dL Glucose 174 H (74-99) mg/dL 09/01/18 Range/Units 05:12 WBC (3.8-10.6) k/uL RDW (11.5-15.5) % Neutrophils # (1.3-7.7) k/uL Sodium 136 L (137-145) mmol/L Chloride (98-107) mmol/L Carbon Dioxide (22-30) mmol/L BUN 30 H (7-17) mg/dL Creatinine 1.21 H (0.52-1.04) mg/dL Glucose 169 H (74-99) mg/dL Microbiology - Last 24 Hours (Table) 08/29/18 17:15 Urine Culture - Final Urine,Catheterized Pseudomonas aeruginosa 08/29/18 18:44 Blood Culture - Preliminary Blood No Growth after 48 hours Assessment and Plan Plan: This is an 88-year-old female patient who presented to the hospital with generalized weakness, acute kidney injury, A. fib with moderate control, urinary tract infection. Urine culture returned back positive for Pseudomonas and blood culture showing no growth after 48 hours. Patient is currently on IV Rocephin which is been switched to ceftazidime. Patient is also on oral vancomycin which will be clarified as son states she takes is prophylactically to prevent C. difficile colitis. Stool testing has been negative for C. difficile toxin. Oral vancomycin will be reduced to the 125 mg daily. No need for trimethoprim. Continue supportive care. Further recommendations as patient progresses. The above dictated assessment and findings were discussed with Dr. Kincaid. The impression and plan of care have been directed as dictated. Mariam David nurse practitioner acting as scribe for Dr. Kincaid.
--- NOTE | 2018-09-01 14:26 | P.PN ---
Subjective Patient is seen in follow-up for acute kidney injury. Renal function is improving with creatinine down to 1.1 today. Patient denies any chest pain or shortness of breath. She is receiving tube feedings and is also maintained on bicarb drip. Acidosis has resolved. Vital signs are stable. General: The patient appeared well nourished and normally developed. HEENT: Head exam is unremarkable. Neck is without jugular venous distension. LUNGS: Lungs are clear to auscultation and percussion. Breath sounds decreased. HEART: Rate and Rhythm are regular. First and second heart sounds normal. No murmurs, rubs or gallops. ABDOMEN: Abdominal exam reveals normal bowel sounds. Non-tender and non- distended. No evidence of peritonitis. EXTREMITITES: No clubbing, cyanosis, or edema. Objective - Vital Signs Vital signs: Vital Signs Temp 98.1 F 09/01/18 12:04 Pulse 68 09/01/18 12:08 Resp 20 09/01/18 12:04 BP 159/71 09/01/18 12:04 Pulse Ox 97 09/01/18 12:04 Intake & Output 08/31/18 09/01/18 09/01/18 18:59 06:59 18:59 Intake Total 500 390 370 Output Total 1200 400 600 Balance -700 -10 -230 Weight 72.1 kg 72.1 kg Intake: Oral 240 240 Tube Feeding 260 390 130 Output: Stool 1200 400 600 - Labs CBC & Chem 7: 09/01/18 05:12 09/01/18 05:12 Labs: Abnormal Lab Results - Last 24 Hours (Table) 09/01/18 09/01/18 Range/Units 05:12 05:12 WBC 11.7 H (3.8-10.6) k/uL RDW 16.5 H (11.5-15.5) % Neutrophils # 8.7 H (1.3-7.7) k/uL Sodium 136 L (137-145) mmol/L BUN 30 H (7-17) mg/dL Creatinine 1.21 H (0.52-1.04) mg/dL Glucose 169 H (74-99) mg/dL Microbiology - Last 24 Hours (Table) 08/29/18 17:15 Urine Culture - Final Urine,Catheterized Pseudomonas aeruginosa 08/29/18 18:44 Blood Culture - Preliminary Blood No Growth after 48 hours Assessment and Plan Plan: Assessment: 1. Nonoliguric acute kidney injury mostly prerenal secondary to intravascular volume depletion from nausea and vomiting improving with IV hydration. Creatinine down to 1.1 today. 2. Hyperkalemia secondary to acute kidney injury and metabolic acidosis. Improved. 3. Metabolic acidosis secondary to acute kidney injury. Improved. 4. UTI with urine culture positive for Pseudomonas maintained on IV antibiotics. 5. Chronic atrial fibrillation maintained on eliquis. Plan: Hep-Lock IV fluids. Maintain tube feeding.
--- NOTE | 2018-09-01 16:15 | P.PN ---
Subjective Progress Note Date: 09/01/18 Principal diagnosis: GI bleeding Patient remains confused. No further bleeding. Hemoglobin stable. Objective - Vital Signs Vital signs: Vital Signs Temp 98.1 F 09/01/18 12:04 Pulse 71 09/01/18 15:28 Resp 20 09/01/18 12:04 BP 159/71 09/01/18 12:04 Pulse Ox 97 09/01/18 12:04 Intake & Output 08/31/18 09/01/18 09/01/18 18:59 06:59 18:59 Intake Total 500 390 370 Output Total 1200 400 900 Balance -700 -10 -530 Weight 72.1 kg 72.1 kg Intake: Oral 240 240 Tube Feeding 260 390 130 Output: Stool 1200 400 900 - Exam Abdomen: Soft, nondistended, nontender, ostomy bilious - Labs CBC & Chem 7: 09/01/18 05:12 09/01/18 05:12 Labs: Abnormal Lab Results - Last 24 Hours (Table) 09/01/18 09/01/18 Range/Units 05:12 05:12 WBC 11.7 H (3.8-10.6) k/uL RDW 16.5 H (11.5-15.5) % Neutrophils # 8.7 H (1.3-7.7) k/uL Sodium 136 L (137-145) mmol/L BUN 30 H (7-17) mg/dL Creatinine 1.21 H (0.52-1.04) mg/dL Glucose 169 H (74-99) mg/dL Microbiology - Last 24 Hours (Table) 08/29/18 17:15 Urine Culture - Final Urine,Catheterized Pseudomonas aeruginosa 08/29/18 18:44 Blood Culture - Preliminary Blood No Growth after 48 hours Assessment and Plan (1) GI bleed Narrative/Plan: Continue diet as tolerated plus tube feeds. Defer tube feed rate to dietary. We'll sign off. Please call if needed. Current Visit: Yes Status: Acute Code(s): K92.2 - GASTROINTESTINAL HEMORRHAGE, UNSPECIFIED SNOMED Code(s): 05292917
[2018-09-01] MEDS: DRONABINOL 2.5 MG CAP PO SCH (19:55)
[2018-09-01 20:48] LABS: Appearance,Urine Cloudy (Clear); Bacteria,Urine Rare /hpf; Bilirubin,Urine Negative (Negative); Blood,Urine Negative (Negative); Color,Urine Yellow; Glucose,Urine (UA) Negative (Negative); Ketones,Urine Negative (Negative); Leukocyte Esterase,Urine Large (Negative); Mucus,Urine Rare /hpf; Nitrite,Urine Negative (Negative); Protein,Urine Trace (Negative); RBC,Urine 3 /hpf (0-5); Specific Gravity,Urine 1.011 (1.001-1.035); Squamous Epithelial Cell,Urine <1 /hpf (0-4); Urobilinogen,Urine <2.0 mg/dL (<2.0)
--- NOTE | 2018-09-01 22:35 | P.CON ---
Consult Note - . Consult date: 09/01/18 Assessment/Plan:: This is an 88-year-old female known to ID service as she was seen during her extended hospitalization in at which time she was treated for diverticulitis and patient was treated with antibiotics and conservative management. 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 Garcia on June 07. Patient was managed in the intensive care unit and progressed very slowly. Patient was then discharged to [facility] and subsequently to home. Patient lives with her son Eric. Eric, is at the bedside and most history is obtained from him. Patient was doing very well at home and increasing her strength. She was able to ambulate with a walker. She has had chronic nausea in the morning for which she gives her Zofran daily but 2 days ago she received her Zofran was able to eat breakfast but after that did not eat for the rest of the day. She did spit up and vomited some through the day. She went to bed early at 6 PM that evening and did not receive any of her medications. The next morning he tried to get her up onto the commode chair and she started passing out on him and she felt dizzy. She was very weak and he had difficulty moving her from commode to the bed. He ended up putting her back into bed. Her arms were shaking alternatingly. He was concerned at that point because she had not had any medications for 24 hours. He tried to use her PEG tube and put Ensure in but she ended up vomiting orally and the Ensure return through her PEG tube. He then called EMS and patient was brought into [facility] emergency center for evaluation. Her white count was 10, creatinine 1.21, urinalysis was turbid, leukoesterase large, WBCs greater than 182 and WBC clumps many. Blood culture showing no growth after 48 hours. C. diff toxin was negative and occult blood was positive. Urine cultures positive for Pseudomonas. Patient has been on Rocephin and oral vancomycin. Patient is able to answer simple questions but due to underlying dementia is unable to provide adequate history. Patient does have a history of C. difficile colitis in 2011 treated at [facility]. Son states that patient is to be on vancomycin 125 mg daily to prevent further episodes of C. difficile colitis. Patient was admitted to the cardiac unit and has been seen in consultation by Dr. Andino for A. fib which is chronic moderately controlled and patient was initially on Cardizem drip which is been switched to oral medications. Patient has been seen by Dr. Parr for acute kidney injury and ATN with mild hyperkalemia and metabolic acidosis. Kidney function is improving during her hospitalization. Dr. Garcia was consulted due to blood in the ileostomy bag which is thought to be due to mucosal irritation and concurrent anticoagulation. No blood is noted in the ileostomy bag during this exam. Abdominal x-ray showed nonobstructive bowel gas pattern. The patient is eating very little possibly less than 25% of her meals. Dietitian is following with recommendations for resuming bolus PEG tube feedings between meals. Please see the consult note as dictated by nurse practitioner Mrs. Mariam David. Is noted there is evidence of Pseudomonas in her urine antibiotic therapy has been transitioned to ceftazidime for this. Blood cultures are negative so far. Regretfully it is resistant to quinolone therapy and will require intravenous antibiotic therapy at the time of her discharge and unclear if it will be to home or to extended care. I agree with evaluation, assessment and plan as dictated by nurse practitioner Mrs. Mariam David.
[2018-09-02] MEDS: CHERRY FLAVOR 60 ML BOTTLE PO SCH ×3 (00:04→11:57)
[2018-09-02] MEDS: VANCOMYCIN ORAL SOLUTION 250 MG/5 ML BOTTLE PO SCH ×2 (00:04→06:42)
[2018-09-02] MEDS: PANTOPRAZOLE 40 MG TABLET PO SCH (06:42)
[2018-09-02 06:48] LABS: Anisocytosis Slight; Basophils % (A) 0 %; Eosinophils # (A) 0.7 k/uL (0-0.7); Eosinophils % (A) 5 %; HCT 36.3 % (34.0-46.0); HGB 11.6 gm/dL (11.4-16.0); Lymphocytes % (A) 14 %; MCH 27.2 pg (25.0-35.0); MCHC 31.9 g/dL (31.0-37.0); MCV 85.4 fL (80.0-100.0); Mean Platelet Volume 7.8; Monocytes # (A) 0.4 k/uL (0-1.0); Monocytes % (A) 3 %; Neutrophils # (A) 10.7 k/uL (1.3-7.7); Neutrophils % (A) 77 %; Platelet Count 234 k/uL (150-450); Poikilocytosis Slight; RBC 4.25 m/uL (3.80-5.40); RDW 16.7 % (11.5-15.5); WBC 13.9 k/uL (3.8-10.6)
[2018-09-02 06:59] LABS: Calcium 9.2 mg/dL (8.4-10.2); Potassium 4.4 mmol/L (3.5-5.1)
[2018-09-02] MEDS: ASPIRIN 81 MG PO SCH (08:28)
[2018-09-02] MEDS: APIXABAN 2.5 MG TABLET PO SCH ×2 (08:28→20:59)
[2018-09-02] MEDS: SERTRALINE 100 MG TAB PO SCH (08:28)
[2018-09-02] MEDS: ONDANSETRON 4 MG/2 ML VIAL IVP SCH ×3 (08:28→20:58)
[2018-09-02] MEDS: DILTIAZEM ORAL 30 MG TAB PO SCH ×3 (08:28→20:59)
[2018-09-02] MEDS: LACTOBACILLUS ACIDOPH & BULGAR 1 EACH PACKET PO SCH (08:28)
[2018-09-02] MEDS: hydrALAZINE HCL 50 MG TAB PO SCH ×4 (08:29→20:52)
[2018-09-02] MEDS: IPRATROPIUM-ALBUTEROL 3 ML NEB INHALATION SCH ×4 (08:44→20:47)
--- NOTE | 2018-09-02 13:30 | P.PN ---
Subjective This is a pleasant 88 years old female with past medical history of dementia, COPD, GERD, hypertension, frequent UTI, status post right-sided colostomy. Presents because of altered mental status home on generalized weakness and found to have UTI and acute kidney injury. There was suspicion of some blood in the stomach back, she is been evaluated and thought its is a diffuse to irritation to the mucosa in the area. Patient is still confused. To time place and person. She has leukocytosis of 20 2.1K going down to 12.3 K, repeat WBC still pending. She has mild hyperkalemia. Creatinine is 2.1 and 1.9. Baseline creatinine is around 1.0. Urine culture showing gram-negative bacilli 09/01/18 And is awake and alert and she was sitting in bed eating her breakfast. She is oriented to place and partially to person. Normal to time. She still feeling generally weak but no dysuria or urgency, her increased frequency is improving. No more blood was noticed in the colostomy back. Urine culture is growing Pseudomonas. Infectious disease consulted. Patient still has PEG tube in a Place, however patient is able to eat. Her WBC is 11.7. And his creatinine is improved to 1.2. Nephrology R following the patient's she still on sodium bicarb. 09/02/2018 Patient's is alert awake, oriented to place, but not to time and partially to person. Patient looks same to yesterday with little improvement. Her WBC is 13.9 K today. BMP was unremarkable except for creatinine of 1.17. ID input is appreciated. Patient is on ceftazidime. Also on oral vancomycin for C. diff prophylaxis. Does the case with the public health social worker/case finisher, most likely patient will be discharged to rehab when she is ready to go home. Objective - Vital Signs Vital signs: Vital Signs Temp 98.8 F 09/02/18 11:50 Pulse 70 09/02/18 12:14 Resp 20 09/02/18 11:50 BP 128/87 09/02/18 11:50 Pulse Ox 96 09/02/18 11:50 Intake & Output 09/01/18 09/02/18 09/02/18 18:59 06:59 18:59 Intake Total 650 280 590 Output Total 1200 1600 600 Balance -550 -1320 -10 Weight 72.1 kg 68.2 kg 68.2 kg Intake: Oral 240 420 Tube Feeding 410 280 170 Output: Stool 1200 1600 400 Other 200 Other: # Voids 1 - Exam -GENERAL: The patient is alert and oriented x0, not in any acute distress. HEENT: Pupils are round and equally reacting to light. EOMI. No scleral icterus. No conjunctival pallor. Normocephalic, atraumatic. No pharyngeal erythema. No thyromegaly. CARDIOVASCULAR: S1 and S2 present. No murmurs, rubs, or gallops. PULMONARY: Chest is clear to auscultation, no wheezing or crackles. ABDOMEN: Soft, nontender, nondistended, normoactive bowel sounds. No palpable organomegaly. Right colostomy bag, looks empty with no blood in it. MUSCULOSKELETAL: No joint swelling or deformity. EXTREMITIES: No cyanosis, clubbing, or pedal edema. NEUROLOGICAL: Gross neurological examination did not reveal any focal deficits. SKIN: No rashes. - Labs CBC & Chem 7: 09/02/18 05:51 09/02/18 05:51 Labs: Abnormal Lab Results - Last 24 Hours (Table) 09/01/18 09/02/18 09/02/18 Range/Units 20:20 05:51 05:51 WBC 13.9 H (3.8-10.6) k/uL RDW 16.7 H (11.5-15.5) % Neutrophils # 10.7 H (1.3-7.7) k/uL BUN 33 H (7-17) mg/dL Creatinine 1.17 H (0.52-1.04) mg/dL Glucose 147 H (74-99) mg/dL Urine Appearance Cloudy H (Clear) Urine Protein Trace H (Negative) Ur Leukocyte Esterase Large H (Negative) Urine WBC >182 H (0-5) /hpf Urine Bacteria Rare H (None) /hpf Urine Mucus Rare H (None) /hpf Microbiology - Last 24 Hours (Table) 09/01/18 20:20 Urine Culture - Preliminary Urine,Voided 08/29/18 18:44 Blood Culture - Preliminary Blood No Growth after 72 hours Assessment and Plan Assessment: Acute kidney injury, possibly prerenal, from dehydration and urinary tract infection Metabolic encephalopathy History of dementia Urinary tract infection, with pseudomonas. 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 Plan: This is a pleasant 88 years old female who presents because of UTI and altered mental status. Continue with antibiotics and fluids.Labs and medication were reviewed.. Continue same treatment. Continue with symptomatic treatment. Resume home medication. Monitor lytes and vitals. DVT and GI prophylaxis. Further recommendations of the clinical course of the patient DVT prophylaxis: eliquis GI Prophylaxis: Protonix PT/OT: Pending Prognosis is guarded
--- NOTE | 2018-09-02 16:44 | PN ---
PROGRESS NOTE Patient is seen for followup for acute kidney injury. Her renal function has improved significantly. Patient denies any complaints today. On examination, blood pressure was 120/59. Earlier this morning it was 128/87. Patient is afebrile. EXAMINATION OF THE HEART: S1, S2. EXAMINATION OF LUNGS: Bilateral breath sounds are heard. ABDOMEN: Soft, non-tender. Examination of lower extremities shows no significant edema. TESTING MANAGER exam is grossly intact. Labs show sodium 138, potassium 4.4, chloride 103, BUN 33, serum creatinine 1.17, hemoglobin 11.6 g/dL. ASSESSMENT: 1. Acute kidney injury, currently improved, mainly acute tubular necrosis, nonoliguric. Patient is status post IV fluids. 2. Hyperkalemia associated with acute kidney injury, metabolic acidosis, currently resolved. 3. Urinary tract infection with urine culture growing pseudomonas. Patient is maintained on IV antibiotics. She is being followed by ID. 4. Chronic atrial fibrillation, currently on Eliquis. PLAN: Patient is stable for discharge from nephrology standpoint. Continue antibiotics as per ID and repeat renal profile as outpatient. MMODL / IJN: [id number] /
[2018-09-02] MEDS: DRONABINOL 2.5 MG CAP PO SCH (20:58)
[2018-09-03] MEDS: PANTOPRAZOLE 40 MG TABLET PO SCH (06:33)
[2018-09-03 07:26] LABS: Anisocytosis Slight; Basophils % (A) 0 %; Eosinophils # (A) 0.7 k/uL (0-0.7); Eosinophils % (A) 6 %; HCT 34.2 % (34.0-46.0); HGB 11.1 gm/dL (11.4-16.0); Lymphocytes # (A) 1.8 k/uL (1.0-4.8); Lymphocytes % (A) 15 %; MCH 27.4 pg (25.0-35.0); MCHC 32.3 g/dL (31.0-37.0); MCV 84.7 fL (80.0-100.0); Mean Platelet Volume 8.1; Monocytes # (A) 0.4 k/uL (0-1.0); Monocytes % (A) 4 %; Neutrophils # (A) 9.6 k/uL (1.3-7.7); Neutrophils % (A) 76 %; Platelet Count 220 k/uL (150-450); Poikilocytosis Slight; RBC 4.04 m/uL (3.80-5.40); RDW 16.5 % (11.5-15.5); WBC 12.7 k/uL (3.8-10.6)
[2018-09-03 07:37] LABS: Calcium 8.9 mg/dL (8.4-10.2); Potassium 4.8 mmol/L (3.5-5.1)
[2018-09-03] MEDS: IPRATROPIUM-ALBUTEROL 3 ML NEB INHALATION SCH ×4 (07:45→19:04)
[2018-09-03] MEDS: hydrALAZINE HCL 50 MG TAB PO SCH (08:07)
[2018-09-03] MEDS: DILTIAZEM ORAL 30 MG TAB PO SCH ×3 (09:15→20:48)
[2018-09-03] MEDS: SERTRALINE 100 MG TAB PO SCH (09:15)
[2018-09-03] MEDS: LACTOBACILLUS ACIDOPH & BULGAR 1 EACH PACKET PO SCH (09:16)
[2018-09-03] MEDS: ONDANSETRON 4 MG/2 ML VIAL IVP SCH ×3 (09:16→20:48)
[2018-09-03] MEDS: APIXABAN 2.5 MG TABLET PO SCH ×2 (09:16→20:49)
[2018-09-03] MEDS: ASPIRIN 81 MG PO SCH (09:16)
--- NOTE | 2018-09-03 09:19 | P.PN ---
Subjective Progress Note Date: 09/02/18 This is an 88-year-old female known to ID service as she was seen during her extended hospitalization in at which time she was treated for diverticulitis and patient was treated with antibiotics and conservative management. 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 Garcia on June 07. Patient was managed in the intensive care unit and progressed very slowly. Patient was then discharged to [facility] and subsequently to home. Patient lives with her son Eric. Eric, is at the bedside and most history is obtained from him. Patient was doing very well at home and increasing her strength. She was able to ambulate with a walker. She has had chronic nausea in the morning for which she gives her Zofran daily but 2 days ago she received her Zofran was able to eat breakfast but after that did not eat for the rest of the day. She did spit up and vomited some through the day. She went to bed early at 6 PM that evening and did not receive any of her medications. The next morning he tried to get her up onto the commode chair and she started passing out on him and she felt dizzy. She was very weak and he had difficulty moving her from commode to the bed. He ended up putting her back into bed. Her arms were shaking alternatingly. He was concerned at that point because she had not had any medications for 24 hours. He tried to use her PEG tube and put Ensure in but she ended up vomiting orally and the Ensure return through her PEG tube. He then called EMS and patient was brought into [facility] emergency center for evaluation. Her white count was 10, creatinine 1.21, urinalysis was turbid, leukoesterase large, WBCs greater than 182 and WBC clumps many. Blood culture showing no growth after 48 hours. C. diff toxin was negative and occult blood was positive. Urine cultures positive for Pseudomonas. Patient has been on Rocephin and oral vancomycin. Patient is able to answer simple questions but due to underlying dementia is unable to provide adequate history. Patient does have a history of C. difficile colitis in 2011 treated at [facility]. Son states that patient is to be on vancomycin 125 mg daily to prevent further episodes of C. difficile colitis. He states that she is also on trimethoprim 100 mg every day to prevent UTIs. Patient was admitted to the cardiac unit and has been seen in consultation by Dr. Andino for A. fib which is chronic moderately controlled and patient was initially on Cardizem drip which is been switched to oral medications. Patient has been seen by Dr. Parr for acute kidney injury and ATN with mild hyperkalemia and metabolic acidosis. Kidney function is improving during her hospitalization. Dr. Garcia was consulted due to blood in the ileostomy bag which is thought to be due to mucosal irritation and concurrent anticoagulation. No blood is noted in the ileostomy bag during this exam. Abdominal x-ray showed nonobstructive bowel gas pattern. The patient is eating very little possibly less than 25% of her meals. Dietitian is following with recommendations for resuming bolus PEG tube feedings between meals. 09/02/2018 patient is comfortable having no specific new complaints. IV access with midline is requested for treatment of the urinary tract infection with Pseudomonas. Objective - Vital Signs Vital signs: Vital Signs Temp 98.4 F 09/03/18 09:00 Pulse 72 09/03/18 09:00 Resp 20 09/03/18 09:00 BP 144/63 09/03/18 09:00 Pulse Ox 95 09/03/18 09:00 Intake & Output 09/02/18 09/03/18 09/03/18 18:59 06:59 18:59 Intake Total 830 640 240 Output Total 575 700 200 Balance 255 -60 40 Weight 68.2 kg 69.1 kg Intake: Oral 420 150 240 Tube Feeding 410 490 Output: Urine 400 Stool 375 300 200 Other 200 Other: # Voids 1 1 - Exam Gen: This is a 88-year-old female. She is sitting up in bed and appears to be comfortable and in no acute distress. HEENT: Head is atraumatic, normocephalic. Pupils equal, round. Sclerae is anicteric. Conjunctiva pink. Mucous membranes of the mouth are moist. No thrush noted. NECK: Supple. No JVD. No lymphadenopathy. No thyromegaly. LUNGS: Diminished bilat bases. No wheezing. No intercostal retractions. HEART: Irregular rate and rhythm. No murmur. ABDOMEN: Soft. Bowel sounds are present. No tenderness to light palpation. Patient has ileostomy to the right lower quadrant with a mixture of liquid medium brown stool and semi-formed stool. PEG tube in the left upper quadrant with no significant drainage, no bleeding, no tenderness around the site. EXTREMITIES: no pedal edema. No calf tenderness. Dorsalis pedis +1 bilaterally. NEUROLOGICAL: Patient is awake, alert and oriented x1. Generalized weakness noted. No focal neuro deficits. - Labs CBC & Chem 7: 09/03/18 05:57 09/03/18 05:57 Labs: Abnormal Lab Results - Last 24 Hours (Table) 09/03/18 09/03/18 Range/Units 05:57 05:57 WBC 12.7 H (3.8-10.6) k/uL Hgb 11.1 L (11.4-16.0) gm/dL RDW 16.5 H (11.5-15.5) % Neutrophils # 9.6 H (1.3-7.7) k/uL Sodium 133 L (137-145) mmol/L BUN 39 H (7-17) mg/dL Creatinine 1.07 H (0.52-1.04) mg/dL Glucose 144 H (74-99) mg/dL Microbiology - Last 24 Hours (Table) 09/01/18 20:20 Urine Culture - Final Urine,Voided 08/29/18 18:44 Blood Culture - Preliminary Blood No Growth after 96 hours Assessment and Plan (1) UTI (urinary tract infection) Narrative/Plan: Is noted there is evidence of Pseudomonas in her urine antibiotic therapy has been transitioned to ceftazidime for this. Blood cultures are negative so far. Regretfully it is resistant to quinolone therapy and will require intravenous antibiotic therapy at the time of her discharge 09/02/2018 patient will transition to extended care to complete her 2 week course of intravenous antibiotic therapy with ceftazidime for her pseudomonas urinary tract infection. Midline catheter placed and anticipate transfer to extended care soon. Patient having no fevers or chills and seems to be comfortable. Current Visit: Yes Status: Acute Code(s): N39.0 - URINARY TRACT INFECTION, SITE NOT SPECIFIED SNOMED Code(s): 56965377
[2018-09-03] MEDS ORDERED: ONDANSETRON 4 MG/2 ML VIAL IVP STA (09:46)
--- NOTE | 2018-09-03 10:16 | P.PN ---
Subjective Patient is seen in follow-up for acute kidney injury. Renal function is improving with creatinine down to 1.07 today. Patient denies any chest pain or shortness of breath. She is receiving tube feedings. No active complaints at this time. Vital signs are stable. General: The patient appeared well nourished and normally developed. HEENT: Head exam is unremarkable. Neck is without jugular venous distension. LUNGS: Lungs are clear to auscultation and percussion. Breath sounds decreased. HEART: Rate and Rhythm are regular. First and second heart sounds normal. No murmurs, rubs or gallops. ABDOMEN: Abdominal exam reveals normal bowel sounds. Non-tender and non- distended. No evidence of peritonitis. EXTREMITITES: No clubbing, cyanosis, or edema. Objective - Vital Signs Vital signs: Vital Signs Temp 98.4 F 09/03/18 09:00 Pulse 72 09/03/18 09:00 Resp 20 09/03/18 09:00 BP 144/63 09/03/18 09:00 Pulse Ox 95 09/03/18 09:00 Intake & Output 09/02/18 09/03/18 09/03/18 18:59 06:59 18:59 Intake Total 830 640 240 Output Total 575 700 200 Balance 255 -60 40 Weight 68.2 kg 69.1 kg Intake: Oral 420 150 240 Tube Feeding 410 490 Output: Urine 400 Stool 375 300 200 Other 200 Other: # Voids 1 1 - Labs CBC & Chem 7: 09/03/18 05:57 09/03/18 05:57 Labs: Abnormal Lab Results - Last 24 Hours (Table) 09/03/18 09/03/18 Range/Units 05:57 05:57 WBC 12.7 H (3.8-10.6) k/uL Hgb 11.1 L (11.4-16.0) gm/dL RDW 16.5 H (11.5-15.5) % Neutrophils # 9.6 H (1.3-7.7) k/uL Sodium 133 L (137-145) mmol/L BUN 39 H (7-17) mg/dL Creatinine 1.07 H (0.52-1.04) mg/dL Glucose 144 H (74-99) mg/dL Microbiology - Last 24 Hours (Table) 09/01/18 20:20 Urine Culture - Final Urine,Voided 08/29/18 18:44 Blood Culture - Preliminary Blood No Growth after 96 hours Assessment and Plan Plan: Assessment: 1. Nonoliguric acute kidney injury mostly prerenal secondary to intravascular volume depletion from nausea and vomiting improving with IV hydration. Creatinine down to 1.07 today. 2. Hyperkalemia secondary to acute kidney injury and metabolic acidosis. Improved. 3. Metabolic acidosis secondary to acute kidney injury. Improved. 4. UTI with urine culture positive for Pseudomonas maintained on IV antibiotics. 5. Chronic atrial fibrillation maintained on eliquis and oral Cardizem. 6. Hyponatremia secondary to free water flushes. Plan: Maintain tube feeding. Decrease free water flushes to 30 mL every 4 hours.
[2018-09-03] MEDS: VANCOMYCIN ORAL SOLUTION 250 MG/5 ML BOTTLE PO SCH (12:40)
[2018-09-03] MEDS: CHERRY FLAVOR 60 ML BOTTLE PO SCH (12:40)
--- NOTE | 2018-09-03 13:19 | XR ---
EXAMINATION TYPE: XR abdomen 1V , 2 VIEWS DATE OF EXAM ORDERED: 09/03/2018 HISTORY: vomiting. COMPARISON: Previous study dated 08/30/2018. FINDINGS: The feeding tube projects over the stomach. The abdominal gas pattern is unremarkable. There is no evidence of obstruction or free air. There are phleboliths within the pelvis. IMPRESSION: 1. NO ACUTE INTRA-ABDOMINAL ABNORMALITY. 2. POSTSURGICAL CHANGE.
--- NOTE | 2018-09-03 13:22 | XR ---
EXAMINATION TYPE: XR chest 2V DATE OF EXAM: 09/03/2018 HISTORY: pending discharge to [facility]. REFERENCE: Previous study dated 06/24/2018. FINDINGS: The heart is mildly enlarged. The lungs are clear. Pleural spaces are clear. IMPRESSION: MILD CARDIOMEGALY.
[2018-09-03 14:27] LABS: Anisocytosis Slight; HCT 34.1 % (34.0-46.0); HGB 11.2 gm/dL (11.4-16.0); MCH 27.4 pg (25.0-35.0); MCHC 32.9 g/dL (31.0-37.0); MCV 83.4 fL (80.0-100.0); Mean Platelet Volume 7.6; Platelet Count 220 k/uL (150-450); Poikilocytosis Slight; RBC 4.08 m/uL (3.80-5.40); RDW 16.5 % (11.5-15.5); WBC 13.9 k/uL (3.8-10.6)
--- NOTE | 2018-09-03 14:49 | P.PN ---
Subjective This is a pleasant 88 years old female with past medical history of dementia, COPD, GERD, hypertension, frequent UTI, status post right-sided colostomy. Presents because of altered mental status home on generalized weakness and found to have UTI and acute kidney injury. There was suspicion of some blood in the stomach back, she is been evaluated and thought its is a diffuse to irritation to the mucosa in the area. Patient is still confused. To time place and person. She has leukocytosis of 20 2.1K going down to 12.3 K, repeat WBC still pending. She has mild hyperkalemia. Creatinine is 2.1 and 1.9. Baseline creatinine is around 1.0. Urine culture showing gram-negative bacilli 09/01/18 And is awake and alert and she was sitting in bed eating her breakfast. She is oriented to place and partially to person. Normal to time. She still feeling generally weak but no dysuria or urgency, her increased frequency is improving. No more blood was noticed in the colostomy back. Urine culture is growing Pseudomonas. Infectious disease consulted. Patient still has PEG tube in a Place, however patient is able to eat. Her WBC is 11.7. And his creatinine is improved to 1.2. Nephrology R following the patient's she still on sodium bicarb. 09/02/2018 Patient's is alert awake, oriented to place, but not to time and partially to person. Patient looks same to yesterday with little improvement. Her WBC is 13.9 K today. BMP was unremarkable except for creatinine of 1.17. ID input is appreciated. Patient is on ceftazidime. Also on oral vancomycin for C. diff prophylaxis. Does the case with the social economist/rn case manager hospice, most likely patient will be discharged to rehab when she is ready to go home. 09/03/18 pt was going to be discharged today back to her ECF, however she vomited once this morning, abd xray and cxr were unremarkable , however there was some red colored discharge in her colostomy bag , and son was concern, surgical follow up is requested. as pt is on eilquis we will check occult blood in gi discharge. hold discharge and son is aware . Objective - Vital Signs Vital signs: Vital Signs Temp 99 F 09/03/18 12:00 Pulse 70 09/03/18 12:00 Resp 20 09/03/18 12:00 BP 125/66 09/03/18 12:00 Pulse Ox 94 L 09/03/18 12:00 Intake & Output 09/02/18 09/03/18 09/03/18 18:59 06:59 18:59 Intake Total 830 640 513 Output Total 575 700 400 Balance 255 -60 113 Weight 68.2 kg 69.1 kg Intake: Oral 420 150 358 Tube Feeding 410 490 155 Output: Urine 400 Stool 375 300 400 Other 200 Other: Voiding Method Bedside Commode # Voids 1 1 - Exam -GENERAL: The patient is alert and oriented x0, not in any acute distress. HEENT: Pupils are round and equally reacting to light. EOMI. No scleral icterus. No conjunctival pallor. Normocephalic, atraumatic. No pharyngeal erythema. No thyromegaly. CARDIOVASCULAR: S1 and S2 present. No murmurs, rubs, or gallops. PULMONARY: Chest is clear to auscultation, no wheezing or crackles. ABDOMEN: Soft, nontender, nondistended, normoactive bowel sounds. No palpable organomegaly. Right colostomy bag, looks empty with no blood in it. MUSCULOSKELETAL: No joint swelling or deformity. EXTREMITIES: No cyanosis, clubbing, or pedal edema. NEUROLOGICAL: Gross neurological examination did not reveal any focal deficits. SKIN: No rashes. - Labs CBC & Chem 7: 09/03/18 14:00 09/03/18 05:57 Labs: Abnormal Lab Results - Last 24 Hours (Table) 09/03/18 09/03/18 09/03/18 Range/Units 05:57 05:57 12:35 WBC 12.7 H (3.8-10.6) k/uL Hgb 11.1 L (11.4-16.0) gm/dL RDW 16.5 H (11.5-15.5) % Neutrophils # 9.6 H (1.3-7.7) k/uL Sodium 133 L (137-145) mmol/L BUN 39 H (7-17) mg/dL Creatinine 1.07 H (0.52-1.04) mg/dL Glucose 144 H (74-99) mg/dL Stool Occult Blood Positive H (Negative) 09/03/18 Range/Units 14:00 WBC 13.9 H (3.8-10.6) k/uL Hgb 11.2 L (11.4-16.0) gm/dL RDW 16.5 H (11.5-15.5) % Neutrophils # (1.3-7.7) k/uL Sodium (137-145) mmol/L BUN (7-17) mg/dL Creatinine (0.52-1.04) mg/dL Glucose (74-99) mg/dL Stool Occult Blood (Negative) Microbiology - Last 24 Hours (Table) 09/01/18 20:20 Urine Culture - Final Urine,Voided 08/29/18 18:44 Blood Culture - Preliminary Blood No Growth after 96 hours Assessment and Plan Assessment: possible recurrent gi bleed , while on eliquis Acute kidney injury, possibly prerenal, from dehydration and urinary tract infection Metabolic encephalopathy History of dementia Urinary tract infection, with pseudomonas. 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 Plan: This is a pleasant 88 years old female who presents because of UTI and altered mental status. Continue with antibiotics and fluids.Labs and medication were reviewed.. Continue same treatment. Continue with symptomatic treatment. Resume home medication. Monitor lytes and vitals. DVT and GI prophylaxis. Further recommendations of the clinical course of the patient DVT prophylaxis: eliquis GI Prophylaxis: Protonix PT/OT: Pending Prognosis is guarded
[2018-09-03] MEDS: DRONABINOL 2.5 MG CAP PO SCH (20:48)
[2018-09-04 06:18] LABS: Anisocytosis Slight; Basophils % (A) 0 %; Eosinophils # (A) 0.8 k/uL (0-0.7); Eosinophils % (A) 7 %; HCT 33.3 % (34.0-46.0); HGB 10.7 gm/dL (11.4-16.0); Lymphocytes # (A) 2.2 k/uL (1.0-4.8); Lymphocytes % (A) 20 %; MCH 27.1 pg (25.0-35.0); MCHC 32.1 g/dL (31.0-37.0); MCV 84.7 fL (80.0-100.0); Mean Platelet Volume 7.5; Monocytes # (A) 0.5 k/uL (0-1.0); Monocytes % (A) 4 %; Neutrophils # (A) 7.6 k/uL (1.3-7.7); Neutrophils % (A) 69 %; Platelet Count 247 k/uL (150-450); Poikilocytosis Slight; RBC 3.93 m/uL (3.80-5.40); RDW 16.5 % (11.5-15.5); WBC 11.1 k/uL (3.8-10.6)
[2018-09-04] MEDS: PANTOPRAZOLE 40 MG TABLET PO SCH (06:27)
[2018-09-04 06:29] LABS: Calcium 9.2 mg/dL (8.4-10.2); Magnesium 1.3 mg/dL (1.6-2.3); Potassium 5.1 mmol/L (3.5-5.1)
[2018-09-04] MEDS: IPRATROPIUM-ALBUTEROL 3 ML NEB INHALATION SCH ×4 (07:48→19:37)
[2018-09-04] MEDS: ONDANSETRON 4 MG/2 ML VIAL IVP SCH ×3 (08:48→21:24)
[2018-09-04] MEDS: DILTIAZEM ORAL 30 MG TAB PO SCH ×3 (09:36→21:23)
[2018-09-04] MEDS: SERTRALINE 100 MG TAB PO SCH (09:36)
[2018-09-04] MEDS: CHERRY FLAVOR 60 ML BOTTLE PO SCH (09:36)
[2018-09-04] MEDS: VANCOMYCIN ORAL SOLUTION 250 MG/5 ML BOTTLE PO SCH (09:37)
--- NOTE | 2018-09-04 09:50 | P.PN ---
Subjective Patient is seen in follow-up for acute kidney injury. Renal function is improving with creatinine down to 0.99 today. Patient denies any chest pain or shortness of breath. She is receiving tube feedings. No active complaints at this time. Vital signs are stable. General: The patient appeared well nourished and normally developed. HEENT: Head exam is unremarkable. Neck is without jugular venous distension. LUNGS: Lungs are clear to auscultation and percussion. Breath sounds decreased. HEART: Rate and Rhythm are regular. First and second heart sounds normal. No murmurs, rubs or gallops. ABDOMEN: Abdominal exam reveals normal bowel sounds. Non-tender and non- distended. No evidence of peritonitis. EXTREMITITES: No clubbing, cyanosis, or edema. Objective - Vital Signs Vital signs: Vital Signs Temp 98.5 F 09/04/18 08:00 Pulse 68 09/04/18 08:00 Resp 18 09/04/18 08:00 BP 128/61 09/04/18 08:00 Pulse Ox 94 L 09/04/18 08:00 Intake & Output 09/03/18 09/04/18 09/04/18 18:59 06:59 18:59 Intake Total 753 335 Output Total 400 1350 Balance 353 -1015 Weight 69.3 kg Intake: Oral 598 Tube Feeding 155 335 Output: Urine 650 Stool 400 700 Other: Voiding Method Bedside Commode Bedside Commode # Voids 1 1 # Bowel Movements 200 - Labs CBC & Chem 7: 09/04/18 05:31 09/04/18 05:31 Labs: Abnormal Lab Results - Last 24 Hours (Table) 09/03/18 09/03/18 09/04/18 Range/Units 12:35 14:00 05:31 WBC 13.9 H 11.1 H (3.8-10.6) k/uL Hgb 11.2 L 10.7 L (11.4-16.0) gm/dL Hct 33.3 L (34.0-46.0) % RDW 16.5 H 16.5 H (11.5-15.5) % Eosinophils # 0.8 H (0-0.7) k/uL Sodium (137-145) mmol/L BUN (7-17) mg/dL Glucose (74-99) mg/dL Magnesium (1.6-2.3) mg/dL Stool Occult Blood Positive H (Negative) 09/04/18 Range/Units 05:31 WBC (3.8-10.6) k/uL Hgb (11.4-16.0) gm/dL Hct (34.0-46.0) % RDW (11.5-15.5) % Eosinophils # (0-0.7) k/uL Sodium 135 L (137-145) mmol/L BUN 38 H (7-17) mg/dL Glucose 141 H (74-99) mg/dL Magnesium 1.3 L (1.6-2.3) mg/dL Stool Occult Blood (Negative) Microbiology - Last 24 Hours (Table) 08/29/18 18:44 Blood Culture - Preliminary Blood No Growth after 120 hours Assessment and Plan Plan: Assessment: 1. Nonoliguric acute kidney injury mostly prerenal secondary to intravascular volume depletion from nausea and vomiting improving with IV hydration. Creatinine down to 1.07 today. 2. Hyperkalemia secondary to acute kidney injury and metabolic acidosis. Improved. 3. Metabolic acidosis secondary to acute kidney injury. Improved. 4. UTI with urine culture positive for Pseudomonas maintained on IV antibiotics. 5. Chronic atrial fibrillation maintained on eliquis and oral Cardizem. 6. Hyponatremia secondary to free water flushes. Better. 7. Hypomagnesemia from poor oral intake. Plan: Maintain tube feeding with minimal free water flushes. Replace magnesium. 3 g IV today.
[2018-09-04] MEDS: MAGNESIUM SULFATE-D5W PMX 1 GM in DEXTROSE/WATER 1 100ML.BAG IVPB SCH ×3 (10:38→13:00)
[2018-09-04] MEDS: ASPIRIN 81 MG PO SCH (10:41)
--- NOTE | 2018-09-04 12:13 | P.PN ---
Subjective This is a pleasant 88 years old female with past medical history of dementia, COPD, GERD, hypertension, frequent UTI, status post right-sided colostomy. Presents because of altered mental status home on generalized weakness and found to have UTI and acute kidney injury. There was suspicion of some blood in the stomach back, she is been evaluated and thought its is a diffuse to irritation to the mucosa in the area. Patient is still confused. To time place and person. She has leukocytosis of 20 2.1K going down to 12.3 K, repeat WBC still pending. She has mild hyperkalemia. Creatinine is 2.1 and 1.9. Baseline creatinine is around 1.0. Urine culture showing gram-negative bacilli 09/01/18 And is awake and alert and she was sitting in bed eating her breakfast. She is oriented to place and partially to person. Normal to time. She still feeling generally weak but no dysuria or urgency, her increased frequency is improving. No more blood was noticed in the colostomy back. Urine culture is growing Pseudomonas. Infectious disease consulted. Patient still has PEG tube in a Place, however patient is able to eat. Her WBC is 11.7. And his creatinine is improved to 1.2. Nephrology R following the patient's she still on sodium bicarb. 09/02/2018 Patient's is alert awake, oriented to place, but not to time and partially to person. Patient looks same to yesterday with little improvement. Her WBC is 13.9 K today. BMP was unremarkable except for creatinine of 1.17. ID input is appreciated. Patient is on ceftazidime. Also on oral vancomycin for C. diff prophylaxis. Does the case with the high school social studies tutor/geriatric case manager, most likely patient will be discharged to rehab when she is ready to go home. 09/03/18 pt was going to be discharged today back to her ECF, however she vomited once this morning, abd xray and cxr were unremarkable , however there was some red colored discharge in her colostomy bag , and son was concern, surgical follow up is requested. as pt is on eilquis we will check occult blood in gi discharge. hold discharge and son is aware . 09/04/18 Patient clinically looks the same. With a slow gradual improvement. There was a brown stool in her colostomy bag. No fresh blood was noted. Vital some blood pressure looks his stable. Patient afebrile and she saturating 94% on room air. Her hemoglobin is slightly low from 11.2 to 10.7. Chest positive for occult blood and she is on Eliquis. We will resume a liquids today. surgical follow-up. Discussed with the staff Discharge planning 24-48 hours. Objective - Vital Signs Vital signs: Vital Signs Temp 98.5 F 09/04/18 11:23 Pulse 73 09/04/18 11:57 Resp 16 09/04/18 11:23 BP 145/74 09/04/18 11:23 Pulse Ox 94 L 09/04/18 11:23 Intake & Output 09/03/18 09/04/18 09/04/18 18:59 06:59 18:59 Intake Total 753 335 390 Output Total 400 1350 Balance 353 -1015 390 Weight 69.3 kg Intake: Oral 598 240 Tube Feeding 155 335 150 Output: Urine 650 Stool 400 700 Other: Voiding Method Bedside Commode Bedside Commode Bedside Commode # Voids 1 1 200 # Bowel Movements 200 - Exam -GENERAL: The patient is alert and oriented x0, not in any acute distress. HEENT: Pupils are round and equally reacting to light. EOMI. No scleral icterus. No conjunctival pallor. Normocephalic, atraumatic. No pharyngeal erythema. No thyromegaly. CARDIOVASCULAR: S1 and S2 present. No murmurs, rubs, or gallops. PULMONARY: Chest is clear to auscultation, no wheezing or crackles. ABDOMEN: Soft, nontender, nondistended, normoactive bowel sounds. No palpable organomegaly. Right colostomy bag, looks empty with no blood in it. MUSCULOSKELETAL: No joint swelling or deformity. EXTREMITIES: No cyanosis, clubbing, or pedal edema. NEUROLOGICAL: Gross neurological examination did not reveal any focal deficits. SKIN: No rashes. - Labs CBC & Chem 7: 09/04/18 05:31 09/04/18 05:31 Labs: Abnormal Lab Results - Last 24 Hours (Table) 09/03/18 09/03/18 09/04/18 Range/Units 12:35 14:00 05:31 WBC 13.9 H 11.1 H (3.8-10.6) k/uL Hgb 11.2 L 10.7 L (11.4-16.0) gm/dL Hct 33.3 L (34.0-46.0) % RDW 16.5 H 16.5 H (11.5-15.5) % Eosinophils # 0.8 H (0-0.7) k/uL Sodium (137-145) mmol/L BUN (7-17) mg/dL Glucose (74-99) mg/dL Magnesium (1.6-2.3) mg/dL Stool Occult Blood Positive H (Negative) 09/04/18 Range/Units 05:31 WBC (3.8-10.6) k/uL Hgb (11.4-16.0) gm/dL Hct (34.0-46.0) % RDW (11.5-15.5) % Eosinophils # (0-0.7) k/uL Sodium 135 L (137-145) mmol/L BUN 38 H (7-17) mg/dL Glucose 141 H (74-99) mg/dL Magnesium 1.3 L (1.6-2.3) mg/dL Stool Occult Blood (Negative) Microbiology - Last 24 Hours (Table) 08/29/18 18:44 Blood Culture - Preliminary Blood No Growth after 120 hours Assessment and Plan Assessment: possible recurrent gi bleed , while on eliquis Acute kidney injury, possibly prerenal, from dehydration and urinary tract infection Metabolic encephalopathy History of dementia Urinary tract infection, with pseudomonas. 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 Plan: This is a pleasant 88 years old female who presents because of UTI and altered mental status. Continue with antibiotics and fluids.Labs and medication were reviewed.. Continue same treatment. Continue with symptomatic treatment. Resume home medication. Monitor lytes and vitals. DVT and GI prophylaxis. Further recommendations of the clinical course of the patient DVT prophylaxis: eliquis GI Prophylaxis: Protonix PT/OT: Pending Prognosis is guarded
[2018-09-04] MEDS: FERROUS SULFATE 325 MG TAB PO SCH ×2 (12:23→16:38)
[2018-09-04] MEDS: APIXABAN 2.5 MG TABLET PO SCH ×2 (12:23→21:23)
[2018-09-04] MEDS: LACTOBACILLUS ACIDOPH & BULGAR 1 EACH PACKET PO SCH (12:23)
--- NOTE | 2018-09-04 13:21 | P.PN ---
Progress Note - Text Progress Note Date: 09/04/18 I was asked see the patient regarding possible GI bleed. Patient has had anemia. She has had a slowly downward drift in her hemoglobin. The nurses were concerned they saw some pink fluid in her colostomy bag yesterday. The patient denies any significant pain. On exam her abdomen soft. Her colostomy bag is full of brown stool. There is no evidence of any melena or active GI bleed. The patient's hemoglobin will be continued to be checked. If she has a persistent decrease with evidence of GI bleed she may need to stop her anticoagulation.
[2018-09-04] MEDS: MAGNESIUM OXIDE 400 MG TAB PO SCH (21:23)
[2018-09-04] MEDS: DRONABINOL 2.5 MG CAP PO SCH (21:23)
[2018-09-05 06:23] LABS: Anisocytosis Slight; Basophils % (A) 0 %; Eosinophils # (A) 0.7 k/uL (0-0.7); Eosinophils % (A) 6 %; HCT 32.5 % (34.0-46.0); HGB 10.6 gm/dL (11.4-16.0); Lymphocytes # (A) 2.1 k/uL (1.0-4.8); Lymphocytes % (A) 18 %; MCH 27.5 pg (25.0-35.0); MCHC 32.6 g/dL (31.0-37.0); MCV 84.2 fL (80.0-100.0); Mean Platelet Volume 7.4; Monocytes # (A) 0.4 k/uL (0-1.0); Monocytes % (A) 4 %; Neutrophils # (A) 8.1 k/uL (1.3-7.7); Neutrophils % (A) 71 %; Platelet Count 264 k/uL (150-450); Poikilocytosis Slight; RBC 3.86 m/uL (3.80-5.40); RDW 16.3 % (11.5-15.5); WBC 11.5 k/uL (3.8-10.6)
[2018-09-05 06:28] LABS: Calcium 8.9 mg/dL (8.4-10.2); Magnesium 2.1 mg/dL (1.6-2.3)
[2018-09-05 06:33] LABS: Potassium 6.1 mmol/L (3.5-5.1)
[2018-09-05] MEDS: FERROUS SULFATE 325 MG TAB PO SCH ×2 (06:33→16:22)
[2018-09-05] MEDS: PANTOPRAZOLE 40 MG TABLET PO SCH (06:33)
[2018-09-05] MEDS ORDERED: INSULIN ASPART 100 UNIT/ML 1 ML 10 ML VIAL SQ ONE (06:44)
[2018-09-05] MEDS ORDERED: FUROSEMIDE 10 MG/ML 2 ML VIAL IV STA (06:55)
[2018-09-05] MEDS ORDERED: DEXTROSE 50%-WATER 50 ML SYRINGE IVP STA (07:00)
[2018-09-05] MEDS ORDERED: INSULIN REGULAR 100 UNIT/ML VIAL IV STA (07:01)
[2018-09-05] MEDS: IPRATROPIUM-ALBUTEROL 3 ML NEB INHALATION SCH ×4 (07:49→20:04)
[2018-09-05] MEDS ORDERED: MAGNESIUM OXIDE 400 MG TAB PO SCH (09:00)
[2018-09-05] MEDS: ASPIRIN 81 MG PO SCH (09:48)
[2018-09-05] MEDS: LACTOBACILLUS ACIDOPH & BULGAR 1 EACH PACKET PO SCH (09:48)
[2018-09-05] MEDS: APIXABAN 2.5 MG TABLET PO SCH ×2 (09:48→20:55)
[2018-09-05] MEDS: SERTRALINE 100 MG TAB PO SCH (09:48)
[2018-09-05] MEDS: ONDANSETRON 4 MG/2 ML VIAL IVP SCH ×3 (09:49→20:36)
[2018-09-05] MEDS: MAGNESIUM OXIDE 400 MG TAB PO SCH ×2 (09:49→20:56)
[2018-09-05] MEDS: VANCOMYCIN ORAL SOLUTION 250 MG/5 ML BOTTLE PO SCH (09:49)
[2018-09-05] MEDS: DILTIAZEM ORAL 30 MG TAB PO SCH ×3 (09:49→20:56)
[2018-09-05] MEDS: CHERRY FLAVOR 60 ML BOTTLE PO SCH (09:50)
[2018-09-05 11:08] VITALS: BMI 26.5
--- NOTE | 2018-09-05 16:34 | P.DS ---
Providers Date of admission: 08/29/18 19:44 Attending physician: Ya Jones Consults: 08/29/18 18:17 Consult Physician Routine Consulting Provider: Kyler Kincaid Consult Reason/Comments: uti, c diff Do you want consulting provider notified?: Yes 08/29/18 22:52 Consult Physician Routine Consulting Provider: Gregor Springer Consult Reason/Comments: Afib RVR Do you want consulting provider notified?: Yes, Notify in am 08/29/18 22:53 Consult Physician Routine Consulting Provider: Anival Garcia Consult Reason/Comments: blood in the ileostomy Do you want consulting provider notified?: Yes 08/30/18 11:29 Consult Physician Routine Consulting Provider: Melvin Doan Consult Reason/Comments: arf Do you want consulting provider notified?: Yes Primary care physician: Amy Chan Hospital Course: Discharge diagnoses Urinary tract infection, with pseudomonas. 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 Hospital course: This is a pleasant 88 years old female with past medical history of dementia, COPD, GERD, hypertension, frequent UTI, status post right-sided colostomy. Presents because of altered mental status at home with generalized weakness and found to have UTI secondary to Pseudomonas, IV team evaluated the patient and the plan is to discharge the patient on 2 weeks of ceftazidime with PICC line is placed on the left side. Patient also on by mouth vancomycin as prophylaxis against C. diff. She is afebrile and her leukocytosis improved to 11.5 K. She had acute kidney injury on admission but creatinine improved from 1.99 to 1.05 upon discharge, nephrology team cleared the patient for discharge. There was suspicion of some blood in the stoma bag of her colostomy, she is been evaluated by surgical team and thought its is due to to irritation to the mucosa locally. No more bleeding and her hemoglobin is stableAt 11.5 upon discharge. Surgery team recommended to her bleeding recurs then anticoagulation may need to be stopped. As patient is on Eliquis 2.5 mg twice a day. I discussed this recommendation with the son Mr. prado including but not limited to the risk of bleeding, recurrent thrombosis, organ dysfunction and or , He verbalized understanding and acceptance to continue with Odetteis for now. Today her potassium was high at 6.1. Patient got Kayexalate and her potassium went down to 4.9. We're comment to monitor potassium closely and place the patient left potassium diet. Patient clinical status improved and back close to her normal status she is more awake and alert, she is somewhat confused about time and partially about person, looks like similar to her baseline. She's been stable over few days. Patient was cleared for discharge by the ID, nephrology and surgery team Problems and management plan were discussed with the patient and family. Patient was found stable and can be discharged to rehab however she needs follow -up as an outpatient. physical exam Gen.: Patient alert awake and oriented X [address] and person but not time. NOT IN DISTRESS CVS: s1-s2, RRR, no murmur CHEST:bilateral CTA, no wheezing or crepitation Abdomen: Soft, no tenderness, no distention, positive bowel sounds. Colostomy back on the right lower abdomen with yellow-brown stool. No fresh blood was seen Extremities: No leg edema or induration. PICC line on the left arm medially. Time spent more than 35 minutes Patient Condition at Discharge: Fair Plan - Discharge Summary Discharge Rx Participant: No New Discharge Prescriptions: New cefTAZidime [Fortaz] 2 gm IVPB DAILY #14 vial Acetaminophen Tab [Tylenol] 650 mg PO Q6HR PRN tab PRN Reason: Fever And/ Or Pain Diltiazem Oral [Cardizem*] 90 mg PO TID tab Ferrous Sulfate [Iron (65 MG Elemental)] 325 mg PO BID-W/MEALS tab Magnesium Oxide [Mag-Ox] 400 mg PO BID 5 Days #10 tab Pantoprazole [Protonix] 40 mg PO AC-BRKFST tablet. Continue Aspirin EC [Ecotrin Low Dose] 81 mg PO DAILY Sertraline [Zoloft] 100 mg PO DAILY L.acidoph,Paracasei, B.lactis [Probiotic] 1 cap PO DAILY Omeprazole 20 mg PO HS Ipratropium-Albuterol Nebulize [Duoneb 0.5 mg-3 mg/3 ml Soln] 3 ml INHALATION RT-QID #120 ampul.neb Vancomycin HCl 125 mg PO DAILY Ondansetron [Zofran] 4 mg PO TID Apixaban [Eliquis] 2.5 mg PO BID Dronabinol [Marinol] 5 mg PO HS Discontinued Diltiazem Oral [Cardizem*] 60 mg PO TID hydrALAZINE HCL [Apresoline] 50 mg PO QID Discharge Medication List Aspirin EC [Ecotrin Low Dose] 81 mg PO DAILY 06/01/18 [History] L.acidoph,Paracasei, B.lactis [Probiotic] 1 cap PO DAILY 06/01/18 [History] Omeprazole 20 mg PO HS 06/01/18 [History] Sertraline [Zoloft] 100 mg PO DAILY 06/01/18 [History] Ipratropium-Albuterol Nebulize [Duoneb 0.5 mg-3 mg/3 ml Soln] 3 ml INHALATION RT -QID #120 ampul.neb 07/01/18 [Rx] Apixaban [Eliquis] 2.5 mg PO BID 08/29/18 [History] Dronabinol [Marinol] 5 mg PO HS 08/29/18 [History] Ondansetron [Zofran] 4 mg PO TID 08/29/18 [History] Vancomycin HCl 125 mg PO DAILY 08/29/18 [History] cefTAZidime [Fortaz] 2 gm IVPB DAILY #14 vial 09/02/18 [Rx] Acetaminophen Tab [Tylenol] 650 mg PO Q6HR PRN tab 09/05/18 [Rx] Diltiazem Oral [Cardizem*] 90 mg PO TID tab 09/05/18 [Rx] Ferrous Sulfate [Iron (65 MG Elemental)] 325 mg PO BID-W/MEALS tab 09/05/18 [Rx ] Magnesium Oxide [Mag-Ox] 400 mg PO BID 5 Days #10 tab 09/05/18 [Rx] Pantoprazole [Protonix] 40 mg PO AC-BRKFST tablet. 09/05/18 [Rx] Follow up Appointment(s)/Referral(s): Anival Garcia MD [Medical Doctor] - 2 Weeks Kyler Kincaid MD [STAFF PHYSICIAN] - 2 Weeks [facility], [NON-STAFF] - Amy Chan MD [Primary Care Provider] - 1-2 days Patient Instructions/Handouts: A-fib (Atrial Fibrillation) (DC), Acute Kidney Injury (DC), Urinary Tract Infection in Women (DC) Activity/Diet/Wound Care/Special Instructions: cardiac diet . low potassium diet activity as tolerated please monitor hemoglobin and potassium level closely ... also monitor her white blood cell count Discharge Disposition: TRANSFER TO SNF/ECF
--- NOTE | 2018-09-05 19:45 | PN ---
PROGRESS NOTE Patient is seen for followup for acute kidney injury. Renal function has improved significantly, with creatinine down to 1.05. This morning potassium was elevated at 6.1. Patient has had bloody drainage from her colostomy. There was concern about GI bleed. This morning hemoglobin was at 10.6 and potassium was elevated at 6.1. Blood sugar was not high. Patient received IV treatment for the hyperkalemia. On examination today, blood pressure this morning was 126/69, heart rate of 70 per minute. Patient is afebrile. EXAMINATION OF THE HEART: S1, S2. EXAMINATION OF LUNGS: Bilateral breath sounds are heard. ABDOMEN: Soft, non-tender. Examination of lower extremities shows no significant edema. FUR GLOSSER exam is grossly intact. Labs show sodium 132, potassium 6.1, chloride 98, BUN 44, serum creatinine 1.05, hemoglobin 10.6 g/dL. ASSESSMENT: 1. Acute kidney injury, prerenal, currently improved. 2. Hyperkalemia associated with possible underlying gastrointestinal bleed. Stool for occult blood was positive. Hemoglobin has decreased slightly. Patient is being followed by Surgery. Repeat potassium later on today was at 4.9. Patient will be maintained on low-potassium diet. The blood sugar is not elevated to contribute to the hyperkalemia. 3. Urinary tract infection with urine culture growing gram-negative bacilli. 4. Chronic atrial fibrillation, maintained on anticoagulation. Rate is controlled. PLAN: Maintain patient on low-potassium diet. Repeat labs in a.m. Patient can be discharged from nephrology standpoint as long as her potassium is controlled. MMODL / IJN: [id number] /
[2018-09-05] MEDS: DRONABINOL 2.5 MG CAP PO SCH (20:55)
--- NOTE | 2018-09-05 22:49 | P.PN ---
Subjective Progress Note Date: 09/05/18 This is an 88-year-old female known to ID service as she was seen during her extended hospitalization in at which time she was treated for diverticulitis and patient was treated with antibiotics and conservative management. 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 Garcia on June 07. Patient was managed in the intensive care unit and progressed very slowly. Patient was then discharged to [facility] and subsequently to home. Patient lives with her son Eric. Eric, is at the bedside and most history is obtained from him. Patient was doing very well at home and increasing her strength. She was able to ambulate with a walker. She has had chronic nausea in the morning for which she gives her Zofran daily but 2 days ago she received her Zofran was able to eat breakfast but after that did not eat for the rest of the day. She did spit up and vomited some through the day. She went to bed early at 6 PM that evening and did not receive any of her medications. The next morning he tried to get her up onto the commode chair and she started passing out on him and she felt dizzy. She was very weak and he had difficulty moving her from commode to the bed. He ended up putting her back into bed. Her arms were shaking alternatingly. He was concerned at that point because she had not had any medications for 24 hours. He tried to use her PEG tube and put Ensure in but she ended up vomiting orally and the Ensure return through her PEG tube. He then called EMS and patient was brought into [facility] emergency center for evaluation. Her white count was 10, creatinine 1.21, urinalysis was turbid, leukoesterase large, WBCs greater than 182 and WBC clumps many. Blood culture showing no growth after 48 hours. C. diff toxin was negative and occult blood was positive. Urine cultures positive for Pseudomonas. Patient has been on Rocephin and oral vancomycin. Patient is able to answer simple questions but due to underlying dementia is unable to provide adequate history. Patient does have a history of C. difficile colitis in 2011 treated at [facility]. Son states that patient is to be on vancomycin 125 mg daily to prevent further episodes of C. difficile colitis. He states that she is also on trimethoprim 100 mg every day to prevent UTIs. Patient was admitted to the cardiac unit and has been seen in consultation by Dr. Andino for A. fib which is chronic moderately controlled and patient was initially on Cardizem drip which is been switched to oral medications. Patient has been seen by Dr. Parr for acute kidney injury and ATN with mild hyperkalemia and metabolic acidosis. Kidney function is improving during her hospitalization. Dr. Garcia was consulted due to blood in the ileostomy bag which is thought to be due to mucosal irritation and concurrent anticoagulation. No blood is noted in the ileostomy bag during this exam. Abdominal x-ray showed nonobstructive bowel gas pattern. The patient is eating very little possibly less than 25% of her meals. Dietitian is following with recommendations for resuming bolus PEG tube feedings between meals. 09/02/2018 patient is comfortable having no specific new complaints. IV access with midline is requested for treatment of the urinary tract infection with Pseudomonas. 09/05/2018 patient is comfortable IV access placed will receiving the completion treatment for her pseudomonas urinary tract infection transition to extended care today Objective - Vital Signs Vital signs: Vital Signs Temp 98.4 F 09/05/18 20:00 Pulse 75 09/05/18 20:12 Resp 19 09/05/18 20:00 BP 150/68 09/05/18 20:00 Pulse Ox 93 L 09/05/18 20:00 Intake & Output 09/05/18 09/05/18 09/06/18 06:59 18:59 06:59 Intake Total 565 784 120 Output Total 900 1100 175 Balance -335 -316 -55 Weight 70.1 kg 70.1 kg Intake: Intake, IV Titration 100 Amount cefTAZidime 2 gm In 100 Sodium Chloride 0.9% 100 ml @ 100 mls/hr IVPB DAILY COUNTS INCLUDE 234 BEDS AT THE [facility] Rx#:[id number] Oral 120 684 Tube Feeding 445 120 Output: Urine 400 925 Stool 500 175 175 Other: Voiding Method Bedside Commode Bedside Commode Bedside Commode Diaper Incontinent # Voids 1 1 - Exam Gen: This is a 88-year-old female. She is sitting up in bed and appears to be comfortable and in no acute distress. HEENT: Head is atraumatic, normocephalic. Pupils equal, round. Sclerae is anicteric. Conjunctiva pink. Mucous membranes of the mouth are moist. No thrush noted. NECK: Supple. No JVD. No lymphadenopathy. No thyromegaly. LUNGS: Diminished bilat bases. No wheezing. No intercostal retractions. HEART: Irregular rate and rhythm. No murmur. ABDOMEN: Soft. Bowel sounds are present. No tenderness to light palpation. Patient has ileostomy to the right lower quadrant with a mixture of liquid medium brown stool and semi-formed stool. PEG tube in the left upper quadrant with no significant drainage, no bleeding, no tenderness around the site. EXTREMITIES: no pedal edema. No calf tenderness. Dorsalis pedis +1 bilaterally. NEUROLOGICAL: Patient is awake, alert and oriented x1. Generalized weakness noted. No focal neuro deficits. - Labs CBC & Chem 7: 09/05/18 05:53 09/05/18 12:37 Labs: Abnormal Lab Results - Last 24 Hours (Table) 09/05/18 09/05/18 Range/Units 05:53 05:53 WBC 11.5 H (3.8-10.6) k/uL Hgb 10.6 L (11.4-16.0) gm/dL Hct 32.5 L (34.0-46.0) % RDW 16.3 H (11.5-15.5) % Neutrophils # 8.1 H (1.3-7.7) k/uL Sodium 132 L (137-145) mmol/L Potassium 6.1 H* (3.5-5.1) mmol/L BUN 44 H (7-17) mg/dL Creatinine 1.05 H (0.52-1.04) mg/dL Glucose 142 H (74-99) mg/dL Microbiology - Last 24 Hours (Table) 08/29/18 18:44 Blood Culture - Final Blood No Growth after 144 hours Laboratory Results WBC 11.5 k/uL (3.8-10.6) H 09/05/18 05:53 RBC 3.86 m/uL (3.80-5.40) 09/05/18 05:53 Hgb 10.6 gm/dL (11.4-16.0) L 09/05/18 05:53 Hct 32.5 % (34.0-46.0) L 09/05/18 05:53 MCV 84.2 fL (80.0-100.0) 09/05/18 05:53 MCH 27.5 pg (25.0-35.0) 09/05/18 05:53 MCHC 32.6 g/dL (31.0-37.0) 09/05/18 05:53 RDW 16.3 % (11.5-15.5) H 09/05/18 05:53 Plt Count 264 k/uL (150-450) 09/05/18 05:53 Neutrophils % 71 % 09/05/18 05:53 Lymphocytes % 18 % 09/05/18 05:53 Monocytes % 4 % 09/05/18 05:53 Eosinophils % 6 % 09/05/18 05:53 Basophils % 0 % 09/05/18 05:53 Neutrophils # 8.1 k/uL (1.3-7.7) H 09/05/18 05:53 Lymphocytes # 2.1 k/uL (1.0-4.8) 09/05/18 05:53 Monocytes # 0.4 k/uL (0-1.0) 09/05/18 05:53 Eosinophils # 0.7 k/uL (0-0.7) 09/05/18 05:53 Basophils # 0.0 k/uL (0-0.2) 09/05/18 05:53 Hypochromasia Slight 08/31/18 13:47 Poikilocytosis Slight 09/05/18 05:53 Anisocytosis Slight 09/05/18 05:53 PT 10.7 sec (9.0-12.0) 08/29/18 16:31 INR 1.1 (<1.2) 08/29/18 16:31 APTT 19.2 sec (22.0-30.0) L 08/29/18 16:31 Sodium 132 mmol/L (137-145) L 09/05/18 05:53 Potassium 4.9 mmol/L (3.5-5.1) 09/05/18 12:37 Chloride 98 mmol/L (98-107) 09/05/18 05:53 Carbon Dioxide 27 mmol/L (22-30) 09/05/18 05:53 Anion Gap 7 mmol/L 09/05/18 05:53 BUN 44 mg/dL (7-17) H 09/05/18 05:53 Creatinine 1.05 mg/dL (0.52-1.04) H 09/05/18 05:53 Est GFR (CKD-EPI)AfAm 55 (>60 ml/min/1.73 sqM) 09/05/18 05:53 Est GFR (CKD-EPI)NonAf 48 (>60 ml/min/1.73 sqM) 09/05/18 05:53 Glucose 142 mg/dL (74-99) H 09/05/18 05:53 Calcium 8.9 mg/dL (8.4-10.2) 09/05/18 05:53 Phosphorus 3.2 mg/dL (2.5-4.5) 09/01/18 05:12 Magnesium 2.1 mg/dL (1.6-2.3) 09/05/18 05:53 Total Bilirubin 0.6 mg/dL (0.2-1.3) 08/29/18 16:31 AST 29 U/L (14-36) 08/29/18 16:31 ALT 30 U/L (9-52) 08/29/18 16:31 Alkaline Phosphatase 73 U/L (38-126) 08/29/18 16:31 Total Creatine Kinase 52 U/L (30-135) 08/29/18 16:31 CK-MB (CK-2) 3.7 ng/mL (0.0-2.4) H 08/29/18 16:31 CK-MB (CK-2) Rel Index 7.1 08/29/18 16:31 Troponin I 0.021 ng/mL (0.000-0.034) 08/29/18 16:31 Total Protein 8.7 g/dL (6.3-8.2) H 08/29/18 16:31 Albumin 4.1 g/dL (3.5-5.0) 08/29/18 16:31 Urine Color Yellow 09/01/18 20:20 Urine Appearance Cloudy (Clear) H 09/01/18 20:20 Urine pH 6.0 (5.0-8.0) 09/01/18 20:20 Ur Specific Coin 1.011 (1.001-1.035) 09/01/18 20:20 Urine Protein Trace (Negative) H 09/01/18 20:20 Urine Glucose (UA) Negative (Negative) 12/06/18 20:20 Urine Ketones Negative (Negative) 09/01/18 20:20 Urine Blood Negative (Negative) 09/01/18 20:20 Urine Nitrite Negative (Negative) 09/01/18 20:20 Urine Bilirubin Negative (Negative) 09/01/18 20:20 Urine Urobilinogen <2.0 mg/dL (<2.0) 09/01/18 20:20 Ur Leukocyte Esterase Large (Negative) H 09/01/18 20:20 Urine RBC 3 /hpf (0-5) 09/01/18 20:20 Urine WBC >182 /hpf (0-5) H 09/01/18 20:20 Urine WBC Clumps Many /hpf (None) H 08/29/18 17:15 Ur Squamous Epith Cells <1 /hpf (0-4) 09/01/18 20:20 Urine Bacteria Rare /hpf (None) H 09/01/18 20:20 Urine Mucus Rare /hpf (None) H 09/01/18 20:20 Stool Occult Blood Positive (Negative) H 09/03/18 12:35 C. difficile (EIA) Intrp Negative (Negative) 08/29/18 21:30 Microbiology 08/29/18 18:44 Blood Blood Culture - Final No Growth after 144 hours 09/01/18 20:20 Urine,Voided Urine Culture - Final 08/29/18 17:15 Urine,Catheterized Urine Culture - Final Pseudomonas aeruginosa Assessment and Plan (1) UTI (urinary tract infection) Narrative/Plan: Is noted there is evidence of Pseudomonas in her urine antibiotic therapy has been transitioned to ceftazidime for this. Blood cultures are negative so far. Regretfully it is resistant to quinolone therapy and will require intravenous antibiotic therapy at the time of her discharge 09/02/2018 patient will transition to extended care to complete her 2 week course of intravenous antibiotic therapy with ceftazidime for her pseudomonas urinary tract infection. Midline catheter placed and anticipate transfer to extended care soon. Patient having no fevers or chills and seems to be comfortable. Patient stable complete the course of intravenous antibiotic therapy at the extended care facility over 14 days. Anticipate discharge today 09/05/2018. Current Visit: Yes Status: Acute Code(s): N39.0 - URINARY TRACT INFECTION, SITE NOT SPECIFIED SNOMED Code(s): 39909005
[2018-09-06] MEDS: FERROUS SULFATE 325 MG TAB PO SCH (06:35)
[2018-09-06] MEDS: PANTOPRAZOLE 40 MG TABLET PO SCH (06:35)
[2018-09-06] MEDS: IPRATROPIUM-ALBUTEROL 3 ML NEB INHALATION SCH (06:58)
[2018-09-06] MEDS: ASPIRIN 81 MG PO SCH (08:12)
[2018-09-06] MEDS: DILTIAZEM ORAL 30 MG TAB PO SCH (08:12)
[2018-09-06] MEDS: SERTRALINE 100 MG TAB PO SCH (08:12)
[2018-09-06] MEDS: APIXABAN 2.5 MG TABLET PO SCH (08:12)
[2018-09-06] MEDS: MAGNESIUM OXIDE 400 MG TAB PO SCH (08:12)
[2018-09-06] MEDS: LACTOBACILLUS ACIDOPH & BULGAR 1 EACH PACKET PO SCH (08:12)
[2018-09-06] MEDS: CHERRY FLAVOR 60 ML BOTTLE PO SCH (08:12)
[2018-09-06] MEDS: VANCOMYCIN ORAL SOLUTION 250 MG/5 ML BOTTLE PO SCH (08:12)
[2018-09-06] MEDS: ONDANSETRON 4 MG/2 ML VIAL IVP SCH (08:13)
[2018-09-06 08:26] VITALS: BP 119/52; PULSE 77; RESP 20; TEMP 97.1
--- NOTE | 2018-09-06 10:41 | P.PN ---
Subjective This is a pleasant 88 years old female with past medical history of dementia, COPD, GERD, hypertension, frequent UTI, status post right-sided colostomy. Presents because of altered mental status home on generalized weakness and found to have UTI and acute kidney injury. There was suspicion of some blood in the stomach back, she is been evaluated and thought its is a diffuse to irritation to the mucosa in the area. Patient is still confused. To time place and person. She has leukocytosis of 20 2.1K going down to 12.3 K, repeat WBC still pending. She has mild hyperkalemia. Creatinine is 2.1 and 1.9. Baseline creatinine is around 1.0. Urine culture showing gram-negative bacilli 09/01/18 And is awake and alert and she was sitting in bed eating her breakfast. She is oriented to place and partially to person. Normal to time. She still feeling generally weak but no dysuria or urgency, her increased frequency is improving. No more blood was noticed in the colostomy back. Urine culture is growing Pseudomonas. Infectious disease consulted. Patient still has PEG tube in a Place, however patient is able to eat. Her WBC is 11.7. And his creatinine is improved to 1.2. Nephrology R following the patient's she still on sodium bicarb. 09/02/2018 Patient's is alert awake, oriented to place, but not to time and partially to person. Patient looks same to yesterday with little improvement. Her WBC is 13.9 K today. BMP was unremarkable except for creatinine of 1.17. ID input is appreciated. Patient is on ceftazidime. Also on oral vancomycin for C. diff prophylaxis. Does the case with the social problems specialist/watch caser, most likely patient will be discharged to rehab when she is ready to go home. 09/03/18 pt was going to be discharged today back to her ECF, however she vomited once this morning, abd xray and cxr were unremarkable , however there was some red colored discharge in her colostomy bag , and son was concern, surgical follow up is requested. as pt is on eilquis we will check occult blood in gi discharge. hold discharge and son is aware . 09/04/18 Patient clinically looks the same. With a slow gradual improvement. There was a brown stool in her colostomy bag. No fresh blood was noted. Vital some blood pressure looks his stable. Patient afebrile and she saturating 94% on room air. Her hemoglobin is slightly low from 11.2 to 10.7. Chest positive for occult blood and she is on Eliquis. We will resume a liquids today. surgical follow-up. Discussed with the staff Discharge planning 24-48 hours. 09/06/2018 Date of service is 09/05/2018. Patient supposed to be discharged yesterday however her PICC line was removed accidentally. So disregard the discharge summary from yesterday. Patient mental status is at baseline. No blood in her colostomy bag with only yellow brownish stool. Abdominal examination is benign and patient denies abdominal pain. No nausea vomiting. Patient can be discharged to her ECF once her PICC line/midline placed for distended therapy with antibiotic. Objective - Vital Signs Vital signs: Vital Signs Temp 97.1 F L 09/06/18 08:00 Pulse 77 09/06/18 08:00 Resp 20 09/06/18 08:00 BP 119/52 09/06/18 08:00 Pulse Ox 95 09/06/18 08:00 Intake & Output 09/05/18 09/06/18 09/06/18 18:59 06:59 18:59 Intake Total 784 120 240 Output Total 1100 550 Balance -316 -430 240 Weight 70.1 kg 71 kg Intake: Intake, IV Titration 100 Amount cefTAZidime 2 gm In 100 Sodium Chloride 0.9% 100 ml @ 100 mls/hr IVPB DAILY [facility] Rx#:[id number] Oral 684 240 Tube Feeding 120 Output: Urine 925 Stool 175 550 Other: Voiding Method Bedside Commode Bedside Commode Bedside Commode Diaper Diaper Incontinent Incontinent # Voids 1 1 - Exam -GENERAL: The patient is alert and oriented x0, not in any acute distress. HEENT: Pupils are round and equally reacting to light. EOMI. No scleral icterus. No conjunctival pallor. Normocephalic, atraumatic. No pharyngeal erythema. No thyromegaly. CARDIOVASCULAR: S1 and S2 present. No murmurs, rubs, or gallops. PULMONARY: Chest is clear to auscultation, no wheezing or crackles. ABDOMEN: Soft, nontender, nondistended, normoactive bowel sounds. No palpable organomegaly. Right colostomy bag, looks empty with no blood in it. MUSCULOSKELETAL: No joint swelling or deformity. EXTREMITIES: No cyanosis, clubbing, or pedal edema. NEUROLOGICAL: Gross neurological examination did not reveal any focal deficits. SKIN: No rashes. - Labs CBC & Chem 7: 09/05/18 05:53 09/05/18 12:37 Assessment and Plan Assessment: possible recurrent gi bleed , while on eliquis Acute kidney injury, possibly prerenal, from dehydration and urinary tract infection Metabolic encephalopathy History of dementia Urinary tract infection, with pseudomonas. 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 Plan: This is a pleasant 88 years old female who presents because of UTI and altered mental status. Continue with antibiotics and fluids.Labs and medication were reviewed.. Continue same treatment. Continue with symptomatic treatment. Resume home medication. Monitor lytes and vitals. DVT and GI prophylaxis. Further recommendations of the clinical course of the patient DVT prophylaxis: eliquis GI Prophylaxis: Protonix PT/OT: Pending Prognosis is guarded
--- NOTE | 2018-09-06 10:42 | P.DS ---
Providers Date of admission: 08/29/18 19:44 Attending physician: Ya Jones Consults: 08/29/18 18:17 Consult Physician Routine Consulting Provider: Kyler Kincaid Consult Reason/Comments: uti, c diff Do you want consulting provider notified?: Yes 08/29/18 22:52 Consult Physician Routine Consulting Provider: Gregor Springer Consult Reason/Comments: Afib RVR Do you want consulting provider notified?: Yes, Notify in am 08/29/18 22:53 Consult Physician Routine Consulting Provider: Anival Garcia Consult Reason/Comments: blood in the ileostomy Do you want consulting provider notified?: Yes 08/30/18 11:29 Consult Physician Routine Consulting Provider: Melvin Doan Consult Reason/Comments: arf Do you want consulting provider notified?: Yes Primary care physician: Amy Chan Hospital Course: Discharge diagnoses Urinary tract infection, with pseudomonas. 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 Hospital course: This is a pleasant 88 years old female with past medical history of dementia, COPD, GERD, hypertension, frequent UTI, status post right-sided colostomy. Presents because of altered mental status at home with generalized weakness and found to have UTI secondary to Pseudomonas, IV team evaluated the patient and the plan is to discharge the patient on 2 weeks of ceftazidime with PICC line is placed on the left side. Patient also on by mouth vancomycin as prophylaxis against C. diff. She is afebrile and her leukocytosis improved to 11.5 K. She had acute kidney injury on admission but creatinine improved from 1.99 to 1.05 upon discharge, nephrology team cleared the patient for discharge. There was suspicion of some blood in the stoma bag of her colostomy, she is been evaluated by surgical team and thought its is due to to irritation to the mucosa locally. No more bleeding and her hemoglobin is stableAt 11.5 upon discharge. Surgery team recommended to her bleeding recurs then anticoagulation may need to be stopped. As patient is on Eliquis 2.5 mg twice a day. I discussed this recommendation with the son Mr. prado including but not limited to the risk of bleeding, recurrent thrombosis, organ dysfunction and or , He verbalized understanding and acceptance to continue with Odetteis for now. Today her potassium was high at 6.1. Patient got Kayexalate and her potassium went down to 4.9. We're comment to monitor potassium closely and place the patient left potassium diet. Patient clinical status improved and back close to her normal status she is more awake and alert, she is somewhat confused about time and partially about person, looks like similar to her baseline. She's been stable over few days. Patient was cleared for discharge by the ID, nephrology and surgery team Problems and management plan were discussed with the patient and family. Patient was found stable and can be discharged to rehab however she needs follow -up as an outpatient. physical exam Gen.: Patient alert awake and oriented X [address] and person but not time. NOT IN DISTRESS CVS: s1-s2, RRR, no murmur CHEST:bilateral CTA, no wheezing or crepitation Abdomen: Soft, no tenderness, no distention, positive bowel sounds. Colostomy back on the right lower abdomen with yellow-brown stool. No fresh blood was seen Extremities: No leg edema or induration. PICC line on the left arm medially. Time spent more than 35 minutes Patient Condition at Discharge: Fair Plan - Discharge Summary Discharge Rx Participant: No New Discharge Prescriptions: New cefTAZidime [Fortaz] 2 gm IVPB DAILY #14 vial RX: Acetaminophen Tab [Tylenol] 650 mg PO Q6HR PRN tab PRN Reason: Fever And/ Or Pain RX: Diltiazem Oral [Cardizem*] 90 mg PO TID tab RX: Ferrous Sulfate [Iron (65 MG Elemental)] 325 mg PO BID-W/MEALS tab RX: Magnesium Oxide [Mag-Ox] 400 mg PO BID 5 Days #10 tab RX: Pantoprazole [Protonix] 40 mg PO AC-BRKFST tablet. Continue RX: Aspirin EC [Ecotrin Low Dose] 81 mg PO DAILY RX: Sertraline [Zoloft] 100 mg PO DAILY RX: L.acidoph,Paracasei, B.lactis [Probiotic] 1 cap PO DAILY RX: Omeprazole 20 mg PO HS RX: Ipratropium-Albuterol Nebulize [Duoneb 0.5 mg-3 mg/3 ml Soln] 3 ml INHALATION RT-QID #120 ampul.neb RX: Vancomycin HCl 125 mg PO DAILY RX: Ondansetron [Zofran] 4 mg PO TID RX: Apixaban [Eliquis] 2.5 mg PO BID Changed RX: Dronabinol [Marinol] 5 mg PO HS PRN #3 capsule PRN Reason: Pain Discontinued Diltiazem Oral [Cardizem*] 60 mg PO TID RX: hydrALAZINE HCL [Apresoline] 50 mg PO QID Discharge Medication List RX: Aspirin EC [Ecotrin Low Dose] 81 mg PO DAILY 06/01/18 [History] RX: L.acidoph,Paracasei, B.lactis [Probiotic] 1 cap PO DAILY 06/01/18 [History] RX: Omeprazole 20 mg PO HS 06/01/18 [History] RX: Sertraline [Zoloft] 100 mg PO DAILY 06/01/18 [History] RX: Ipratropium-Albuterol Nebulize [Duoneb 0.5 mg-3 mg/3 ml Soln] 3 ml INHALATION RT-QID #120 ampul.neb 07/01/18 [Rx] RX: Apixaban [Eliquis] 2.5 mg PO BID 08/29/18 [History] RX: Ondansetron [Zofran] 4 mg PO TID 08/29/18 [History] RX: Vancomycin HCl 125 mg PO DAILY 08/29/18 [History] cefTAZidime [Fortaz] 2 gm IVPB DAILY #14 vial 09/02/18 [Rx] RX: Acetaminophen Tab [Tylenol] 650 mg PO Q6HR PRN tab 09/05/18 [Rx] RX: Diltiazem Oral [Cardizem*] 90 mg PO TID tab 09/05/18 [Rx] RX: Dronabinol [Marinol] 5 mg PO HS PRN #3 capsule 09/05/18 [Rx] RX: Ferrous Sulfate [Iron (65 MG Elemental)] 325 mg PO BID-W/MEALS tab [Rx] RX: Magnesium Oxide [Mag-Ox] 400 mg PO BID 5 Days #10 tab 09/05/18 [Rx] RX: Pantoprazole [Protonix] 40 mg PO AC-BRKFST tablet. 09/05/18 [Rx] Follow up Appointment(s)/Referral(s): Anival Garcia MD [Medical Doctor] - 2 Weeks Kyler Kincaid MD [STAFF PHYSICIAN] - 2 Weeks [facility], [NON-STAFF] - Amy Chan MD [Primary Care Provider] - 1-2 days Patient Instructions/Handouts: A-fib (Atrial Fibrillation) (DC), Acute Kidney Injury (DC), Urinary Tract Infection in Women (DC) Activity/Diet/Wound Care/Special Instructions: cardiac diet . low potassium diet activity as tolerated please monitor hemoglobin and potassium level closely ... also monitor her white blood cell count Discharge Disposition: TRANSFER TO SNF/ECF
== END 2018-09-06 10:20 | DRG 682 ==
LOC: EC 14:50 → 4MS4W 18:14 → 3SCARD 19:38 → OBSVTOIN 19:44 → 3SCARD 19:46
PROVIDERS: ADMIT Hospitalist; ATTEND Hospitalist
PROC: 05HC33Z Insertion of Infusion Device into Left Basilic Vein, Percutaneous Approach (ICD-10-PCS; principal; 2018-09-02 13:30)
PROC: B54NZZA Ultrasonography of Left Upper Extremity Veins, Guidance (ICD-10-PCS; principal; 2018-09-02 13:30)
PROC: 3E03329 Introduction of Other Anti-infective into Peripheral Vein, Percutaneous Approach (ICD-10-PCS; principal; 2018-09-02 13:30)
PROC: 05HC33Z Insertion of Infusion Device into Left Basilic Vein, Percutaneous Approach (ICD-10-PCS; 2018-09-06 08:10)
PROC: B54NZZA Ultrasonography of Left Upper Extremity Veins, Guidance (ICD-10-PCS; 2018-09-06 08:10)
PROC: 3E03329 Introduction of Other Anti-infective into Peripheral Vein, Percutaneous Approach (ICD-10-PCS; 2018-09-06 08:10)
DX: N17.0 Acute kidney failure with tubular necrosis (principal); G93.41 Metabolic encephalopathy; N39.0 Urinary tract infection, site not specified; E87.2 Acidosis; E87.1 Hypo-osmolality and hyponatremia; K92.2 Gastrointestinal hemorrhage, unspecified; E86.0 Dehydration; E87.5 Hyperkalemia; E86.1 Hypovolemia; I48.2 Chronic atrial fibrillation; E83.42 Hypomagnesemia; J44.9 Chronic obstructive pulmonary disease, unspecified; F03.90 Unspecified dementia, unspecified severity, without behavioral disturbance, psychotic disturbance, mood disturbance, and anxiety; I35.0 Nonrheumatic aortic (valve) stenosis; B96.5 Pseudomonas (aeruginosa) (mallei) (pseudomallei) as the cause of diseases classified elsewhere; D64.9 Anemia, unspecified; I10 Essential (primary) hypertension; K21.9 Gastro-esophageal reflux disease without esophagitis; F40.240 Claustrophobia; Z93.2 Ileostomy status; Z93.1 Gastrostomy status; Z79.01 Long term (current) use of anticoagulants; Z79.82 Long term (current) use of aspirin; Z79.899 Other long term (current) drug therapy; Z87.440 Personal history of urinary (tract) infections; Z90.49 Acquired absence of other specified parts of digestive tract; Z90.710 Acquired absence of both cervix and uterus; Z86.19 Personal history of other infectious and parasitic diseases; Z88.1 Allergy status to other antibiotic agents; Z88.0 Allergy status to penicillin; Z88.2 Allergy status to sulfonamides; Z84.1 Family history of disorders of kidney and ureter
CPT/HCPCS: 36415; 36569; 51701; 71046; 74018; 74019; 76937; 80048; 80053; 81001; 82272; 82550; 82553; 83735; 84100; 84132; 84484; 85025; 85027; 85610; 85730; 87040; 87077; 87086; 87186; 87324; 93005; 94640; 94760; 96361; 96365; 96374; 96375; 99285